=== PATIENT | female | born 1995 | race Hispanic/Latino ===

== ENCOUNTER 2020-05-07 14:27 | Observation (INO) | payer BC ==
--- OUTSIDE RECORDS SUMMARY | 2020-05-07 14:32 | XMS REPORT | Continuity of Care Document ---
:1995 Author Organization [facility] t Address [address] [place] [address] Care Team Providers Name Role Phone Unavailable Unavailable Unavailable Payers Payer Name Policy Type Policy Number Effective Date Expiration Date S ource Problems This patient has no known problems. Allergies, Adverse Reactions, Alerts Allergy Allergy Status Severity Reaction(s) Onset Inactive Treating Comm ents Source Name Type Date Date Clinician nkda DA Active U [facility] 3-31 Clear 00:00: [address] Medications This patient has no known medications. Procedures This patient has no known procedures. Results Test Description Test Time Test Comments Results Result Comments Source GLUCOSE BEDSIDE TESTING 2020-01-14 11:16:00 Test Item Value Reference Range Interpretation Comme nts GLUCOSE BEDSIDE TESTING (test code = GLUBED) 249 mg/dL 70-110 H GLUCOSE BEDSIDE [id number] 08:07:00 Test Item Value Reference Range Interpretation Comments GLUCOSE BEDSIDE TESTING (test code 211 mg/dL 70-110 H = GLUBED) BASIC METABOLIC [id number] 07:41:00 Test Item Value Reference Range Interpretation Comments SODIUM (test code = NA) 139 mmol/L 134-147 N POTASSIUM (test code = 3.3 mmol/L 3.4-5.0 L K) CHLORIDE (test code = 110 mmol/L 100-108 H CL) CARBON DIOXIDE (test 21 mmol/L 21-32 N code = CO2) ANION GAP (test code = 8.0 GAP calc 4.0-15.0 N GAP) GLUCOSE (test code = 217 MG/DL 70-110 H GLU) BLOOD UREA NITROGEN 11 MG/DL 7-18 N (test code = BUN) GLOMERULAR FILTRATION >=60 max estimate >60 RATE (test code = GFR) estGFR CREATININE (test code = 0.4 MG/DL 0.6-1.0 L CREAT) CALCIUM (test code = CA) 8.4 MG/DL 8.5-10.1 L CBC W/AUTO [id number] 07:37:00 Test Item Value Reference Range Interpretation Comments WHITE BLOOD CELL (test code = 4.8 K/mm3 3.5-11.0 N WBC) RED BLOOD CELL (test code = RBC) 4.15 M/mm3 4.70-6.10 L HEMOGLOBIN (test code = HGB) 12.7 G/DL 10.4-14.9 N HEMATOCRIT (test code = HCT) 38.1 % 31.5-44.1 N MEAN CELL VOLUME (test code = 91.8 Fl 84.5-98.6 N MCV) MEAN CELL HGB (test code = MCH) 30.6 pg 27.0-34.2 N MEAN CELL HGB CONCETRATION (test 33.3 G/DL 31.5-34.0 N code = MCHC) RED CELL DISTRIBUTION WIDTH (test 12.3 SD 11.5-14.5 N code = RDW) PLATELET COUNT (test code = PLT) 140.0 K/mm3 150-450 L MEAN PLATELET VOLUME (test code = 12.00 fL 7.0-10.5 H MPV) NEUTROPHIL % (test code = NT%) 42.8 % 40-76 LYMPHOCYTE % (test code = LY%) 50.0 % 20.5-51.1 N MONOCYTE % (test code = MO%) 6.0 % 1.7-9.3 N EOSINOPHIL % (test code = EO%) 1.0 % 0.0-6.0 N BASOPHIL % (test code = BA%) 0.2 % 0.0-2.0 N NEUTROPHIL # (test code = NT#) 2.06 K/mm3 1.8-7.6 N LYMPHOCYTE # (test code = LY#) 2.4 K/mm3 0.6-3.2 N MONOCYTE # (test code = MO#) 0.3 K/mm3 0.3-1.1 N EOSINOPHIL # (test code = EO#) 0.1 K/mm3 0.0-0.4 N BASOPHIL # (test code = BA#) 0.0 K/mm3 0.0-0.1 N MANUAL DIFF REQUIRED (test code = NO DIFF/SCN CRITERIA MDIFF) GLUCOSE BEDSIDE [id number] 20:23:00 Test Item Value Reference Range Interpretation Comments GLUCOSE BEDSIDE TESTING (test code 280 mg/dL 70-110 H = GLUBED) GLUCOSE BEDSIDE [id number] 16:30:00 Test Item Value Reference Range Interpretation Comments GLUCOSE BEDSIDE TESTING (test code 255 mg/dL 70-110 H = GLUBED) GLUCOSE BEDSIDE [id number] 11:59:00 Test Item Value Reference Range Interpretation Comments GLUCOSE BEDSIDE TESTING (test code 281 mg/dL 70-110 H = GLUBED) BASIC METABOLIC [id number] 11:02:00 Test Item Value Reference Range Interpretation Comments SODIUM (test code = NA) 137 mmol/L 134-147 N POTASSIUM (test code = 3.4 mmol/L 3.4-5.0 N K) CHLORIDE (test code = 108 mmol/L 100-108 N CL) CARBON DIOXIDE (test 21 mmol/L 21-32 N code = CO2) ANION GAP (test code = 8.0 GAP calc 4.0-15.0 N GAP) GLUCOSE (test code = 355 MG/DL 70-110 H GLU) BLOOD UREA NITROGEN 10 MG/DL 7-18 N (test code = BUN) GLOMERULAR FILTRATION >=60 max estimate >60 RATE (test code = GFR) estGFR CREATININE (test code = 0.5 MG/DL 0.6-1.0 L CREAT) CALCIUM (test code = CA) 7.9 MG/DL 8.5-10.1 L GLUCOSE BEDSIDE [id number] 08:07:00 Test Item Value Reference Range Interpretation Comments GLUCOSE BEDSIDE TESTING (test code 236 mg/dL 70-110 H = GLUBED) GLUCOSE BEDSIDE [id number] 01:06:00 Test Item Value Reference Range Interpretation Comments GLUCOSE BEDSIDE TESTING (test code 298 mg/dL 70-110 H = GLUBED) GLYCOSYLATED HEMOGLOBIN [id number] 01:00:00 Test Item Value Reference Range Interpretation Comments GLYCOSYLATED HEMOGLOBIN (HA1C) > 14.0 % A1C 0.0-5.7 H (test code = GLYHGB) ESTIMATED AVERAGE GLUCOSE (test 355 MG/DLest code = EAG) COMPREHENSIVE METABOLIC [id number] 00:39:00 Test Item Value Reference Range Interpretation Comments SODIUM (test code = NA) 137 mmol/L 134-147 N POTASSIUM (test code = 3.5 mmol/L 3.4-5.0 N K) CHLORIDE (test code = 104 mmol/L 100-108 N CL) CARBON DIOXIDE (test 19 mmol/L 21-32 L code = CO2) ANION GAP (test code = 14.0 GAP calc 4.0-15.0 N GAP) GLUCOSE (test code = 297 MG/DL 70-110 H GLU) BLOOD UREA NITROGEN 9 MG/DL 7-18 N (test code = BUN) GLOMERULAR FILTRATION >=60 max estimate >60 RATE (test code = GFR) estGFR CREATININE (test code = 0.7 MG/DL 0.6-1.0 N CREAT) TOTAL PROTEIN (test code 6.4 G/DL 6.4-8.2 N = PROT) ALBUMIN (test code = 3.3 G/DL 3.4-5.0 L ALB) GLOBULIN (test code = 3.1 GM/dL GLOB) ALBUMIN/GLOBULIN RATIO 1.1 RATIO 1.2-2.2 L (test code = A/G) CALCIUM (test code = CA) 8.0 MG/DL 8.5-10.1 L BILIRUBIN TOTAL (test 0.30 MG/DL 0.2-1.2 N code = BILT) SGOT/AST (test code = 21 Unit/L 15-37 N AST) SGPT/ALT (test code = 21 Unit/L 12-78 N ALT) ALKALINE PHOSPHATASE 115 Unit/L 45-117 N TOTAL (test code = ALKP) [id number] 00:39:00 Test Item Value Reference Range Interpretation Comments PHOSPHOROUS (test code = PHOS) 2.4 MG/DL 2.5-4.9 L [id number] 00:39:00 Test Item Value Reference Range Interpretation Comments MAGNESIUM (test code = MAG) 1.9 MG/DL 1.8-2.4 N DRUGS OF ABUSE SCREEN [id number] 00:26:00 Test Item Value Reference Range Interpretation Comments URN COCAINE (test code = NEGATIVE SCcutoff <300 NG/ML COCAURN) URN CANNABINOIDS (test code NEGATIVE SCcutoff <50 NG/ML = CANNABURN) URN AMPHETAMINE (test code NEGATIVE SCcutoff <1000 NG/ML = AMPHETURN) URN BARBITURATE (test code NEGATIVE SCcutoff <200 NG/ML = BARBITURN) URN BENZODIAZEPINE (test NEGATIVE SCcutoff <200 NG/ML code = BENZOURN) URN OPIATES (test code = NEGATIVE SCcutoff <2000 NG/ML OPIATURN) URN PHENCYCLIDINE (PCP) NEGATIVE SCcutoff <25 NG/ML (test code = PHENCURN) URN METHADONE (test code = NEGATIVE SCcutoff <300 NG/ML METHAURN) CBC W/AUTO [id number] 00:12:00 Test Item Value Reference Range Interpretation Comments WHITE BLOOD CELL (test code = 9.0 K/mm3 3.5-11.0 N WBC) RED BLOOD CELL (test code = RBC) 4.21 M/mm3 4.70-6.10 L HEMOGLOBIN (test code = HGB) 13.1 G/DL 10.4-14.9 N HEMATOCRIT (test code = HCT) 37.6 % 31.5-44.1 N MEAN CELL VOLUME (test code = 89.3 Fl 84.5-98.6 N MCV) MEAN CELL HGB (test code = MCH) 31.1 pg 27.0-34.2 N MEAN CELL HGB CONCETRATION (test 34.8 G/DL 31.5-34.0 H code = MCHC) RED CELL DISTRIBUTION WIDTH (test 11.6 SD 11.5-14.5 N code = RDW) PLATELET COUNT (test code = PLT) 184.0 K/mm3 150-450 N MEAN PLATELET VOLUME (test code = 11.50 fL 7.0-10.5 H MPV) NEUTROPHIL % (test code = NT%) 70.4 % 40-76 N LYMPHOCYTE % (test code = LY%) 23.7 % 20.5-51.1 N MONOCYTE % (test code = MO%) 5.5 % 1.7-9.3 N EOSINOPHIL % (test code = EO%) 0.2 % 0.0-6.0 N BASOPHIL % (test code = BA%) 0.2 % 0.0-2.0 N NEUTROPHIL # (test code = NT#) 6.32 K/mm3 1.8-7.6 N LYMPHOCYTE # (test code = LY#) 2.1 K/mm3 0.6-3.2 N MONOCYTE # (test code = MO#) 0.5 K/mm3 0.3-1.1 N EOSINOPHIL # (test code = EO#) 0.0 K/mm3 0.0-0.4 N BASOPHIL # (test code = BA#) 0.0 K/mm3 0.0-0.1 N MANUAL DIFF REQUIRED (test code = NO DIFF/SCN CRITERIA MDIFF)
[2020-05-07] MEDS ORDERED: MORPHINE 2 MG/ML SYR IV PRN (15:09)
[2020-05-07 15:18] VITALS: BMI 26.4
[2020-05-07] MEDS: metroNIDAZOLE 500 MG TABLET PO SCH (16:13)
[2020-05-07] MEDS: NA CHLORIDE 0.9% 1,000 ML IV SCH (16:14)
[2020-05-07] MEDS ORDERED: D50W 25 GM/50 ML SYRINGE/VIAL IV PRN (20:09)
[2020-05-07] MEDS ORDERED: GLUCAGON 1 MG/VIAL IM PRN (20:09)
[2020-05-07] MEDS: CIPROFLOXACIN 400mg IV 400 MG/200 ML BAG IV SCH (20:54)
[2020-05-07] MEDS: INSULIN -REGULAR HUMAN 50 UNIT/0.5 ML ML SQ SCH (20:54)
--- NOTE | 2020-05-08 01:14 | P.CNS ---
Date of Consult: 05/08/20 Reason for Consult: Management of diabetes Requesting Physician: Neo Munoz Chief Complaint: Hyperglycemia History of Present Illness: 24-year-old woman with a history of insulin-dependent adult onset diabetes presented with a complaint of left breast abscess. Patient is admitted to the surgical service. Her blood sugar on the floor was elevated to 400. Hospitalist service is consulted to assist with management of her diabetes. Patient is on Lantus insulin regimen, 50 units daily, and NovoLog 15 units with meals. She missed her Lantus insulin does this morning. Her Blood sugar has currently decreased to 233. Patient is currently NPO for possible surgery in a.m. Allergies No Known Allergies Allergy (Verified 05/07/20 15:26) Home Medications: Dicloxacillin Sodium 1 cap PO Q6H 05/07/20 Insulin Aspart [Novolog Flexpen] 15 units SQ TIDWM 05/07/20 Insulin Glargine Human [Lantus*] 50 units SQ DAILY 05/07/20 Potassium Chloride 1 tab PO DAILY 05/07/20 - Past Medical/Surgical History Diabetic: Yes -: Diabetes -: I&D of inguinal abscess - Family History Mother Medical History: Diabetes - Social History Smoking Status: Never smoker Alcohol use: Yes CD- Drugs: No Caffeine use: Yes Place of Residence: Home Review of Systems Other: Except as documented, all other systems reviewed and negative. Physical Examination Temp Pulse Resp BP Pulse Ox 97.6 F 87 15 111/66 96 05/08/20 00:00 05/08/20 00:00 05/08/20 00:00 05/08/20 00:00 05/08/20 00:00 General: Alert, In no apparent distress, Oriented x3 Neck: Supple, JVD not distended Respiratory: Clear to auscultation bilaterally, Normal air movement Cardiovascular: No edema, Regular rate/rhythm, Normal S1 S2 Gastrointestinal: Normal bowel sounds, Soft and benign, No tenderness Musculoskeletal: No swelling, No erythema Integumentary: No rashes, Other (Abscess left lower outer quadrant of areolar) Neurological: Normal speech, Normal strength at 5/5 x4 extr, Cranial nerves 3-12 intact Laboratory Data (last 24 hrs) 05/07/20 : Sodium Cancelled, Potassium Cancelled, BUN Cancelled, Creatinine Cancelled, Glucose Cancelled 05/07/20 19:54: Glucose 483 H* - Problems (1) Diabetes 1.5, managed as type 1 Current Visit: Yes Status: Acute (2) Breast abscess Current Visit: Yes Status: Acute Conclusions/Impression: Would recommend adding IV vancomycin to her antibiotics given recent history of inguinal abscess needing I&D. Hold Lantus insulin as patient is NPO for possible surgery in am. Manage blood sugar with insulin sliding scale. Blood glucose target of less than 200 for optimal infection control and healing.
[2020-05-08] MEDS ORDERED: VANCOMYCIN/NS 1 gm 1 GM/250 ML BAG IVPB SCH (01:30)
[2020-05-08] MEDS ORDERED: VANCOMYCIN 1 GM/VIAL ONE (01:36)
[2020-05-08] MEDS ORDERED: NA CHLORIDE 0.9% 250 ML ONE (01:38)
[2020-05-08] MEDS ORDERED: VANCOMYCIN 1 GM in NA CHLORIDE 0.9% 250 ML IVPB SCH ×2 (02:00→14:00)
[2020-05-08] MEDS: metroNIDAZOLE 500 MG TABLET PO SCH (03:40)
[2020-05-08 06:08] LABS: BUN Blood Urea Nitrogen 21 mg/dL (7-18); Bicarbonate 21 mmol/L (21-32); Glucose Level 225 mg/dL (74-106); Potassium 3.9 mmol/L (3.5-5.1); Sodium Level 140 mmol/L (136-145)
[2020-05-08] MEDS: INSULIN -REGULAR HUMAN 50 UNIT/0.5 ML ML SQ SCH ×2 (08:26→12:03)
[2020-05-08] MEDS: CIPROFLOXACIN 400mg IV 400 MG/200 ML BAG IV SCH (08:27)
[2020-05-08] MEDS: NA CHLORIDE 0.9% 1,000 ML IV SCH (08:40)
[2020-05-08] MEDS ORDERED: BUPIVACAINE 0.5% PF 10 ML VIAL ONE (09:59)
[2020-05-08] MEDS ORDERED: NA CHLORIDE 0.9% 1,000 ML ONE (10:01)
[2020-05-08] MEDS ORDERED: INSULIN -REGULAR HUMAN 50 UNIT/0.5 ML ML ONE (10:06)
[2020-05-08] MEDS ORDERED: LIDOCAINE 2% MPF 5 ML VIAL ONE (10:07)
[2020-05-08] MEDS ORDERED: propofoL 200 MG/20 ML VIAL IV ONE (10:07)
[2020-05-08] MEDS ORDERED: FENTANYL CITR 100 MCG/2 ML ONE (10:07)
[2020-05-08] MEDS ORDERED: dexAMETHasone 10 MG/ML VIAL ONE (10:09)
[2020-05-08] MEDS ORDERED: ONDANSETRON 4 MG/2 ML VIAL ONE (10:09)
[2020-05-08] MEDS ORDERED: KETOROLAC 30 MG/ML INJ ONE (10:09)
[2020-05-08] MEDS ORDERED: HYDROCODONE/APAP 5/325 MG TAB PO PRN (10:14)
--- NOTE | 2020-05-08 10:23 | P.BOP ---
Preoperative diagnosis: left breast cellulitis, abscess, uncontrolled diabetes Postoperative diagnosis: same Primary procedure: Incision and drainage of complex left breast abscess Estimated blood loss: <10cc Specimen: pus Findings: as above Anesthesia: General Drain(s): Other (wet to dry) Transferred to: Recovery Room Condition: Good
[2020-05-08 11:22] VITALS: TEMP 97.1; O2SAT 97
[2020-05-08 11:35] LABS: Absolute Lymphocytes (CBC) 1.1 K/uL (0.7-4.9); Basophils % 0.4 % (0-1.3); Hematocrit 39.4 % (36.0-45.0); Lymphocytes % 14.8 % (15.3-44.8); MPV 10.4 fL (7.6-11.3); RBC Red Blood Cell Count 4.37 M/uL (3.86-4.86)
--- NOTE | 2020-05-08 11:49 | OP ---
Date of Procedure: 05/08/2020 Surgeon: Neo Munoz MD Preoperative Diagnosis: Left breast cellulitis, abscess, diabetes. Postoperative Diagnosis: Left breast cellulitis, abscess, diabetes. Procedure: Incision and drainage of complex left breast abscess with breast incisional biopsy. Specimen: Pus and a breast biopsy. Anesthesia: General plus local. Indications: This is a case of a 24-year-old patient with a large abscess of the left breast. The p atient understands the need for incision and drainage with benefits and risks including, but not limi rodrigo to infection, bleeding, damage to adjacent structures and complication, nonhealing wound, UT, and . She understands this may not relieve any symptoms. She might need more than one surgical int ervention. She will require wound care. She signed a consent. Description Of Procedure: The patient was brought to the operating room, placed in supine position. Anesthesia was done without complication. A time-out was called. Left breast was prepped and drape d in sterile fashion followed by incision in the breast. Immediately a large amount of pus was obtai daniele in culture. Incision was extended until we have entire cavity visualized with all the loculation s were explored and opened. All the pus was removed. Hemostasis was obtained. Biopsy was done over the abscessed breast area and the area was packed with dry dressing after putting a local anesthetic. The patient tolerated the procedure well. The patient was sent to recovery in stable co ndition. KODY/JC Voice ID: [id number] Report ID: [id number]
--- NOTE | 2020-05-08 11:58 | HP ---
Date of Admission: 05/07/2020 Diagnosis: Left breast cellulitis abscess. History Of Present Illness: This is a case of a 24-year-old patient seen by Dr. Salter in her offi ce for the last few days with cellulitis of the left breast, but yesterday afternoon it seems to be w orse. Dr. Salter just called me to describe her situation. We explained the need for incision and drainage, so orders for admission and she came last night to the hospital and was admitted to my ser vice for a cellulitis of the left breast and also abscess need for surgery. At the same time, we fin d out that her glucose was 483, so we trying to work her diabetes too. She does remember any trauma or does remember any masses there before. Denies any dysuria, hematochezia, melena. Denies any rece nt traveling out of the country. Denies any family member sick at home. Denies any shortness of manish ath. Denies any chest pain. Denies any fever. Review of Systems: Ten points otherwise unremarkable. Physical Examination: General: The patient is awake and alert. HEENT: Pupils are equal and reactive, anicteric. Neck: Supple. Chest: Clear. Abdomen: Soft and depressible. Breast: The patient has a left breast inner upper and inner lower area of cellulitis with fluctuance presence and large abscess that cover about half of the breast. Tenderness over the area. Pelvis: Stable. Genitalia: Fair. Rectal: Deferred. Extremities: Good capillary refill. Neuro: Cranial nerves 2 through 12 grossly within normal limits. Laboratory Data: Blood work shows once again glucose 483, 487 at 1 point. Urine test nega tive. Assessment: A 24-year-old patient with a left breast abscess. The benefits, alternatives, and risks of incision and drainage fully explained to the patient which include, but not limited to infection, bleeding, damage to adjacent structures as complication, deformity, chronic pain, nonhealing wound, myocardial infarction, and even . She also understands this may not relieve any symptoms. She might need more than one surgical intervention. She understood and signed a consent. The patient wa s booked in OR. KODY/JC Voice ID: [id number]
--- NOTE | 2020-05-08 12:10 | DS ---
Diagnosis: Left breast cellulitis, abscess, and diabetes. Procedure: Incision and drainage of complex left breast abscess with breast biopsy. Disposition: Home if her CBC is okay enough to be discharged home, if she tolerates diet and if the medical doctor believes it is safe to go home since they are controlling her diabetes. She was advised once again to discuss this with her primary doctors and she comes with glu cose although may be somehow affected or exacerbated by the infection. You still have to make sure t hat she is doing the proper work at home and controlling that sugar. She understood. She was counse led about the importance of that also diet control. She will be sent home on Cipro 500 p.o. b.i.d. a nd Tylenol No.3 q.4 hours p.r.n. pain and normal saline. She has a family member who will be helping her with dressing changes. Activity: As tolerated. Plan: Follow up in my office in 1 week. KODY/JC Voice ID: [id number] Report ID: [id number]
[2020-05-08 14:41] VITALS: BP 117/71
== END 2020-05-08 14:41 | disposition home or self-care (01) ==
LOC: 2ND 14:27
PROVIDERS: ADMIT Surgery; ATTEND Surgery
PROC: 0H9U0ZX Drainage of Left Breast, Open Approach, Diagnostic (ICD-10-PCS; principal; 2020-05-07)
DX: N61.1 Abscess of the breast and nipple (principal); E13.65 Other specified diabetes mellitus with hyperglycemia; Z79.4 Long term (current) use of insulin; Z11.59 Encounter for screening for other viral diseases; Z83.3 Family history of diabetes mellitus
CPT/HCPCS: 87070; 85025; 80048; 36415; 82947 ×7; 87205 ×2; 81025; 88305; 87075; 87077; 87186; 19020; U0002; J2704; J3010; J3370 ×2; J1100; G0378 ×4; J7050 ×2; J7030 ×3; J2405; J0744 ×2; G0379; 88304

== ENCOUNTER 2022-04-07 17:52 | Inpatient (IN) | payer BC, SELFPAY ==
--- OUTSIDE RECORDS SUMMARY | 2022-04-07 17:59 | XMS REPORT | Continuity of Care Document ---
:1995 Author Organization [facility] t Address [address] [place] [address] Care Team Providers Name Role Phone [facility] Primary Care Physician Unavailab le Becky Attending Clinician Unavailable Doctor Unassigned, Name Attending Clinician Unavailable Alexi BAUMANN Attending Clinician Shivam REEVES Attending Clinician SHIVAM Attending Clinician Unavailable Becky Admitting Clinician Unavailable Shivam REEVES Admitting Clinician SHIVAM Admitting Clinician Unavailable KNOW Admitting Clinician Unavailable Payers Payer Name Policy Type Policy Number Effective Date Expiration Date S ource Problems Condition Condition Condition Status Onset Resolution Last Treating Co mments Source Name Details Category Date Date Treatment Clinician Date DKA, type DKA, type Disease Active 2020-10 Uni vers 1, not at 1, not at 1-12 ity of goal goal 00:00: [address] Diabetic Diabetic Disease Active 2020-10 Unive rs ketoacidos ketoacidos 1-11 it y of is is 00:00: [place] associated associated 00 Me dical with type with type Bran ch 2 diabetes 2 diabetes mellitus mellitus Allergies, Adverse Reactions, Alerts Allergy Allergy Status Severity Reaction(s) Onset Inactive Treating Comm ents Source Name Type Date Date Clinician katie SERRA Active U none [facility] 3-31 Clear 00:00: [place] 00 [facility] NO KNOWN Drug Active Univers ALLERGIE Class ity of [facility] Social History Social Habit Start Date Stop Date Quantity Comments Source History SDOH University o f Alcohol Frequency [place] M edical Branch History SDOH University o f Alcohol Std [place] Medical Drinks Branch History SDOH University o f Alcohol Binge [place] Medic al Branch Exposure to Not sure University of SARS-CoV-2 [facility] (event) Branch Tobacco use and 2021-08-25 2021-08-25 Current user Univers ity of exposure 00:00:00 00:00:00 [facility] Alcohol intake 2021-08-25 2021-08-25 Current drinker Unive rsity of 00:00:00 00:00:00 of alcohol [facility] (finding) [place] Alcohol Comment 2021-08-25 2021-08-25 social Universit y of 00:00:00 00:00:00 [facility] Sex Assigned At [birth year] Universit y of 00:00:00 00:00:00 [facility] Smoking Status Start Date Stop Date Source Former smoker 2021-08-25 00:00:00 2021-08-25 00:00:[address] [facility] Medications Ordered Filled Start Stop Current Ordering Indication Dosage Frequency Signature Comments Components Source Medication Medication Date Date Medication? Clinician (SIG) Name Name [facility] 2020-10- No [id number] 40meq 40 mEq, Univ ers (KLOR-CON 1-18 11-18 Oral, Q4H, ity of M20) tablet 14:00: 21:59 2 doses, [place] 40 mEq 00 :00 First dose Medical on [place] Branch 09/01/21 at 0800, Last dose on [place] 09/01/21 at 1200, Routine insulin 2020-10 Yes 30U inject 30 Unive rs aspart 1-18 Units ity of U-100 11:43: under the [place] (NOVOLOG 23 skin 3 Medical FLEXPEN (three) Branch U-100 times INSULIN) daily 100 unit/mL before (3 mL) meals. injection Insulin 2020-10 Yes 30U inject 30 Unive rs Glargine 1-18 Units ity of (LANTUS 11:43: under the [place] SOLOSTAR 23 skin 2 Medical U-100 (two) Branch INSULIN) times 100 unit/mL daily. (3 mL) injection insulin 2020-10 Yes 30U inject 30 Unive rs aspart 1-18 Units ity of U-100 11:43: under the [place] (NOVOLOG 23 skin 3 Medical FLEXPEN (three) Branch U-100 times INSULIN) daily 100 unit/mL before (3 mL) meals. injection Insulin 2020-10 Yes 30U inject 30 Unive rs Glargine 1-18 Units ity of (LANTUS 11:43: under the [place] SOLOSTAR 23 skin 2 Medical U-100 (two) Branch INSULIN) times 100 unit/mL daily. (3 mL) injection insulin 2020-10 Yes 30U inject 30 Unive rs aspart 1-18 Units ity of U-100 11:43: under the [place] (NOVOLOG 23 skin 3 Medical FLEXPEN (three) Branch U-100 times INSULIN) daily 100 unit/mL before (3 mL) meals. injection Insulin 2020-10 Yes 30U inject 30 Unive rs Glargine 1-18 Units ity of (LANTUS 11:43: under the [place] SOLOSTAR 23 skin 2 Medical U-100 (two) Branch INSULIN) times 100 unit/mL daily. (3 mL) injection atorvastati 2020-10- No [id number] 40mg Take 1 Univers n 40 mg 1-18 12-19 tablet by ity of tablet 00:00: 05:59 mouth at [place] 00 :00 bedtime Medical for 30 Branch days. atorvastati 2020-10- No [id number] 40mg Take 1 Univers n 40 mg 1-18 12-19 tablet by ity of tablet 00:00: 05:59 mouth at [place] 00 :00 bedtime Medical for 30 Branch days. atorvastati 2020-10- No [id number] 40mg Take 1 Univers n 40 mg 1-18 12-19 tablet by ity of tablet 00:00: 05:59 mouth at [place] 00 :00 bedtime Medical for 30 Branch days. potassium, 2020-10- No [id number] 2{packe 2 Packet, Univers sodium 10-31 t} Oral, QID, ity of phosphates 18:00: 18:00 1 dose, [place] (PHOS-NAK) 00 :00 First dose Med ical 280-160-250 on Sun mg packet 2 08/31/21 Packet at 1200, Routine KCL 2020-10- No [id number] 40meq 40 mEq, Univ ers (KLOR-CON 10-31 Oral, Q2H, ity of M20) tablet 14:45: 18:01 2 doses, [place] 40 mEq 00 :00 First dose Medical (after Branch last modificati on) on Sun08/31/21 at 0845, Last dose on Sun08/31/21 at 1000, Routine potassium 2020-10- No 10meq 10 mEq, IV Univers chloride in 10-30 Piggyback, i ty of water 10 17:00: 22:25 Q1H, 4 [place] mEq/100 mL 00 :00 doses, Medical RTU 10 mEq First dose Bra nch (after last reorder) on Sun08/30/21 at 1100, Last dose on Sun08/30/21 at 1400, Administer over 60 Minutes, 100 mL NaCl 0.9% 2020-10 Yes 10mL 10 mL, Univer s (NS) 10-30 Slow IV ity of injection 15:47: [place], PRN, [place] 10 mL 20 Starting Medical on Sun [place] 08/30/21 at 0947, Until Discontinu ed, Routine, line maintenanc e insulin 2020-10 Yes 40U 40 Units, Unive rs glargine 10-30 Subcutaneo ity o f (LANTUS 15:00: us, DAILY, [place] U-100) 00 First dose Medical injection (after Branch 40 Units last modificati on) on Sun08/30/21 at 0900, Until Discontinu ed, Routine KCL 2020-10- No 40meq 40 mEq, Univers (KLOR-CON 10-30 Oral, ity of M20) tablet 14:30: 14:14 ONCE, 1 [place] 40 mEq 00 :00 dose, On Medical [facility] at 0830, Routine potassium 2020-10- No 10meq 10 mEq, IV Univers chloride in 10-30 Piggyback, i ty of water 10 14:00: 16:31 Q1H, 2 [place] mEq/100 mL 00 :00 doses, Medical RTU 10 mEq First dose Bra nch on Sun08/30/21 at 0800, Last dose on Sun08/30/21 at 0900, Administer over 60 Minutes, 100 mL potassium 2020-10- No 10meq 10 mEq, IV Univers chloride in 10-30 Piggyback, i ty of water 10 04:00: 05:48 Q1H, 2 [place] mEq/100 mL 00 :00 doses, Medical RTU 10 mEq First dose [facility] (after last reorder) on Sun08/29/21 at 2200, Last dose on Sun08/29/21 at 2300, Administer over 60 Minutes, 100 mL Sliding 2020-10 Yes Subcutaneo Univ ers Scale 1-15 us, TID ity of Insulin - 23:00: MEALS+HS, [place] Lispro 00 First dose Medical (HumaLOG) + on [facility] 08/29/21 Testing at 1700, Until Discontinu ed, Routine insulin 2020-10 Yes 5U 5 Units, [facility] s lispro 15 Subcutaneo ity of (human) 23:00: us, TID [place] (HumaLOG 00 MEALS, Medical U-100) First dose Branch injection 5 (after Units last modificati on) on Sun08/29/21 at 1700, Until Discontinu ed, Routine KCL 2020-10- No 40meq 40 mEq, Univers (KLOR-CON 10-29 Oral, ity of M20) tablet 22:15: 22:19 ONCE, 1 [place] 40 mEq 00 :00 dose, On Medical [facility] 08/29/21 at 1615, Routine potassium 2020-10- No 10meq 10 mEq, IV Univers chloride in 10-29 Piggyback, i ty of water 10 21:15: 02:59 Q1H, 6 [place] mEq/100 mL 00 :00 doses, Medical RTU 10 mEq First dose Bra [facility] on Sun08/29/21 at 1515, Last dose on Sun08/29/21 at 2000, Administer over 60 Minutes, 100 mL ceFAZolin 2020-10 Yes 2000mg 2 g (2,000 Univers in dextrose 1-15 mg), IV ity o f (iso-os) 21:00: Piggyback, [place] (ANCEF) 2 00 Q8H ABX, Medica l gram/100 mL First dose Br anch Piggyback 2 on Sun g 08/29/21 at 1500, Until Discontinu ed, 100 mL
Reas on for Anti-Infec tive: Documented Infection< br>Documen rodrigo Infection Site: Blood<b r>Duration of Therapy: 14 days NaCl 0.9% 2020-10 Yes 10mL 10 mL, Univer s (NS) 1-15 Slow IV ity of injection 19:55: Push, PRN, [place] 10 mL 41 Starting Medical on [place] Branch 08/29/21 at 1355, Until Discontinu ed, Routine, line maintenanc e lidocaine 2020-10 Yes 5mL 5 mL, Univers 1% (PF) 15 Subcutaneo ity of (XYLOCAINE) 19:55: us, PRN, [place] injection 5 41 Starting Medi josette mL on Sun Branch 08/29/21 at 1355, Until Discontinu ed, Routine, Local anesthesia glucagon 2020-10 Yes 1mg 1 mg, Univers (GLUCAGEN 15 Intramuscu ity of DIAGNOSTIC 19:41: lar, PRN, [place] KIT) 58 Starting Medical injection 1 on Sun mg 08/29/21 at 1341, Until Discontinu ed, KACEY, Blood Glucose < or = 70 mg/dL and patient is unable to swallow or has mental changes. dextrose 50 2020-10 Yes 25mL 25 mL, Univ ers % in water 1-15 Slow IV ity of (D50W) 19:41: Push, PRN, [place] injection 58 Starting Medica l 25 mL on Sun Branch 08/29/21 at 1341, Until Discontinu ed, KACEY, Blood Glucose < or = 70 mg/dL and patient is unable to swallow or has mental status changes. Vancomycin 2020-10 No 15mg/kg 750 mg U nivers 750 mg in 10-2915 (rounded ity o f NaCl 0.9% 14:00: 19:56 from 862.5 [place] (NS) 250 mL 00 :00 mg = 15 Medic al VIAL-MATE mg/kg Branch ?57.5 kg), IV Piggyback, Q8H ABX, First dose (after last modificati on) on [facility] 08/29/21 at 0800, Until Discontinu ed, Administer over 60 Minutes, 250 mL
Reas on for Anti-Infec tive: Empiric Therapy for Suspected Infection< br>Empiric Therapy Site: Skin / Soft tissue
Duration of therapy: 7 days magnesium 2020-10 No 400mg 400 mg, Uni vers oxide 10-29 Oral, BID, ity of (MAG-OX 02:00: 01:59 3 doses, [place] 400) tablet 00 :00 First dose Me dical 400 mg on [place] Branch 08/28/21 at 2000, Last dose on [facility] 08/29/21 at 2000, Routine insulin 2020-10 No 3U 3 Units, Unive rs lispro 10-28 Subcutaneo ity of (human) 23:00: 19:36 us, TID [place] (HumaLOG 00 :42 MEALS, Medical U-100) First dose Branch injection 3 on [facility] 08/28/21 at 1700, Until Discontinu ed, Routine insulin 2020-10 Subcutaneo Uni vers lispro 10-28 us, AC+HS, ity of (human) 22:30: 19:37 First dose [place] (HumaLOG 00 :09 (after Medical U-100) last Branch injection modificati on) on [place] 08/28/21 at 1630, Until Discontinu ed, Routine NaCl 0.9% 2020-10 Yes 1000mL at 100 Univ ers (NS) IV 1-14 mL/hr, IV ity of infusion 20:00: Infusion, [place] 1,000 mL 00 CONTINUOUS Medic al , Starting Branch on [place] 08/28/21 at 1400, Until Discontinu ed, Routine insulin 2020-10 No 10U 10 Units, Univ ers glargine 10-28 Subcutaneo ity of (LANTUS 19:45: 18:44 us, ONCE, [place] U-100) 00 :00 1 dose, On Medical injection [place] Branch 10 Units 08/28/21 at 1345, Routine magnesium 2020-10- No 2g 2 g, IV Univ ers sulfate in 10-28 Piggyback, it y of water 2 15:15: 15:21 ONCE, 1 [place] gram/50 mL 00 :00 dose, On Medic al (4 %) [place] Branch infusion 2 08/28/21 g at 0915, Routine insulin 2020-10 No 30U 30 Units, Univ ers glargine 10-28 Subcutaneo ity of (LANTUS 15:00: 19:36 us, DAILY, [place] U-100) 00 :42 First dose Medical injection (after Branch 30 Units last modificati on) on [place] 08/28/21 at 0900, Until Discontinu ed, Routine potassium 2020-10 No 10meq 10 mEq, IV Univers chloride in 10-28 Piggyback, i ty of water 10 15:00: 19:30 Q1H, 4 [place] mEq/100 mL 00 :00 doses, Medical RTU 10 mEq First dose Bra nch (after last reorder) on [place] 08/28/21 at 0900, Last dose on [place] 08/28/21 at 1200, Administer over 60 Minutes, 100 mL NaCl 0.9% 2020-10- IV Univers (NS) 1000 10-28 Infusion, ity of mL + KCL 20 14:15: 13:32 at 125 [place] mEq 00 :00 mL/hr, Medical ONCE, 1 Branch dose, On [place] 08/28/21 at 0815, Routine KCL 2020-10- No 40meq 40 mEq, Univers (KLOR-CON 10-28 Oral, ity of M20) tablet 14:00: 13:32 ONCE, 1 [place] 40 mEq 00 :00 dose, On Medical [place] Branch 08/28/21 at 0800, Routine insulin 2020-10- No .3U/kg/ 17 Units Un clif glargine 10-28 d (rounded ity of (LANTUS 13:37: 14:09 from 17.25 [place] U-100) 23 :00 Units = Medical injection 0.3 Branch 17 Units Units/kg/d ay ?57.5 kg), Subcutaneo us, Q24H, First dose on [place] 08/28/21 at 0738, Until Discontinu ed, Routine KCL 2020-10- No 40meq 40 mEq, Univers (KLOR-CON 10-28 Oral, ity of M20) tablet 00:45: 00:17 ONCE, 1 [place] 40 mEq 00 :00 dose, On Medical [facility] 08/27/21 at 1845, Routine lactated 2020-10 No 1000mL at 100 Univ ers ringers IV 10-27 mL/hr, ity of infusion 21:00: 12:59 1,000 mL, [place] 1,000 mL 00 :06 IV Medical Infusion, Branch CONTINUOUS , Starting on [facility] 08/27/21 at 1500, Until [place] 08/28/21 at 0659, Routine KCL 2020-10- No 40meq 40 mEq, Univers (KLOR-CON 10-27 Oral, ity of M20) tablet 19:00: 18:27 ONCE, 1 [place] 40 mEq 00 :00 dose, On Medical [facility] 08/27/21 at 1300, Routine NaCl 0.9% 2020-10- No 1000mL at 999 Uni vers (NS) bolus 10-27 mL/hr, ity of infusion 18:30: 17:42 1,000 mL, [place] 1,000 mL 00 :00 IV Medical Infusion, Branch ONCE, 1 dose, On [facility] 08/27/21 at 1230, STAT ampicillin- 2020-10- No 3g 3 g, IV Un clif sulbactam 10-27 Piggyback, ity of (UNASYN) 3 17:45: 19:56 Q6H ABX, [place] g in NaCl 00 :00 First dose Medi josette 0.9% (NS) on [facility] Branch 100 mL 08/27/21 MINI-BAG at 1145, Until Discontinu ed, Administer over 30 Minutes, 100 mL
Reas on for Anti-Infec tive: Empiric Therapy for Suspected Infection< br>Empi cornelius Therapy Site: Skin / Soft tissue
Duration of therapy: 7 days KCL 2020-10- No 40meq 40 mEq, Univers (KLOR-CON 10-27 Oral, ity of M20) tablet 17:15: 16:24 ONCE, 1 [place] 40 mEq 00 :00 dose, On Medical [facility] Branch 08/27/21 at 1115, Routine Vancomycin 2020-10- No 15mg/kg 750 mg U nivers 750 mg in 10-27 (rounded ity o f NaCl 0.9% 16:45: 13:46 from 862.5 [place] (NS) 250 mL 00 :09 mg = 15 Medic al VIAL-MATE mg/kg Branch ?57.5 kg), IV Piggyback, Q12H ABX, First dose on [facility] 08/27/21 at 1045, Until Discontinu ed, Administer over 60 Minutes, 250 mL
Reas on for Anti-Infec tive: Empiric Therapy for Suspected Infection< br>Empiric Therapy Site: Skin / Soft tissue
Duration of therapy: 7 days NaCl 0.9% 2020-10- No 1000mL at 999 Uni vers (NS) bolus 10-27 mL/hr, ity of infusion 15:30: 14:39 1,000 mL, [place] 1,000 mL 00 :00 IV Medical Infusion, Branch ONCE, 1 dose, On [facility] 08/27/21 at 0930, STAT acetaminoph 2020-10 Yes 650mg 650 mg, Un clif en 10-27 Oral, ity of (TYLENOL) 14:25: Q6HPRN, [place] tablet 650 31 Starting Medic al mg on [facility] Branch 08/27/21 at 0825, Until Discontinu ed, Routine, Temp > 38.5 C Sliding 2020-10- No Subcutaneo Uni vers Scale 10-27 us, Q4H, ity of Insulin - 14:00: 20:48 First dose [place] lispro 00 :50 on [facility] Medical (humaLOG) + 08/27/21 Bran ch Fsbg at 0800, Testing Until Discontinu ed, Routine potassium 2020-10- No 10meq 10 mEq, IV Univers chloride in 10-27 Piggyback, i ty of water 10 14:00: 18:19 Q1H, 4 [place] mEq/100 mL 00 :00 doses, Medical RTU 10 mEq First dose Bra nch on Sun08/27/21 at 0800, Last dose on Sun08/27/21 at 1100, Administer over 60 Minutes, 100 mL potassium 2020-10 No 10meq 10 mEq, IV Univers chloride in 10-27 Piggyback, i ty of water 10 02:00: 06:00 Q1H, 4 [place] mEq/100 mL 00 :00 doses, Medical RTU 10 mEq First dose Bra nch (after last reorder) on Sun08/26/21 at 2000, Last dose on Sun08/26/21 at 2300, Administer over 60 Minutes, 100 mL NaCl 0.9% 2020-10- No 500mL at 999 Univ ers (NS) bolus 10-27 mL/hr, 500 it y of infusion 00:15: 23:30 mL, IV [place] 500 mL 00 :00 Infusion, Medical ONCE, 1 Branch dose, On Sun08/26/21 at 1815, STAT potassium 2020-10 No 10meq 10 mEq, IV Univers chloride in 10-26 Piggyback, i ty of water 10 21:00: 01:48 Q1H, 4 [place] mEq/100 mL 00 :00 doses, Medical RTU 10 mEq First dose Bra nch (after last reorder) on Sun08/26/21 at 1500, Last dose on Sun08/26/21 at 1800, Administer over 60 Minutes, 100 mL potassium 2020-10 No 10meq 10 mEq, IV Univers chloride in 10-26 Piggyback, i ty of water 10 14:00: 20:00 Q1H, 6 [place] mEq/100 mL 00 :00 doses, Medical RTU 10 mEq First dose Bra nch on Sun08/26/21 at 0815, Last dose on Sun08/26/21 at 1300, Administer over 60 Minutes, 100 mL ondansetron 2020-10 Yes 4mg 4 mg, Slow Univers (ZOFRAN 12 IV Push, ity of (PF)) 07:29: Q4HPRN, [place] injection 4 16 Starting Medi josette mg on [place] Branch 08/26/21 at 0129, Until Discontinu ed, Routine, Nausea and Vomiting (N/V), N/V unresponsi ve to Promethazi ne, N/V unresponsi ve to oral antiemetic s, N/V alternatin g with Promethazi ne, N/V recurrent or refractory after palonosetr on (Aloxi) NaCl 0.9% 2020-10- No 2000mL at 999 Uni vers (NS) IV 10-2612 mL/hr, IV ity of infusion 03:30: 02:53 Infusion, [place] 2,000 mL 00 :00 ONCE, 1 Medical dose, On Branch [place] 08/25/21 at 2130, Routine enoxaparin 2020-10 Yes 40mg 40 mg, Unive rs (LOVENOX) 10-26 Subcutaneo ity of injection 02:45: us, Q24H, [place] 40 mg 00 First dose Medical on [facility] Branch 08/25/21 at 2045, Until Discontinu ed, Routine potassium 2020-10- No 10meq 10 mEq, IV Univers chloride in 10-26 Piggyback, i ty of water 10 02:00: 04:00 Q1H, 2 [place] mEq/100 mL 00 :00 doses, Medical RTU 10 mEq First dose Bra nc on [place] 08/25/21 at 2000, Last dose on [place] 08/25/21 at 2100, Administer over 60 Minutes, 100 mL NaCl 0.45% 2020-10- No 1000mL Univ ers (1/2NS) 10-26 ity of 1000 mL + 01:45: 16:28 [place] KCL 20 mEq 00 :24 Medical Branch morpHINE 2020-10- No 4mg 4 mg, Slow Un clif injection 4 10-2616 IV Push, ity of mg 01:43: 00:51 Q4HPRN, [place] 29 :25 Starting Medical on [place] Branch 08/25/21 at 1943, Until 08/29/21 at 1851, Routine, Pain (scale 7-10) HYDROcodone 2020-10 Yes 1{tbl} 1 tablet, Univers -acetaminop 10-26 Oral, ity of hen (NORCO 01:43: Q6HPRN, [place] 5) 5-325 mg 18 Starting Medi josette tablet 1 on [facility] tablet 08/25/21 at 1943, Until Discontinu ed, Routine, Pain (scale 4-6) acetaminoph 2020-10 Yes 650mg 650 mg, Un clif en 10-26 Oral, ity of (TYLENOL) 01:43: Q6HPRN, [place] 160 mg/5 mL 08 Starting Medi josette oral liquid on [place] Branch 650 mg 08/25/21 at 1943, Until Discontinu ed, Routine, Pain (scale 1-3) D5W 0.45% 2020-10- No IV Univers NaCl 10-26 Infusion, ity of (1/2NS) 1 L 01:42: 16:27 at 200 [place] + KCL 20 48 :04 mL/hr, PRN Medic al mEq - SEE Branch INSTRUCTIO NS, Starting on [place] 08/25/21 at 1942, Until 08/27/21 at 1027, KACEY, Blood glucose control insulin 2020-10- No 0U/kg/h 0-0.3 Unive rs regular in 10-26 Units/kg/h it y of 0.9 % NaCl 01:40: 13:23 r ?54.4 kg [place] (MYXREDLIN) 18 :51 (0-16.32 Medi josette 100 mL/hr), IV Branch unit/100 mL Infusion, (1 unit/mL) TITRATE, RTU IV Parameters infusion in Admin. Instr., Follow DKA Insulin Rate Adjustment Protocol, Starting on [place] 08/25/21 at 1940
- Follow 'DKA Insulin Rate Adjustment Protocol' - Start insulin infusion at 0.1 units/kg /hr. When adjusting rate, do not increase rate above 0.3 units/kg/h our. - Hold insulin and NHO STAT if potassium is less than 3.3 mEq/L.&nbs p;- NHO STAT if blood glucose less than 100 mg/dL or greater than 600 mg/dL or if blood glucose not decreased by 50 mg/dL in the first hour of insulin infusion.& nbsp;- Once blood glucose is less than or equal to 200 mg/dL in patient with DKA or blood glucose is less than or equal to 300 mg/dL in patient with HHS, change to fluids with dextrose.& nbsp;&nbsp ; - If during insulin infusion and on dextrose fluids blood glucose is less than 150 mg/dL in DKA or less than 200 mg/dL in HHS, NHO for increase in dextrose provided in continuous fluids.&nb sp;- Once AGAP less than 12, blood glucose less than 200 mg/dL, TCO2 greater than 15 x 2 and patient ready to eat, NHO for SubQ glargine order two hours before stopping insulin infusion.& lt;br> Vital Signs Vital Name Observation Time Observation Value Comments Source Systolic blood 2021-09-01 17:00:00 111 mm[facility]Hg[facility]astolic blood 2021-09-01 17:00:00 75 mm[Hg] [facility] Heart rate 2021-09-01 17:00:00 97 /min [facility] Body temperature 2021-09-01 17:00:00 36.17 Masha [facility] Respiratory rate 2021-09-01 17:00:00 16 /min [facility] Oxygen saturation in 2021-09-01 17:00:00 99 /min [facility] Arterial blood by [facility] Pulse oximetry Branch Body weight 2021-08-27 10:00:00 57.471 kg [facility] BMI 2021-08-27 10:00:00 24.74 kg/m2 [facility] Body height 2021-08-26 00:43:00 152.4 cm [facility] Procedures Procedure Date / Time Performing Clinician Source Performed EXTERNAL PROVIDER RECORDS 2021-09-06 06:01:00 Doctor Unassigned, [facility] [place] [facility] POCT GLUCOSE (AUTOMATED) 2021-09-01 13:26:00 [facility] 2021-09-01 11:39:00 Bryan Alexandre [facility] MAGNESIUM 2021-09-01 11:39:00 [facility] HEPATIC FUNCTION PANEL 2021-09-01 11:39:00 Elizabeth Zelaya [facility] ([id number]) (ALB,[facility] T,BU/BC,ALT,AST,ALK PHOS) BASIC METABOLIC PANEL 2021-09-01 11:39:00 Bryan Alexandre [facility] (NA, K, CL, CO2, GLUCOSE, Medica l Branch BUN, CREATININE, CA) LIPID PANEL ([id number])(TOTAL 2021-09-01 11:39:00 GarciaElizabeth mosqueda [facility] CHOLESTEROL, Medical Branch TRIGLYCERIDES, HDL) POCT GLUCOSE (AUTOMATED) 2021-09-01 08:37:00 Megan Langley [facility] POCT GLUCOSE (AUTOMATED) 2021-09-01 04:58:00 Megan Langley [facility] vers[facility] POCT GLUCOSE (AUTOMATED) 2021-09-01 01:58:00 Megan Langley [facility] versity [facility] POCT GLUCOSE (AUTOMATED) 2021-08-31 22:56:00 Megan Langley versity of [facility] POCT GLUCOSE (AUTOMATED) 2021-08-31 17:42:00 Megan Langle[facility] ([facility]OMATED) 2021-08-31 13:30:00 Megan Langley [facility]ity [facility] MAGNESIUM 2021-08-31 10:27:00 Garcia [facility] RENAL PANEL 2021-08-31 10:27[facility] 2021-08-31 08:58:00 [facility] (AUTOMATED) 2021-08-31 05:36:00 Megan Langley [facility] POTASSIUM, URINE RANDOM 2021-08-31 04:07:00 Elizabeth Zelaya [facility] PROTEIN CREAT RATIO URINE 2021-08-31 04:07:00 [facility] ACUTE CARE ARTERIAL BLOOD 2021-08-31 03:45:00 [facility] POCT GLUCOSE (AUTOMATED) 2021-08-31 02:41:00 Megan Langley [facility] POCT GLUCOSE (AUTOMATED) 2021-08-30 23:46:00 Megan Langley [facility] BLOOD CULTURE SCREEN 2021-08-30 18:17:00 Megan Langley [facility] POCT GLUCOSE (AUTOMATED) 2021-08-30 18:16:00 Megan Langley [facility] BLOOD CULTURE SCREEN 2021-08-30 18:07:00 Megan Langley [facility] POCT GLUCOSE (AUTOMATED) 2021-08-30 13:55:00 Megan Langley [facility] POCT GLUCOSE (AUTOMATED) 2021-08-30 10:59:00 Megan Langley [facility] BASIC METABOLIC PANEL 2021-08-30 10:11:00 Megan Langley [facility] (NA, K, CL, CO2, GLUCOSE, Medica l Branch BUN, CREATININE, CA) CBC WITH DIFF 2021-08-30 10:11:00 Megan Langley [facility] POCT GLUCOSE (AUTOMATED) 2021-08-30 07:38:00 Megan Langley [facility] POCT GLUCOSE (AUTOMATED) 2021-08-30 03:58:00 Megan Langle[facility] [facility] POCT GLUCOSE (AUTOMATED) 2021-08-29 23:26:00 Megan Langley [facility] TRANSTHORACIC ECHO (TTE) 2021-08-29 20:33:00 Megan Langley [facility] MAGNESIUM 2021-08-29 20:22:00 Megan Langley [facility] BASIC METABOLIC PANEL 2021-08-29 20:22:00 Megan Langley [facility] (NA, K, CL, CO2, GLUCOSE, Medica l Branch BUN, CREATININE, CA) POCT GLUCOSE (AUTOMATED) 2021-08-29 17:06:00 Megan Langley [facility] POCT GLUCOSE (AUTOMATED) 2021-08-29 13:47:00 Megan Langley [facility] VANCOMYCIN TROUGH 2021-08-29 03:56:00 Eugenia Wick [facility] BLOOD CULTURE SCREEN 2021-08-29 03:55:00 Megan Langley [facility] POCT GLUCOSE (AUTOMATED) 2021-08-29 02:10:00 Megan Langley [facility] BLOOD CULTURE SCREEN 2021-08-28 23:54:00 Megan Langley [facility] BLOOD CULTURE WORKUP 2021-08-28 23:54:00 Megan Langley [facility] POCT GLUCOSE (AUTOMATED) 2021-08-28 22:21:00 Megan Langley [facility] POCT GLUCOSE (AUTOMATED) 2021-08-28 18:28:00 Megan Langley [facility] POCT GLUCOSE (AUTOMATED) 2021-08-28 13:42:00 Megan Langley [facility] MAGNESIUM 2021-08-28 11:01:00 Megan Langley [facility] BASIC METABOLIC PANEL 2021-08-28 11:01:00 Megan Langley [facility] (NA, K, CL, CO2, GLUCOSE, Medica l Branch BUN, CREATININE, CA) CBC WITH DIFF 2021-08-28 11:01:00 Megan Langley [facility] POCT GLUCOSE (AUTOMATED) 2021-08-28 10:39:00 Megan Langley [facility] POCT GLUCOSE (AUTOMATED) 2021-08-28 06:26:00 Megan Langley [facility] POCT GLUCOSE (AUTOMATED) 2021-08-28 01:41:00 Megan Langley [facility] BLOOD CULTURE SCREEN 2021-08-27 22:56:00 Megan Langley [facility] BLOOD CULTURE WORKUP 2021-08-27 22:56:00 Megan Langley [facility] BASIC METABOLIC PANEL 2021-08-27 22:54:00 Megan Langley [facility] (NA, K, CL, CO2, GLUCOSE, Medica l Branch BUN, CREATININE, CA) BLOOD CULTURE SCREEN 2021-08-27 22:53:00 Megan Langley [facility] BLOOD CULTURE WORKUP 2021-08-27 22:53:00 Megan Langley [facility] GRAM POSITIVE BLOOD 2021-08-27 22:53:00 [facility] PROBE-AEROBIC POCT GLUCOSE (AUTOMATED) 2021-08-27 21:47:00 Megan Langley [facility] URINE DRUG (IMMUNOASSAY) 2021-08-27 17:35:00 Megan Langley [facility] DRUG [facility] SCREEN URINALYSIS 2021-08-27 17:35:00 Megan Langley [facility] URINE CULTURE 2021-08-27 17:35:00 Megan Langley [facility] URINE DRUG (LCMSMS) - 2021-08-27 17:35:00 Megan Langley [facility] SYNTHETIC OPIATES PANEL [facility] POCT GLUCOSE (AUTOMATED) 2021-08-27 17:24:00 Megan Langley [facility] XR CHEST 1 VW 2021-08-27 15:56:50 Megan Langley [facility] POCT GLUCOSE (AUTOMATED) 2021-08-27 14:01:00 Megan Langley [facility] POCT GLUCOSE (AUTOMATED) 2021-08-27 13:07:00 Megan Langley [facility] POCT GLUCOSE (AUTOMATED) 2021-08-27 11:54:00 Megan Langley [facility] COVID-19 (ID NOW RAPID 2021-08-27 11:21:[facility] Branch LAB ONLY COVID 2021-08-27 11:21:00 [facility] INTERPRETATION [facility] POCT GLUCOSE (AUTOMATED) 2021-08-27 11:17:00 Megan Langley [facility] POCT GLUCOSE (AUTOMATED) 2021-08-27 10:10:00 Megan Langley [facility] THYROID STIMULATING 2021-08-27 10:08:00 Megan Langley [facility] HORMONE [facility] BASIC METABOLIC PANEL 2021-08-27 10:08:00 Megan Langley [facility] (NA, K, CL, CO2, GLUCOSE, Medica l Branch BUN, CREATININE, CA) POCT GLUCOSE (AUTOMATED) 2021-08-27 09:03:00 Megan Langley [facility] POCT GLUCOSE (AUTOMATED) 2021-08-27 08:33:00 Megan Langley [facility] BASIC METABOLIC PANEL 2021-08-27 08:05:00 Megan Langley [facility] (NA, K, CL, CO2, GLUCOSE, Medica l Branch BUN, CREATININE, CA) POCT GLUCOSE (AUTOMATED) 2021-08-27 07:14:00 [facility] POCT GLUCOSE (AUTOMATED) 2021-08-27 06:10:00 Megan Langley [facility] POCT GLUCOSE (AUTOMATED) 2021-08-27 04:56:00 [facility] POCT GLUCOSE (AUTOMATED) 2021-08-27 04:23:00 Megan Langley [facility] POCT GLUCOSE (AUTOMATED) 2021-08-27 03:24:00 Megan Langley [facility] BASIC METABOLIC PANEL 2021-08-27 02:39:00 Megan Langley [facility] (NA, K, CL, CO2, GLUCOSE, Medica l Branch BUN, CREATININE, CA) POCT GLUCOSE (AUTOMATED) 2021-08-27 01:53:00 Megan [facility]angle[facility] 2021-08-27 00:34:00 Megan Langley [facility] POCT GLUCOSE (AUTOMATED) 2021-08-26 23:16:00 Megan Langley [facility] BASIC METABOLIC PANEL 2021-08-26 22:21:00 Megan Langley [facility] (NA, K, CL, CO2, GLUCOSE, Medica l Branch BUN, CREATININE, CA) POCT GLUCOSE (AUTOMATED) 2021-08-26 21:59:00 [facility] POCT GLUCOSE (AUTOMATED) 2021-08-26 21:10:00 Megan Langley [facility] POCT GLUCOSE (AUTOMATED) 2021-08-26 19:49:00 [facility] POCT GLUCOSE (AUTOMATED) 2021-08-26 18:22:00 Megan Langley [facility] BASIC METABOLIC PANEL 2021-08-26 15:11:00 Megan Langley [facility] (NA, K, CL, CO2, GLUCOSE, Medica l Branch BUN, CREATININE, CA) POCT GLUCOSE (AUTOMATED) 2021-08-26 14:54:00 Megan Langley [facility] POCT GLUCOSE (AUTOMATED) 2021-08-26 13:25:00 Megan Langley [facility] BASIC METABOLIC PANEL 2021-08-26 12:37:00 Megan Langley [facility] (NA, K, CL, CO2, GLUCOSE, Medica l Branch BUN, CREATININE, CA) POCT GLUCOSE (AUTOMATED) 2021-08-26 12:28:00 Megan Langley [facility] POCT GLUCOSE (AUTOMATED) 2021-08-26 11:31:00 Megan Langley [facility] POCT GLUCOSE (AUTOMATED) 2021-08-26 10:03:00 Megan Langley [facility] POCT GLUCOSE (AUTOMATED) 2021-08-26 09:51:00 Megan Langley [facility] TEST, SERUM 2021-08-26 08:37:00 Megan Langley [facility] BASIC METABOLIC PANEL 2021-08-26 08:37:00 Megan Langley [facility] (NA, K, CL, CO2, GLUCOSE, Medica l Branch BUN, CREATININE, CA) POCT GLUCOSE (AUTOMATED) 2021-08-26 08:32:00 Megan Langley [facility] POCT GLUCOSE (AUTOMATED) 2021-08-26 07:20:00 Megan Langley [facility] POCT GLUCOSE (AUTOMATED) 2021-08-26 06:31:00 Megan Langley [facility] BASIC METABOLIC PANEL 2021-08-26 05:27:00 Megan Langley [facility] (NA, K, CL, CO2, GLUCOSE, Medica l Branch BUN, CREATININE, CA) POCT GLUCOSE (AUTOMATED) 2021-08-26 05:23:00 Megan Langley [facility] URINALYSIS 2021-08-26 04:44:00 Megan Langley [facility] URINE CULTURE 2021-08-26 04:44:00 Megan Langley [facility] POCT GLUCOSE (AUTOMATED) 2021-08-26 04:02:00 Megan Langley [facility] PHOSPHORUS 2021-08-26 02:40:00 Megan Langley [facility] MAGNESIUM 2021-08-26 02:40:[address] [facility] OSMOLALITY, SERUM OR 2021-08-26 02:40:00 Megan Langley [facility] PLASMA [facility] BETA HYDROXY-BUTYRATE 2021-08-26 02:40:00 Megan Langley [facility] BASIC METABOLIC PANEL 2021-08-26 02:40:00 Megan Langley [facility] (NA, K, CL, CO2, GLUCOSE, Medica l Branch BUN, CREATININE, CA) GLYCOSYLATED HEMOGLOBIN 2021-08-26 02:40:00 Megan Langley [facility] (A1C) [facility] ACUTE CARE ARTERIAL BLOOD 2021-08-26 02:39:00 [facility] POCT GLUCOSE (AUTOMATED) 2021-08-26 02:36:00 Megan Langley [facility] POCT GLUCOSE (AUTOMATED) 2021-08-26 00:08:00 Megan Langley [facility] Encounters Start End Encounter Admission Attending Care Care Encounter Source Date/Time Date/Time Type Type Clinicians Facility Department ID 2020-01-12 Inpatient EM Becky, HCAPM INTE [id number] [facility] 22:02:00 Musaddiq [id number] [facility] 2021-09-06 2021-09-06 Orders Doctor MARSHALL [id number] Univers 00:00:00 00:00:00 Only Unassigned, YRN [id number] ity of [place] [facility] 4.2.7.2.686 Liborio as [id number] [facility] 009 Branch 2021-09-02 2021-09-02 Transition NIR Truong [id number] Univers 00:00:00 00:00:00 of Care Gabyteodoro NORRIS [id number] [place] [id number] [facility] 403 Branch 2021-08-25 2021-09-01 Hospital MORGAN Langley [id number] Univers 17:58:00 11:40:00 Encounter Megan ROBBINS [id number] ity of [place] 4.2.7.2.686 [facility] [id number] [place] [id number] Branch 2021-08-25 2021-09-01 Inpatient Aleksandr LANGLEY MDALEKSANDRA BRIELLE [id number] Univers 17:58:00 11:40:00 MEGAN man [facility] 2020-01-13 2020-01-13 Outpatient LAWANDA Pena [id number] [facility] 08:07:00 08:07:00 Musaddiq [id number] [facility] Results Test Description Test Time Test Comments Results Result Comments Source VAGINAL PATHOGENS DNA PANEL 2022-04-07 14:09:49 Test Item Value Reference Range Interpretation Comme nts LIDIA SPECIES (test code = NEGATIVE NEGATIVE ) G. VAGINALIS (test code = POSITIVE NEGATIVE A ) T. VAGINALIS (test code = NEGATIVE NEGATIVE UNLESS OTHERWISE INDICATED, ) ALL TESTING PER FORMED ATCLINICAL PATHOLOGY [facility] [address] [place] [address] LABORATORY DIRE CTOR: RUDY HERRERA M.D. CLIA NUMBER [id number] [place]. [id number] ALBUMIN/CREATININE RATIO, URINE, [id number] 05:41:32 Test Item Value Reference Range Interpretation Comments CREATININE, URINE, 152.6 MG/DL NOT ESTAB RANDOM (test code = 2072) ALBUMIN, URINE, 12.4 MG/DL NOT ESTAB RANDOM (test code = 73742) CALC 81 MG/G <30 H Note: ALBUMIN/CREAT, RND Albumin/C reatinine ratio (test code = reference inter diane 65674) reflects ADA and NKF guidelines. UNLESS OTHERWIS E INDICATED, ALL TESTING PERFORMED ATCLI NICAL PATHOLOGY [facility] [address] [place] [address] 7875 4 LABORATORY DIR RANCHO: RUDY NEW M.D. CLIA NUMBER [id number] CAP ACCREDITATION N O. [id number] HEMOGLOBIN [id number] 05:16:30 Test Item Value Reference Range Interpretation Comments HEMOGLOBIN A1c (test 11.9 % 4.2-5.6 H [employer] DIABETES code = 01564) ASSOCIATION IDELINES FOR HGB A1C: PREDIABETES/INC REASED RISK . . . . . . . 5 .7-6.4% DIAGNOSIS O F DIABETES . . . . . . . . . >=6.5% WITH CO NFIRMATION OR APPROPRIATE SYMPTOMS NOTE: ASSAY MA Y BE AFFECTED BY HEMOGLOBINOPATH IES (SICKLE CELL ANEMIA, S-C DISEASE, OTHERS ) OR ARTIFICIALLY LO WERED BY DECREASED RED C ELL SURVIVAL (HEMOLYTIC ANEM IAS, BLOOD LOSS, ETC.) . CONSIDER ALTERNATE TESTI NG OR LABORATORY CONS ULTATION. COMPREHENSIVE METABOLIC [id number] 03:48:55 Test Item Value Reference Range Interpretation Comments GLUCOSE (test code = 91 MG/DL 70-99 2216) BUN (test code = 14 MG/DL 6-20 2207) CREATININE (test 0.46 MG/DL 0.60-1.30 L code = 2214) eGFR (2020 CKD-EPI) 134 >60 (test code = 76936) ML/MIN/1.73 CALC BUN/CREAT (test 30 RATIO 6-28 H code = 2235) SODIUM (test code = 143 MEQ/L 978-830 0686) POTASSIUM (test code 3.2 MEQ/L 3.5-5.4 L = 2227) CHLORIDE (test code 100 MEQ/L 95-107 = 2215) CARBON DIOXIDE (test 25 MEQ/L 19-31 code = 2206) CALCIUM (test code = 9.8 MG/DL 8.5-10.5 2208) PROTEIN, TOTAL (test 7.5 G/DL 6.1-8.3 code = 2229) ALBUMIN (test code = 4.4 G/DL 3.5-5.2 2200) CALC GLOBULIN (test 3.1 G/DL 1.9-3.7 code = 2240) CALC A/G RATIO (test 1.4 RATIO 1.0-2.6 code = 2234) BILIRUBIN, TOTAL 0.3 MG/DL See_Comment [Automated message] (test code = 2207) The syste m which generated this result transmit rodrigo reference range : <=1.2. The refe rence range was not u sed to interpret th is result as normal/abnormal . ALKALINE PHOSPHATASE 109 U/L 40-112 (test code = 2204) AST (test code = 24 U/L 9-40 2217) ALT (test code = 28 U/L 5-40 2218) LIPID [id number] 03:48:55 Test Item Value Reference Range Interpretation Comments CHOLESTEROL (test 291 MG/DL <200 H code = 2210) TRIGLYCERIDES (test 145 MG/DL <150 code = 2232) HDL CHOLESTEROL (test 65 MG/DL >39 code = 2220) CALC LDL CHOL (test 196 MG/DL <100 H NOTE: C ALCULATED LDL code = 2237) IS BASED ON CLAYTON-SANDERS METHOD WHICHINCLUDES ADJUSTABLE TRIGLYCERIDE:VL DL CHOLESTEROL RAT IO.THIS FACTOR VARIES B Y MEASURED TRIGLY CERIDE AND NON-HDLCHOL ESTEROL CONCENTRATIONS WITH INCREASED CALCU LATED LDL SEENIN HIGH ER TRIGLYCERIDE OR LOWER NON-HDL SPECIME NS. FOR MOREINFORMATION , SEE CLIENT ANNOUNCE MENT AT [email or web address] RISK RATIO LDL/HDL 3.02 RATIO <3.22 (test code = 2238) BLOOD CULTURE [id number] 15:35:07 Test Item Value Reference Range Interpretation Comments Blood Culture Staphylococcus [place] Workup (test aureus morphologically code = 600-7) consistent wit h organism aboveF or susceptibility results, refer to culture # - [id number] Gram stain Isolated from Gram positive cocci (test code = aerobic bottle Gram in aerob ic bottle 664-3) positive cocci [facility] [id number] 15:34:31 Test Item Value Reference Range Interpretation Comments Blood Culture-Aerobic Culture positive. No growth AA G miya positive (test code = 40527-4) See Blood cocci in aerobic Culture Workup bottle Previo us for additional preliminary information. verified result was Culture In Progress on 08/28/2021 at 2202 CSTPreviou s preliminary verified result was No growth a t 24 hours on 08/29/2021 at 1901 SPEECH CORRECTION ASSISTANT Blood No organisms No growth Previous Culture-Anaerobic isolated preliminar y (test code = 13700-8) verifi ed result was Culture In Progress on 08/28/2021 at 2202 CSTPreviou s preliminary verified result was No growth a t 24 hours on 08/29/2021 at 1901 SPEECH CORRECTION ASSISTANT Lab Interpretation Abnormal (test code = 33973-2) [facility])2021-09-01 13:54:48 Test Item Value Reference Range Interpretation Comments POCT GLU (test code = 4094641178) 304 mg/dL 70-110 H Lab Interpretation (test code = Abnormal 65183-9) [facility] Hospital[facility]IP[facility] PANEL (01103)(TOTAL CHOLESTEROL, TRIGLYCERIDES, HDL)2021-09-01 12:31:32 Test Item Value Reference Range Interpretation Comments CHOL (test code = 158 mg/dL 120-200 4262325846) HDL (test code = 22 mg/dL >50 L 3489095243) HDLC RATIO (test code = See_Comment H [Au tomated message] 1299269695) The system [email or web address] generated this result transmit rodrigo reference range : <=4.5. The refe rence range was not u sed to interpret th is result as normal/abnormal . TRIG (test code = 135 mg/dL 30-170 5774376911) LDL CHOL (test code = 109 mg/dL See_Comment [Auto mated message] 38429-2) The system [email or web address] generated this result transmit rodrigo reference range : <=160. The refe rence range was not u sed to interpret th is result as normal/abnormal . VLDL (test code = 27 mg/dL 5-60 5881342357) Lab Interpretation (test Abnormal code = 20629-1) [facility] (NA, K, CL, CO2, GLUCOSE, BUN, CREATININE, CA)2021-09-01 12:31:11 Test Item Value Reference Range Interpretation Comments NA (test code = 134 mmol/L 135-145 L 4152990859) K (test code = 3.4 mmol/L 3.5-5.0 L 0502037514) CL (test code = 99 mmol/L 98-108 3730512357) CO2 TOTAL (test code = 29 mmol/L 23-31 3463666749) AGAP (test code = 2-16 2094939932) BUN (test code = 6 mg/dL 7-23 L 8323392345) GLUCOSE (test code = 278 mg/dL 70-110 H 7017350503) CREATININE (test code = 0.36 mg/dL 0.50-1.04 L 1203511811) CALCIUM (test code = 8.6 mg/dL 8.6-10.6 8818846378) eGFR (test code = mL/min/1.73m2 7224104653) ALLISON (test code = ALLISON) Association of Glomerular Filtration Rate (GFR) and Staging of Kidney Disease* + --+ --+ ------+| GFR (mL/min/1.73 m2) ?| With Kidney Damage ?| ?Without Kidney Damage+ --------+ --------+ +| ?>90 ?| ?Stage one ?| ? Normal ?+ ---+ ---+ -------+| ?60-89 ?| ?Stage two ?| ? Decreased GFR ? + --+ --+ ------+| ?30-59 ?| ?Stage three ?| ? Stage three ? + --+ --+ ------+| ?15-29 ?| ?Stage four ? | ? Stage four ?+ ---+ ---+ -------+| ?<15 (or dialysis) ? ?| ?Stage five ? | ? Stage five ?+ ---+ ---+ -------+ *Each stage assumes the associated GFR level has been in effect for at least three months. ?Stages 1 to 5, with or without kidney disease, indicate chronic kidney disease. Notes: Determination of stages one and two (with eGFR >59mL/min/1.73 m2) requires estimation of kidney damage for at least three months as defined by structural or functional abnormalities of the kidney, manifested by either:Pathological abnormalities or Markers of kidney damage (including abnormalities in the composition of the blood or urine or abnormalities in imaging tests). Lab Interpretation Abnormal (test code = 74071-0) [facility]2021-[facility]-18 12:31:11 Test Item Value Reference Range Interpretation Comments MAGNESIUM (test code = 6813151929) 1.9 mg/dL 1.7-2.4 Lab Interpretation (test code = Normal 97082-5) [facility]2021-11-18 12:31:11 Test Item Value Reference Range Interpretation Comments PHOSPHORUS (test code = 0375906273) 4.4 mg/dL 2.5-5.0 Lab Interpretation (test code = Normal 20609-2) [facility] HospitalHepatic Function Panel (ALB, T.PRO, BILI T, BU/BC, ALT, AST, ALK [id number] 12:31:11 Test Item Value Reference Range Interpretation Comments TOTAL BILI (test code = 5605736184) 0.3 mg/dL 0.1-1.1 BILI UNCON (test code = 4015109154) 0.1 mg/dL 0.1-1.1 BILI CONJ (test code = 6433348682) 0.0 mg/dL 0.0-0.3 T PROTEIN (test code = 2885455428) 5.6 g/dL 6.3-8.2 L ALBUMIN (test code = 7878791562) 2.8 g/dL 3.5-5.0 L ALK PHOS (test code = 2553010394) 118 U/L 34-122 ALTv (test code = 1742-6) 19 U/L 5-35 AST(SGOT) (test code = 8159970121) 17 U/L 13-40 Lab Interpretation (test code = Abnormal 54769-5) [facility] GLUCOSE (AUTOMATED)2021-09-01 08:40:34 Test Item Value Reference Range Interpretation Comments POCT GLU (test code = 3765569743) 260 mg/dL 70-110 H Lab Interpretation (test code = Abnormal 91788-7) [facility] GLUCOSE (AUTOMATED)2021-09-01 05:02:19 Test Item Value Reference Range Interpretation Comments POCT GLU (test code = 1026178776) 261 mg/dL 70-110 H Lab Interpretation (test code = Abnormal 10656-7) [facility] GLUCOSE (AUTOMATED)2021-09-01 02:06:35 Test Item Value Reference Range Interpretation Comments POCT GLU (test code = 1707547759) 378 mg/dL 70-110 H Lab Interpretation (test code = Abnormal 50250-4) [facility] GLUCOSE (AUTOMATED)2021-08-31 23:03:44 Test Item Value Reference Range Interpretation Comments POCT GLU (test code = 1583307568) 305 mg/dL 70-110 H Lab Interpretation (test code = Abnormal 73131-6) [facility] GLUCOSE (AUTOMATED)2021-08-31 17:55:29 Test Item Value Reference Range Interpretation Comments POCT GLU (test code = 0235867932) 155 mg/dL 70-110 H Lab Interpretation (test code = Abnormal 03858-6) [facility] GLUCOSE (AUTOMATED)2021-08-31 13:35:36 Test Item Value Reference Range Interpretation Comments POCT GLU (test code = 7937471139) 240 mg/dL 70-110 H Lab Interpretation (test code = Abnormal 13442-1) [facility]2021-11-17 12:00:41 Test Item Value Reference Range Interpretation Comments MAGNESIUM (test code = 3930095984) 2.0 mg/dL 1.7-2.4 Lab Interpretation (test code = Normal 90068-9) [facility] HospitalRENAL [id number] 12:00:15 Test Item Value Reference Range Interpretation Comments ALBUMIN (test code = 2.7 g/dL 3.5-5.0 L 0750286745) CALCIUM (test code = 8.4 mg/dL 8.6-10.6 L 3048767295) CO2 TOTAL (test code = 31 mmol/L 23-31 9820233763) CREATININE (test code = 0.36 mg/dL 0.50-1.04 L 1169149365) GLUCOSE (test code = 209 mg/dL 70-110 H 4054382666) K (test code = 3.1 mmol/L 3.5-5.0 L 1690350232) NA (test code = 137 mmol/L 135-145 4652118662) BUN (test code = 4 mg/dL 7-23 L 7848974664) PHOSPHORUS (test code = 2.4 mg/dL 2.5-5.0 L 5270854531) eGFR (test code = mL/min/1.73m2 4441347554) ALLISON (test code = ALLISON) Association of Glomerular Filtration Rate (GFR) and Staging of Kidney Disease* + --+ --+ ------+| GFR (mL/min/1.73 m2) ?| With Kidney Damage ?| ?Without Kidney Damage+ --------+ --------+ +| ?>90 ?| ?Stage one ?| ? Normal ?+ ---+ ---+ -------+| ?60-89 ?| ?Stage two ?| ? Decreased GFR ? + --+ --+ ------+| ?30-59 ?| ?Stage three ?| ? Stage three ? + --+ --+ ------+| ?15-29 ?| ?Stage four ? | ? Stage four ?+ ---+ ---+ -------+| ?<15 (or dialysis) ? ?| ?Stage five ? | ? Stage five ?+ ---+ ---+ -------+ *Each stage assumes the associated GFR level has been in effect for at least three months. ?Stages 1 to 5, with or without kidney disease, indicate chronic kidney disease. Notes: Determination of stages one and two (with eGFR >59mL/min/1.73 m2) requires estimation of kidney damage for at least three months as defined by structural or functional abnormalities of the kidney, manifested by either:Pathological abnormalities or Markers of kidney damage (including abnormalities in the composition of the blood or urine or abnormalities in imaging tests). Lab Interpretation Abnormal (test code = 53153-4) [facility] GLUCOSE (AUTOMATED)2021-08-31 09:04:10 Test Item Value Reference Range Interpretation Comments POCT GLU (test code = 5089370277) 216 mg/dL 70-110 H Lab Interpretation (test code = Abnormal 85646-3) [facility] GLUCOSE (AUTOMATED)2021-08-31 05:44:28 Test Item Value Reference Range Interpretation Comments POCT GLU (test code = 5390742720) 266 mg/dL 70-110 H Lab Interpretation (test code = Abnormal 48303-3) [facility] GLUCOSE (AUTOMATED)2021-08-31 02:45:23 Test Item Value Reference Range Interpretation Comments POCT GLU (test code = 3652357853) 403 mg/dL 70-110 H Lab Interpretation (test code = Abnormal 44492-3) [facility] GLUCOSE (AUTOMATED)2021-08-31 00:00:16 Test Item Value Reference Range Interpretation Comments POCT GLU (test code = 0308347492) 392 mg/dL 70-110 H Lab Interpretation (test code = Abnormal 06257-2) [facility] GLUCOSE (AUTOMATED)2021-08-30 18:41:51 Test Item Value Reference Range Interpretation Comments POCT GLU (test code = 1268182902) 288 mg/dL 70-110 H Lab Interpretation (test code = Abnormal 46383-6) [facility] HospitalBLOOD CULTURE [id number] 17:43:06 Test Item Value Reference Range Interpretation Comments Blood Culture-Aerobic Culture positive. No growth AA P revious (test code = 67432-3) See Blood prelim inary Culture Workup verified resu lt for additional was Culture I n information. Progress on 08/27/2021 at 2102 SPEECH CORRECTION ASSISTANT Blood No organisms No growth Previous Culture-Anaerobic isolated preliminar y (test code = 49463-6) verifi ed result was Culture In Progress on 08/28/2021 at 0919 SPEECH CORRECTION ASSISTANT Lab Interpretation Abnormal (test code = 34700-2) [facility] CULTURE [id number] 17:43:06 Test Item Value Reference Range Interpretation Comments Blood Culture-Aerobic Culture positive. No growth AA P revious (test code = 19548-7) See Blood prelim inary Culture Workup verified resu lt for additional was Culture I n information. Progress on 08/27/2021 at 2102 SPEECH CORRECTION ASSISTANT Blood No organisms No growth Previous Culture-Anaerobic isolated preliminar y (test code = 42038-9) verifi ed result was Culture In Progress on 08/27/2021 at 2102 SPEECH CORRECTION ASSISTANT Lab Interpretation Abnormal (test code = 11282-9) [facility] CULTURE [id number] 17:43:06 Test Item Value Reference Range Interpretation Comments Blood Culture Staphylococcus [place] Workup (test aureus morphologically code = 600-7) consistent wit h organism aboveF or susceptibility results, refer to culture # - [id number] Gram stain Gram positive cocci Aerobic Bottle (test code = 664-3) [facility] WITH [id number] 14:07:31 Test Item Value Reference Range Interpretation Comments WBC (test code = See_Comment [Automated 4390-2) message] The system which generated this result transmitted reference range : 4.30 - 11.10 10*3/?L. The reference range was not used to interpret this result as normal/abnormal . RBC (test code = See_Comment L [Automated 349-8) message] The system which generated this result transmitted reference range : 3.93 - 5.25 10*6/?L. The reference range was not used to interpret this result as normal/abnormal . HGB (test code = 9.4 g/dL 11.6-15.0 L 718-7) HCT (test code = 27.5 % 35.7-45.2 L 4544-3) MCV (test code = 89.3 fL 80.6-95.5 787-2) MCH (test code = 30.5 pg 25.9-32.8 785-6) MCHC (test code = 34.2 g/dL 31.6-35.1 786-4) RDW-SD (test code = 40.9 fL 39.0-49.9 34460-3) RDW-CV (test code = 12.5 % 12.0-15.5 788-0) PLT (test code = See_Comment [Automated 777-3) message] The system which generated this result transmitted reference range : 166 - 358 10*3/?L. The reference range was not used to interpret this result as normal/abnormal . MPV (test code = 11.2 fL 9.5-12.9 30498-3) NRBC/100 WBC (test See_Comment [Automat ed code = 6890131439) message] The system which generated this result transmitted reference range : 0.0 - 10.0 /100 WBCs. The reference range was not used to interpret this result as normal/abnormal . NRBC x10^3 (test code <0.01 See_Comment [Auto mated = 8752707684) message] The system which generated this result transmitted reference range : 10*3/?L. The reference range was not used to interpret this result as normal/abnormal . GRAN MAT (NEUT) % 48.1 % (test code = 770-8) IMM GRAN % (test code 0.60 % = 3314023990) LYMPH % (test code = 36.2 % 736-9) MONO % (test code = 12.6 % 5905-5) EOS % (test code = 2.1 % 713-8) BASO % (test code = 0.4 % 706-2) GRAN MAT x10^3(ANC) 2.30 10*3/uL 1.88-7.09 (test code = 8691659927) IMM GRAN x10^3 (test 0.03 10*3/uL 0.00-0.06 code = 0119585030) LYMPH x10^3 (test 1.73 10*3/uL 1.32-3.29 code = 731-0) MONO x10^3 (test code 0.60 10*3/uL 0.33-0.92 = 742-7) EOS x10^3 (test code 0.10 10*3/uL 0.03-0.39 = 711-2) BASO x10^3 (test code <0.03 0.01-0.07 = 704-7) BANDS (test code = MARKED INCREASED A 5435313561) TOXIC CHANGES (test Present A code = 803-7) Lab Interpretation Abnormal (test code = 33426-8) [facility] 14:05:25 Test Item Value Reference Range Interpretation Comments POCT GLU (test code = 2254740841) 221 mg/dL 70-110 H Lab Interpretation (test code = Abnormal 51194-6) [facility] METABOLIC PANEL (NA, K, CL, CO2, GLUCOSE, BUN, CREATININE, CA)2021-08-30 13:10:02 Test Item Value Reference Range Interpretation Comments NA (test code = 136 mmol/L 135-145 5857313997) K (test code = 2.7 mmol/L 3.5-5.0 LL 2843883803) CL (test code = 103 mmol/L 98-108 6571972039) CO2 TOTAL (test code = 30 mmol/L 23-31 3662982437) AGAP (test code = 2-16 9218126353) BUN (test code = 4 mg/dL 7-23 L 3108478739) GLUCOSE (test code = 204 mg/dL 70-110 H 7274812448) CREATININE (test code = 0.40 mg/dL 0.50-1.04 L 0043034315) CALCIUM (test code = 8.2 mg/dL 8.6-10.6 L 1699773416) eGFR (test code = mL/min/1.73m2 3597350737) ALLISON (test code = ALLISON) Association of Glomerular Filtration Rate (GFR) and Staging of Kidney Disease* + --+ --+ ------+| GFR (mL/min/1.73 m2) ?| With Kidney Damage ?| ?Without Kidney Damage+ --------+ --------+ +| ?>90 ?| ?Stage one ?| ? Normal ?+ ---+ ---+ -------+| ?60-89 ?| ?Stage two ?| ? Decreased GFR ? + --+ --+ ------+| ?30-59 ?| ?Stage three ?| ? Stage three ? + --+ --+ ------+| ?15-29 ?| ?Stage four ? | ? Stage four ?+ ---+ ---+ -------+| ?<15 (or dialysis) ? ?| ?Stage five ? | ? Stage five ?+ ---+ ---+ -------+ *Each stage assumes the associated GFR level has been in effect for at least three months. ?Stages 1 to 5, with or without kidney disease, indicate chronic kidney disease. Notes: Determination of stages one and two (with eGFR >59mL/min/1.73 m2) requires estimation of kidney damage for at least three months as defined by structural or functional abnormalities of the kidney, manifested by either:Pathological abnormalities or Markers of kidney damage (including abnormalities in the composition of the blood or urine or abnormalities in imaging tests). Lab Interpretation Abnormal (test code = 03610-4) [facility] GLUCOSE (AUTOMATED)2021-08-30 12:05:35 Test Item Value Reference Range Interpretation Comments POCT GLU (test code = 7561716876) 169 mg/dL 70-110 H Lab Interpretation (test code = Abnormal 31572-9) [facility] GLUCOSE (AUTOMATED)2021-08-30 07:41:46 Test Item Value Reference Range Interpretation Comments POCT GLU (test code = 2247940169) 301 mg/dL 70-110 H Lab Interpretation (test code = Abnormal 71208-9) [facility] GLUCOSE (AUTOMATED)2021-08-30 04:01:29 Test Item Value Reference Range Interpretation Comments POCT GLU (test code = 0910983819) 306 mg/dL 70-110 H Lab Interpretation (test code = Abnormal 24950-9) [facility] GLUCOSE (AUTOMATED)2021-08-29 23:30:33 Test Item Value Reference Range Interpretation Comments POCT GLU (test code = 7182382694) 289 mg/dL 70-110 H Lab Interpretation (test code = Abnormal 18941-7) [facility] (NA, K, CL, CO2, GLUCOSE, BUN, CREATININE, CA)2021-08-29 21:04:39 Test Item Value Reference Range Interpretation Comments NA (test code = 133 mmol/L 135-145 L 4756302176) K (test code = 2.2 mmol/L 3.5-5.0 LL 7114657747) CL (test code = 101 mmol/L 98-108 6107031367) CO2 TOTAL (test code = 25 mmol/L 23-31 0529449090) AGAP (test code = 2-16 1890591209) BUN (test code = 4 mg/dL 7-23 L 9102791105) GLUCOSE (test code = 229 mg/dL 70-110 H 5197509885) CREATININE (test code = 0.40 mg/dL 0.50-1.04 L 9570919674) CALCIUM (test code = 8.2 mg/dL 8.6-10.6 L 0221227047) eGFR (test code = mL/min/1.73m2 5738983572) ALLISON (test code = ALLISON) Association of Glomerular Filtration Rate (GFR) and Staging of Kidney Disease* + --+ --+ ------+| GFR (mL/min/1.73 m2) ?| With Kidney Damage ?| ?Without Kidney Damage+ --------+ --------+ +| ?>90 ?| ?Stage one ?| ? Normal ?+ ---+ ---+ -------+| ?60-89 ?| ?Stage two ?| ? Decreased GFR ? + --+ --+ ------+| ?30-59 ?| ?Stage three ?| ? Stage three ? + --+ --+ ------+| ?15-29 ?| ?Stage four ? | ? Stage four ?+ ---+ ---+ -------+| ?<15 (or dialysis) ? ?| ?Stage five ? | ? Stage five ?+ ---+ ---+ -------+ *Each stage assumes the associated GFR level has been in effect for at least three months. ?Stages 1 to 5, with or without kidney disease, indicate chronic kidney disease. Notes: Determination of stages one and two (with eGFR >59mL/min/1.73 m2) requires estimation of kidney damage for at least three months as defined by structural or functional abnormalities of the kidney, manifested by either:Pathological abnormalities or Markers of kidney damage (including abnormalities in the composition of the blood or urine or abnormalities in imaging tests). Lab Interpretation Abnormal (test code = 37662-7) [facility] 20:48:23 Test Item Value Reference Range Interpretation Comments MAGNESIUM (test code = 8649237197) 2.2 mg/dL 1.7-2.4 Lab Interpretation (test code = Normal 08815-9) [facility] GLUCOSE (AUTOMATED)2021-08-29 17:16:26 Test Item Value Reference Range Interpretation Comments POCT GLU (test code = 4528460242) 247 mg/dL 70-110 H Lab Interpretation (test code = Abnormal 66991-4) [facility] GLUCOSE (AUTOMATED)2021-08-29 13:50:01 Test Item Value Reference Range Interpretation Comments POCT GLU (test code = 3666213883) 240 mg/dL 70-110 H Lab Interpretation (test code = Abnormal 56080-3) [facility] T[facility] Level - Please draw trough BEFORE the 4th dose scheduled at 2245, but no more than60 mins before the dose is due.2021-08-29 05:31:27 Test Item Value Reference Range Interpretation Comments VANCO TROUGH (test code <5.0 10.0-20.0 L = 6869686952) ALLISON (test code = ALLISON) Toxic Range: ?>20 ug/mL 15-20 ug/mL is recommended for severe infection or when Vancomycin SOFYA is greater than or equal to 2. Lab Interpretation (test Abnormal code = 53950-1) [facility] GLUCOSE (AUTOMATED)2021-08-29 03:32:40 Test Item Value Reference Range Interpretation Comments POCT GLU (test code = 272 mg/dL 70-110 H Notifi ed Provider 0514727551) Lab Interpretation (test Abnormal code = 89401-9) [facility]GRAM POSITIVE BLOOD PATHOGENS DNA [id number] 00:04:20 Test Item Value Reference Range Interpretation Comments Staphylococcus aureus Positive Negative, See A (test code = 45105-6) Comment/Narrativ e mecA (test code = Negative Negative, See 08685-8) Comment/Narrativ e ALLISON (test code = ALLISON) MSSA detected by DNA probe. ?See blood culture result for additional susceptibilityInformati on. Preferred therapies for MSSA ?bacteremia are nafcillin or cefazolin.Infectious Diseases consultation recommended. Please contact the Antimicrobial Stewardship Program with questions.ASP Pager: ?[phone] Testing included eleven identification and three resistance marker targets. See blood culture result for additional information. Testing included eleven identification and three resistancemarker targets. Lab Interpretation Abnormal (test code = 29514-0) [facility] GLUCOSE (AUTOMATED)2021-08-28 22:44:07 Test Item Value Reference Range Interpretation Comments POCT GLU (test code = 3922271207) 247 mg/dL 70-110 H Lab Interpretation (test code = Abnormal 89471-4) [facility] GLUCOSE (AUTOMATED)2021-08-28 19:11:25 Test Item Value Reference Range Interpretation Comments POCT GLU (test code = 9351006018) 218 mg/dL 70-110 H Lab Interpretation (test code = Abnormal 89878-4) [facility] GLUCOSE (AUTOMATED)2021-08-28 13:47:15 Test Item Value Reference Range Interpretation Comments POCT GLU (test code = 9797451579) 231 mg/dL 70-110 H Lab Interpretation (test code = Abnormal 23906-6) [facility] WITH [id number] 13:18:03 Test Item Value Reference Range Interpretation Comments WBC (test code = See_Comment [Automated 2090-2) message] The sy stem which generated this result transmitted reference range : 4.30 - 11.10 10*3/?L. The reference range was not used to interpret this result as normal/abnormal . RBC (test code = See_Comment L [Automated 999-8) message] The sy stem which generated this result transmitted reference range : 3.93 - 5.25 10*6/?L. The reference range was not used to interpret this result as normal/abnormal . HGB (test code = 11.4 g/dL 11.6-15.0 L 718-7) HCT (test code = 32.4 % 35.7-45.2 L 4544-3) MCV (test code = 90.0 fL 80.6-95.5 787-2) MCH (test code = 31.7 pg 25.9-32.8 785-6) MCHC (test code = 35.2 g/dL 31.6-35.1 H 786-4) RDW-SD (test code = 40.5 fL 39.0-49.9 88490-4) RDW-CV (test code = 12.3 % 12.0-15.5 788-0) PLT (test code = See_Comment L [Automated 777-3) message] The sy stem which generated this result transmitted reference range : 166 - 358 10*3/ ?L. The reference r luisa was not used to interpret this result as normal/abnormal . MPV (test code = 11.1 fL 9.5-12.9 67276-5) NRBC/100 WBC (test See_Comment [Automat ed code = 3748806909) message] The system which generated this result transmitted reference range : 0.0 - 10.0 /100 WBCs. The refer ence range was not u sed to interpret th is result as normal/abnormal . NRBC x10^3 (test code <0.01 See_Comment [Auto mated = 5006904906) message] The s ystem which generated this result transmitted reference range : 10*3/?L. The reference range was not used to interpret this result as normal/abnormal . SEG % (test code = 50 % 33-76 84666-2) BAND % (test code = 26 % 0-1 H 27952-3) LYMPH % (test code = 14 % 14-54 16691-0) MONO % (test code = 10 % 0-4 H 12749-6) ANC (test code = 6.12 10*3/uL 1.88-7.09 753-4) TOXIC CHANGES (test Present A code = 803-7) Lab Interpretation Abnormal (test code = 70208-2) [facility] METABOLIC PANEL (NA, K, CL, CO2, GLUCOSE, BUN, CREATININE, CA)2021-08-28 12:56:10 Test Item Value Reference Range Interpretation Comments NA (test code = 132 mmol/L 135-145 L 5094107280) K (test code = 2.8 mmol/L 3.5-5.0 LL 7750978991) CL (test code = 106 mmol/L 98-108 8992404418) CO2 TOTAL (test code = 14 mmol/L 23-31 L 4819580756) AGAP (test code = 2-16 6549874976) BUN (test code = 4 mg/dL 7-23 L 5359827370) GLUCOSE (test code = 257 mg/dL 70-110 H 1919510180) CREATININE (test code = 0.50 mg/dL 0.50-1.04 1757538384) CALCIUM (test code = 8.6 mg/dL 8.6-10.6 9918835800) eGFR (test code = mL/min/1.73m2 6693508107) ALLISON (test code = ALLISON) Association of Glomerular Filtration Rate (GFR) and Staging of Kidney Disease* + --+ --+ ------+| GFR (mL/min/1.73 m2) ?| With Kidney Damage ?| ?Without Kidney Damage+ --------+ --------+ +| ?>90 ?| ?Stage one ?| ? Normal ?+ ---+ ---+ -------+| ?60-89 ?| ?Stage two ?| ? Decreased GFR ? + --+ --+ ------+| ?30-59 ?| ?Stage three ?| ? Stage three ? + --+ --+ ------+| ?15-29 ?| ?Stage four ? | ? Stage four ?+ ---+ ---+ -------+| ?<15 (or dialysis) ? ?| ?Stage five ? | ? Stage five ?+ ---+ ---+ -------+ *Each stage assumes the associated GFR level has been in effect for at least three months. ?Stages 1 to 5, with or without kidney disease, indicate chronic kidney disease. Notes: Determination of stages one and two (with eGFR >59mL/min/1.73 m2) requires estimation of kidney damage for at least three months as defined by structural or functional abnormalities of the kidney, manifested by either:Pathological abnormalities or Markers of kidney damage (including abnormalities in the composition of the blood or urine or abnormalities in imaging tests). Lab Interpretation Abnormal (test code = 67171-2) [facility]21[facility] 12:48:21 Test Item Value Reference Range Interpretation Comments MAGNESIUM (test code = 4721677174) 1.6 mg/dL 1.7-2.4 L Lab Interpretation (test code = Abnormal 14358-2) [facility] GLUCOSE (AUTOMATED)2021-08-28 10:56:20 Test Item Value Reference Range Interpretation Comments POCT GLU (test code = 250 mg/dL 70-110 H Notifi ed Provider 2432403960) Lab Interpretation (test Abnormal code = 45647-2) [facility] GLUCOSE (AUTOMATED)2021-08-28 06:29:05 Test Item Value Reference Range Interpretation Comments POCT GLU (test code = 1140363332) 252 mg/dL 70-110 H Lab Interpretation (test code = Abnormal 01513-6) [facility] GLUCOSE (AUTOMATED)2021-08-28 02:37:36 Test Item Value Reference Range Interpretation Comments POCT GLU (test code = 268 mg/dL 70-110 H Notifi ed Provider [id number]) Lab Interpretation (test Abnormal code = 77432-7) [facility] METABOLIC PANEL (NA, K, CL, CO2, GLUCOSE, BUN, CREATININE, CA)2021-08-27 23:36:35 Test Item Value Reference Range Interpretation Comments NA (test code = 129 mmol/L 135-145 L 9227876070) K (test code = 3.2 mmol/L 3.5-5.0 L 6855766867) CL (test code = 109 mmol/L 98-108 H 5631707446) CO2 TOTAL (test code = 11 mmol/L 23-31 L 4144228726) AGAP (test code = 2-16 1250521639) BUN (test code = 3 mg/dL 7-23 L 8706133779) GLUCOSE (test code = 268 mg/dL 70-110 H 0986180847) CREATININE (test code = 0.44 mg/dL 0.50-1.04 L 4717669771) CALCIUM (test code = 8.4 mg/dL 8.6-10.6 L 8345466434) eGFR (test code = mL/min/1.73m2 5985230503) ALLISON (test code = ALLISON) Association of Glomerular Filtration Rate (GFR) and Staging of Kidney Disease* + --+ --+ ------+| GFR (mL/min/1.73 m2) ?| With Kidney Damage ?| ?Without Kidney Damage+ --------+ --------+ +| ?>90 ?| ?Stage one ?| ? Normal ?+ ---+ ---+ -------+| ?60-89 ?| ?Stage two ?| ? Decreased GFR ? + --+ --+ ------+| ?30-59 ?| ?Stage three ?| ? Stage three ? + --+ --+ ------+| ?15-29 ?| ?Stage four ? | ? Stage four ?+ ---+ ---+ -------+| ?<15 (or dialysis) ? ?| ?Stage five ? | ? Stage five ?+ ---+ ---+ -------+ *Each stage assumes the associated GFR level has been in effect for at least three months. ?Stages 1 to 5, with or without kidney disease, indicate chronic kidney disease. Notes: Determination of stages one and two (with eGFR >59mL/min/1.73 m2) requires estimation of kidney damage for at least three months as defined by structural or functional abnormalities of the kidney, manifested by either:Pathological abnormalities or Markers of kidney damage (including abnormalities in the composition of the blood or urine or abnormalities in imaging tests). Lab Interpretation Abnormal (test code = 36730-3) [facility] GLUCOSE (AUTOMATED)2021-08-27 21:51:16 Test Item Value Reference Range Interpretation Comments POCT GLU (test code = 3022623276) 281 mg/dL 70-110 H Lab Interpretation (test code = Abnormal 85627-2) [facility] [id number] 18:59:26 Test Item Value Reference Range Interpretation Comments TSH (test code = See_Comment [Automated message] 1908284333) The system [email or web address] generated this result transmitted ref erence range: 0.45 - 4 .70 mIU/L. The refe rence range was not u sed to interpret this result as normal/abnor mal. Lab Interpretation (test Normal code = 88142-7) [facility] GLUCOSE (AUTOMATED)2021-08-27 17:28:40 Test Item Value Reference Range Interpretation Comments POCT GLU (test code = 2133003286) 287 mg/dL 70-110 H Lab Interpretation (test code = Abnormal 51369-7) [facility] TEST, [id number] 15:14:01 Test Item Value Reference Range Interpretation Comments PREG SERUM (test code Negative = 6211817078) ALLISON (test code = ALLISON) Less than 10 IU/L. ?If low titer or ectopic is suspected, resubmit specimen in 48-72 hours. [facility] GLUCOSE (AUTOMATED)2021-08-27 14:04:59 Test Item Value Reference Range Interpretation Comments POCT GLU (test code = 0627262696) 134 mg/dL 70-110 H Lab Interpretation (test code = Abnormal 35985-6) [facility] GLUCOSE (AUTOMATED)2021-08-27 13:09:59 Test Item Value Reference Range Interpretation Comments POCT GLU (test code = 150 mg/dL 70-110 H Notifi ed Provider [id number]) Lab Interpretation (test Abnormal code = 59580-4) [facility] GLUCOSE (AUTOMATED)2021-08-27 12:29:29 Test Item Value Reference Range Interpretation Comments POCT GLU (test code = 1779271804) 167 mg/dL 70-110 H Lab Interpretation (test code = Abnormal 39473-8) [facility] GLUCOSE (AUTOMATED)2021-08-27 12:29:29 Test Item Value Reference Range Interpretation Comments POCT GLU (test code = 160 mg/dL 70-110 H Notifi ed Provider 6355311689) Lab Interpretation (test Abnormal code = 67442-0) [facility] GLUCOSE (AUTOMATED)2021-08-27 12:29:29 Test Item Value Reference Range Interpretation Comments POCT GLU (test code = 6798850359) 266 mg/dL 70-110 H Lab Interpretation (test code = Abnormal 66531-1) [facility] GLUCOSE (AUTOMATED)2021-08-27 12:29:29 Test Item Value Reference Range Interpretation Comments POCT GLU (test code = 4875472044) 224 mg/dL 70-110 H Lab Interpretation (test code = Abnormal 04602-1) [facility] Metabolic Panel (Na, K, Cl, CO2, Glucose, BUN, Creatinine, Ca)2021-08-27 11:42:11 Test Item Value Reference Range Interpretation Comments NA (test code = 129 mmol/L 135-145 L 2967410797) K (test code = 2.6 mmol/L 3.5-5.0 LL 9057980063) CL (test code = 108 mmol/L 98-108 1088228292) CO2 TOTAL (test code = 16 mmol/L 23-31 L 1257816142) AGAP (test code = 2-16 9540655109) BUN (test code = 3 mg/dL 7-23 L 8511160045) GLUCOSE (test code = 220 mg/dL 70-110 H 6736078815) CREATININE (test code = 0.47 mg/dL 0.50-1.04 L 7283341857) CALCIUM (test code = 9.0 mg/dL 8.6-10.6 0869191521) eGFR (test code = mL/min/1.73m2 5594838191) ALLISON (test code = ALLISON) Association of Glomerular Filtration Rate (GFR) and Staging of Kidney Disease* + --+ --+ ------+| GFR (mL/min/1.73 m2) ?| With Kidney Damage ?| ?Without Kidney Damage+ --------+ --------+ +| ?>90 ?| ?Stage one ?| ? Normal ?+ ---+ ---+ -------+| ?60-89 ?| ?Stage two ?| ? Decreased GFR ? + --+ --+ ------+| ?30-59 ?| ?Stage three ?| ? Stage three ? + --+ --+ ------+| ?15-29 ?| ?Stage four ? | ? Stage four ?+ ---+ ---+ -------+| ?<15 (or dialysis) ? ?| ?Stage five ? | ? Stage five ?+ ---+ ---+ -------+ *Each stage assumes the associated GFR level has been in effect for at least three months. ?Stages 1 to 5, with or without kidney disease, indicate chronic kidney disease. Notes: Determination of stages one and two (with eGFR >59mL/min/1.73 m2) requires estimation of kidney damage for at least three months as defined by structural or functional abnormalities of the kidney, manifested by either:Pathological abnormalities or Markers of kidney damage (including abnormalities in the composition of the blood or urine or abnormalities in imaging tests). Lab Interpretation Abnormal (test code = 20710-5) [facility] Metabolic Panel (Na, K, Cl, CO2, Glucose, BUN, Creatinine, Ca)2021-08-27 11:41:16 Test Item Value Reference Range Interpretation Comments NA (test code = 126 mmol/L 135-145 L 2184711797) K (test code = 2.7 mmol/L 3.5-5.0 LL 3795165115) CL (test code = 106 mmol/L 98-108 7812317557) CO2 TOTAL (test code = 14 mmol/L 23-31 L 7377501179) AGAP (test code = 2-16 7134504733) BUN (test code = 3 mg/dL 7-23 L 2454333659) GLUCOSE (test code = 178 mg/dL 70-110 H 5036497911) CREATININE (test code = 0.45 mg/dL 0.50-1.04 L 6597456720) CALCIUM (test code = 8.8 mg/dL 8.6-10.6 6981632103) eGFR (test code = mL/min/1.73m2 0589125733) ALLISON (test code = ALLISON) Association of Glomerular Filtration Rate (GFR) and Staging of Kidney Disease* + --+ --+ ------+| GFR (mL/min/1.73 m2) ?| With Kidney Damage ?| ?Without Kidney Damage+ --------+ --------+ +| ?>90 ?| ?Stage one ?| ? Normal ?+ ---+ ---+ -------+| ?60-89 ?| ?Stage two ?| ? Decreased GFR ? + --+ --+ ------+| ?30-59 ?| ?Stage three ?| ? Stage three ? + --+ --+ ------+| ?15-29 ?| ?Stage four ? | ? Stage four ?+ ---+ ---+ -------+| ?<15 (or dialysis) ? ?| ?Stage five ? | ? Stage five ?+ ---+ ---+ -------+ *Each stage assumes the associated GFR level has been in effect for at least three months. ?Stages 1 to 5, with or without kidney disease, indicate chronic kidney disease. Notes: Determination of stages one and two (with eGFR >59mL/min/1.73 m2) requires estimation of kidney damage for at least three months as defined by structural or functional abnormalities of the kidney, manifested by either:Pathological abnormalities or Markers of kidney damage (including abnormalities in the composition of the blood or urine or abnormalities in imaging tests). Lab Interpretation Abnormal (test code = 89425-7) [facility] [facility]21-08-27 11:27:22 Test Item Value Reference Range Interpretation Comments POCT GLU (test code = 5675599404) 167 mg/dL 70-110 H Lab Interpretation (test code = Abnormal 30182-6) [facility] GLUCOSE (AUTOMATED)2021-08-27 11:05:51 Test Item Value Reference Range Interpretation Comments POCT GLU (test code = 1555999914) 221 mg/dL 70-110 H Lab Interpretation (test code = Abnormal 37990-1) [facility] GLUCOSE (AUTOMATED)2021-08-27 09:06:03 Test Item Value Reference Range Interpretation Comments POCT GLU (test code = 198 mg/dL 70-110 H Notifi ed Provider [id number]) Lab Interpretation (test Abnormal code = 50742-1) [facility] GLUCOSE (AUTOMATED)2021-08-27 08:35:32 Test Item Value Reference Range Interpretation Comments POCT GLU (test code = 186 mg/dL 70-110 H Notifi ed Provider [id number]) Lab Interpretation (test Abnormal code = 47023-6) [facility] GLUCOSE (AUTOMATED)2021-08-27 07:17:13 Test Item Value Reference Range Interpretation Comments POCT GLU (test code = 170 mg/dL 70-110 H Notifi ed Provider [id number]) Lab Interpretation (test Abnormal code = 12532-5) [facility] GLUCOSE (AUTOMATED)2021-08-27 06:15:07 Test Item Value Reference Range Interpretation Comments POCT GLU (test code = 172 mg/dL 70-110 H Notifi ed Provider [id number]) Lab Interpretation (test Abnormal code = 11299-5) [facility] GLUCOSE (AUTOMATED)2021-08-27 04:59:04 Test Item Value Reference Range Interpretation Comments POCT GLU (test code = 226 mg/dL 70-110 H Notifi ed Provider [id number]) Lab Interpretation (test Abnormal code = 04226-9) [facility] GLUCOSE (AUTOMATED)2021-08-27 04:25:50 Test Item Value Reference Range Interpretation Comments POCT GLU (test code = 8532087092) 253 mg/dL 70-110 H Lab Interpretation (test code = Abnormal 20019-1) [facility] GLUCOSE (AUTOMATED)2021-08-27 04:25:50 Test Item Value Reference Range Interpretation Comments POCT GLU (test code = 224 mg/dL 70-110 H Notifi ed Provider [id number]) Lab Interpretation (test Abnormal code = 28747-0) [facility] Metabolic Panel (Na, K, Cl, CO2, Glucose, BUN, Creatinine, Ca)2021-08-27 03:50:21 Test Item Value Reference Range Interpretation Comments NA (test code = 129 mmol/L 135-145 L 9102100939) K (test code = 3.1 mmol/L 3.5-5.0 L 3305282845) CL (test code = 107 mmol/L 98-108 6400905744) CO2 TOTAL (test code = 12 mmol/L 23-31 L 6547351431) AGAP (test code = 2-16 0558325229) BUN (test code = 4 mg/dL 7-23 L 2945061578) GLUCOSE (test code = 233 mg/dL 70-110 H 3447237894) CREATININE (test code = 0.48 mg/dL 0.50-1.04 L 1705211436) CALCIUM (test code = 8.7 mg/dL 8.6-10.6 5730159748) eGFR (test code = mL/min/1.73m2 2985672650) ALLISON (test code = ALLISON) Association of Glomerular Filtration Rate (GFR) and Staging of Kidney Disease* + --+ --+ ------+| GFR (mL/min/1.73 m2) ?| With Kidney Damage ?| ?Without Kidney Damage+ --------+ --------+ +| ?>90 ?| ?Stage one ?| ? Normal ?+ ---+ ---+ -------+| ?60-89 ?| ?Stage two ?| ? Decreased GFR ? + --+ --+ ------+| ?30-59 ?| ?Stage three ?| ? Stage three ? + --+ --+ ------+| ?15-29 ?| ?Stage four ? | ? Stage four ?+ ---+ ---+ -------+| ?<15 (or dialysis) ? ?| ?Stage five ? | ? Stage five ?+ ---+ ---+ -------+ *Each stage assumes the associated GFR level has been in effect for at least three months. ?Stages 1 to 5, with or without kidney disease, indicate chronic kidney disease. Notes: Determination of stages one and two (with eGFR >59mL/min/1.73 m2) requires estimation of kidney damage for at least three months as defined by structural or functional abnormalities of the kidney, manifested by either:Pathological abnormalities or Markers of kidney damage (including abnormalities in the composition of the blood or urine or abnormalities in imaging tests). Lab Interpretation Abnormal (test code = 49225-7) [facility] 02:30:53 Test Item Value Reference Range Interpretation Comments POCT GLU (test code = 208 mg/dL 70-110 H Notifi ed Provider [id number]) Lab Interpretation (test Abnormal code = 80441-2) [facility] Metabolic Panel (Na, K, Cl, CO2, Glucose, BUN, Creatinine, Ca)2021-08-26 23:20:11 Test Item Value Reference Range Interpretation Comments NA (test code = 127 mmol/L 135-145 L 2327341681) K (test code = 3.3 mmol/L 3.5-5.0 L 0672262916) CL (test code = 107 mmol/L 98-108 6820027254) CO2 TOTAL (test code = 7 mmol/L 23-31 L 0692938755) AGAP (test code = 2-16 7108815972) BUN (test code = 5 mg/dL 7-23 L 1169021808) GLUCOSE (test code = 269 mg/dL 70-110 H 0501888104) CREATININE (test code = 0.50 mg/dL 0.50-1.04 7798060607) CALCIUM (test code = 9.2 mg/dL 8.6-10.6 5110932987) eGFR (test code = mL/min/1.73m2 5039922260) ALLISON (test code = ALLISON) Association of Glomerular Filtration Rate (GFR) and Staging of Kidney Disease* + --+ --+ ------+| GFR (mL/min/1.73 m2) ?| With Kidney Damage ?| ?Without Kidney Damage+ --------+ --------+ +| ?>90 ?| ?Stage one ?| ? Normal ?+ ---+ ---+ -------+| ?60-89 ?| ?Stage two ?| ? Decreased GFR ? + --+ --+ ------+| ?30-59 ?| ?Stage three ?| ? Stage three ? + --+ --+ ------+| ?15-29 ?| ?Stage four ? | ? Stage four ?+ ---+ ---+ -------+| ?<15 (or dialysis) ? ?| ?Stage five ? | ? Stage five ?+ ---+ ---+ -------+ *Each stage assumes the associated GFR level has been in effect for at least three months. ?Stages 1 to 5, with or without kidney disease, indicate chronic kidney disease. Notes: Determination of stages one and two (with eGFR >59mL/min/1.73 m2) requires estimation of kidney damage for at least three months as defined by structural or functional abnormalities of the kidney, manifested by either:Pathological abnormalities or Markers of kidney damage (including abnormalities in the composition of the blood or urine or abnormalities in imaging tests). Lab Interpretation Abnormal (test code = 53822-1) [facility] GLUCOSE (AUTOMATED)2021-08-26 21:13:01 Test Item Value Reference Range Interpretation Comments POCT GLU (test code = 8842026966) 309 mg/dL 70-110 H Lab Interpretation (test code = Abnormal 90646-6) [facility] GLUCOSE (AUTOMATED)2021-08-26 21:13:01 Test Item Value Reference Range Interpretation Comments POCT GLU (test code = 2231788247) 275 mg/dL 70-110 H Lab Interpretation (test code = Abnormal 71078-1) [facility] GLUCOSE (AUTOMATED)2021-08-26 18:25:20 Test Item Value Reference Range Interpretation Comments POCT GLU (test code = 9312869811) 315 mg/dL 70-110 H Lab Interpretation (test code = Abnormal 42337-0) [facility] Metabolic Panel (Na, K, Cl, CO2, Glucose, BUN, Creatinine, Ca)2021-08-26 15:50:51 Test Item Value Reference Range Interpretation Comments NA (test code = 131 mmol/L 135-145 L 3761184839) K (test code = 3.2 mmol/L 3.5-5.0 L 9915525144) CL (test code = 109 mmol/L 98-108 H 7090308828) CO2 TOTAL (test code = 12 mmol/L 23-31 L 5538863955) AGAP (test code = 2-16 3921928910) BUN (test code = 5 mg/dL 7-23 L 6757661115) GLUCOSE (test code = 174 mg/dL 70-110 H 6190231885) CREATININE (test code = 0.50 mg/dL 0.50-1.04 0164432026) CALCIUM (test code = 9.1 mg/dL 8.6-10.6 0915420137) eGFR (test code = mL/min/1.73m2 8608097329) ALLISON (test code = ALLISON) Association of Glomerular Filtration Rate (GFR) and Staging of Kidney Disease* + --+ --+ ------+| GFR (mL/min/1.73 m2) ?| With Kidney Damage ?| ?Without Kidney Damage+ --------+ --------+ +| ?>90 ?| ?Stage one ?| ? Normal ?+ ---+ ---+ -------+| ?60-89 ?| ?Stage two ?| ? Decreased GFR ? + --+ --+ ------+| ?30-59 ?| ?Stage three ?| ? Stage three ? + --+ --+ ------+| ?15-29 ?| ?Stage four ? | ? Stage four ?+ ---+ ---+ -------+| ?<15 (or dialysis) ? ?| ?Stage five ? | ? Stage five ?+ ---+ ---+ -------+ *Each stage assumes the associated GFR level has been in effect for at least three months. ?Stages 1 to 5, with or without kidney disease, indicate chronic kidney disease. Notes: Determination of stages one and two (with eGFR >59mL/min/1.73 m2) requires estimation of kidney damage for at least three months as defined by structural or functional abnormalities of the kidney, manifested by either:Pathological abnormalities or Markers of kidney damage (including abnormalities in the composition of the blood or urine or abnormalities in imaging tests). Lab Interpretation Abnormal (test code = 99477-5) [facility]2021-08-26 14:56:40 Test Item Value Reference Range Interpretation Comments POCT GLU (test code = 1132043361) 165 mg/dL 70-110 H Lab Interpretation (test code = Abnormal 23951-3) [facility] (Na, K, Cl, CO2, Glucose, BUN, Creatinine, Ca)2021-08-26 13:44:50 Test Item Value Reference Range Interpretation Comments NA (test code = 131 mmol/L 135-145 L 2355853351) K (test code = 2.5 mmol/L 3.5-5.0 LL 9143100129) CL (test code = 111 mmol/L 98-108 H 4636877522) CO2 TOTAL (test code = 12 mmol/L 23-31 L 0102784625) AGAP (test code = 2-16 5287518962) BUN (test code = 5 mg/dL 7-23 L 6062629174) GLUCOSE (test code = 285 mg/dL 70-110 H 3963614648) CREATININE (test code = 0.44 mg/dL 0.50-1.04 L 6770291103) CALCIUM (test code = 8.9 mg/dL 8.6-10.6 8382055388) eGFR (test code = mL/min/1.73m2 9432498732) ALLISON (test code = ALLISON) Association of Glomerular Filtration Rate (GFR) and Staging of Kidney Disease* + --+ --+ ------+| GFR (mL/min/1.73 m2) ?| With Kidney Damage ?| ?Without Kidney Damage+ --------+ --------+ +| ?>90 ?| ?Stage one ?| ? Normal ?+ ---+ ---+ -------+| ?60-89 ?| ?Stage two ?| ? Decreased GFR ? + --+ --+ ------+| ?30-59 ?| ?Stage three ?| ? Stage three ? + --+ --+ ------+| ?15-29 ?| ?Stage four ? | ? Stage four ?+ ---+ ---+ -------+| ?<15 (or dialysis) ? ?| ?Stage five ? | ? Stage five ?+ ---+ ---+ -------+ *Each stage assumes the associated GFR level has been in effect for at least three months. ?Stages 1 to 5, with or without kidney disease, indicate chronic kidney disease. Notes: Determination of stages one and two (with eGFR >59mL/min/1.73 m2) requires estimation of kidney damage for at least three months as defined by structural or functional abnormalities of the kidney, manifested by either:Pathological abnormalities or Markers of kidney damage (including abnormalities in the composition of the blood or urine or abnormalities in imaging tests). Lab Interpretation Abnormal (test code = 61289-2) [facility] GLUCOSE (AUTOMATED)2021-08-26 13:31:59 Test Item Value Reference Range Interpretation Comments POCT GLU (test code = 5057291828) 253 mg/dL 70-110 H Lab Interpretation (test code = Abnormal 18575-4) [facility] GLUCOSE (AUTOMATED)2021-08-26 13:31:59 Test Item Value Reference Range Interpretation Comments POCT GLU (test code = 0022531563) 215 mg/dL 70-110 H Lab Interpretation (test code = Abnormal 78231-5) [facility] GLUCOSE (AUTOMATED)2021-08-26 12:31:40 Test Item Value Reference Range Interpretation Comments POCT GLU (test code = 7771543002) 291 mg/dL 70-110 H Lab Interpretation (test code = Abnormal 85669-0) [facility] (Na, K, Cl, CO2, Glucose, BUN, Creatinine, Ca)2021-08-26 10:19:04 Test Item Value Reference Range Interpretation Comments NA (test code = 135 mmol/L 135-145 2642130424) K (test code = 3.4 mmol/L 3.5-5.0 L 1977303195) CL (test code = 113 mmol/L 98-108 H 4305589490) CO2 TOTAL (test code = 8 mmol/L 23-31 L 8323836891) AGAP (test code = 2-16 7675628029) BUN (test code = 6 mg/dL 7-23 L 0986095673) GLUCOSE (test code = 169 mg/dL 70-110 H 3817799528) CREATININE (test code = 0.50 mg/dL 0.50-1.04 6146638592) CALCIUM (test code = 8.6 mg/dL 8.6-10.6 6052126958) eGFR (test code = mL/min/1.73m2 8998529273) ALLISON (test code = ALLISON) Association of Glomerular Filtration Rate (GFR) and Staging of Kidney Disease* + --+ --+ ------+| GFR (mL/min/1.73 m2) ?| With Kidney Damage ?| ?Without Kidney Damage+ --------+ --------+ +| ?>90 ?| ?Stage one ?| ? Normal ?+ ---+ ---+ -------+| ?60-89 ?| ?Stage two ?| ? Decreased GFR ? + --+ --+ ------+| ?30-59 ?| ?Stage three ?| ? Stage three ? + --+ --+ ------+| ?15-29 ?| ?Stage four ? | ? Stage four ?+ ---+ ---+ -------+| ?<15 (or dialysis) ? ?| ?Stage five ? | ? Stage five ?+ ---+ ---+ -------+ *Each stage assumes the associated GFR level has been in effect for at least three months. ?Stages 1 to 5, with or without kidney disease, indicate chronic kidney disease. Notes: Determination of stages one and two (with eGFR >59mL/min/1.73 m2) requires estimation of kidney damage for at least three months as defined by structural or functional abnormalities of the kidney, manifested by either:Pathological abnormalities or Markers of kidney damage (including abnormalities in the composition of the blood or urine or abnormalities in imaging tests). Lab Interpretation Abnormal (test code = 71907-4) [facility] GLUCOSE (AUTOMATED)2021-08-26 10:07:14 Test Item Value Reference Range Interpretation Comments POCT GLU (test code = 1076498413) 221 mg/dL 70-110 H Lab Interpretation (test code = Abnormal 50541-7) [facility] GLUCOSE (AUTOMATED)2021-08-26 09:56:33 Test Item Value Reference Range Interpretation Comments POCT GLU (test code = 1533200077) 223 mg/dL 70-110 H Lab Interpretation (test code = Abnormal 81722-8) [facility] GLUCOSE (AUTOMATED)2021-08-26 08:40:29 Test Item Value Reference Range Interpretation Comments POCT GLU (test code = 4582043258) 165 mg/dL 70-110 H Lab Interpretation (test code = Abnormal 22705-1) [facility] HospitalBetahydroxy-Ivquoljy4858-99-45 08:10:27 Test Item Value Reference Range Interpretation Comments BOH (test code = 6.9 mmol/L 0885240942) ALLISON (test code = Normal Ranges: ? ? ALLISON) Nonfasting ? Less than 0.1 mmol/L ? ? Overnight Fast ? ? ? Less than 0.4 mmol/L ? ? Fasting (1-2 weeks) ?6-8 mmol/L Test developed and characteristics determined by [facility] Laboratory Services. [facility] HospitalOsmolality [id number] 07:49:30 Test Item Value Reference Range Interpretation Comments OSMOLALITY (test code = See_Comment [Au tomated message] 5304695177) The system [email or web address] generated this result transmitted ref erence range: 278 - 30 5 mOsm/kg. The re ference range was not u sed to interpret this result as normal/abnor mal. Lab Interpretation (test Normal code = 94727-3) [facility] GLUCOSE (AUTOMATED)2021-08-26 07:22:33 Test Item Value Reference Range Interpretation Comments POCT GLU (test code = 6634773897) 200 mg/dL 70-110 H Lab Interpretation (test code = Abnormal 66055-3) [facility] (Na, K, Cl, CO2, Glucose, BUN, Creatinine, Ca)2021-08-26 06:34:44 Test Item Value Reference Range Interpretation Comments NA (test code = 136 mmol/L 135-145 6899092554) K (test code = 4.0 mmol/L 3.5-5.0 6197920559) CL (test code = 115 mmol/L 98-108 H 1642607705) CO2 TOTAL (test code = 5 mmol/L 23-31 L 4060923039) AGAP (test code = 2-16 7475374410) BUN (test code = 6 mg/dL 7-23 L 8696657134) GLUCOSE (test code = 220 mg/dL 70-110 H 4068295441) CREATININE (test code = 0.55 mg/dL 0.50-1.04 6624647608) CALCIUM (test code = 8.7 mg/dL 8.6-10.6 3296745032) eGFR (test code = mL/min/1.73m2 0536743094) ALLISON (test code = ALLISON) Association of Glomerular Filtration Rate (GFR) and Staging of Kidney Disease* + --+ --+ ------+| GFR (mL/min/1.73 m2) ?| With Kidney Damage ?| ?Without Kidney Damage+ --------+ --------+ +| ?>90 ?| ?Stage one ?| ? Normal ?+ ---+ ---+ -------+| ?60-89 ?| ?Stage two ?| ? Decreased GFR ? + --+ --+ ------+| ?30-59 ?| ?Stage three ?| ? Stage three ? + --+ --+ ------+| ?15-29 ?| ?Stage four ? | ? Stage four ?+ ---+ ---+ -------+| ?<15 (or dialysis) ? ?| ?Stage five ? | ? Stage five ?+ ---+ ---+ -------+ *Each stage assumes the associated GFR level has been in effect for at least three months. ?Stages 1 to 5, with or without kidney disease, indicate chronic kidney disease. Notes: Determination of stages one and two (with eGFR >59mL/min/1.73 m2) requires estimation of kidney damage for at least three months as defined by structural or functional abnormalities of the kidney, manifested by either:Pathological abnormalities or Markers of kidney damage (including abnormalities in the composition of the blood or urine or abnormalities in imaging tests). Lab Interpretation Abnormal (test code = 75676-2) [facility] GLUCOSE (AUTOMATED)2021-08-26 06:33:59 Test Item Value Reference Range Interpretation Comments POCT GLU (test code = 1972125947) 193 mg/dL 70-110 H Lab Interpretation (test code = Abnormal 40564-3) [facility]2021-08-26 05:28:49 Test Item Value Reference Range Interpretation Comments POCT GLU (test code = 7932011494) 218 mg/dL 70-110 H Lab Interpretation (test code = Abnormal 17946-8) [facility] Metabolic Panel (Na, K, Cl, CO2, Glucose, BUN, Creatinine, Ca)2021-08-26 04:32:55 Test Item Value Reference Range Interpretation Comments NA (test code = 134 mmol/L 135-145 L 2812370460) K (test code = 3.7 mmol/L 3.5-5.0 7041272346) CL (test code = 108 mmol/L 98-108 7231269255) CO2 TOTAL (test code <5 23-31 L = 6337335505) AGAP (test code = Unable to 0927484212) calculate because, either,SODIUM SERUM, CHLORIDE SERUM, CO2 TOTA L or all are less than the sensitivity of the analyzer. BUN (test code = 7 mg/dL 7-23 8264497762) GLUCOSE (test code = 262 mg/dL 70-110 H 6586718658) CREATININE (test 0.57 mg/dL 0.50-1.04 code = 9158258764) CALCIUM (test code = 9.5 mg/dL 8.6-10.6 4111677471) eGFR (test code = mL/min/1.73m2 6253782268) ALLISON (test code = Association of ALLISON) Glomerular Filtration Rate (GFR) and Staging of Kidney Disease* + -----+ --------+ +| GFR (mL/min/1.73 m2) ?| With Kidney Damage ?| ?Without Kidney Damage+ +------- +---- --+| ?>90 ?| ?Stage one ?| ? Normal ?+ ------+ ---------+--------- +| ?60-89 ?| ?Stage two ?| ? Decreased GFR ? + -----+ --------+ +| ?30-59 ?| ?Stage three ?| ? Stage three ? + -----+ --------+ +| ?15-29 ?| ?Stage four ? | ? Stage four ?+ ------+ ---------+--------- +| ?<15 (or dialysis) ? ?| ?Stage five ? | ? Stage five ?+ ------+ ---------+--------- + *Each stage assumes the associated GFR level has been in effect for at least three months. ?Stages 1 to 5, with or without kidney disease, indicate chronic kidney disease. Notes: Determination of stages one and two (with eGFR >59mL/min/1.73 m2) requires estimation of kidney damage for at least three months as defined by structural or functional abnormalities of the kidney, manifested by either:Pathological abnormalities or Markers of kidney damage (including abnormalities in the composition of the blood or urine or abnormalities in imaging tests). Lab Interpretation Abnormal (test code = 43204-9) [facility] HospitalGlycosylated Hemoglobin (A1C)2021-08-26 04:14:08 Test Item Value Reference Range Interpretation Comments HGB A1C (test code = 12.9 % 4.0-5.7 H 4548-4) ALLISON (test code = ALLISON) Reference RangesNormal: <5.7%Prediabetes: 5.7 - 6.4%Diabetes: > 6.5% Lab Interpretation (test Abnormal code = 40446-4) [facility] GLUCOSE (AUTOMATED)2021-08-26 04:05:48 Test Item Value Reference Range Interpretation Comments POCT GLU (test code = 8041043338) 239 mg/dL 70-110 H Lab Interpretation (test code = Abnormal 23554-9) [facility] HospitalMagnesium [id number] 04:02:35 Test Item Value Reference Range Interpretation Comments MAGNESIUM (test code = 2333690071) 1.9 mg/dL 1.7-2.4 Lab Interpretation (test code = Normal 20599-6) [facility] HospitalPhosphorus [id number] 04:02:15 Test Item Value Reference Range Interpretation Comments PHOSPHORUS (test code = 5840795591) 3.1 mg/dL 2.5-5.0 Lab Interpretation (test code = Normal 27938-4) [facility] GLUCOSE (AUTOMATED)2021-08-26 02:44:33 Test Item Value Reference Range Interpretation Comments POCT GLU (test code = 8672167619) 294 mg/dL 70-110 H Lab Interpretation (test code = Abnormal 93455-9) [facility]2021-08-26 00:17:34 Test Item Value Reference Range Interpretation Comments POCT GLU (test code = 5147534646) 213 mg/dL 70-110 H Lab Interpretation (test code = Abnormal 14281-8) [facility] HospitalSARS-COV2/RT-PCR (HS & REF LABS) 2020-05-08 02:00:00 Test Item Value Reference Range Interpretation Comments SARS-COV2/RT-PCR (test Negative Not Detected, Negative, code = 4460502) See external report for linked test SARS-COV-[address] [facility] (test code = 7766200) Negative result for this test determines that SARS-CoV-2 RNA was not present in the specimen above the Limit of Detection (LOD). However, Negative results do not preclude SARS-CoV-2 infection and should not be used as the sole basis for treatment or patient management decisions. Negative results mustbe combined with clinical observations, patient history, and epidemiological information. A false negative result may occur if a specimen is improperly collected, transported or handled. A false negative result should be considered if patient's recent exposures or clinical presentation indicate that COVID-19 (SARS-CoV-2) is likely and diagnostic tests for other causes of illness are negative. Re-testing should be considered in cases of suspected false negatives.The limit of detection for this assay is 800 copies/mL.This SARS CoV-2 test is a real-time RT-PCR test intended for the qualitative detection of nucleic acid from SARS-CoV-2 in a nasopharyngeal swab specimen collected from individuals susp ected of COVID-19 by their healthcare provider.This test has not been Food and Drug Administration (FDA) cleared or approved. This is a modified version of an approved Emergency Use Authorization (EUA) and is in the process of review by the FDA. Once authorized by the FDA, the issued EUA will be effective until the declaration that circumstances exist justifying the authorization of the emergency use of in vitro diagnostic tests for detection and/or diagnosis of COVID-19 is terminated under Section 564(b)(2) of the Act or the EUA is revoked under Section 564(g) of the Act.Fact Sheet for Healthcare Providers:https://www.[employer]/sites/default/files/product/documents/Fact_Shephilip welshq_YO_Ahkwqjsch_Hcse_PDTC-MrJ-7.pdfFact Sheet for Healthcare Patients:https://www.[employer]/sites/default/files/product/ documents/Xepw_Dvowa_Wsagjipm_Etrp_KQHM-OdD-4.pdfPerforming Laboratory:[facility], [place] [address]KXIGQVQ BEDSIDE [id number] 11:16:00 Test Item Value Reference Range Interpretation Comments GLUCOSE BEDSIDE TESTING (test code 249 mg/dL 70-110 H = GLUBED) GLUCOSE BEDSIDE [id number] 08:07:00 Test Item Value Reference Range Interpretation Comments GLUCOSE BEDSIDE TESTING (test code 211 mg/dL 70-110 H = GLUBED) BASIC METABOLIC [id number] 07:41:00 Test Item Value Reference Range Interpretation [...] CA) 8.4 MG/DL 8.5-10.1 L CBC W/AUTO [id number] 07:37:00 Test Item Value Reference Range Interpretation [...] = NO DIFF/SCN CRITERIA MDIFF) GLUCOSE BEDSIDE [id number] 20:23:00 Test Item Value Reference Range Interpretation Comments GLUCOSE BEDSIDE TESTING (test code 280 mg/dL 70-110 H = GLUBED) GLUCOSE BEDSIDE [id number] 16:30:00 Test Item Value Reference Range Interpretation Comments GLUCOSE BEDSIDE TESTING (test code 255 mg/dL 70-110 H = GLUBED) GLUCOSE BEDSIDE [id number] 11:59:00 Test Item Value Reference Range Interpretation Comments GLUCOSE BEDSIDE TESTING (test code 281 mg/dL 70-110 H = GLUBED) BASIC METABOLIC [id number] 11:02:00 Test Item Value Reference Range Interpretation [...] CA) 7.9 MG/DL 8.5-10.1 L GLUCOSE BEDSIDE [id number] 08:07:00 Test Item Value Reference Range Interpretation Comments GLUCOSE BEDSIDE TESTING (test code 236 mg/dL 70-110 H = GLUBED) GLUCOSE BEDSIDE [id number] 01:06:00 Test Item Value Reference Range Interpretation Comments GLUCOSE BEDSIDE TESTING (test code 298 mg/dL 70-110 H = GLUBED) GLYCOSYLATED HEMOGLOBIN [id number] 01:00:00 Test Item Value Reference Range Interpretation Comments GLYCOSYLATED HEMOGLOBIN (HA1C) > 14.0 % A1C 0.0-5.7 H (test code = GLYHGB) ESTIMATED AVERAGE GLUCOSE (test 355 MG/DLest code = EAG) COMPREHENSIVE METABOLIC [id number] 00:39:00 Test Item Value Reference Range Interpretation [...] 45-117 N TOTAL (test code = ALKP) [id number] 00:39:00 Test Item Value Reference Range Interpretation Comments PHOSPHOROUS (test code = PHOS) 2.4 MG/DL 2.5-4.9 L [id number] 00:39:00 Test Item Value Reference Range Interpretation Comments MAGNESIUM (test code = MAG) 1.9 MG/DL 1.8-2.4 N DRUGS OF ABUSE SCREEN [id number] 00:26:00 Test Item Value Reference Range Interpretation [...] NEGATIVE SCcutoff <300 NG/ML [place]) CBC W/AUTO [id number] 00:12:00 Test Item Value Reference Range Interpretation [...] REQUIRED (test code = NO DIFF/SCN CRITERIA MDIFF)"
[2022-04-07] MEDS ORDERED: NA CHLORIDE 0.9% 1,000 ML ONE ×2 (19:24→21:12)
[2022-04-07 19:36] LABS: Urine Specific Gravity >=1.030 (1.005-1.030)
[2022-04-07 19:37] LABS: Urine Blood Trace-lysed (Negative); Urine Glucose 2+ (Negative); Urine Protein 2+ (Negative); Urine pH 5.5 (5.0-7.0)
[2022-04-07 20:22] LABS: Absolute Lymphocytes (CBC) 0.9 K/uL (0.7-4.9); Hematocrit 48.9 % (36.0-45.0); Lymphocytes % 14.9 % (15.3-44.8); MCV 92.6 fL (80-100); MPV 9.3 fL (7.6-11.3); RBC Red Blood Cell Count 5.28 M/uL (3.86-4.86)
[2022-04-07 20:25] LABS: Urine Bacteria <20 /HPF (<20); Urine Mucus LIGHT /HPF (NONE SEEN); Urine RBC <5 /HPF (NONE SEEN)
[2022-04-07 20:33] LABS: BUN Blood Urea Nitrogen 19 mg/dL (7-18); Bicarbonate 19 mmol/L (21-32); Glomerular Filtration Rate 101 ml/min (=/>90); Glucose Level 290 mg/dL (74-106); Potassium 4.4 mmol/L (3.5-5.1); Sodium Level 129 mmol/L (136-145)
[2022-04-07] MEDS ORDERED: INSULIN -REGULAR HUMAN 50 UNIT/0.5 ML ML ONE (21:11)
[2022-04-07] MEDS ORDERED: MORPHINE 4 MG/ML SYR ONE (21:33)
[2022-04-07] MEDS ORDERED: ONDANSETRON 4 MG/2 ML VIAL ONE (21:34)
[2022-04-07] MEDS ORDERED: VALACYCLOVIR 500 MG TAB ONE (21:34)
--- NOTE | 2022-04-07 22:36 | ER ---
Nurse's Notes [facility] Name: Nadiya Pan Age: 26 yrs Sex: Female : 1995 Arrival Date: 04/07/2022 Time: 17:55 Bed 24 Private MD: Diagnosis: Diabetes mellitus due to underlying condition with ketoacidosis;Herpesviral infection, unspecified Presentation: 04/07 18:55 Chief complaint: Patient states: Bactrim since Sunday for UTI, continued pelvic pain jl7 and itching. Coronavirus screen: At this time, the client does not indicate any symptoms associated with coronavirus-19. Ebola Screen: No symptoms or risks identified at this time. Initial Sepsis Screen: Does the patient meet any 2 criteria? HR > 90 bpm. No. Patient's initial sepsis screen is negative. Does the patient have a suspected source of infection? Yes: Dysuria/Frequency/Urgency/UTI. Risk Assessment: Do you want to hurt yourself or someone else? Patient reports no desire to harm self or others. Onset of symptoms was April 03, 2022. 18:55 Method Of Arrival: Ambulatory jl7 18:55 Acuity: HELLEN 3 jl7 Triage Assessment: 18:57 General: Appears in no apparent distress. uncomfortable, Behavior is calm, cooperative, jl7 appropriate for age. Pain: Complains of pain in pelvis Pain currently is 10 out of 10 on a pain scale. 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 - Social history:: Smoking status: Reported history of juuling and/or vaping. Screenin:00 Abuse screen: Denies threats or abuse. Nutritional screening: No deficits noted. jb4 Tuberculosis screening: No symptoms or risk factors identified. Fall Risk None identified. Assessment: 19:00 Reassessment: Patient appears in no apparent distress at this time. Patient and/or jb4 family updated on plan of care and expected duration. Pain level reassessed. Patient is alert, oriented x 3, equal unlabored respirations, skin warm/dry/pink. 20:00 Reassessment: Patient appears in no apparent distress at this time. Patient and/or jb4 family updated on plan of care and expected duration. Pain level reassessed. Patient is alert, oriented x 3, equal unlabored respirations, skin warm/dry/pink. 21:00 Reassessment: Patient appears in no apparent distress at this time. Patient and/or jb4 family updated on plan of care and expected duration. Pain level reassessed. Patient is alert, oriented x 3, equal unlabored respirations, skin warm/dry/pink. 22:00 Reassessment: Patient appears in no apparent distress at this time. Patient and/or jb4 family updated on plan of care and expected duration. Pain level reassessed. Patient is alert, oriented x 3, equal unlabored respirations, skin warm/dry/pink. 23:00 Reassessment: Patient appears in no apparent distress at this time. Patient and/or jb4 family updated on plan of care and expected duration. Pain level reassessed. Patient is alert, oriented x 3, equal unlabored respirations, skin warm/dry/pink. 04/08 00:00 Reassessment: Patient appears in no apparent distress at this time. Patient and/or jb4 family updated on plan of care and expected duration. Pain level reassessed. Patient is alert, oriented x 3, equal unlabored respirations, skin warm/dry/pink. 01:00 Reassessment: Patient appears in no apparent distress at this time. Patient and/or jb4 family updated on plan of care and expected duration. Pain level reassessed. Patient is alert, oriented x 3, equal unlabored respirations, skin warm/dry/pink. Vital Signs: 04/07 18:55 BP 133 / 84; Pulse 145; Resp 17; Temp 99.5(O); Pulse Ox 100% on R/A; Weight 58.97 kg; jl7 Height 5 ft. 0 in. (152.40 cm); Pain 10/10; 21:37 BP 125 / 82; Pulse 104; Resp 16; Pulse Ox 100% on R/A; jb4 22:00 BP 117 / 81; Pulse 109; Resp 16; Pulse Ox 100% ; jb4 23:15 BP 119 / 79; Pulse 104; Resp 16; Pulse Ox 100% on R/A; jb4 04/08 00:15 BP 117 / 84; Pulse 105; Resp 18; Pulse Ox 100% on R/A; jb4 04/07 18:55 Body Mass Index 25.39 (58.97 kg, 152.40 cm) jl7 ED Course: 04/07 17:55 Patient arrived in ED. bp1 18:40 Eri Maravilla FNP-C [facility]. kb 18:40 Ramirez Gonzalez MD is Attending Physician. kb 18:57 Triage completed. jl7 18:57 Arm band placed on right wrist. jl7 19:00 Patient has correct armband on for positive identification. Bed in low position. Call 4 light in reach. Side rails up X 1. Client placed on continuous cardiac and pulse oximetry monitoring. NIBP monitoring applied. 19:18 Jose Grove RN is Primary Nurse. jb4 22:25 Repeat lab(s) drawn. by tx, sent to lab. bb 22:35 Param Gonzalez MD is Hospitalizing Provider. kb 23:31 No provider procedures requiring assistance completed. Patient admitted, IV remains in jb4 place. Administered Medications: 20:05 Drug: NS 0.9% 1000 ml Route: IV; Rate: 1000 ml; Site: right antecubital; jb4 21:00 Follow up: Response: No adverse reaction; IV Status: Completed infusion jb4 21:09 Drug: NS 0.9% 1000 ml Route: IV; Rate: 1000 ml; Site: right antecubital; jb4 22:30 Follow up: Response: No adverse reaction; IV Status: Completed infusion jb4 21:09 Drug: Insulin Regular Human 5 units {Co-Signature: lp1 (Little Rios RN).} Route: IVP; jb4 Site: right antecubital; 22:30 Follow up: Response: No adverse reaction; Marked relief of symptoms jb4 21:37 Drug: valACYclovir 1000 mg Route: PO; jb4 22:00 Follow up: Response: No adverse reaction; Marked relief of symptoms jb4 21:37 Drug: morphine 4 mg Route: IVP; Infused Over: 4 mins; Site: right antecubital; jb4 22:00 Follow up: Response: No adverse reaction; Marked relief of symptoms jb4 21:37 Drug: Zofran (Ondansetron) 4 mg Route: IVP; Site: right antecubital; jb4 22:00 Follow up: Response: No adverse reaction; Marked relief of symptoms jb4 Medication: 04/08 00:15 VIS not applicable for this client. jb4 Outcome: 04/07 22:36 Decision to Hospitalize by Provider. mika 04/08 00:15 Admitted to Tele accompanied by tech, via wheelchair, room 407, with chart. jb4 Condition: stable Discharge instructions given to patient, Instructed on the need for admit, Demonstrated understanding of instructions. 01:05 Patient left the ED. jb4 Signatures: Eri Maravilla, NEUROSURGERY RESEARCH DIRECTOR-C NEUROSURGERY RESEARCH DIRECTOR-CkTalya Galeano, RN RN bb Jose Grove RN RN jb4 Brie Arrieta RN RN [email or web address] Rola Sherman [facility] Little Rios RN lp1
--- NOTE | 2022-04-07 22:36 | EDPHYS ---
Physician Documentation [facility] Name: Nadiya Pan Age: 26 yrs Sex: Female : 1995 Arrival Date: 04/07/2022 Time: 17:55 Bed 24 Private MD: ED Physician Ramirez Gonzalez HPI: 04/07 23:49 This 26 yrs old Female presents to ER via Ambulatory with complaints of Pain kb With Urination, Vaginal Itching. 23:49 The patient presents with bumps and swelling to labia. The patient is sexually active, kb reportedly has a single partner. The patient has not experienced similar symptoms in the past. The patient has not recently seen a physician. 23:50 Onset: The symptoms/episode began/occurred 2 day(s) ago. Modifying factors: The kb symptoms are alleviated by nothing, the symptoms are aggravated by urinating. Associated signs and symptoms: Pertinent positives: dysuria. Severity of symptoms: At their worst the symptoms were moderate, in the emergency department the symptoms are unchanged. Pt reports she was diagnosed with a UTI on Sunday and started bactrim. States she has bumps and swelling to labia and it simpson the outer area when she urinates. . 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 - Social history:: Smoking status: Reported history of juuling and/or vaping. ROS: 23:47 Constitutional: Negative for fever, chills, and weight loss. kb 23:47 : Positive for bumps and swelling to labia. 23:47 All other systems are negative. Exam: 23:47 Constitutional: This is a well developed, well nourished patient who is awake, alert, kb and in no acute distress. Head/Face: Normocephalic, atraumatic. ENT: Moist Mucous membranes Respiratory: Respirations even and unlabored. No increased work of breathing. Talking in full sentences Abdomen/GI: Soft, non-tender. No distention MS/ Extremity: Pulses equal, no cyanosis. Neurovascular intact. Full, normal range of motion. Neuro: Awake and alert, GCS 15, oriented to person, place, time, and situation. Moves all extremities. Normal gait. Psych: Awake, alert, with orientation to person, place and time. Behavior, mood, and affect are within normal limits. 23:47 Cardiovascular: Rate: tachycardic, Rhythm: regular, Pulses: no pulse deficits are appreciated. 23:47 : Pelvic Exam: External exam: herpes lesions noted. 23:47 Skin: 23:47 Skin: lesion(s), located on the right labia majora and left labia majora. Vital Signs: 18:55 BP 133 / 84; Pulse 145; Resp 17; Temp 99.5(O); Pulse Ox 100% on R/A; Weight 58.97 kg; jl7 Height 5 ft. 0 in. (152.40 cm); Pain 10/10; 21:37 BP 125 / 82; Pulse 104; Resp 16; Pulse Ox 100% on R/A; jb4 22:00 BP 117 / 81; Pulse 109; Resp 16; Pulse Ox 100% ; jb4 23:15 BP 119 / 79; Pulse 104; Resp 16; Pulse Ox 100% on R/A; jb4 04/08 00:15 BP 117 / 84; Pulse 105; Resp 18; Pulse Ox 100% on R/A; jb4 04/07 18:55 Body Mass Index 25.39 (58.97 kg, 152.40 cm) jl7 MDM: 04/07 18:56 Patient medically screened. kb 23:46 Data reviewed: vital signs, nurses notes. Data interpreted: Pulse oximetry: on room air kb is 100 %. Interpretation: normal. Counseling: I had a detailed discussion with the patient and/or guardian regarding: the historical points, exam findings, and any diagnostic results supporting the discharge/admit diagnosis, lab results, radiology results, the need for further work-up and treatment in the hospital. Physician consultation: Bo LUND was contacted at 23:47, regarding admission, to the medical/surgical unit. patient's condition. 04/07 18:58 Order name: CBC with Diff; Complete Time: 20:24 kb 04/07 18:58 Order name: Basic Metabolic Panel; Complete Time: 20:43 kb 04/07 18:58 Order name: Urine Microscopic Only; Complete Time: 20:43 kb 04/07 18:58 Order name: Acetone, Serum; Complete Time: 20:43 kb 04/07 19:08 Order name: Glucose, Ancillary Testing; Complete Time: 19:26 EDMS 04/07 19:37 Order name: Urine Dipstick-Ancillary; Complete Time: 19:37 EDMS 04/07 20:28 Order name: Urine Culture EDMS 04/07 21:11 Order name: COVID-19 SARS RT PCR (Document "Date of Onset" if Symptomatic); Complete kb Time: 23:26 04/07 21:36 Order name: HSV Culture and Typing EDMS 04/07 21:55 Order name: BMP; Complete Time: 22:59 la1 04/07 18:58 Order name: IV Start; Complete Time: 20:05 kb 04/07 18:58 Order name: Urine Dipstick-Ancillary (obtain specimen); Complete Time: 20:05 kb 04/07 18:58 Order name: Urine Test (obtain specimen); Complete Time: 20:05 kb Administered Medications: 20:05 Drug: NS 0.9% 1000 ml Route: IV; Rate: 1000 ml; Site: right antecubital; jb4 21:00 Follow up: Response: No adverse reaction; IV Status: Completed infusion jb4 21:09 Drug: NS 0.9% 1000 ml Route: IV; Rate: 1000 ml; Site: right antecubital; jb4 22:30 Follow up: Response: No adverse reaction; IV Status: Completed infusion jb4 21:09 Drug: Insulin Regular Human 5 units {Co-Signature: lp1 (Little Rios RN).} Route: IVP; jb4 Site: right antecubital; 22:30 Follow up: Response: No adverse reaction; Marked relief of symptoms jb4 21:37 Drug: valACYclovir 1000 mg Route: PO; jb4 22:00 Follow up: Response: No adverse reaction; Marked relief of symptoms jb4 21:37 Drug: morphine 4 mg Route: IVP; Infused Over: 4 mins; Site: right antecubital; jb4 22:00 Follow up: Response: No adverse reaction; Marked relief of symptoms jb4 21:37 Drug: Zofran (Ondansetron) 4 mg Route: IVP; Site: right antecubital; jb4 22:00 Follow up: Response: No adverse reaction; Marked relief of symptoms jb4 Disposition Summary: 04/07/22 22:36 Hospitalization Ordered Hospitalization Status: Observation kb Provider: Param Gonzalez Location: Telemetry/MedSurg (observation) kb Condition: Stable kb Problem: new kb Symptoms: are unchanged kb Bed/Room Type: Standard Room Assignment: 407(04/07/22 23:42) cg Diagnosis - Diabetes mellitus due to underlying condition with ketoacidosis kb - Herpesviral infection, unspecified kb Forms: - Medication Reconciliation Form kb - SBAR form kb Addendum: 04/10/2022 10:53 Co-signature as Attending Physician, Ramirez Gonzalez MD. r n Signatures: Dispatcher [employer] EDMS Eri Maravilla, QUANTITATIVE MANAGER-C QUANTITATIVE MANAGER-Ckb Ramirez Gonzalez MD MD rn Bo Skaggs QUANTITATIVE MANAGER-C QUANTITATIVE MANAGER-Cla1 Anuradha Acosta RN RN cg Jose Grove RN RN jb4 Brie Arrieta RN RN jl7 Little Rios RN lp1 Corrections: (The following items were deleted from the chart) 04/07 21:36 21:05 Miscellaneous Lab Test+R.LAB.BRZ ordered. EDVT EDMS 23:42 22:36 kb cg
--- NOTE | 2022-04-07 23:12 | P.HP ---
Certification for Inpatient Patient admitted to: Observation With expected LOS: <2 Midnights Patient will require the following post-hospital care: None Practitioner: I am a practitioner with admitting privileges, knowledge of patient current condition, hospital course, and medical plan of care. Services: Services provided to patient in accordance with Admission requirements found in Title 42 Section 412.3 of the Code of Federal Regulations Patient History Date of Service: 04/07/22 Reason for admission: Hyperglycemia History of Present Illness: 26-year-old female history of insulin-dependent diabetes presents the emergency department for vaginal pain and itching. She was evaluated in the emergency department diagnosed with genital HSV and given Valtrex. Labs were obtained which revealed patient was in DKA initially with an anion gap of 13 and small amount of serum ketones. Patient was given 2 L of normal saline as well as 5 minutes of insulin and her anion gap has decreased to 9. Patient also currently being treated for urinary tract infection taking Bactrim at home. ED provider wishes to admit under observation for poorly controlled diabetes with Hyperglycemia/rule out DKA. Allergies No Known Allergies Allergy (Verified 05/07/20 15:26) Home Medications: Insulin Aspart [Novolog Flexpen] 15 units SQ TIDWM 05/07/20 Insulin Glargine Human [Lantus*] 50 units SQ DAILY 05/07/20 Potassium Chloride 1 tab PO DAILY 05/07/20 Ciprofloxacin HCl [Cipro 500 MG Tablet] 500 mg PO BID #14 tab 05/08/20 Codeine/APAP [Tylenol W/Codeine #3 tab] 1 tab PO Q4HP PRN #30 tab 05/08/20 NaCl 0.9% Irr Bottle [Ns Irrigation Bottle] 1,000 ml IRR DAILY #1 btl 05/08/20 - Past Medical/Surgical History Diabetic: Yes -: Diabetes -: I&D of inguinal abscess Psychosocial/ Personal History: Lives at home with family - Family History Mother -: Diabetes - Social History Smoking Status: Never smoker Alcohol use: Yes CD- Drugs: No Caffeine use: Yes Place of Residence: Home Review of Systems 10-point ROS is otherwise unremarkable Genitourinary: Other (Vaginal pain/itching), As per HPI Physical Examination - Physical Exam General: Alert, In no apparent distress, Oriented x3 HEENT: Atraumatic, PERRLA, Mucous membr. moist/pink, EOMI, Sclerae nonicteric Neck: Supple, 2+ carotid pulse no bruit, No LAD, Without JVD or thyroid abnormality Respiratory: Clear to auscultation bilaterally, Normal air movement Cardiovascular: Regular rate/rhythm, Normal S1 S2 Capillary refill: <2 Seconds Gastrointestinal: Normal bowel sounds, No tenderness Musculoskeletal: No tenderness Integumentary: No rashes Neurological: Normal gait, Normal speech, Normal strength at 5/5 x4 extr, Normal tone, Normal affect - Studies Laboratory Data (last 24 hrs) 04/07/22 22:24: Sodium 135 L, Potassium 4.0, BUN 14, Creatinine 0.59, Glucose 206 H 04/07/22 20:00: Sodium 129 L, Potassium 4.4, BUN 19 H, Creatinine 0.81, Glucose 290 H 04/07/22 20:00: WBC 6.0, Hgb 16.2 H, Hct 48.9 H, Plt Count 193 Assessment and Plan - Plan Assessment: Insulin-dependent diabetes with hyperglycemia/rule out DKA Genital HSV Plan: Insulin-dependent diabetes with hyperglycemia/rule out DKA: Anion gap has decreased to 9 bicarb still low at 19 continue aggressive IV fluids throughout the evening with aggressive sliding scale insulin as well as patient's home dose of Lantus 30 units daily.Repeat chemistry in AM as well as A1C Onset of DKA likely related to UTI/genital HSV infection. Continue treatment for above. Genital HSV: Patient given Valtrex in the ER this is her first episode, continue Valtrex 1000mg p.o. twice daily for the next 7 to 10 days. Patient educated on condition. DVT PPX: Lovenox Code status: Full Discharge Plan: Home Plan to discharge in: 24 Hours - Advance Directives Does patient have a Living Will: No Does patient have a Durable POA for Healthcare: No - Code Status/Comfort Care Code Status Assessed: Yes (Full code) Critical Care: No Time Spent Managing Pts Care (In Minutes): 70
[2022-04-08 00:57] VITALS: BMI 25.5
[2022-04-08] MEDS ORDERED: TRAMADOL HCL 50 MG TAB PO PRN (00:58)
[2022-04-08] MEDS ORDERED: ONDANSETRON 4 MG/2 ML VIAL IV PRN (00:58)
[2022-04-08] MEDS ORDERED: HYDROCODONE/APAP 5/325 MG TAB PO PRN (00:58)
[2022-04-08] MEDS: NA CHLORIDE 0.9% 1,000 ML IV SCH ×2 (01:27→09:34)
[2022-04-08 01:33] VITALS: O2SAT 100
[2022-04-08 04:21] LABS: Absolute Lymphocytes (CBC) 1.7 K/uL (0.7-4.9); Hematocrit 44.9 % (36.0-45.0); Lymphocytes % 24.9 % (15.3-44.8); MCV 93.4 fL (80-100); MPV 9.3 fL (7.6-11.3); RBC Red Blood Cell Count 4.81 M/uL (3.86-4.86)
[2022-04-08 04:41] LABS: Albumin 3.5 g/dL (3.4-5.0); Bilirubin Total 0.4 mg/dL (0.2-1.0); Magnesium 1.8 mg/dL (1.8-2.4); Potassium 3.8 mmol/L (3.5-5.1); Protein, Total 7.6 g/dL (6.4-8.2)
[2022-04-08] MEDS: MORPHINE 2 MG/ML SYR IV PRN ×4 (05:34→21:34)
[2022-04-08] MEDS ORDERED: POTASSIUM CL SA 10 MEQ TAB PO ONE ×2 (06:10→09:00)
[2022-04-08] MEDS ORDERED: MAGNESIUM SULFATE 1 gm IVPB 1 GM/100 ML BAG IV ONE ×2 (06:10→09:00)
[2022-04-08] MEDS: ENOXAPARIN 40 MG/0.4 ML SQ SCH (08:59)
[2022-04-08] MEDS: INSULIN -REGULAR HUMAN 50 UNIT/0.5 ML ML SQ SCH ×4 (09:00→21:34)
[2022-04-08] MEDS: INSULIN GLARGINE 100 UNIT/ML SQ SCH (09:00)
[2022-04-08] MEDS ORDERED: VALACYCLOVIR 500 MG TAB PO SCH (09:00)
[2022-04-08] MEDS ORDERED: GLUCAGON 1 MG/VIAL IM PRN (15:45)
[2022-04-08] MEDS ORDERED: D10W 250 ML BAG IV PRN (15:49)
--- NOTE | 2022-04-08 15:54 | P.PN ---
Date of Service: 04/08/22 Subjective: continues with significant pelvic / vulvovaginal discomfort , dysuria glucose improved no nausea/vomiting ROS: 10 point ROS as noted above, otherwise negative Physical exam GEN: Alert, oriented, appears uncomfortable CV: Regular rate and rhythm, no edema Pulm: Nonlabored respirations on room air ABD: Soft, nontender, nondistended : erythema and edema of vulva, with small vesicles on bilateral labia, whitish-montero discharge noted between labia and clitoris *exam performed with RN in room as travel agency manager Problem List Insulin-dependent diabetes with hyperglycemia, mild DKA vulvovaginal erythema, ulcers, 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 Ley to further evaluate Diflucan 150mg x1 for possible concomitant yeast infection DKA, mild; resolved; gap closed dc IVF continue long acting insulin, restart short acting with meals Code: full Dispo: home, anticipate tomorrow pending glucose control, pain control Time Spent Managing Pts Care (In Minutes): 35
[2022-04-08] MEDS ORDERED: FLUCONAZOLE 100 MG TAB PO ONE (16:00)
[2022-04-08] MEDS: ACYCLOVIR INJ 400 MG in NA CHLORIDE 0.9% 100 ML IVPB SCH (17:00)
[2022-04-08] MEDS ORDERED: MORPHINE 2 MG/ML SYR IV ONE (17:30)
[2022-04-08] MEDS: INSULIN LISPRO 100 UNIT/1 ML SQ SCH (18:03)
--- NOTE | 2022-04-08 21:46 | CON ---
Date of Consultation: 04/08/2022 Final Impression: 1.Acute onset of genital herpes. 2.Vaginal pain. 3.Uncontrolled type 1 diabetes with evidence of diabetic ketoacidosis. Nadiya Pan is a 26-year-old female G2, P2. Her history shows 2010 vaginal to a baby girl. Subsequently, 2014, vaginal to a boy baby and later received Nexplanon cont rol about 2 years ago, is currently admitted in the hospital with vaginal pain, genital herpes, and u ncontrolled diabetes. Her gynecological symptoms go back to about 5 days ago where she has noticed s ome vaginal irritation. Approximately 24 hours before that, she had a sexual intercourse and the pat ient stated that this partner was fairly new to her. Her irritation became worse during the next few days, become more painful. She has acute onset of swollen genital pain and some yellowish vaginal d ischarge along with it. She denies any fever with any recent illnesses, and she also denies history of sexually transmitted infections including herpes. The patient has type 1 diabetes, and she stated that a few years back, she had suffered a seizure episode that is when the time that doctors had spencer gnosed her with her diabetes. She has been taking insulin injection, long lasting 30 units every mor shauna and regular insulin 20 units t.i.d. The patient stated that she has been compliant and she also stated to me that she is also watching her diet, which I believe her real situation is diabetes that is under poor control. Her compliance is always in question. There is no additional [facility] history sh e can provide to me and she stated that she had no history of sexually transmitted infection such as chlamydia, gonorrhea, or herpes. With her recent genital discomfort, herpes symptoms, it was brand n ew to her according to her history. I was consulted by Dr. Gonzalez, the hospitalist in the medical ser [facility] to see this patient. I evaluated her history, examined her in person and also evaluated her lab s profile. Physical Examination: General: She is alert and oriented x3. The patient has no acute distress now, but she recently has received pain control. Abdomen: Revealed no acute abdomen. No severe tenderness. No groin pain. Genitourinary: Vulva on the other hand is severely swelling on labia minora with some ulceration not iced on the labia majora. Bimanual examination performed. She was extremely tender on the vulva, ex ternal genital area. However, I was able to palpate the cervix and along doing the bimanual exam. B imanual exam revealed a normal uterus, no adnexal pain. However, she has a severe external genital p ain where herpes has been affected her. There is no vaginal bleeding noted. I went ahead and collected some additional cultures to rule out other infections. In addition to oth er infections, I have also checked her HIV and RPR status and those are pending right now. After spe aking to her and the physician, I have recommended to place her on acyclovir 400 mg IV q.8 hours, dur ing the hospitalization. The patient is in the hospital mainly to control her diabetes situation and also symptomatic relief for her vulva. With this regimen, later she will be followed by Valtrex 1 g b.i.d., continue for 7-10 days. Pain control with both anti-inflammatory and narcotics will be appr opriate. Meantime, Diflucan was given for treating suspected yeast infection. The patient also has a history of recent clinic visit of diagnosed UTI where she was taking Bactrim. I will come back hans orrow to follow along with this patient but this time right now for her gynecology status and antivir al medication and symptomatic relief of pain control. RASHEEDA/JC Voice ID: [id number] Report ID: [id number]
[2022-04-09] MEDS: ACYCLOVIR INJ 400 MG in NA CHLORIDE 0.9% 100 ML IVPB SCH ×3 (01:00→16:45)
[2022-04-09] MEDS: MORPHINE 2 MG/ML SYR IV PRN (01:39)
[2022-04-09 05:14] LABS: Absolute Lymphocytes (CBC) 1.8 K/uL (0.7-4.9); Hematocrit 38.9 % (36.0-45.0); Lymphocytes % 32.2 % (15.3-44.8); MCV 91.5 fL (80-100); MPV 9.5 fL (7.6-11.3); RBC Red Blood Cell Count 4.25 M/uL (3.86-4.86)
[2022-04-09 05:37] LABS: Albumin 2.8 g/dL (3.4-5.0); Bilirubin Total 0.2 mg/dL (0.2-1.0); Magnesium 1.8 mg/dL (1.8-2.4); Potassium 3.6 mmol/L (3.5-5.1); Protein, Total 6.4 g/dL (6.4-8.2)
[2022-04-09] MEDS ORDERED: MAGNESIUM SULFATE 1 gm IVPB 1 GM/100 ML BAG IV ONE (05:50)
[2022-04-09] MEDS ORDERED: POTASSIUM CL SA 10 MEQ TAB PO ONE (06:00)
[2022-04-09] MEDS: INSULIN -REGULAR HUMAN 50 UNIT/0.5 ML ML SQ SCH ×4 (09:53→21:21)
[2022-04-09] MEDS: ENOXAPARIN 40 MG/0.4 ML SQ SCH (09:53)
[2022-04-09] MEDS: INSULIN GLARGINE 100 UNIT/ML SQ SCH (09:54)
[2022-04-09] MEDS: INSULIN LISPRO 100 UNIT/1 ML SQ SCH ×3 (09:54→16:46)
[2022-04-09] MEDS: HYDROCODONE/APAP 5/325 MG TAB PO PRN ×2 (12:48→21:32)
[2022-04-09] MEDS: IBUPROFEN 600 MG TAB PO PRN (14:51)
--- NOTE | 2022-04-09 18:05 | P.PN ---
Date of Service: 04/09/22 Subjective: swelling /pain is improving still moderate-severe pain, needing IV medication ROS: 10 point ROS as noted above, otherwise negative Physical exam GEN: Alert, oriented, appears uncomfortable CV: Regular rate and rhythm, no edema Pulm: Nonlabored respirations on room air ABD: Soft, nontender, nondistended : erythema and edema of vulva, with small vesicles on bilateral labia, whitish-montero discharge *exam performed with RN in room as receptionist doctor's office Problem List Insulin-dependent diabetes with hyperglycemia, mild DKA (resolved) vulvovaginal erythema, ulcers, 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 Ley consulted; started IV acyclovir, transition to PO on discharge trial sitz baths BID if available pain medication as needed, added ibuprofen s/p Diflucan 150mg x1 for possible concomitant yeast infection DKA, mild; resolved; gap closed continue long acting insulin, restarted short acting with meals 04/08 Code: full Dispo: home, anticipate tomorrow pain control Time Spent Managing Pts Care (In Minutes): 35
[2022-04-10] MEDS: ACYCLOVIR INJ 400 MG in NA CHLORIDE 0.9% 100 ML IVPB SCH ×2 (00:56→08:53)
[2022-04-10] MEDS: IBUPROFEN 600 MG TAB PO PRN (00:56)
[2022-04-10 03:14] LABS: RPR (Rapid Plasma Reagin) NON-REACT (NON-REACT)
--- NOTE | 2022-04-10 07:43 | P.DS ---
Admission Date: 04/08/22 Discharge Date: 04/10/22 Disposition: ROUTINE DISCHARGE Discharge Condition: GOOD Reason for Admission: Hyperglycemia Consultations: OBGYN - Dr. Ley Brief History of Present Illness: 26yo F, PMH: [id number] Presented to ED for vaginal pain and itching. Diagnosed with genital HSV-1 infection. Given Valtrex. Also noted to have hyperglycemia with anion gap, diagnosed with DKA. Given 2L normal saline and insulin. Her gap quickly closed and glucose improved. ED provider requested admission for further management. Reported recently started on Bactrim for presumed UTI. Hospital Course: Problem List Insulin-dependent diabetes with hyperglycemia, mild DKA (resolved) genital HSV-1; erythema/ulcers of vulva Patient was treated for HSV infection and mild DKA. DKA resolved quickly and she was transitioned to her typical insulin regimen. HSV infection was causing severe pain. OBGYN Charles Ley was consulted. Patient received IV acyclovir during hospitalization and pain medication. She had gradual improvement of her symptoms. Stable for discharge home with 10 more days of acyclovir and pain medication. advised to take 600mg Ibuprofen every 8 hours for the next few days as well. Recommended against topical creams/lotions on the lesions. Follow up with PCP / OBGYN within 1 week. 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 Laboratory Data at Discharge: WBC 5.6 K/uL (4.3-10.9) D 04/09/22 04:00 Hgb 13.3 g/dL (12.0-15.0) 04/09/22 04:00 Hct 38.9 % (36.0-45.0) 04/09/22 04:00 Plt Count 185 K/uL (152-406) 04/09/22 04:00 Sodium 136 mmol/L (136-145) 04/09/22 04:00 Potassium 3.6 mmol/L (3.5-5.1) 04/09/22 04:00 BUN 11 mg/dL (7-18) 04/09/22 04:00 Creatinine 0.48 mg/dL (0.55-1.3) L 04/09/22 04:00 Glucose 206 mg/dL (74-106) H 04/09/22 04:00 Magnesium 1.8 mg/dL (1.8-2.4) 04/09/22 04:00 Total Bilirubin 0.2 mg/dL (0.2-1.0) 04/09/22 04:00 AST 57 U/L (15-37) H 04/09/22 04:00 ALT 56 U/L (12-78) 04/09/22 04:00 Alkaline Phosphatase 105 U/L (45-117) 04/09/22 04:00 Home Medications: Insulin Aspart [Novolog Flexpen] 28 units SQ TIDWM 05/07/20 Insulin Glargine Human [Lantus*] 30 units SQ DAILY 05/07/20 Acyclovir 400 mg PO Q8H 10 Days #30 tablet 04/10/22 Hydrocodone 5/APAP 325 [Dickson 5/325*] 1 tab PO Q6H PRN #20 tab 04/10/22 Ibuprofen [Motrin] 600 mg PO Q8H PRN tab 04/10/22 New Medications: Acyclovir 400 mg PO Q8H 10 Days #30 tablet Hydrocodone 5/APAP 325 [Dickson 5/325*] 1 tab PO Q6H PRN #20 tab PRN Reason: Pain Scale 5-7 (Moderate) Physician Discharge Instructions: Patient was treated for HSV infection and mild DKA. DKA resolved quickly and she was transitioned to her typical insulin regimen. HSV infection was causing severe pain. OBGYN - Dr. Ley was consulted. Patient received IV acyclovir during hospitalization and pain medication. She had gradual improvement of her symptoms. Stable for discharge home with 10 more days of acyclovir and pain medication. advised to take 600mg Ibuprofen every 8 hours for the next few days as well. Recommended against topical creams/lotions on the lesions. Follow up with PCP / OBGYN within 1 week. Followup: Bhanu Ley MD [COURTESY - CAN ADMIT] - NONE,NONE [Primary Care Provider] - Time spent managing pt's care (in minutes): 40
[2022-04-10 08:40] LABS: Potassium 3.5 mmol/L (3.5-5.1)
[2022-04-10] MEDS: ENOXAPARIN 40 MG/0.4 ML SQ SCH (08:53)
[2022-04-10] MEDS: INSULIN LISPRO 100 UNIT/1 ML SQ SCH (08:53)
[2022-04-10] MEDS: INSULIN -REGULAR HUMAN 50 UNIT/0.5 ML ML SQ SCH (08:54)
[2022-04-10] MEDS: INSULIN GLARGINE 100 UNIT/ML SQ SCH (08:54)
[2022-04-10 09:30] VITALS: BP 104/67; TEMP 97
[2022-04-10] MEDS ORDERED: ACYCLOVIR 400 MG TABLET PO SCH (14:00)
[2022-04-12 18:41] LABS: HIV AG/AB 4TH GEN Non-reactive (Non-reactive)
[2022-04-13 14:50] LABS: HSV Source Not Given
== END 2022-04-10 12:27 | disposition home or self-care (01) | DRG 757 ==
LOC: ER 17:52 → ERHOLD 23:57 → 4TH 04-08 00:31 → OBSVTOIN 04-08 19:45
PROVIDERS: ADMIT Hospitalist; ATTEND Hospitalist
DX: A60.04 Herpesviral vulvovaginitis (principal); E10.10 Type 1 diabetes mellitus with ketoacidosis without coma; N39.0 Urinary tract infection, site not specified; B37.3 Candidiasis of vulva and vagina; Z79.4 Long term (current) use of insulin; Z20.822 Contact with and (suspected) exposure to COVID-19
CPT/HCPCS: 36415; 80048; 80053; 81003; 81015; 82010; 82947; 83036; 83735; 85025; 86592; 87070; 87086; 87088; 87255; 87389; 96361; 96374; 96375; 99285; G0378; J0133; J1650; J1815; J2270; J2405; J3475; J7030; U0003

== ENCOUNTER → 2023-10-04 | Emergency (ER) | payer SELFPAY ==
[~2023-10-04] MED LIST: ACETAMINOPHEN 500 MG TAB ONE; INSULIN 70/30 100 UNITS/ML SQ ONE; INSULIN REGULAR (HUMAN) 100 UNIT/ML ONE; NA CHLORIDE 0.9% 1,000 ML ONE
--- OUTSIDE RECORDS SUMMARY | 2023-10-04 22:39 | XMS REPORT | Continuity of Care Document ---
Author Name Unknown Address [address] [facility] [address] [place] [address] [facility] thconnect Address [address] [facility]. 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 Role Phone [facility] Primary Car e Physician Unavailable RAKEL_GCBZW_Joie_S Attending Clinician Unavaildarrel lugo Doctor Unassigned, Wilhoit Attending Clinician U Gaby Mcgill LVN Attending Clinician [phone] Megan Langley DO Attending Clinician [phone] MEGAN LANGLEY Attending Clinician Unavailable Amber Pena Attending Clinician Unavailable RAKEL_BETI_Joie_S Admitting Clinician Megan Goldsmith DO Admitting Clinician [phone] MEGAN LANGLEY Admitting Clinician Unavailable KNOW, DOES_NOT Admitting Clinician Unavailable Payers Payer Name Policy Type Policy Number Effective Date Expirati on Date Source [place] [facility] (HMO) [id number] 2022 00:00:00 Problems Condition Name Condition Details Condition Category Status Onset Date Resolution Date Last Treatment Date Treating Clinician Comments Source DKA, type 1, not at goal DKA, type 1, not at goal Disease Active 2020-10 00:00: 00 [facility] Diabetic ketoacidos is associated with type 2 diabetes mellitus Diabetic ketoacidos is associated with type 2 diabetes mellitus Disease Active 2020-10 00:00: 00 [facility] Allergies, Adverse Reactions, Alerts Allergy Name Allergy Type Status Severity Reaction(s) Onset Date Inactive Date Treating Clinician Comments Source nkda DA Active U none 01-12 00:00: 00 [facility] NO KNOWN ALLERGIE S Drug Class Active [facility] Social History Social Habit Start Date Stop Date Quantity Comments Source History SDOH Alcohol Frequency [facility] History SDOH Alcohol Std Drinks [facility] History SDOH Alcohol Binge [facility] Exposure to SARS-CoV-2 (event) Not sure [facility] Tobacco use and exposure 2021-08-25 00:00:00 2021-08-25 00:00:00 Current user [facility] Alcohol intake 2021-08-25 00:00:00 2021-08-25 00:00:00 Current drinker of alcohol (finding) [facility] Alcohol Comment 2021-08-25 00:00:00 2021-08-25 00:00:00 social [facility] Sex Assigned At 1995 00:00:00 1995 00:00:00 [facility] Smoking Status Start Date Stop Date Source Former smoker 2021-08-25 00:00:00 2021-08-25 00:00:00 [facility] Medications Ordered Medication Name Filled Medication Name Start Date Stop Date Current Medication? Ordering Clinician Indication Dosage Frequency Signature (SIG) Comments Components Source KCL (KLOR-CON M20) tablet 40 mEq 2020-10 14:00: 00 09-01 21:59 :00 No [id number] 40meq 40 mEq, Oral, Q4H, 2 doses, First dose on Sun09/01/21 at 0800, Last dose on Sun09/01/21 at 1200, Routine [facility] insulin aspart U-100 (NOVOLOG FLEXPEN U-100 INSULIN) 100 unit/mL (3 mL) injection 2020-10 11:43: 23 Yes 30U inject 30 Units under the skin 3 (three) times daily before meals. [facility] Insulin Glargine (LANTUS SOLOSTAR U-100 INSULIN) 100 unit/mL (3 mL) injection 2020-10 11:43: 23 Yes 30U inject 30 Units under the skin 2 (two) times daily. [facility] insulin aspart U-100 (NOVOLOG FLEXPEN U-100 INSULIN) 100 unit/mL (3 mL) injection 2020-10 11:43: 23 Yes 30U inject 30 Units under the skin 3 (three) times daily before meals. [facility] Insulin Glargine (LANTUS SOLOSTAR U-100 INSULIN) 100 unit/mL (3 mL) injection 2020-10 11:43: 23 Yes 30U inject 30 Units under the skin 2 (two) times daily. [facility] insulin aspart U-100 (NOVOLOG FLEXPEN U-100 INSULIN) 100 unit/mL (3 mL) injection 2020-10 11:43: 23 Yes 30U inject 30 Units under the skin 3 (three) times daily before meals. [facility] Insulin Glargine (LANTUS SOLOSTAR U-100 INSULIN) 100 unit/mL (3 mL) injection 2020-10 11:43: 23 Yes 30U inject 30 Units under the skin 2 (two) times daily. [facility] atorvastati n 40 mg tablet 2020-10 00:00: 00 10-02 05:59 :00 No [id number] 40mg Take 1 tablet by mouth at bedtime for 30 days. [facility] atorvastati n 40 mg tablet 2020-10 00:00: 00 10-02 05:59 :00 No [id number] 40mg Take 1 tablet by mouth at bedtime for 30 days. [facility] atorvastati n 40 mg tablet 2020-10 00:00: 00 10-02 05:59 :00 No [id number] 40mg Take 1 tablet by mouth at bedtime for 30 days. [facility] potassium, sodium phosphates (PHOS-NAK) 280-160-250 mg packet 2 Packet 2020-10 18:00: 00 08-31 18:00 :00 No [id number] 2{packe t} 2 Packet, Oral, QID, 1 dose, First dose on Sun08/31/21 at 1200, Routine [facility] KCL (KLOR-CON M20) tablet 40 mEq 2020-10 14:45: 00 08-31 18:01 :00 No [id number] 40meq 40 mEq, Oral, Q2H, 2 doses, First dose (after last modificati on) on Sun08/31/21 at 0845, Last dose on Sun08/31/21 at 1000, Routine [facility] potassium chloride in water 10 mEq/100 mL RTU 10 mEq 2020-10 17:00: 00 08-30 22:25 :00 No 10meq 10 mEq, IV Piggyback, Q1H, 4 doses, First dose (after last reorder) on Sun08/30/21 at 1100, Last dose on Sun08/30/21 at 1400, Administer over 60 Minutes, 100 mL [facility] NaCl 0.9% (NS) injection 10 mL 2020-10 15:47: 20 Yes 10mL 10 mL, Slow IV Push, PRN, Starting on Sun08/30/21 at 0947, Until Discontinu ed, Routine, line maintenanc e [facility] insulin glargine (LANTUS U-100) injection 40 Units 2020-10 15:00: 00 Yes 40U 40 Units, Subcutaneo us, DAILY, First dose (after last modificati on) on Sun08/30/21 at 0900, Until Discontinu ed, Routine [facility] KCL (KLOR-CON M20) tablet 40 mEq 2020-10 14:30: 00 08-30 14:14 :00 No 40meq 40 mEq, Oral, ONCE, 1 dose, On Sun08/30/21 at 0830, Routine [facility] potassium chloride in water 10 mEq/100 mL RTU 10 mEq 2020-10 14:00: 00 08-30 16:31 :00 No 10meq 10 mEq, IV Piggyback, Q1H, 2 doses, First dose on Sun08/30/21 at 0800, Last dose on Sun08/30/21 at 0900, Administer over 60 Minutes, 100 mL [facility] potassium chloride in water 10 mEq/100 mL RTU 10 mEq 2020-10 04:00: 00 08-30 05:48 :00 No 10meq 10 mEq, IV Piggyback, Q1H, 2 doses, First dose (after last reorder) on Sun08/29/21 at 2200, Last dose on Sun08/29/21 at 2300, Administer over 60 Minutes, 100 mL [facility] Sliding Scale Insulin - Lispro (HumaLOG) + Fsbg Testing 2020-10 23:00: 00 Yes Subcutaneo us, TID MEALS+HS, First dose on Sun08/29/21 at 1700, Until Discontinu ed, [facility] lispro (human[facility] (HumaLOG U-100) injection 5 Units 2020-10 23:00: 00 Yes 5U 5 Units, Subcutaneo us, TID MEALS, First dose (after last modificati on) on Sun08/29/21 at 1700, Until Discontinu ed, Routine [facility] KCL (KLOR-CON M20) tablet 40 mEq 2020-10 22:15: 00 08-29 22:19 :00 No 40meq 40 mEq, Oral, ONCE, 1 dose, On Sun08/29/21 at 1615, Routine [facility] potassium chloride in water 10 mEq/100 mL RTU 10 mEq 2020-10 21:15: 00 08-30 02:59 :00 No 10meq 10 mEq, IV Piggyback, Q1H, 6 doses, First dose on Sun08/29/21 at 1515, Last dose on Sun08/29/21 at 2000, Administer over 60 Minutes, 100 mL [facility] ceFAZolin in dextrose (iso-os) (ANCEF) 2 gram/100 mL Piggyback 2 g 2020-10 21:00: 00 Yes 2000mg 2 g (2,000 mg), IV Piggyback, Q8H ABX, First dose on Sun08/29/21 at 1500, Until Discontinu ed, 100 mL
Reas on for Anti-Infec tive: Documented Infection< br>Documen rodrigo Infection Site: Blood
D uration of Therapy: 14 days [facility] NaCl 0.9% (NS) injection 10 mL 2020-10 19:55: 41 Yes 10mL 10 mL, Slow IV Push, PRN, Starting on Sun08/29/21 at 1355, Until Discontinu ed, Routine, line maintenanc e [facility] lidocaine 1% (PF) (XYLOCAINE) injection 5 mL 2020-10 19:55: 41 Yes 5mL 5 mL, Subcutaneo us, PRN, Starting on Sun08/29/21 at 1355, Until Discontinu ed, Routine, Local anesthesia [facility] glucagon (GLUCAGEN DIAGNOSTIC KIT) injection 1 mg 2020-10 19:41: 58 Yes 1mg 1 mg, Intramuscu lar, PRN, Starting on Sun08/29/21 at 1341, Until Discontinu ed, KACEY, Blood Glucose < or = 70 mg/dL and patient is unable to swallow or has mental changes. [facility] dextrose 50 % in water (D50W) injection 25 mL 2020-10 19:41: 58 Yes 25mL 25 mL, Slow IV Push, PRN, Starting on Sun08/29/21 at 1341, Until Discontinu ed, KACEY, Blood Glucose < or = 70 mg/dL and patient is unable to swallow or has mental status changes. [facility] Vancomycin 750 mg in NaCl 0.9% (NS) 250 mL VIAL-MATE 2020-10 14:00: 00 08-29 19:56 :00 No 15mg/kg 750 mg (rounded from 862.5 mg = 15 mg/kg ?57.5 kg), IV Piggyback, Q8H ABX, First dose (after last modificati on) on Sun08/29/21 at 0800, Until Discontinu ed, Administer over 60 Minutes, 250 mL
R wilfrid for Anti-Infec tive: Empiric Therapy for Suspected Infection< br>Empiric Therapy Site: Skin / Soft tissue
Duration of therapy: 7 days [facility] magnesium oxide (MAG-OX 400) tablet 400 mg 2020-10 02:00: 00 08-30 01:59 :00 No 400mg 400 mg, Oral, BID, 3 doses, First dose on Sun08/28/21 at 2000, Last dose on Sun08/29/21 at 2000, Routine [facility] insulin lispro (human) (HumaLOG U-100) injection 3 Units 2020-10 23:00: 00 08-29 19:36 :42 No 3U 3 Units, Subcutaneo us, TID MEALS, First dose on Sun08/28/21 at 1700, Until Discontinu ed, Routine [facility] insulin lispro (human) (HumaLOG U-100) injection 2020-10 22:30: 00 08-29 19:37 :09 No Subcutaneo us, AC+HS, First dose (after last modificati on) on Sun08/28/21 at 1630, Until Discontinu ed, Routine [facility] NaCl 0.9% (NS) IV infusion 1,000 mL 2020-10 20:00: 00 Yes 1000mL at 100 mL/hr, IV Infusion, CONTINUOUS , Starting on Sun08/28/21 at 1400, Until Discontinu ed, Routine [facility] insulin glargine (LANTUS U-100) injection 10 Units 2020-10 19:45: 00 08-28 18:44 :00 No 10U 10 Units, Subcutaneo us, ONCE, 1 dose, On Sun08/28/21 at 1345, Routine [facility] magnesium sulfate in water 2 gram/50 mL (4 %) infusion 2 g 2020-10 15:15: 00 08-28 15:21 :00 No 2g 2 g, IV Piggyback, ONCE, 1 dose, On Sun08/28/21 at 0915, [facility] glargine (LANTUS U-100) injection 30 Units 2020-10 15:00: 00 08-29 19:36 :42 No 30U 30 Units, Subcutaneo us, DAILY, First dose (after last modificati on) on Sun08/28/21 at 0900, Until Discontinu ed, Routine [facility] potassium chloride in water 10 mEq/100 mL RTU 10 mEq 2020-10 15:00: 00 08-28 19:30 :00 No 10meq 10 mEq, IV Piggyback, Q1H, 4 doses, First dose (after last reorder) on Sun08/28/21 at 0900, Last dose on Sun08/28/21 at 1200, Administer over 60 Minutes, 100 mL [facility] NaCl 0.9% (NS) 1000 mL + KCL 20 mEq 2020-10 14:15: 00 08-28 13:32 :00 No IV Infusion, at 125 mL/hr, ONCE, 1 dose, On Sun08/28/21 at 0815, Routine [facility] KCL (KLOR-CON M20) tablet 40 mEq 2020-10 14:00: 00 08-28 13:32 :00 No 40meq 40 mEq, Oral, ONCE, 1 dose, On Sun08/28/21 at 0800, Routine [facility] insulin glargine (LANTUS U-100) injection 17 Units 2020-10 13:37: 23 08-28 14:09 :00 No .3U/kg/ d 17 Units (rounded from 17.25 Units = 0.3 Units/kg/d ay ?57.5 kg), Subcutaneo us, Q24H, First dose on [place] 08/28/21 at 0738, Until Discontinu ed, Routine [facility] KCL (KLOR-CON M20) tablet 40 mEq 2020-10 00:45: 00 08-28 00:17 :00 No 40meq 40 mEq, Oral, ONCE, 1 dose, On [facility] 08/27/21 at 1845, Routine [facility] lactated ringers IV infusion 1,000 mL 2020-10 21:00: 00 08-28 12:59 :06 No 1000mL at 100 mL/hr, 1,000 mL, IV Infusion, CONTINUOUS , Starting on [facility] 08/27/21 at 1500, Until [place] 08/28/21 at 0659, Routine [facility] KCL (KLOR-CON M20) tablet 40 mEq 2020-10 19:00: 00 08-27 18:27 :00 No 40meq 40 mEq, Oral, ONCE, 1 dose, On [facility] 08/27/21 at 1300, Routine [facility] NaCl 0.9% (NS) bolus infusion 1,000 mL 2020-10 18:30: 00 08-27 17:42 :00 No 1000mL at 999 mL/hr, 1,000 mL, IV Infusion, ONCE, 1 dose, On [facility] 08/27/21 at 1230, STAT [facility] ampicillin- sulbactam (UNASYN) 3 g in NaCl 0.9% (NS) 100 mL MINI-BAG 2020-10 17:45: 00 08-29 19:56 :00 No 3g 3 g, IV Piggyback, Q6H ABX, First dose on [facility] 08/27/21 at 1145, Until Discontinu ed, Administer over 30 Minutes, 100 mL
Reas on for Anti-Infec tive: Empiric Therapy for Suspected Infection< br>Empiric Therapy Site: Skin / Soft tissue
Duration of therapy: 7 days [facility] KCL (KLOR-CON M20) tablet 40 mEq 2020-10 17:15: 00 08-27 16:24 :00 No 40meq 40 mEq, Oral, ONCE, 1 dose, On 08/27/21 at 1115, Routine [facility] Vancomycin 750 mg in NaCl 0.9% (NS) 250 mL VIAL-MATE 2020-10 16:45: 00 08-29 13:46 :09 No 15mg/kg 750 mg (rounded from 862.5 mg = 15 mg/kg ?57.5 kg), IV Piggyback, Q12H ABX, First dose on 08/27/21 at 1045, Until Discontinu ed, Administer over 60 Minutes, 250 mL
Reas on for Anti-Infec tive: Empiric Therapy for Suspected Infection< br>Empiric Therapy Site: Skin / Soft tissue
Duration of therapy: 7 days [facility] NaCl 0.9% (NS) bolus infusion 1,000 mL 2020-10 15:30: 00 08-27 14:39 :00 No 1000mL at 999 mL/hr, 1,000 mL, IV Infusion, ONCE, 1 dose, On 08/27/21 at 0930, STAT [facility] acetaminoph en (TYLENOL) tablet 650 mg 2020-10 14:25: 31 Yes 650mg 650 mg, Oral, Q6HPRN, Starting on 08/27/21 at 0825, Until Discontinu ed, Routine, Temp > 38.5 C [facility] Sliding Scale Insulin - lispro (humaLOG) + Fsbg Testing 2020-10 14:00: 00 08-28 20:48 :50 No Subcutaneo us, Q4H, First dose on 08/27/21 at 0800, Until Discontinu ed, Routine [facility] potassium chloride in water 10 mEq/100 mL RTU 10 mEq 2020-10 14:00: 00 08-27 18:19 :00 No 10meq 10 mEq, IV Piggyback, Q1H, 4 doses, First dose on 08/27/21 at 0800, Last dose on 08/27/21 at 1100, Administer over 60 Minutes, 100 mL [facility] potassium chloride in water 10 mEq/100 mL RTU 10 mEq 2020-10 02:00: 00 08-27 06:00 :00 No 10meq 10 mEq, IV Piggyback, Q1H, 4 doses, First dose (after last reorder) on Sun08/26/21 at 2000, Last dose on Sun08/26/21 at 2300, Administer over 60 Minutes, 100 mL [facility] NaCl 0.9% (NS) bolus infusion 500 mL 2020-10 00:15: 00 08-26 23:30 :00 No 500mL at 999 mL/hr, 500 mL, IV Infusion, ONCE, 1 dose, On Sun08/26/21 at 1815, STAT [facility] potassium chloride in water 10 mEq/100 mL RTU 10 mEq 2020-10 21:00: 00 08-27 01:48 :00 No 10meq 10 mEq, IV Piggyback, Q1H, 4 doses, First dose (after last reorder) on Sun08/26/21 at 1500, Last dose on Sun08/26/21 at 1800, Administer over 60 Minutes, 100 mL [facility] potassium chloride in water 10 mEq/100 mL RTU 10 mEq 2020-10 14:00: 00 08-26 20:00 :00 No 10meq 10 mEq, IV Piggyback, Q1H, 6 doses, First dose on Sun08/26/21 at 0815, Last dose on Sun08/26/21 at 1300, Administer over 60 Minutes, 100 mL [facility] ondansetron (ZOFRAN (PF)) injection 4 mg 2020-10 07:29: 16 Yes 4mg 4 mg, Slow IV Push, Q4HPRN, Starting on Sun08/26/21 at 0129, Until Discontinu ed, Routine, Nausea and Vomiting (N/V), N/V unresponsi ve to Promethazi ne, N/V unresponsi ve to oral antiemetic s, N/V alternatin g with Promethazi ne, N/V recurrent or refractory after palonosetr on (Aloxi) [facility] NaCl 0.9% (NS) IV infusion 2,000 mL 2020-10 03:30: 00 08-26 02:53 :00 No 2000mL at 999 mL/hr, IV Infusion, ONCE, 1 dose, On Sun08/25/21 at 2130, Routine [facility] enoxaparin (LOVENOX) injection 40 mg 2020-10 02:45: 00 Yes 40mg 40 mg, Subcutaneo us, Q24H, First dose on Sun08/25/21 at 2045, Until Discontinu ed, Routine [facility] potassium chloride in water 10 mEq/100 mL RTU 10 mEq 2020-10 02:00: 00 08-26 04:00 :00 No 10meq 10 mEq, IV Piggyback, Q1H, 2 doses, First dose on [facility] 08/25/21 at 2000, Last dose on Sun08/25/21 at 2100, Administer over 60 Minutes, 100 mL [facility] NaCl 0.45% (1/2NS) 1000 mL + KCL 20 mEq 2020-10 01:45: 00 08-27 16:28 :24 No 1000mL [facility] morpHINE injection 4 mg 2020-10 01:43: 29 08-30 00:51 :25 No 4mg 4 mg, Slow IV Push, Q4HPRN, Starting on [place] 08/25/21 at 1943, Until 08/29/21 at 1851, Routine, Pain (scale 7-10) [facility] HYDROcodone -acetaminop hen (NORCO 5) 5-325 mg tablet 1 tablet 2020-10 01:43: 18 Yes 1{tbl} 1 tablet, Oral, Q6HPRN, Starting on Sun08/25/21 at 1943, Until Discontinu ed, Routine, Pain (scale 4-6) [facility] acetaminoph en (TYLENOL) 160 mg/5 mL oral liquid 650 mg 2020-10 01:43: 08 Yes 650mg 650 mg, Oral, Q6HPRN, Starting on Sun08/25/21 at 1943, Until Discontinu ed, Routine, Pain (scale 1-3) [facility] D5W 0.45% NaCl (1/2NS) 1 L + KCL 20 mEq 2020-10 01:42: 48 08-27 16:27 :04 No IV Infusion, at 200 mL/hr, PRN - SEE INSTRUCTIO NS, Starting on [facility] 08/25/21 at 1942, Until 08/27/21 at 1027, KACEY, Blood glucose control [facility] insulin regular in 0.9 % NaCl (MYXREDLIN) 100 unit/100 mL (1 unit/mL) RTU IV infusion 2020-10 01:40: 18 08-27 13:23 :51 No 0U/kg/h 0-0.3 Units/kg/h r ?54.4 kg (0-16.32 mL/hr), IV Infusion, TITRATE, Parameters in Admin. Instr., Follow DKA Insulin Rate [...] glargine order two hours before stopping insulin infusion.< br> [facility] Vital Signs Vital Name Observation Time Observation Value Comments S marcial Systolic blood pressure 2021-09-01 17:00:00 111 mm[Hg] [facility] Diastolic blood pressure 2021-09-01 17:00:00 75 mm[Hg] [facility] Heart rate 2021-09-01 17:00:00 97 /min [facility] Body temperature 2021-09-01 17:00:00 36.17 Masha [facility] Respiratory rate 2021-09-01 17:00:00 16 /min [facility] Oxygen saturation in Arterial blood by Pulse oximetry 2021-09-01 17:00:00 99 /min [facility] Body weight 2021-08-27 10:00:00 57.471 kg [facility] BMI 2021-08-27 10:00:00 24.74 kg/m2 [facility] Body height 2021-08-26 00:43:00 152.4 cm [facility] Procedures Procedure Date / Time Performed Performing Clinician Source EXTERNAL PROVIDER RECORDS 2021-09-06 06:01:00 Do ctor Unassigned, Wilhoit [facility] POCT GLUCOSE (AUTOMATED) 2021-09-01 13:26:00 Julissa Langley [facility] PHOSPHORUS 2021-09-01 11:39:00 [facility] MAGNESIUM 2021-09-01 11:39:00 [facility] HEPATIC FUNCTION PANEL ([id number]) (ALB,T.PRO,BILI T,BU/BC,ALT,AST,ALK PHOS) 2021-09-01 11:39:00 Elizabeth Zelaya [facility] BASIC METABOLIC PANEL (NA, K, CL, CO2, GLUCOSE, BUN, CREATININE, CA) 2021-09-01 11:39:00 Bryan Alexandre [facility] LIPID PANEL (20996)(TOTAL CHOLESTEROL, TRIGLYCERIDES, HDL) 2021-09-01 11:39:00 [facility] POCT GLUCOSE (AUTOMATED) 2021-09-01 08:37:00 Julissa Langley [facility] POCT GLUCOSE (AUTOMATED) 2021-09-01 04:58:00 Julissa Langley [facility] POCT GLUCOSE (AUTOMATED) 2021-09-01 01:58:00 Julissa Langley [facility] POCT GLUCOSE (AUTOMATED) 2021-08-31 22:56:00 Julissa Langley [facility] POCT GLUCOSE (AUTOMATED) 2021-08-31 17:42:00 Julissa Langley [facility] POCT GLUCOSE (AUTOMATED) 2021-08-31 13:30:00 [facility] MAGNESIUM 2021-08-31 10:27:00 Garcia [facility] RENAL PANEL 2021-08-31 10:27:00 Garcia [facility] POCT GLUCOSE (AUTOMATED) 2021-08-31 08:58[facility] 2021-08-31 05:36:00 Julissa Langley [facility] POTASSIUM, URINE RANDOM 2021-08-31 04:07:00 Garcia [facility] PROTEIN CREAT RATIO URINE RANDOM 2021-08-31 04:07:00 Garcia [facility] ACUTE CARE ARTERIAL BLOOD GAS 2021-08-31 03:45:00 Garcia [facility] POCT GLUCOSE (AUTOMATED) 2021-08-31 02:41:00 Julissa Langley [facility] POCT GLUCOSE (AUTOMATED) 2021-08-30 23:46:00 Julissa Langley [facility] BLOOD CULTURE SCREEN 2021-08-30 18:17:00 Megan Langley [facility] POCT GLUCOSE (AUTOMATED) 2021-08-30 18:16:00 [facility] BLOOD CULTURE SCREEN 2021-08-30 18:07:00 Megan Langley [facility] POCT GLUCOSE (AUTOMATED) 2021-08-30 13:55:00 Julissa Langley [facility] POCT GLUCOSE (AUTOMATED) 2021-08-30 10:59:00 Julissa Langley [facility] BASIC METABOLIC PANEL (NA, K, CL, CO2, GLUCOSE, BUN, CREATININE, CA) 2021-08-30 10:11:00 Megan Langley [facility] CBC WITH DIFF 2021-08-30 10:11:00 Megan Langley [facility] POCT GLUCOSE (AUTOMATED) 2021-08-30 07:38:00 Julissa Langley [facility] POCT GLUCOSE (AUTOMATED) 2021-08-30 03:58:00 Julissa Langley [facility] POCT GLUCOSE (AUTOMATED) 2021-08-29 23:26:00 [facility] TRANSTHORACIC ECHO (TTE) COMPLETE 2021-08-29 20:33:00 Megan Langley [facility] MAGNESIUM 2021-08-29 20:22:00 Megan Langley [facility] BASIC METABOLIC PANEL (NA, K, CL, CO2, GLUCOSE, BUN, CREATININE, CA) 2021-08-29 20:22:00 Megan Langley [facility] POCT GLUCOSE (AUTOMATED) 2021-08-29 17:06:00 Julissa Langley [facility] POCT GLUCOSE (AUTOMATED) 2021-08-29 13:47:00 [facility] VANCOMYCIN TROUGH 2021-08-29 03:56:00 Eugenia Wick [facility] BLOOD CULTURE SCREEN 2021-08-29 03:55:00 Megan Langley [facility] POCT GLUCOSE (AUTOMATED) 2021-08-29 02:10:00 [facility] BLOOD CULTURE SCREEN 2021-08-28 23:54:00 Megan Langley [facility] BLOOD CULTURE WORKUP 2021-08-28 23:54:00 Megan Langley [facility] POCT GLUCOSE (AUTOMATED) 2021-08-28 22:21:00 [facility] POCT GLUCOSE (AUTOMATED) 2021-08-28 18:28:00 [facility] POCT GLUCOSE (AUTOMATED) 2021-08-28 13:42:00 [facility] MAGNESIUM 2021-08-28 11:01:00 Megan Langley [facility] BASIC METABOLIC PANEL (NA, K, CL, CO2, GLUCOSE, BUN, CREATININE, CA) 2021-08-28 11:01:00 Megan Langley [facility] CBC WITH DIFF 2021-08-28 11:01:00 Megan Langley [facility] POCT GLUCOSE (AUTOMATED) 2021-08-28 10:39:00 Julissa Langley [facility] POCT GLUCOSE (AUTOMATED) 2021-08-28 06:26:00 Julissa Langley [facility] POCT GLUCOSE (AUTOMATED) 2021-08-28 01:41:00 [facility] BLOOD CULTURE SCREEN 2021-08-27 22:56:00 Megan Langley [facility] BLOOD CULTURE WORKUP 2021-08-27 22:56:00 Megan Langley [facility] BASIC METABOLIC PANEL (NA, K, CL, CO2, GLUCOSE, BUN, CREATININE, CA) 2021-08-27 22:54:00 Megan Langley [facility] BLOOD CULTURE SCREEN 2021-08-27 22:53:00 Roni [facility] BLOOD CULTURE WORKUP 2021-08-27 22:53:00 Roni [facility] GRAM POSITIVE BLOOD PATHOGENS DNA PROBE-AEROBIC 2021-08-27 22:53:00 Megan Langley [facility] POCT GLUCOSE (AUTOMATED) 2021-08-27 21:47:00 Julissa [facility] URINE DRUG (IMMUNOASSAY) - COMPREHENSIVE DRUG SCREEN 2021-08-27 17:35:00 Megan Langley [facility] URINALYSIS 2021-08-27 17:35:00 Megan Langley [facility] URINE CULTURE 2021-08-27 17:35:00 Megan Langley [facility] URINE DRUG (LCMSMS) - SYNTHETIC OPIATES PANEL 2021-08-27 17:35:00 Megan Langley [facility] POCT GLUCOSE (AUTOMATED) 2021-08-27 17:24:00 Julissa [facility] XR CHEST 1 VW 2021-08-27 15:56:50 Megan Langley [facility] POCT GLUCOSE (AUTOMATED) 2021-08-27 14:01:00 Julissa [facility] POCT GLUCOSE (AUTOMATED) 2021-08-27 13:07:00 Julissa [facility] POCT GLUCOSE (AUTOMATED) 2021-08-27 11:54:00 Julissa [facility] COVID-19 (ID NOW RAPID TESTING) 2021-08-27 11:21:00 Delvin [facility] LAB ONLY COVID INTERPRETATION 2021-08-27 11:21:00 Delvin [facility] POCT GLUCOSE (AUTOMATED) 2021-08-27 11:17:00 Julissa [facility] POCT GLUCOSE (AUTOMATED) 2021-08-27 10:10:00 Julissa [facility] THYROID STIMULATING HORMONE 2021-08-27 10:08:00 Megan Langley [facility] BASIC METABOLIC PANEL (NA, K, CL, CO2, GLUCOSE, BUN, CREATININE, CA) 2021-08-27 10:08:00 Megan Langley [facility] POCT GLUCOSE (AUTOMATED) 2021-08-27 09:03:00 Julissa [facility] POCT GLUCOSE (AUTOMATED) 2021-08-27 08:33:00 Julissa [facility] BASIC METABOLIC PANEL (NA, K, CL, CO2, GLUCOSE, BUN, CREATININE, CA) 2021-08-27 08:05:00 Megan Langley [facility] POCT GLUCOSE (AUTOMATED) 2021-08-27 07:14:00 Julissa [facility] POCT GLUCOSE (AUTOMATED) 2021-08-27 06:10:00 Julissa [facility] POCT GLUCOSE (AUTOMATED) 2021-08-27 04:56:00 Julissa [facility] POCT GLUCOSE (AUTOMATED) 2021-08-27 04:23:00 Julissa [facility] POCT GLUCOSE (AUTOMATED) 2021-08-27 03:24:00 Julissa [facility] BASIC METABOLIC PANEL (NA, K, CL, CO2, GLUCOSE, BUN, CREATININE, CA) 2021-08-27 02:39:00 Megan Langley [facility] POCT GLUCOSE (AUTOMATED) 2021-08-27 01:53:00 Julissa [facility] POCT GLUCOSE (AUTOMATED) 2021-08-27 00:34:00 Julissa [facility] POCT GLUCOSE (AUTOMATED) 2021-08-26 23:16:00 Julissa [facility] BASIC METABOLIC PANEL (NA, K, CL, CO2, GLUCOSE, BUN, CREATININE, CA) 2021-08-26 22:21:00 Megan Langley [facility] POCT GLUCOSE (AUTOMATED) 2021-08-26 21:59:00 Julissa [facility] POCT GLUCOSE (AUTOMATED) 2021-08-26 21:10:00 Julissa [facility] POCT GLUCOSE (AUTOMATED) 2021-08-26 19:49:00 Julissa [facility] POCT GLUCOSE (AUTOMATED) 2021-08-26 18:22:00 Julissa [facility] BASIC METABOLIC PANEL (NA, K, CL, CO2, GLUCOSE, BUN, CREATININE, CA) 2021-08-26 15:11:00 Megan Langley [facility] POCT GLUCOSE (AUTOMATED) 2021-08-26 14:54:00 Julissa [facility] POCT GLUCOSE (AUTOMATED) 2021-08-26 13:25:00 Julissa [facility] BASIC METABOLIC PANEL (NA, K, CL, CO2, GLUCOSE, BUN, CREATININE, CA) 2021-08-26 12:37:00 Megan Langley [facility] POCT GLUCOSE (AUTOMATED) 2021-08-26 12:28:00 Julissa [facility] POCT GLUCOSE (AUTOMATED) 2021-08-26 11:31:00 Julissa [facility] POCT GLUCOSE (AUTOMATED) 2021-08-26 10:03:00 Julissa [facility] POCT GLUCOSE (AUTOMATED) 2021-08-26 09:51:00 Roni, D avid [facility] TEST, SERUM 2021-08-26 08:37:00 Itz Langley [facility] BASIC METABOLIC PANEL (NA, K, CL, CO2, GLUCOSE, BUN, CREATININE, CA) 2021-08-26 08:37:00 Megan Langley [facility] POCT GLUCOSE (AUTOMATED) 2021-08-26 08:32:00 Julissa Langley [facility] POCT GLUCOSE (AUTOMATED) 2021-08-26 07:20:00 Julissa [facility] POCT GLUCOSE (AUTOMATED) 2021-08-26 06:31:00 [facility] BASIC METABOLIC PANEL (NA, K, CL, CO2, GLUCOSE, BUN, CREATININE, CA) 2021-08-26 05:27:00 Megan Langley [facility] POCT GLUCOSE (AUTOMATED) 2021-08-26 05:23:00 Julissa [facility] URINALYSIS 2021-08-26 04:44:00 Megan Langley [facility] URINE CULTURE 2021-08-26 04:44:00 Megan Langley [facility] POCT GLUCOSE (AUTOMATED) 2021-08-26 04:02:00 Julissa Langley [facility] PHOSPHORUS 2021-08-26 02:40:00 Megan Langley [facility] MAGNESIUM 2021-08-26 02:40:00 eMgan Langley [facility] OSMOLALITY, SERUM OR PLASMA 2021-08-26 02:40:00 Megan Langley [facility] BETA HYDROXY-BUTYRATE 2021-08-26 02:40:00 Itz Langley [facility] BASIC METABOLIC PANEL (NA, K, CL, CO2, GLUCOSE, BUN, CREATININE, CA) 2021-08-26 02:40:00 Megan Langley [facility] GLYCOSYLATED HEMOGLOBIN (A1C) 2021-08-26 02:40:00 Megan Langley [facility] ACUTE CARE ARTERIAL BLOOD GAS 2021-08-26 02:39:00 Megan Langley [facility] POCT GLUCOSE (AUTOMATED) 2021-08-26 02:36:00 [facility] POCT GLUCOSE (AUTOMATED) 2021-08-26 00:08:00 Julissa Langley [facility] Encounters Start Date/Time End Date/Time Encounter Type Admission Type Attending [facility] Emergency Department Facility Care Department Encounter ID Source 2023-08-03 14:05:29 2023-08-03 14:05:29 Outpatient SFA SFA [id number] Clarence Brown 2023-07-09 15:06:23 2023-07-09 15:06:23 Outpatient SFA SFA [id number] Clarence Brown 2023-06-27 16:11:45 2023-06-27 16:11:45 Outpatient SFA SFA [id number] Clarence Khan Kevin 2023-06-20 15:16:32 2023-06-20 15:16:32 Outpatient SFA SFA [id number] Clarence Khan Kevin 2023-05-16 16:58:23 2023-05-16 16:58:23 Outpatient SFA SFA [id number] Clarence Khan [place] 2023-05-10 16:52:07 2023-05-10 16:52:07 Outpatient SFA SFA [id number] Clarence Khan [place] 2023-05-01 00:00:00 2023-05-01 00:00:00 Outpatient GC_GCBZW_Ka diyala_S [facility] [id number] [facility] 2023-03-13 16:31:01 2023-03-13 16:31:01 Outpatient SFA SFA [id number] Clarence Khan [place] 2023-03-09 14:40:18 2023-03-09 14:40:18 Outpatient SFA SFA [id number] Clarence Khan [place] 2022-11-20 13:54:58 2022-11-20 13:54:58 Outpatient SFA SFA [id number] Clarence Brown 2022-11-13 16:29:10 2022-11-13 16:29:10 Outpatient SFA SFA [id number] Clarence Brown 2022-09-27 15:41:12 2022-09-27 15:41:12 Outpatient SFA SFA [id number] Clarence Brown 2021-09-06 00:00:00 2021-09-06 00:00:00 Orders Only Doctor Unassigned, [facility] [id number] [facility] 2021-09-02 00:00:00 2021-09-02 00:00:00 Transition of Care TruongNoel mortensenGabyluis SORIA [id number] [facility] 2021-08-25 17:58:00 2021-09-01 11:40:00 Hospital Encounter Megan Langley [facility] [id number] [facility] 2021-08-25 17:58:00 2021-09-01 11:40:00 Inpatient Aleksandr MEGAN LANGLEY [facility] [id number] [facility] 2020-01-13 08:07:00 2020-01-13 08:07:00 Outpatient Amber Pena [facility] OUTD [id number] [facility] Results Test Description Test Time Test Comments Results Result Co mments Source COMPREHENSIVE METABOLIC [id number] 05:10:33* Test Item Value Reference Range Interpretation Comme nts GLUCOSE (test code = 2217) 292 MG/DL 70-99 H BUN (test code = 2208) 9 MG/DL 6-20 CREATININE (test code = 2214) 0.45 MG/DL 0.60-1.30 L eGFR (2020 CKD-EPI) (test code = 88404) 134 ML/MIN/1.73 >60 CALC BUN/CREAT (test code = 2235) 20 RATIO 6-28 SODIUM (test code = 2231) 137 MEQ/L 133-146 POTASSIUM (test code = 2228) 3.4 MEQ/L 3.5-5.4 L CHLORIDE (test code = 2215) 99 MEQ/L 95-107 CARBON DIOXIDE (test code = 6) 18 MEQ/L 19-31 L CALCIUM (test code = 2208) 9.8 MG/DL 8.5-10.5 PROTEIN, TOTAL (test code = 2229) 7.7 G/DL 6.1-8.3 ALBUMIN (test code = 1) 4.8 G/DL 3.5-5.2 CALC GLOBULIN (test code = 0) 2.9 G/DL 1.9-3.7 CALC A/G RATIO (test code = 2233) 1.7 RATIO 1.0-2.6 BILIRUBIN, TOTAL (test code = 7) <0.2 MG/DL See_Comment [Automated me ssage] The system which generated this result transmitted reference range: <=1.2. The reference range was not used to interpret this result as normal/abnormal. ALKALINE PHOSPHATASE (test code = 2203) 125 U/L 40-112 H AST (test code = 8) 14 U/L 9-40 ALT (test code = 2218) 15 U/L 5-40 HEMOGLOBIN [id number] 03:04:45* Test Item Value Reference Range Interpretation Comme nts HEMOGLOBIN A1c (test code = 84797) 12.2 % 4.2-5.6 H [employer] GUIDELINES FOR HGB A1C: PREDIABETES/INCREASED RISK . . . . . . . 5.7-6.4% DIAGNOSIS OF DIABETES . . . . . . . . . >=6.5% WITH CONFIRMATION OR APPROPRIATE SYMPTOMS NOTE: ASSAY MAY BE AFFECTED BY HEMOGLOBINOPATHIES (SICKLE CELL ANEMIA, S-C DISEASE, OTHERS) OR ARTIFICIALLY LOWERED BY DECREASED RED CELL SURVIVAL (HEMOLYTIC ANEMIAS, BLOOD LOSS, ETC.). CONSIDER ALTERNATE TESTING OR LABORATORY CONSULTATION. VAGINAL PATHOGENS DNA [id number] 14:09:49* Test Item Value Reference Range Interpretation Comme nts LIDIA SPECIES (test code = ) NEGATIVE NEGATIVE G. VAGINALIS (test code = ) POSITIVE NEGATIVE A T. VAGINALIS (test code = ) NEGATIVE NEGATIVE UNLESS OTHERWISE INDICATED, ALL TESTING PERFORMED ATCLINICAL PATHOLOGY [employer] [address] [place] [address] BENEFITS DIRECTOR: RUDY HERRERA M.D. CLIA NUMBER [id number] [place]. [id number] ALBUMIN/CREATININE RATIO, URINE, [id number] 05:41:32* Test Item Value Reference Range Interpretation Comme nts CREATININE, URINE, RANDOM (test code = 2072) 152.6 MG/DL NOT ESTAB ALBUMIN, URINE, RANDOM (test code = 93710) 12.4 MG/DL NOT ESTAB CALC ALBUMIN/CREAT, RND (test code = 21351) 81 MG/G <30 H Note: Albumin/Cr eatinine ratio reference interval reflects ADA and NKF guidelines. UNLESS OTHERWISE INDICATED, ALL TESTING PERFORMED [employer] PATHOLOGY [employer] [address] [place] [id number] BENEFITS DIRECTOR: RUDY HERRERA M.D. CLIA NUMBER [id number] [place]. [id number] HEMOGLOBIN [id number] 05:16:30* Test Item Value Reference Range Interpretation Comme nts HEMOGLOBIN A1c (test code = 33284) 11.9 % 4.2-5.6 H [employer] GUIDELINES FOR HGB A1C: PREDIABETES/INCREASED RISK . . . . . . . 5.7-6.4% DIAGNOSIS OF DIABETES . . . . . . . . . >=6.5% WITH CONFIRMATION OR APPROPRIATE SYMPTOMS NOTE: ASSAY MAY BE AFFECTED BY HEMOGLOBINOPATHIES (SICKLE CELL ANEMIA, S-C DISEASE, OTHERS) OR ARTIFICIALLY LOWERED BY DECREASED RED CELL SURVIVAL (HEMOLYTIC ANEMIAS, BLOOD LOSS, ETC.). CONSIDER ALTERNATE TESTING OR LABORATORY CONSULTATION. COMPREHENSIVE METABOLIC [id number] 03:48:55* Test Item Value Reference Range Interpretation Comme nts GLUCOSE (test code = 2217) 91 MG/DL 70-99 BUN (test code = 2208) 14 MG/DL 6-20 CREATININE (test code = 2214) 0.46 MG/DL 0.60-1.30 L eGFR (2020 CKD-EPI) (test code = 37560) 134 ML/MIN/1.73 >60 CALC BUN/CREAT (test code = 2235) 30 RATIO 6-28 H SODIUM (test code = 2231) 143 MEQ/L 133-146 POTASSIUM (test code = 2228) 3.2 MEQ/L 3.5-5.4 L CHLORIDE (test code = 2215) 100 MEQ/L 95-107 CARBON DIOXIDE (test code = 2206) 25 MEQ/L 19-31 CALCIUM (test code = 2209) 9.8 MG/DL 8.5-10.5 PROTEIN, TOTAL (test code = 222) 7.5 G/DL 6.1-8.3 ALBUMIN (test code = 2201) 4.4 G/DL 3.5-5.2 CALC GLOBULIN (test code = 2240) 3.1 G/DL 1.9-3.7 CALC A/G RATIO (test code = 2234) 1.4 RATIO 1.0-2.6 BILIRUBIN, TOTAL (test code = 220) 0.3 MG/DL See_Comment [Automated me ssage] The system which generated this result transmitted reference range: <=1.2. The reference range was not used to interpret this result as normal/abnormal. ALKALINE PHOSPHATASE (test code = 2203) 109 U/L 40-112 AST (test code = 2218) 24 U/L 9-40 ALT (test code = 221) 28 U/L 5-40 LIPID [id number] 03:48:55* Test Item Value Reference Range Interpretation Comme nts CHOLESTEROL (test code = 2210) 291 MG/DL <200 H TRIGLYCERIDES (test code = 2232) 145 MG/DL <150 HDL CHOLESTEROL (test code = 2220) 65 MG/DL >39 CALC LDL CHOL (test code = 2237) 196 MG/DL <100 H NOTE: CALCULATED LDL IS BASED ON CLAYTON-SANDERS METHOD WHICHINCLUDES ADJUSTABLE TRIGLYCERIDE:VLDL CHOLESTEROL RATIO.THIS FACTOR VARIES BY MEASURED TRIGLYCERIDE AND NON-HDLCHOLESTEROL CONCENTRATIONS WITH INCREASED CALCULATED LDL SEENIN HIGHER TRIGLYCERIDE OR LOWER NON-HDL SPECIMENS. FOR MOREINFORMATION, SEE CLIENT ANNOUNCEMENT AT [email or web address] RISK RATIO LDL/HDL (test code = 2238) 3.02 RATIO <3.22 BLOOD CULTURE [id number] 15:35:07* Test Item Value Reference Range Interpretation Comme nts Blood Culture Workup (test code = 600-7) Staphylococcus aureus [place] morphologically consistent with organism aboveFor susceptibility results, refer to culture # - [id number] Gram stain (test code = 664-3) Isolated from aerobic bottle Gram positive cocci Gram positive cocci in aerobic bottle [facility] [id number] 15:34:31* Test Item Value Reference Range Interpretation Comme nts Blood Culture-Aerobic (test code = 54756-6) Culture positive. See Blood Culture Workup for additional information. No growth AA Gram positive cocci in aerobic bottle Previous preliminary verified result was Culture In Progress on 08/28/2021 at 2202 CSTPrevious preliminary verified result was No growth at 24 hours on 08/29/2021 at 1901 [employer] Blood Culture-Anaerobic (test code = 32003-4) No organisms isolated No growth Previous preliminary verified result was Culture In Progress on 08/28/2021 at 2202 CSTPrevious preliminary verified result was No growth at 24 hours on 08/29/2021 at 1901 [facility] [employer] Lab Interpretation (test code = 03637-2) [facility]2021-09-01 13:54:48* Test Item Value Reference Range Interpretation Comme [facility] POCT GLU (test code = 2247220375) 304 mg/dL 70-110 H Lab Interpretation (test cod e = 55619-7) Abnormal [facility] Hospital[facility]IP[facility] PANEL (96982)(TOTAL CHOLESTEROL, TRIGLYCERIDES, HDL)2021-09-01 12:31:32* Test Item Value Reference Range Interpretation Comme nts CHOL (test code = 7984856738) 158 mg/dL 120-200 HDL (test code = 5277096645) 22 mg/dL >50 L HDLC RATIO (test code = 6950318981) See_Comment H [Automated [employer]] The system which generated this result transmitted reference range: <=4.5. The reference range was not used to interpret this result as normal/abnormal. TRIG (test code = 3059395158) 135 mg/dL 30-170 LDL CHOL (test code = 53560-6) 109 mg/dL See_Comment [Automated [employer]] The system which generated this result transmitted reference range: <=160. The reference range was not used to interpret this result as normal/abnormal. VLDL (test code = 2028219776) 27 mg/dL 5-60 Lab Interpretation (test code = 10371-1) [facility]normal [facility] (NA, K, CL, CO2, GLUCOSE, BUN, CREATININE, CA)2021-09-01 12:31:11* Test Item Value Reference Range Interpretation Comme nts NA (test code = 9597811924) 134 mmol/L 135-145 L K (test code = 1382046852) 3.4 mmol/L 3.5-5.0 L CL (test code = 2126597489) 99 mmol/L 98-108 CO2 TOTAL (test code = 6532310267) 29 mmol/L 23-31 AGAP (test code = 5746806082) 2-16 BUN (test code = 0089979662) 6 mg/dL 7-23 L GLUCOSE (test code = 8616890870) 278 mg/dL 70-110 H CREATININE (test code = 4708712807) 0.36 mg/dL 0.50-1.04 L CALCIUM (test code = 5699241748) 8.6 mg/dL 8.6-10.6 eGFR (test code = 4709053396) mL/min/1.73m2 ALLISON (test code = ALLISON) Association of [...] or abnormalities in imaging tests). Lab Interpretation (test code = 83584-0) [facility]normal [facility]2021-[facility]-18 12:31:11* Test Item Value Reference Range Interpretation Comme nts MAGNESIUM (test code = 9287923629) 1.9 mg/dL 1.7-2.4 Lab Interpretation (test cod e = 01780-8) Normal [facility]2021-[facility]-18 12:31:11* Test Item Value Reference Range Interpretation Comme nts PHOSPHORUS (test code = 4771484867) 4.4 mg/dL 2.5-5.0 Lab Interpretation (test cod e = 90597-4) Normal [facility] (ALB, T.PRO, BILI T, BU/BC, ALT, AST, ALK [id number] 12:31:11* Test Item Value Reference Range Interpretation Comme nts TOTAL BILI (test code = 8160406633) 0.3 mg/dL 0.1-1.1 BILI UNCON (test code = 0900648454) 0.1 mg/dL 0.1-1.1 BILI CONJ (test code = 4479180333) 0.0 mg/dL 0.0-0.3 T PROTEIN (test code = 6525616402) 5.6 g/dL 6.3-8.2 L ALBUMIN (test code = 5186710921) 2.8 g/dL 3.5-5.0 L ALK PHOS (test code = 4342466555) 118 U/L 34-122 ALTv (test code = 1742-6) 19 U/L 5-35 AST(SGOT) (test code = 9030865943) 17 U/L 13-40 Lab Interpretation (test cod e = 62285-9) Abnormal [facility] Hospital[facility] GLUCOSE (AUTOMATED)2021-09-01 08:40:34* Test Item Value Reference Range Interpretation Comme nts POCT GLU (test code = 9626228780) 260 mg/dL 70-110 H Lab Interpretation (test cod e = 77580-8) [facility] GLUCOSE (AUTOMATED)2021-09-01 05:02:19* Test Item Value Reference Range Interpretation Comme nts POCT GLU (test code = 2391195105) 261 mg/dL 70-110 H Lab Interpretation (test cod e = 55620-4) [facility]normal [facility] GLUCOSE (AUTOMATED)2021-09-01 02:06:35* Test Item Value Reference Range Interpretation Comme nts POCT GLU (test code = 4081313385) 378 mg/dL 70-110 H Lab Interpretation (test cod e = 74377-1) [facility]normal [facility] GLUCOSE (AUTOMATED)2021-08-31 23:03:44* Test Item Value Reference Range Interpretation Comme nts POCT GLU (test code = 1311496430) 305 mg/dL 70-110 H Lab Interpretation (test cod e = 25545-3) Abnormal [facility] GLUCOSE (AUTOMATED)2021-08-31 17:55:29* Test Item Value Reference Range Interpretation Comme nts POCT GLU (test code = 9415044764) 155 mg/dL 70-110 H Lab Interpretation (test cod e = 28413-5) [facility]normal [facility] GLUCOSE (AUTOMATED)2021-08-31 13:35:36* Test Item Value Reference Range Interpretation Comme nts POCT GLU (test code = 3613855358) 240 mg/dL 70-110 H Lab Interpretation (test cod e = 46884-7) Abnormal [facility]2021-11-17 12:00:41* Test Item Value Reference Range Interpretation Comme nts MAGNESIUM (test code = 6432750360) 2.0 mg/dL 1.7-2.4 Lab Interpretation (test cod e = 76140-9) Normal [facility] HospitalRENAL [id number] 12:00:15* Test Item Value Reference Range Interpretation Comme nts ALBUMIN (test code = 5382803167) 2.7 g/dL 3.5-5.0 L CALCIUM (test code = 3938018719) 8.4 mg/dL 8.6-10.6 L CO2 TOTAL (test code = 3656853278) 31 mmol/L 23-31 CREATININE (test code = 5376742238) 0.36 mg/dL 0.50-1.04 L GLUCOSE (test code = 9619219999) 209 mg/dL 70-110 H K (test code = 1445500697) 3.1 mmol/L 3.5-5.0 L NA (test code = 0743696398) 137 mmol/L 135-145 BUN (test code = 9072893706) 4 mg/dL 7-23 L PHOSPHORUS (test code = 9884642139) 2.4 mg/dL 2.5-5.0 L eGFR (test code = 9583516385) mL/min/1.73m2 ALLISON (test code = ALLISON) Association of [...] or abnormalities in imaging tests). Lab Interpretation (test code = 64423-6) Abnormal [facility] GLUCOSE (AUTOMATED)2021-08-31 09:04:10* Test Item Value Reference Range Interpretation Comme [facility] POCT GLU (test code = 1813274019) 216 mg/dL 70-110 H Lab Interpretation (test cod e = 66613-8) Abnormal [facility] GLUCOSE (AUTOMATED)2021-08-31 05:44:28* Test Item Value Reference Range Interpretation Comme [facility] POCT GLU (test code = 7550782080) 266 mg/dL 70-110 H Lab Interpretation (test cod e = 15250-0) Abnormal [facility] GLUCOSE (AUTOMATED)2021-08-31 02:45:23* Test Item Value Reference Range Interpretation Comme nts POCT GLU (test code = 0958269440) 403 mg/dL 70-110 H Lab Interpretation (test cod e = 90754-2) Abnormal [facility] GLUCOSE (AUTOMATED)2021-08-31 00:00:16* Test Item Value Reference Range Interpretation Comme nts POCT GLU (test code = 4001173061) 392 mg/dL 70-110 H Lab Interpretation (test cod e = 44129-2) Abnormal [facility] GLUCOSE (AUTOMATED)2021-08-30 18:41:51* Test Item Value Reference Range Interpretation Comme nts POCT GLU (test code = 6180374539) 288 mg/dL 70-110 H Lab Interpretation (test cod e = 14276-9) Abnormal [facility] CULTURE [id number] 17:43:06* Test Item Value Reference Range Interpretation Comme nts Blood Culture-Aerobic (test code = 14199-7) Culture positive. See Blood Culture Workup for additional information. No growth AA Previous preliminary verified result was Culture In Progress on 08/27/2021 at 2102 [facility] Blood Culture-Anaerobic (test code = 75699-2) No organisms isolated No growth Previous preliminary verified result was Culture In Progress on 08/28/2021 at 0919 [facility] Lab Interpretation (test code = 72892-0) [facility] [id number] 17:43:06* Test Item Value Reference Range Interpretation Comme nts Blood Culture-Aerobic (test code = 66978-8) Culture positive. See Blood Culture Workup for additional information. No growth AA Previous preliminary verified result was Culture In Progress on 08/27/2021 at 2102 [facility] Blood Culture-Anaerobic (test code = 38743-6) No organisms isolated No growth Previous preliminary verified result was Culture In Progress on 08/27/2021 at 2102 [employer] Lab Interpretation (test code = 26982-7) Abnormal [facility] [id number] 17:43:06* Test Item Value Reference Range Interpretation Comme nts Blood Culture Workup (test code = 600-7) Staphylococcus aureus [place] morphologically consistent with organism aboveFor susceptibility results, refer to culture # - [id number] Gram stain (test code = 664-3) Gram positive cocci Aerobic Miko abad [facility] WITH [id number] 14:07:31* Test Item Value Reference Range Interpretation Comme nts WBC (test code = 6690-2) See_Comment [Automated message] The system which generated this result transmitted reference range: 4.30 - 11.10 10*3/?L. The reference range was not used to interpret this result as normal/abnormal. RBC (test code = 789-8) See_Comment L [Automated message] The system which generated this result transmitted reference range: 3.93 - 5.25 10*6/?L. The reference range was not used to interpret this result as normal/abnormal. HGB (test code = 718-7) 9.4 g/dL 11.6-15.0 L HCT (test code = 4544-3) 27.5 % 35.7-45.2 L MCV (test code = 787-2) 89.3 fL 80.6-95.5 MCH (test code = 785-6) 30.5 pg 25.9-32.8 MCHC (test code = 786-4) 34.2 g/dL 31.6-35.1 RDW-SD (test code = 09193-1) 40.9 fL 39.0-49.9 RDW-CV (test code = 788-0) 12.5 % 12.0-15.5 PLT (test code = 777-3) See_Comment [Automated message] The system which generated this result transmitted reference range: 166 - 358 10*3/?L. The reference range was not used to interpret this result as normal/abnormal. MPV (test code = 19534-8) 11.2 fL 9.5-12.9 NRBC/100 WBC (test code = 1271191068) See_Comment [Automated message] The system which generated this result transmitted reference range: 0.0 - 10.0 /100 WBCs. The reference range was not used to interpret this result as normal/abnormal. NRBC x10^3 (test code = 4645249661) <0.01 See_Comment [Automated message] The system which generated this result transmitted reference range: 10*3/?L. The reference range was not used to interpret this result as normal/abnormal. GRAN MAT (NEUT) % (test code = 770-8) 48.1 % IMM GRAN % (test code = 0579898881) 0.60 % LYMPH % (test code = 736-9) 36.2 % MONO % (test code = 5905-5) 12.6 % EOS % (test code = 713-8) 2.1 % BASO % (test code = 706-2) 0.4 % GRAN MAT x10^3(ANC) (test code = 0882099420) 2.30 10*3/uL 1.88-7.09 IMM GRAN x10^3 (test code = 6479180242) 0.03 10*3/uL 0.00-0.06 LYMPH x10^3 (test code = 731-0) 1.73 10*3/uL 1.32-3.29 MONO x10^3 (test code = 742-7) 0.60 10*3/uL 0.33-0.92 EOS x10^3 (test code = 711-2) 0.10 10*3/uL 0.03-0.39 BASO x10^3 (test code = 704-7) <0.03 0.01-0.07 BANDS (test code = 2013893557) MARKED INCREASED A TOXIC CHANGES (test code = 803-7) Present A Lab Interpretation (test code = 78429-1) [facility] 14:05:25* Test Item Value Reference Range Interpretation Comme nts POCT GLU (test code = 7705467149) 221 mg/dL 70-110 H Lab Interpretation (test cod e = 08061-5) Abnormal [facility] METABOLIC PANEL (NA, K, CL, CO2, GLUCOSE, BUN, CREATININE, CA)2021-08-30 13:10:02* Test Item Value Reference Range Interpretation Comme nts NA (test code = 6814585117) 136 mmol/L 135-145 K (test code = 4796770672) 2.7 mmol/L 3.5-5.0 LL CL (test code = 8146927170) 103 mmol/L 98-108 CO2 TOTAL (test code = 9741468562) 30 mmol/L 23-31 AGAP (test code = 0848826056) 2-16 BUN (test code = 7474275258) 4 mg/dL 7-23 L GLUCOSE (test code = 3738987490) 204 mg/dL 70-110 H CREATININE (test code = 6672357984) 0.40 mg/dL 0.50-1.04 L CALCIUM (test code = 8534092825) 8.2 mg/dL 8.6-10.6 L eGFR (test code = 6641864410) mL/min/1.73m2 ALLISON (test code = ALLISON) Association of [...] or abnormalities in imaging tests). Lab Interpretation (test code = 11362-2) [facility]2021-08-30 12:05:35* Test Item Value Reference Range Interpretation Comme nts POCT GLU (test code = 1645245037) 169 mg/dL 70-110 H Lab Interpretation (test cod e = 27668-0) [facility]normal [facility] (AUTOMATED)2021-08-30 07:41:46* Test Item Value Reference Range Interpretation Comme nts POCT GLU (test code = 9345451018) 301 mg/dL 70-110 H Lab Interpretation (test cod e = 06426-9) [facility]normal [facility]SE (AUTOMATED)2021-08-30 04:01:29* Test Item Value Reference Range Interpretation Comme nts POCT GLU (test code = 6351403361) 306 mg/dL 70-110 H Lab Interpretation (test cod e = 15203-7) [facility]normal [facility] GLU[facility]SE (AUTOMATED)2021-08-29 23:30:33* Test Item Value Reference Range Interpretation Comme nts POCT GLU (test code = 2809245141) 289 mg/dL 70-110 H Lab Interpretation (test cod e = 70586-0) Abnormal [facility] METABOLIC PANEL (NA, K, CL, CO2, GLUCOSE, BUN, CREATININE, CA)2021-08-29 21:04:39* Test Item Value Reference Range Interpretation Comme nts NA (test code = 6527805197) 133 mmol/L 135-145 L K (test code = 8934050858) 2.2 mmol/L 3.5-5.0 LL CL (test code = 1101353046) 101 mmol/L 98-108 CO2 TOTAL (test code = 3266254009) 25 mmol/L 23-31 AGAP (test code = 9657429539) 2-16 BUN (test code = 8732575517) 4 mg/dL 7-23 L GLUCOSE (test code = 7554283701) 229 mg/dL 70-110 H CREATININE (test code = 6839046045) 0.40 mg/dL 0.50-1.04 L CALCIUM (test code = 8363569882) 8.2 mg/dL 8.6-10.6 L eGFR (test code = 4156029986) mL/min/1.73m2 ALLISON (test code = ALLISON) Association of [...] or abnormalities in imaging tests). Lab Interpretation (test code = 90992-6) [facility] 20:48:23* Test Item Value Reference Range Interpretation Comme [facility] MAGNESIUM (test code = 6113106232) 2.2 mg/dL 1.7-2.4 Lab Interpretation (test cod e = 82897-1) [facility]SE (AUTOMATED)2021-08-29 17:16:26* Test Item Value Reference Range Interpretation Comme [facility] POCT GLU (test code = 5489104771) 247 mg/dL 70-110 H Lab Interpretation (test cod e = 26769-5) [facility]normal [facility] GLU[facility]SE (AUTOMATED)2021-08-29 13:50:01* Test Item Value Reference Range Interpretation Comme [facility] POCT GLU (test code = 6051298499) 240 mg/dL 70-110 H Lab Interpretation (test cod e = 92343-7) [facility]normal [facility] - Please draw trough BEFORE the 4th dose scheduled at 2245, but no more than 60 mins before the dose is due.2021-08-29 05:31:27* Test Item Value Reference Range Interpretation Comme nts VANCO TROUGH (test code = 1476955534) <5.0 10.0-20.0 L ALLISON (test code = ALLISON) Toxic Range: ?>20 ug/mL 15-20 ug/mL is recommended for severe infection or when Vancomycin SOFYA is greater than or equal to 2. Lab Interpretation (test code = 76667-2) [facility]normal [facility] GLU[facility]SE (AUTOMATED)2021-08-29 03:32:40* Test Item Value Reference Range Interpretation Comme nts POCT GLU (test code = 5441470665) 272 mg/dL 70-110 H Notified Provide r Lab Interpretation (test code = 63297-8) [facility]normal [facility]ENS DNA [id number] 00:04:20* Test Item Value Reference Range Interpretation Comme nts Staphylococcus aureus (test code = 78064-9) Positive Negative, See Comment/Narrativ e A mecA (test code = 55898-9) Negative Negative, See Comment/Narrativ e ALLISON (test code = ALLISON) MSSA detected by D NA probe. ?See blood culture result for additional susceptibilityInformati on. Preferred therapies for MSSA ?bacteremia are nafcillin or cefazolin.Infectious Diseases consultation recommended. Please contact the Antim[facility] Stewardship Program with questions.[facility] Pager: ?[phone] Testing included eleven identification and three resistance marker targets. See blood culture result for additional information. Testing included eleven identification and three resistancemarker targets. Lab Interpretation (test code = 92695-7) [facility]normal [facility] GLU[facility]SE (AUTOMATED)2021-08-28 22:44:07* Test Item Value Reference Range Interpretation Comme nts POCT GLU (test code = 0863113363) 247 mg/dL 70-110 H Lab Interpretation (test cod e = 02364-6) [facility]normal [facility] GLUCOSE (AUTOMATED)2021-08-28 19:11:25* Test Item Value Reference Range Interpretation Comme nts POCT GLU (test code = 1723273790) 218 mg/dL 70-110 H Lab Interpretation (test cod e = 96608-0) [facility]normal [facility] GLUCOSE (AUTOMATED)2021-08-28 13:47:15* Test Item Value Reference Range Interpretation Comme nts POCT GLU (test code = 4674826320) 231 mg/dL 70-110 H Lab Interpretation (test cod e = 88333-4) Abnormal [facility] WITH [id number] 13:18:03* Test Item Value Reference Range Interpretation Comme nts WBC (test code = 6690-2) See_Comment [Automated messa ge] The system which generated this result transmitted reference range: 4.30 - 11.10 10*3/?L. The reference range was not used to interpret this result as normal/abnormal. RBC (test code = 789-8) See_Comment L [Automated messa ge] The system which generated this result transmitted reference range: 3.93 - 5.25 10*6/?L. The reference range was not used to interpret this result as normal/abnormal. HGB (test code = 718-7) 11.4 g/dL 11.6-15.0 L HCT (test code = 4544-3) 32.4 % 35.7-45.2 L MCV (test code = 787-2) 90.0 fL 80.6-95.5 MCH (test code = 785-6) 31.7 pg 25.9-32.8 MCHC (test code = 786-4) 35.2 g/dL 31.6-35.1 H RDW-SD (test code = 69299-5) 40.5 fL 39.0-49.9 RDW-CV (test code = 788-0) 12.3 % 12.0-15.5 PLT (test code = 777-3) See_Comment L [Automated messa ge] The system which generated this result transmitted reference range: 166 - 358 10*3/?L. The reference range was not used to interpret this result as normal/abnormal. MPV (test code = 50642-9) 11.1 fL 9.5-12.9 NRBC/100 WBC (test code = 1776328584) See_Comment [Automated me ssage] The system which generated this result transmitted reference range: 0.0 - 10.0 /100 WBCs. The reference range was not used to interpret this result as normal/abnormal. NRBC x10^3 (test code = 0466700201) <0.01 See_Comment [Automated messa ge] The system which generated this result transmitted reference range: 10*3/?L. The reference range was not used to interpret this result as normal/abnormal. SEG % (test code = 03096-0) 50 % 33-76 BAND % (test code = 51025-4) 26 % 0-1 H LYMPH % (test code = 63340-8) 14 % 14-54 MONO % (test code = 40492-6) 10 % 0-4 H ANC (test code = 753-4) 6.12 10*3/uL 1.88-7.09 TOXIC CHANGES (test code = 803-7) Present A Lab Interpretation (test code = 46746-8) Abnormal [facility] METABOLIC PANEL (NA, K, CL, CO2, GLUCOSE, BUN, CREATININE, CA)2021-08-28 12:56:10* Test Item Value Reference Range Interpretation Comme nts NA (test code = 7697934743) 132 mmol/L 135-145 L K (test code = 7333555406) 2.8 mmol/L 3.5-5.0 LL CL (test code = 5754381823) 106 mmol/L 98-108 CO2 TOTAL (test code = 6176822383) 14 mmol/L 23-31 L AGAP (test code = 3503691473) 2-16 BUN (test code = 8430623773) 4 mg/dL 7-23 L GLUCOSE (test code = 5092587942) 257 mg/dL 70-110 H CREATININE (test code = 0708769563) 0.50 mg/dL 0.50-1.04 CALCIUM (test code = 4937258175) 8.6 mg/dL 8.6-10.6 eGFR (test code = 4077875375) mL/min/1.73m2 ALLISON (test code = ALLISON) Association of [...] or abnormalities in imaging tests). Lab Interpretation (test code = 89256-9) [facility] 12:48:21* Test Item Value Reference Range Interpretation Comme nts MAGNESIUM (test code = 5473526983) 1.6 mg/dL 1.7-2.4 L Lab Interpretation (test cod e = 37906-4) [facility]normal [facility] GLUCOSE (AUTOMATED)2021-08-28 10:56:20* Test Item Value Reference Range Interpretation Comme nts POCT GLU (test code = 7924822697) 250 mg/dL 70-110 H Notified Provide r Lab Interpretation (test code = 78663-4) [facility]normal [facility] GLUCOSE (AUTOMATED)2021-08-28 06:29:05* Test Item Value Reference Range Interpretation Comme nts POCT GLU (test code = 0591415540) 252 mg/dL 70-110 H Lab Interpretation (test cod e = 28236-2) [facility]21-08-28 02:37:36* Test Item Value Reference Range Interpretation Comme nts POCT GLU (test code = 5084628123) 268 mg/dL 70-110 H Notified Provide r Lab Interpretation (test code = 90360-7) Abnormal [facility] METABOLIC PANEL (NA, K, CL, CO2, GLUCOSE, BUN, CREATININE, CA)2021-08-27 23:36:35* Test Item Value Reference Range Interpretation Comme nts NA (test code = 5337935233) 129 mmol/L 135-145 L K (test code = 4232844557) 3.2 mmol/L 3.5-5.0 L CL (test code = 0002271285) 109 mmol/L 98-108 H CO2 TOTAL (test code = 4627288934) 11 mmol/L 23-31 L AGAP (test code = 9463461622) 2-16 BUN (test code = 7738538079) 3 mg/dL 7-23 L GLUCOSE (test code = 1865014342) 268 mg/dL 70-110 H CREATININE (test code = 7745502789) 0.44 mg/dL 0.50-1.04 L CALCIUM (test code = 1193786823) 8.4 mg/dL 8.6-10.6 L eGFR (test code = 1112330111) mL/min/1.73m2 ALLISON (test code = ALLISON) Association of [...] or abnormalities in imaging tests). Lab Interpretation (test code = 71247-9) [facility]normal [facility] GLUCOSE (AUTOMATED)2021-08-27 21:51:16* Test Item Value Reference Range Interpretation Comme nts POCT GLU (test code = 2360424247) 281 mg/dL 70-110 H Lab Interpretation (test cod e = 81401-8) [facility]normal [facility] [id number] 18:59:26 * Test Item Value Reference Range Interpretation Comme nts TSH (test code = 2059891893) See_Comment [Automated [employer]] The system which generated this result transmitted reference range: 0.45 - 4.70 mIU/L. The reference range was not used to interpret this result as normal/abnormal. Lab Interpretation (test code = 63140-6) Normal [facility] GLUCOSE (AUTOMATED)2021-08-27 17:28:40* Test Item Value Reference Range Interpretation Comme nts POCT GLU (test code = 9346989607) 287 mg/dL 70-110 H Lab Interpretation (test cod e = 00317-9) [facility]normal [facility], [id number] 15:14:01* Test Item Value Reference Range Interpretation Comme nts PREG SERUM (test code = 5887596754) Negative ALLISON (test code = ALLISON) Less than 10 IU/L. ?If low titer or ectopic is suspected, resubmit specimen in 48-72 hours. [facility] GLUCOSE (AUTOMATED)2021-08-27 14:04:59* Test Item Value Reference Range Interpretation Comme nts POCT GLU (test code = 7918479450) 134 mg/dL 70-110 H Lab Interpretation (test cod e = 24101-2) [facility]normal [facility] GLUCOSE (AUTOMATED)2021-08-27 13:09:59* Test Item Value Reference Range Interpretation Comme nts POCT GLU (test code = 4200369149) 150 mg/dL 70-110 H Notified Provide r Lab Interpretation (test code = 28007-9) [facility]normal [facility] GLUCOSE (AUTOMATED)2021-08-27 12:29:29* Test Item Value Reference Range Interpretation Comme nts POCT GLU (test code = 9942850898) 160 mg/dL 70-110 H Notified Provide r Lab Interpretation (test code = 83735-3) [facility]normal [facility] GLUCOSE (AUTOMATED)2021-08-27 12:29:29* Test Item Value Reference Range Interpretation Comme nts POCT GLU (test code = 9276609269) 167 mg/dL 70-110 H Lab Interpretation (test cod e = 79017-4) Abnormal [facility] GLUCOSE (AUTOMATED)2021-08-27 12:29:29* Test Item Value Reference Range Interpretation Comme nts POCT GLU (test code = 6141365399) 266 mg/dL 70-110 H Lab Interpretation (test cod e = 17898-0) Abnormal [facility] GLUCOSE (AUTOMATED)2021-08-27 12:29:29* Test Item Value Reference Range Interpretation Comme nts POCT GLU (test code = 4222813935) 224 mg/dL 70-110 H Lab Interpretation (test cod e = 83266-9) Abnormal [facility] Metabolic Panel (Na, K, Cl, CO2, Glucose, BUN, Creatinine, Ca)2021-08-27 11:42:11* Test Item Value Reference Range Interpretation Comme nts NA (test code = 0500409190) 129 mmol/L 135-145 L K (test code = 5874432377) 2.6 mmol/L 3.5-5.0 LL CL (test code = 6690597281) 108 mmol/L 98-108 CO2 TOTAL (test code = 5676672982) 16 mmol/L 23-31 L AGAP (test code = 5496544976) 2-16 BUN (test code = 8270723457) 3 mg/dL 7-23 L GLUCOSE (test code = 1597127114) 220 mg/dL 70-110 H CREATININE (test code = 0225770464) 0.47 mg/dL 0.50-1.04 L CALCIUM (test code = 5356642581) 9.0 mg/dL 8.6-10.6 eGFR (test code = 6368203473) mL/min/1.73m2 ALLISON (test code = ALLISON) Association of [...] or abnormalities in imaging tests). Lab Interpretation (test code = 01695-9) Abnormal [facility] Metabolic Panel (Na, K, Cl, CO2, Glucose, BUN, Creatinine, Ca)2021-08-27 11:41:16* Test Item Value Reference Range Interpretation Comme nts NA (test code = 2682399280) 126 mmol/L 135-145 L K (test code = 4477520790) 2.7 mmol/L 3.5-5.0 LL CL (test code = 6591042325) 106 mmol/L 98-108 CO2 TOTAL (test code = 8707770403) 14 mmol/L 23-31 L AGAP (test code = 0112227603) 2-16 BUN (test code = 9066485350) 3 mg/dL 7-23 L GLUCOSE (test code = 9654370896) 178 mg/dL 70-110 H CREATININE (test code = 5663559678) 0.45 mg/dL 0.50-1.04 L CALCIUM (test code = 9980167227) 8.8 mg/dL 8.6-10.6 eGFR (test code = 3835087003) mL/min/1.73m2 ALLISON (test code = ALLISON) Association of [...] or abnormalities in imaging tests). Lab Interpretation (test code = 40526-6) [facility]normal [facility] GLUCOSE (AUTOMATED)2021-08-27 11:27:22* Test Item Value Reference Range Interpretation Comme nts POCT GLU (test code = 3200466550) 167 mg/dL 70-110 H Lab Interpretation (test cod e = 10310-6) Abnormal [facility] GLUCOSE (AUTOMATED)2021-08-27 11:05:51* Test Item Value Reference Range Interpretation Comme nts POCT GLU (test code = 7648287897) 221 mg/dL 70-110 H Lab Interpretation (test cod e = 41389-8) Abnormal [facility] GLUCOSE (AUTOMATED)2021-08-27 09:06:03* Test Item Value Reference Range Interpretation Comme nts POCT GLU (test code = 3237059928) 198 mg/dL 70-110 H Notified Provide r Lab Interpretation (test code = 97951-0) Abnormal [facility] GLUCOSE (AUTOMATED)2021-08-27 08:35:32* Test Item Value Reference Range Interpretation Comme nts POCT GLU (test code = 8212826837) 186 mg/dL 70-110 H Notified Provide r Lab Interpretation (test code = 08045-4) Abnormal [facility] GLUCOSE (AUTOMATED)2021-08-27 07:17:13* Test Item Value Reference Range Interpretation Comme nts POCT GLU (test code = 9387409745) 170 mg/dL 70-110 H Notified Provide r Lab Interpretation (test code = 67700-8) Abnormal [facility] GLUCOSE (AUTOMATED)2021-08-27 06:15:07* Test Item Value Reference Range Interpretation Comme nts POCT GLU (test code = 4772981207) 172 mg/dL 70-110 H Notified Provide r Lab Interpretation (test code = 74120-4) Abnormal [facility] GLUCOSE (AUTOMATED)2021-08-27 04:59:04* Test Item Value Reference Range Interpretation Comme nts POCT GLU (test code = 8599572449) 226 mg/dL 70-110 H Notified Provide r Lab Interpretation (test code = 96090-7) Abnormal [facility] GLUCOSE (AUTOMATED)2021-08-27 04:25:50* Test Item Value Reference Range Interpretation Comme nts POCT GLU (test code = 4056570066) 253 mg/dL 70-110 H Lab Interpretation (test cod e = 68760-1) [facility]21-[facility]-27 04:25:50* Test Item Value Reference Range Interpretation Comme nts POCT GLU (test code = 2039282671) 224 mg/dL 70-110 H Notified Provide r Lab Interpretation (test code = 17853-0) Abnormal [facility] Metabolic Panel (Na, K, Cl, CO2, Glucose, BUN, Creatinine, Ca)2021-08-27 03:50:21* Test Item Value Reference Range Interpretation Comme nts NA (test code = 5235805159) 129 mmol/L 135-145 L K (test code = 8583375013) 3.1 mmol/L 3.5-5.0 L CL (test code = 4256980402) 107 mmol/L 98-108 CO2 TOTAL (test code = 2857648009) 12 mmol/L 23-31 L AGAP (test code = 5566435324) 2-16 BUN (test code = 4769269188) 4 mg/dL 7-23 L GLUCOSE (test code = 2020271724) 233 mg/dL 70-110 H CREATININE (test code = 1390945623) 0.48 mg/dL 0.50-1.04 L CALCIUM (test code = 3193059786) 8.7 mg/dL 8.6-10.6 eGFR (test code = 2612991780) mL/min/1.73m2 ALLISON (test code = ALLISON) Association of [...] or abnormalities in imaging tests). Lab Interpretation (test code = 08093-7) [facility] 02:30:53* Test Item Value Reference Range Interpretation Comme [facility] POCT GLU (test code = 3176794759) 208 mg/dL 70-110 H Notified Provide r Lab Interpretation (test code = 51868-0) [facility] (Na, K, Cl, CO2, Glucose, BUN, Creatinine, Ca)2021-08-26 23:20:11* Test Item Value Reference Range Interpretation Comme [facility] NA (test code = 9197235604) 127 mmol/L 135-145 L K (test code = 9926794142) 3.3 mmol/L 3.5-5.0 L CL (test code = 8526103794) 107 mmol/L 98-108 CO2 TOTAL (test code = 7912102201) 7 mmol/L 23-31 L AGAP (test code = 1090698076) 2-16 BUN (test code = 8292492756) 5 mg/dL 7-23 L GLUCOSE (test code = 3938569373) 269 mg/dL 70-110 H CREATININE (test code = 4653227915) 0.50 mg/dL 0.50-1.04 CALCIUM (test code = 8106512049) 9.2 mg/dL 8.6-10.6 eGFR (test code = 2382661395) mL/min/1.73m2 ALLISON (test code = ALLISON) Association of [...] or abnormalities in imaging tests). Lab Interpretation (test code = 28575-1) [facility] GLU[facility]SE (AUTOMATED)2021-08-26 21:13:01* Test Item Value Reference Range Interpretation Comme [facility] POCT GLU (test code = 6780405942) 309 mg/dL 70-110 H Lab Interpretation (test cod e = 47852-1) [facility]normal [facility] GLUCOSE (AUTOMATED)2021-08-26 21:13:01* Test Item Value Reference Range Interpretation Comme [facility] POCT GLU (test code = 7745217779) 275 mg/dL 70-110 H Lab Interpretation (test cod e = 68620-9) [facility]normal [facility] GLUCOSE (AUTOMATED)2021-08-26 18:25:20* Test Item Value Reference Range Interpretation Comme [facility] POCT GLU (test code = 2836979117) 315 mg/dL 70-110 H Lab Interpretation (test cod e = 91428-5) Abnormal [facility] Metabolic Panel (Na, K, Cl, CO2, Glucose, BUN, Creatinine, Ca)2021-08-26 15:50:51* Test Item Value Reference Range Interpretation Comme nts NA (test code = 8853151250) 131 mmol/L 135-145 L K (test code = 0456530764) 3.2 mmol/L 3.5-5.0 L CL (test code = 9946131948) 109 mmol/L 98-108 H CO2 TOTAL (test code = 2607566045) 12 mmol/L 23-31 L AGAP (test code = 9667002409) 2-16 BUN (test code = 8808309703) 5 mg/dL 7-23 L GLUCOSE (test code = 2866510691) 174 mg/dL 70-110 H CREATININE (test code = 2007068008) 0.50 mg/dL 0.50-1.04 CALCIUM (test code = 4661026577) 9.1 mg/dL 8.6-10.6 eGFR (test code = 4892335477) mL/min/1.73m2 ALLISON (test code = ALLISON) Association of [...] or abnormalities in imaging tests). Lab Interpretation (test code = 54927-4) [facility]21-[facility]26 14:56:40* Test Item Value Reference Range Interpretation Comme [facility] POCT GLU (test code = 3977186442) 165 mg/dL 70-110 H Lab Interpretation (test cod e = 10042-8) [facility] (Na, K, Cl, CO2, Glucose, BUN, Creatinine, Ca)2021-08-26 13:44:50* Test Item Value Reference Range Interpretation Comme [facility] NA (test code = 0675522042) 131 mmol/L 135-145 L K (test code = 1453619321) 2.5 mmol/L 3.5-5.0 LL CL (test code = 8368649178) 111 mmol/L 98-108 H CO2 TOTAL (test code = 3104295879) 12 mmol/L 23-31 L AGAP (test code = 3303471590) 2-16 BUN (test code = 4083566499) 5 mg/dL 7-23 L GLUCOSE (test code = 8280519042) 285 mg/dL 70-110 H CREATININE (test code = 3827532341) 0.44 mg/dL 0.50-1.04 L CALCIUM (test code = 1733474374) 8.9 mg/dL 8.6-10.6 eGFR (test code = 6877453686) mL/min/1.73m2 ALLISON (test code = ALLISON) Association of [...] or abnormalities in imaging tests). Lab Interpretation (test code = 39467-6) [facility]normal [facility] GLUCOSE (AUTOMATED)2021-08-26 13:31:59* Test Item Value Reference Range Interpretation Comme [facility] POCT GLU (test code = 0773836479) 253 mg/dL 70-110 H Lab Interpretation (test cod e = 03259-9) Abnormal [facility] GLUCOSE (AUTOMATED)2021-08-26 13:31:59* Test Item Value Reference Range Interpretation Comme [facility] POCT GLU (test code = 6478197118) 215 mg/dL 70-110 H Lab Interpretation (test cod e = 52330-4) Abnormal [facility] GLUCOSE (AUTOMATED)2021-08-26 12:31:40* Test Item Value Reference Range Interpretation Comme [facility] POCT GLU (test code = 4880099337) 291 mg/dL 70-110 H Lab Interpretation (test cod e = 28241-4) Abnormal [facility] Metabolic Panel (Na, K, Cl, CO2, Glucose, BUN, Creatinine, Ca)2021-08-26 10:19:04* Test Item Value Reference Range Interpretation Comme nts NA (test code = 1947169866) 135 mmol/L 135-145 K (test code = 1331729493) 3.4 mmol/L 3.5-5.0 L CL (test code = 5713498694) 113 mmol/L 98-108 H CO2 TOTAL (test code = 1157508565) 8 mmol/L 23-31 L AGAP (test code = 4160847048) 2-16 BUN (test code = 2323802567) 6 mg/dL 7-23 L GLUCOSE (test code = 7213106050) 169 mg/dL 70-110 H CREATININE (test code = 8950530819) 0.50 mg/dL 0.50-1.04 CALCIUM (test code = 2175308465) 8.6 mg/dL 8.6-10.6 eGFR (test code = 0824462205) mL/min/1.73m2 ALLISON (test code = ALLISON) Association of [...] or abnormalities in imaging tests). Lab Interpretation (test code = 15769-8) Abnormal General acute hospital GLUCOSE (AUTOMATED)2021-08-26 10:07:14* Test Item Value Reference Range Interpretation [facility] POCT GLU (test code = 6118207441) 221 mg/dL 70-110 H Lab Interpretation (test cod e = 35510-7) Abnormal General acute hospital GLUCOSE (AUTOMATED)2021-08-26 09:56:33* Test Item Value Reference Range Interpretation Comme nts POCT GLU (test code = 1286986008) 223 mg/dL 70-110 H Lab Interpretation (test cod e = 53660-1) [facility]-26 08:40:29* Test Item Value Reference Range Interpretation Comme nts POCT GLU (test code = 6768243901) 165 mg/dL 70-110 H Lab Interpretation (test cod e = 59849-0) Abnormal [facility] HospitalBetahydroxy-[id number] 08:10:27* Test Item Value Reference Range Interpretation Comme nts BOH (test code = 8246187076) 6.9 mmol/L ALLISON (test code = ALLISON) Normal Ranges: ? ? Nonfasting ? Less than 0.1 mmol/L ? ? Overnight Fast ? ? ? Less than 0.4 mmol/L ? ? Fasting (1-2 weeks) ?6-8 mmol/L Test developed and characteristics determined by [facility] Laboratory Services. [facility] HospitalOsmolality [id number] 07:49:30* Test Item Value Reference Range Interpretation Comme nts OSMOLALITY (test code = 7643473818) See_Comment [Automated [employer] ge] The system which generated this result transmitted reference range: 278 - 305 mOsm/kg. The reference range was not used to interpret this result as normal/abnormal. Lab Interpretation (test code = 43790-3) Normal General acute hospital GLUCOSE (AUTOMATED)2021-08-26 07:22:33* Test Item Value Reference Range Interpretation Comme nts POCT GLU (test code = 6772800209) 200 mg/dL 70-110 H Lab Interpretation (test cod e = 66521-8) Abnormal [facility] (Na, K, Cl, CO2, Glucose, BUN, Creatinine, Ca)2021-08-26 06:34:44* Test Item Value Reference Range Interpretation Comme nts NA (test code = 6441322712) 136 mmol/L 135-145 K (test code = 5019609404) 4.0 mmol/L 3.5-5.0 CL (test code = 3850588267) 115 mmol/L 98-108 H CO2 TOTAL (test code = 8594377948) 5 mmol/L 23-31 L AGAP (test code = 9244179996) 2-16 BUN (test code = 2187675574) 6 mg/dL 7-23 L GLUCOSE (test code = 5431636422) 220 mg/dL 70-110 H CREATININE (test code = 2301554539) 0.55 mg/dL 0.50-1.04 CALCIUM (test code = 7691070627) 8.7 mg/dL 8.6-10.6 eGFR (test code = 5927495255) mL/min/1.73m2 ALLISON (test code = ALLISON) Association of [...] or abnormalities in imaging tests). Lab Interpretation (test code = 89560-0) Abnormal General acute hospital GLUCOSE (AUTOMATED)2021-08-26 06:33:59* Test Item Value Reference Range Interpretation Comme [facility] POCT GLU (test code = 4345000459) 193 mg/dL 70-110 H Lab Interpretation (test cod e = 86388-4) Abnormal [facility]2021-08-26 05:28:49* Test Item Value Reference Range Interpretation Comme nts POCT GLU (test code = 5834108514) 218 mg/dL 70-110 H Lab Interpretation (test cod e = 14588-5) [facility]normal [facility] (Na, K, Cl, CO2, Glucose, BUN, Creatinine, Ca)2021-08-26 04:32:55* Test Item Value Reference Range Interpretation Comme nts NA (test code = 2437457201) 134 mmol/L 135-145 L K (test code = 2775962857) 3.7 mmol/L 3.5-5.0 CL (test code = 6372252965) 108 mmol/L 98-108 CO2 TOTAL (test code = 2789378484) <5 23-31 L AGAP (test code = 7609108205) Unable to calculate because, either,SODIUM SERUM, CHLORIDE SERUM, CO2 TOTAL or all are less than the sensitivity of the analyzer. BUN (test code = 8651746733) 7 mg/dL 7-23 GLUCOSE (test code = 5644495856) 262 mg/dL 70-110 H CREATININE (test code = 6113380163) 0.57 mg/dL 0.50-1.04 CALCIUM (test code = 2560321660) 9.5 mg/dL 8.6-10.6 eGFR (test code = 5712749302) mL/min/1.73m2 ALLISON (test code = ALLISON) Association of [...] or abnormalities in imaging tests). Lab Interpretation (test code = 36307-9) Abnormal [facility] HospitalGlycosylated Hemoglobin (A1C)2021-08-26 04:14:08* Test Item Value Reference Range Interpretation Comme nts HGB A1C (test code = 4548-4) 12.9 % 4.0-5.7 H ALLISON (test code = ALLISON) Reference RangesNormal: <5.7%Prediabetes: 5.7 - 6.4%Diabetes: > 6.5% Lab Interpretation (test code = 20997-9) Abnormal General acute hospital GLUCOSE (AUTOMATED)2021-08-26 04:05:48* Test Item Value Reference Range Interpretation Comme nts POCT GLU (test code = 1972168695) 239 mg/dL 70-110 H Lab Interpretation (test cod e = 91346-8) Abnormal [facility] HospitalMagnesium [id number] 04:02:35* Test Item Value Reference Range Interpretation Comme nts MAGNESIUM (test code = 7944648763) 1.9 mg/dL 1.7-2.4 Lab Interpretation (test cod e = 45418-2) Normal [facility] HospitalPhosphorus [id number] 04:02:15* Test Item Value Reference Range Interpretation Comme nts PHOSPHORUS (test code = 4970667869) 3.1 mg/dL 2.5-5.0 Lab Interpretation (test cod e = 74806-4) Normal General acute hospital GLUCOSE (AUTOMATED)2021-08-26 02:44:33* Test Item Value Reference Range Interpretation Comme nts POCT GLU (test code = 1959489763) 294 mg/dL 70-110 H Lab Interpretation (test cod e = 47759-5) Abnormal [facility])2021-08-26 00:17:34* Test Item Value Reference Range Interpretation Comme nts POCT GLU (test code = 2183254891) 213 mg/dL 70-110 H Lab Interpretation (test cod e = 19116-4) Abnormal [facility]"
[2023-10-05 00:22] LABS: Absolute Lymphocytes (CBC) 2.3 K/uL (0.7-4.9); Hematocrit 41.3 % (36.0-45.0); Lymphocytes % 41.4 % (15.3-44.8); MCV 95.3 fL (80-100); MPV 10.5 fL (7.6-11.3); Platelets 185 thou/uL (152-406); RBC Red Blood Cell Count 4.34 M/uL (3.86-4.86)
[2023-10-05 00:35] LABS: Specific Gravity 1.041 (1.005-1.030)
[2023-10-05 01:17] LABS: Specific Gravity > 1.030 (1.005-1.030); Urine Bacteria <20 /HPF (<20); Urine Bilirubin NEGATIVE (Negative); Urine Blood Negative (Negative); Urine Clarity Clear (Clear); Urine Color Colorless (Yellow); Urine Glucose 4+ (Over) (Negative); Urine Mucus Slight /HPF (None Seen); Urine Protein NEGATIVE (Negative); Urine RBC <5 /HPF (None Seen); Urine Urobilinogen Normal (Normal); Urine pH 5.5 (5.0-7.0)
[2023-10-05 01:46] LABS: Albumin 3.7 g/dL (3.4-5.0); Bilirubin Direct 0.1 mg/dL (0-0.2); Bilirubin Indirect, Calculated 0.2 mg/dL (0.2-0.8); Bilirubin Total 0.3 mg/dL (0.2-1.0); Magnesium 1.8 mg/dL (1.6-2.4); Phosphorus 3.9 mg/dL (2.5-4.9); Potassium 3.3 mEq/L (3.5-5.1); Protein, Total 7.2 g/dL (6.4-8.2)
--- NOTE | 2023-10-05 02:14 | EDPHYS ---
Physician Documentation [facility] Name: Nadiya Pan Age: 27 yrs Sex: Female : 1995 Arrival Date: 10/04/2023 Time: 22:32 Bed 7 Private MD: ED Physician Eliel Fonseca HPI: 10/04 23:43 This 27 yrs old Female presents to ER via Unassigned with complaints of sb4 possible seizure, hyperglycemia. 23:44 Patient with history of type 1 diabetes. She states that she has not had her insulin in sb4 about 1 week because she has not had the time to pick it up from the pharmacy. She states that she has not checked her blood sugar in about 3 days, and last time she checked it was in the high 300s. She states that she came in this evening because she experienced a possible seizure this afternoon. She states that she started shaking, blacked out, and urinated involuntarily. She states that this also occurred when she was initially diagnosed with type 1 diabetes. She states she feels very thirsty but denies any other symptoms-no abdominal pain, nausea, vomiting, diarrhea. 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 Flu vaccine is not up to date. - Social history:: Smoking status: Patient denies any tobacco usage or history of. ROS: 10/05 00:34 Constitutional: Negative for fever, chills, and weight loss, sb4 Neuro: Positive for seizure activity, Neuro: Positive for headache, Endocrine: Positive for polydipsia, All other systems are negative, Exam: 00:34 Constitutional: This is a well developed, well nourished patient who is awake, alert, sb4 and in no acute distress. Head/Face: Normocephalic, atraumatic. Eyes: Extra-ocular motions intact. Periorbital areas with no swelling, redness, or edema. ENT: Mucous membranes moist. Cardiovascular: Regular rate and rhythm with a normal S1 and S2. Respiratory: Lungs have equal breath sounds bilaterally, clear to auscultation and percussion. No rales, rhonchi or wheezes noted. No increased work of breathing, no retractions or nasal flaring. Abdomen/GI: Soft, non-tender, no distension. Skin: Warm, dry with normal turgor. Normal color with no rashes, no lesions, and no evidence of cellulitis. MS/ Extremity: Pulses equal, no cyanosis. Neurovascular intact. Full, normal range of motion. Neuro: Awake and alert, GCS 15, oriented to person, place, time, and situation. Motor strength 5/5 in all extremities. Sensory grossly intact. Vital Signs: 10/04 23:30 BP 131 / 94; Pulse 94; Resp 16 S; Pulse Ox 98% on R/A; jw7 23:36 BP 132 / 98; Pulse 96; Resp 16; Temp 98.3(O); Pulse Ox 97% on R/A; Weight 52.16 kg (R); km8 Height 5 ft. 0 in. (R); Pain 5/10; 10/05 01:00 BP 103 / 72; Pulse 93; Resp 17 S; Pulse Ox 99% on R/A; jw7 02:00 BP 104 / 75; Pulse 93; Resp 17 S; Pulse Ox 99% on R/A; jw7 02:30 BP 121 / 79; Pulse 90; Resp 16; Pulse Ox 100% on R/A; km8 10/04 23:36 Body Mass Index 22.46 (52.16 kg, 152.4 cm) [facility] [place]:36 Pain Scale: Adult km8 MDM: 10/04 23:25 Patient medically screened. sb4 10/05 00:34 Differential diagnosis: DKA, hyperglycemia. sb4 00:58 Transition of care: After a detail discussion of the patient's case, care is sb4 transferred to Eliel Fonseca MD. 13:02 Data reviewed: vital signs, nurses notes, lab test result(s), radiologic studies, I sb4 have discussed the patient's presentation/case with the attending Emergency Department Physician; and as a result, I will discharge patient. Care significantly affected by the following chronic conditions: Diabetes. Counseling: I had a detailed discussion with the patient and/or guardian regarding the historical points, exam findings, and any diagnostic results supporting the discharge/admit diagnosis, lab results, the need for outpatient follow up, for definitive care. 10/04 23:33 Order name: Basic Metabolic Panel; Complete Time: 02:00 sb4 10/04 23:33 Order name: CBC with Diff; Complete Time: 00:25 sb4 10/04 23:33 Order name: Hepatic Function; Complete Time: 02:00 sb4 10/04 23:33 Order name: Lipase; Complete Time: 02:00 sb4 10/04 23:33 Order name: Magnesium; Complete Time: 02:00 sb4 10/04 23:33 Order name: Phosphorus; Complete Time: 02:00 sb4 10/04 23:33 Order name: UAM; Complete Time: 01:28 sb4 10/04 23:33 Order name: Test, Urine; Complete Time: 00:37 sb4 10/04 23:42 Order name: Glucose, Ancillary Testing; Complete Time: 23:43 EDMS 10/05 02:16 Order name: Glucose, Ancillary Testing; Complete Time: 13:01 EDMS 10/04 23:33 Order name: Head Brain Wo Cont CT sb4 10/04 23:33 Order name: Cardiac monitoring; Complete Time: 23:59 sb4 10/04 23:33 Order name: IV Saline Lock; Complete Time: 23:59 sb4 Administered Medications: 10/04 23:58 Drug: Insulin NPH-Regular Human Rec 70/30 Sub-Q 45 units Sub-Q once {Co-Signature: jw7 kmAmanda (Susanne Trejo RN).} Route: Sub-Q; Site: right lower abdomen; 10/05 00:57 Follow up: Response: No adverse reaction 10/04 23:59 Drug: NS 0.9% IV 1000 ml IV at 1000 ml once Route: IV; Rate: 1000 ml; Site: right 8 antecubital; 10/05 00:57 Follow up: IV Status: Completed infusion; IV Intake: 1000ml 00:57 Drug: Insulin Regular Human IVP 10 units IVP once {Co-Signature: jw7 (Susanne Trejo RN).} 8 Route: IVP; Site: right antecubital; 01:59 Follow up: Response: No adverse reaction; Blood sugar is lowered 00:57 Drug: NS 0.9% IV 1000 ml IV at 1 bolus Per protocol; 1000 mL bolus Route: IV; Rate: 1 km8 bolus; Site: right antecubital; 01:59 Follow up: IV Status: Completed infusion; IV Intake: 1000ml km8 Disposition: 02:11 I agree with the assessment and plan of care. Patient signed out to me by midlevel sp3 provider. Blood sugar is now down to 268 and there is no anion gap on her CMP. Urine demonstrated 4+ ketones. Patient states she is feeling much better and she has received adequate diabetes education from the nurse. At this time we will safely discharge patient home.. 13:03 Chart complete. sb4 Disposition Summary: 10/05/23 02:13 Discharge Ordered Notes: Location: Home sp3 Condition: Stable sp3 Diagnosis - Diabetes, hyperglycemia, dehydration sp3 Followup: sp3 - With: Private Physician - When: Upon discharge from the Emergency Department - Reason: Continuance of care Discharge Instructions: - Discharge Summary Sheet sp3 - Diabetes Mellitus Action Plan sp3 Forms: - Medication Reconciliation Form sp3 - Thank You Letter sp3 - Antibiotic Education sp3 - Prescription Opioid Use sp3 - Patient Portal Instructions sp3 - Leadership Thank You Letter sp3 - Work release form km8 Signatures: Dispatcher [employer] EDMS Eliel Fonseca MD MD sp3 Falguni Dodson PA-C PA-C sb4 Shelley Ayala, RENETTA RN km8 Susanne Trejo RN jw7 Corrections: (The following items were deleted from the chart) 02:51 10/04 23:33 BETA HYDROXYBUTYRATE+C.LAB.BRZ ordered. sb4 km8
--- NOTE | 2023-10-05 02:14 | ER ---
Nurse's Notes [facility] Name: Nadiya Pan Age: 27 yrs Sex: Female : 1995 Arrival Date: 10/04/2023 Time: 22:32 Bed 7 Private MD: Diagnosis: Diabetes, hyperglycemia, dehydration Presentation: 10/04 23:36 Chief complaint: Patient states: she thinks she may have had a seizure today; pt km8 reports her vision going black and she wet herself; this has happened before when she was newly diagnosed with DM type 1; pt last checked glucose level 4 days ago and reports it being in the 400's; pt has not taken insulin in about 1 week. Coronavirus screen: Client denies travel out of the [place] in the last 14 days. Ebola Screen: No symptoms or risks identified at this time. Initial Sepsis Screen: Does the patient meet any 2 criteria? HR > 90 bpm. No. Patient's initial sepsis screen is negative. Does the patient have a suspected source of infection? No. Patient's initial sepsis screen is negative. Risk Assessment: Do you want to hurt yourself or someone else? Patient reports no desire to harm self or others. Onset of symptoms is unknown. 23:36 Method Of Arrival: Ambulatory km8 23:36 Acuity: HELLEN 2 km8 Triage Assessment: 23:36 General: Appears in no apparent distress. comfortable, Behavior is calm, cooperative, km8 appropriate for age. 23:36 Pain: Complains of pain in head Pain currently is 5 out of 10 on a pain scale. Quality km8 of pain is described as aching. EENT: No signs and/or symptoms were reported regarding the EENT system. Neuro: Level of Consciousness is awake, alert, obeys commands, Oriented to person, place, time, situation, Seizure activity reported prior to arrival. Cardiovascular: Denies chest pain, shortness of breath, Capillary refill < 3 seconds Patient's skin is warm and dry. Respiratory: Airway is patent Respiratory effort is even, unlabored, Respiratory pattern is regular, symmetrical. GI: No signs and/or symptoms were reported involving the gastrointestinal system. : Reports urinary frequency. Derm: Skin is intact, Skin is dry, Skin is normal, Skin temperature is warm. Musculoskeletal: No signs and/or symptoms reported regarding the musculoskeletal system. Circulation, motion, and sensation intact. Range of motion: intact in all extremities. 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 Flu vaccine is not up to date. - Social history:: Smoking status: Patient denies any tobacco usage or history of. Screenin:36 [facility] ED Fall Risk Assessment (Adult) History of falling in the last 3 months, 8 including since admission No falls in past 3 months (0 pts) Confusion or Disorientation No (0 pts) Intoxicated or Sedated No (0 pts) Impaired Gait No (0 pts) Mobility Assist Device Used No (0 pt) Altered Elimination No (0 pt) Score/Fall Risk Level 0 - 2 = Low Risk Oriented to surroundings, Maintained a safe environment, Educated pt \T\ family on fall prevention, incl call for assistance when getting out of bed, Assessed \T\ reinforced patient's understanding of fall precautions. Abuse screen: Denies threats or abuse. Denies injuries from another. Nutritional screening: No deficits noted. Tuberculosis screening: No symptoms or risk factors identified. Assessment: 23:36 General: see triage notes/assessment. [facility] 10/05 00:45 Reassessment: Patient appears in no apparent distress at this time. No changes from [facility] previously documented assessment. Patient and/or family updated on plan of care and expected duration. Pain level reassessed. Patient is alert, oriented x 3, equal unlabored respirations, skin warm/dry/pink. 01:59 Reassessment: Patient appears in no apparent distress at this time. No changes from 8 previously documented assessment. Patient and/or family updated on plan of care and expected duration. Pain level reassessed. Patient is alert, oriented x 3, equal unlabored respirations, skin warm/dry/pink. Vital Signs: 10/04 23:30 BP 131 / 94; Pulse 94; Resp 16 S; Pulse Ox 98% on R/A; 7 23:36 BP 132 / 98; Pulse 96; Resp 16; Temp 98.3(O); Pulse Ox 97% on R/A; Weight 52.16 kg (R); km8 Height 5 ft. 0 in. (R); Pain 5/10; 10/05 01:00 BP 103 / 72; Pulse 93; Resp 17 S; Pulse Ox 99% on R/A; jw7 02:00 BP 104 / 75; Pulse 93; Resp 17 S; Pulse Ox 99% on R/A; jw7 02:30 BP 121 / 79; Pulse 90; Resp 16; Pulse Ox 100% on R/A; km8 10/04 23:36 Body Mass Index 22.46 (52.16 kg, 152.4 cm) km8 23:36 Pain Scale: Adult 8 ED Course: 10/04 23:18 Patient arrived in ED. jj6 23:18 Falguni Dodson PA-C is PHCP. sb4 23:18 Eliel Fonseca MD is Attending Physician. sb4 23:36 Arm band placed on right wrist. km8 23:36 Patient has correct armband on for positive identification. Bed in low position. Call km8 light in reach. Side rails up X 1. Client placed on continuous cardiac and pulse oximetry monitoring. NIBP monitoring applied. Door closed. Noise minimized. Lights dimmed. 23:36 Patient maintains SpO2 saturation greater than 95% on room air. km8 23:55 Triage completed. km8 23:58 Inserted saline lock: 20 gauge in right antecubital area, using aseptic technique. km8 Blood collected. 10/05 00:06 Head Brain Wo Cont CT In Process Unspecified. EDMS 02:33 No provider procedures requiring assistance completed. IV discontinued, intact, jw7 bleeding controlled, No redness/swelling at site. Pressure dressing applied. 02:36 Provided Education on: discharge instructions and education on Diabetes. jwBraxton Administered Medications: 10/04 23:58 Drug: Insulin NPH-Regular Human Rec 70/30 Sub-Q 45 units Sub-Q once {Co-Signature: paul km8 (Susanne Trejo RN).} Route: Sub-Q; Site: right lower abdomen; 10/05 00:57 Follow up: Response: No adverse reaction 8 10/04 23:59 Drug: NS 0.9% IV 1000 ml IV at 1000 ml once Route: IV; Rate: 1000 ml; Site: right km8 antecubital; 10/05 00:57 Follow up: IV Status: Completed infusion; IV Intake: 1000ml 00:57 Drug: Insulin Regular Human IVP 10 units IVP once {Co-Signature: paul (Susanne Trejo RN).} Route: IVP; Site: right antecubital; 01:59 Follow up: Response: No adverse reaction; Blood sugar is lowered 00:57 Drug: NS 0.9% IV 1000 ml IV at 1 bolus Per protocol; 1000 mL bolus Route: IV; Rate: 1 km8 bolus; Site: right antecubital; 01:59 Follow up: IV Status: Completed infusion; IV Intake: 1000ml Medication: 10/04 23:36 VIS not applicable for this client. Intake: 10/05 00:57 IV: 1000ml; Total: 1000ml. 01:59 IV: 1000ml; Total: 2000ml. Outcome: 02:13 Discharge ordered by . sebas 02:33 Discharged to home ambulatory, paul 02:33 Condition: stable 02:33 Discharge instructions given to patient, Instructed on discharge instructions, follow up and referral plans. Demonstrated understanding of instructions, follow-up care, 02:51 Patient left the ED. Signatures: Dispatcher [employer] Eliel Navarro MD MD sp3 Melinda Menjivar jj6 Susanne Trejo, RN RN jw7 Falguni Dodson PA-C PAShelley Ball RN RN km8 Susanne Trejo RN jw7
[2023-10-05 05:56] VITALS: TEMP 98.3
[2023-10-05 06:01] VITALS: BP 121/79; O2SAT 100
--- NOTE | 2023-10-05 13:32 | RAD REPORT ---
EXAM DESCRIPTION: CT - Head Brain Wo Cont - 10/05/2023 6:38 am CLINICAL HISTORY: SEIZURE. TECHNIQUE: Noncontrast CT through the head was performed. Axial, coronal, and sagittal reconstructio ns were created and sent to PACS. This exam was performed according to our departmental dose-optimiza tion program which includes use of Automated Exposure Control, adjustment of the mA and/or kV accordi ng to patient size and/or use of iterative reconstruction technique. COMPARISON: None. FINDINGS: The brain parenchyma appears unremarkable. There is no intra-axial or extra-axial bleed se en. There is no mass or mass effect. The ventricles are unremarkable. The orbital contents appear unr emarkable. Near complete opacification of the right maxillary sinus. 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 Th e remaining visualized paranasal sinuses and mastoid air cells are patent. No acute fracture is ident ified. IMPRESSION: 1. No acute intracranial abnormality identified. 2. Near complete opacification of the right maxillary sinus. Correlate for potential acute sinusiti s. 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 The interpreting radiologist is fully responsible for the content of the report.
== END ==
LOC: ER 22:32
DX: E11.65 Type 2 diabetes mellitus with hyperglycemia (principal); E86.0 Dehydration; Z79.4 Long term (current) use of insulin; Z28.310 Unvaccinated for COVID-19
CPT/HCPCS: 36415; 70450; 80048; 80076; 81001; 81025; 82947; 83690; 83735; 84100; 85025; 96361; 96372; 96374; 99285; J1815; J7030

== ENCOUNTER 2024-02-26 07:29 | Emergency (ER) | payer BC, SELFPAY ==
--- OUTSIDE RECORDS SUMMARY | 2024-02-26 07:36 | XMS REPORT | Continuity of Care Document ---
Author Name Unknown Address [address] [facility] [address]. [address] [place] [address] [facility] thconnect Address [address] [facility]. 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 Name Role Phone MAHISSM REHABT, [facility] Primary Car e Physician Unavailable Amber Pena Attending Clinician Unavailable Valerio John Attending Clinician [phone] VALERIO FERMIN Attending Clinician Unavaila ble [email or web address]_S Attending Clinician Unavaila ble Doctor Unassigned, [place] Attending Clinician U Gaby Mcgill LVN Attending Clinician [phone] Megan Langley DO Attending Clinician MEGAN LANGLEY Attending Clinician Unavailable Amber Pena Admitting Clinician Unavailable [email or web address]_S Admitting Clinician Unavaildarrel brittney Megan Langley DO Admitting Clinician [phone] MEGAN LANGLEY Admitting Clinician Unavailable KNOW, DOES_NOT Admitting Clinician Unavailable Payers Payer Name Policy Type Policy Number Effective Date Expirati on Date Source [place] [id number] 2022 00:00:00 Problems Condition Name Condition Details Condition Category Status Onset Date Resolution Date Last Treatment Date Treating Clinician Comments Source DKA, type 1, not at goal DKA, type 1, not at goal Disease Active 2020-10 00:00: 00 [facility] Diabetic ketoacidos is associated with type 2 diabetes mellitus Diabetic ketoacidos is associated with type 2 diabetes mellitus Disease Active 2020-10 00:00: 00 [facility] Allergies, Adverse Reactions, Alerts Allergy Name Allergy Type Status Severity Reaction(s) Onset Date Inactive Date Treating Clinician Comments Source nkda DA Active U none 01-12 00:00: 00 [facility] NO KNOWN ALLERGIE S Drug Class Active [facility] Social History Social Habit Start Date Stop Date Quantity Comments Source History of tobacco use Current smoker [facility] Gender identity [facility] History SDOH Alcohol Frequency [facility] History SDOH Alcohol Std Drinks [facility] History SDOH Alcohol Binge [facility] Exposure to SARS-CoV-2 (event) Not sure [facility] Alcohol intake 2023-06-20 00:00:00 2023-06-20 00:00:00 Current drinker of alcohol (finding) [facility] History of Social function 2023-06-20 00:00:00 2023-06-20 00:00:00 [facility] Tobacco use and exposure 2021-08-25 00:00:00 2021-08-25 00:00:00 User of smokeless tobacco [facility] Alcohol Comment 2021-08-25 00:00:00 2021-08-25 00:00:00 social [facility] Sex Assigned At 1995 00:00:00 1995 00:00:00 [facility] Smoking Status Start Date Stop Date Source Ex-smoker 2021-08-25 00:00:00 2021-08-25 00:00:00 [facility] Medications Ordered Medication Name Filled Medication Name Start Date Stop Date Current Medication? Ordering Clinician Indication Dosage Frequency Signature (SIG) Comments Components Source Novolog Mix 70-30 FlexPen U-100 Insulin 100 unit/mL subcutaneou s pen 02-06 00:00: 00 Yes unit/mL (70-30) [facility] atorvastati n 40 mg tablet 01-27 00:00: 00 Yes 1mg [facility] Brown Novolog Mix 70-30 FlexPen U-100 Insulin 100 unit/mL subcutaneou s pen 12-19 00:00: 00 Yes unit/mL (70-30) [facility] NOVOLOG MIX 70/30 FLEXPEN (70-30) 1 NOVOLOG MIX 70/30 FLEXPEN (70-30) 1 00 UNIT/ML SUPN 1-24 00:00: 00 Yes [facility] Brown 40 UNITS BID 2022-10 1-28 00:00: 00 02-10 00:00 :00 No [id number] Clarence Brown medroxyprog esterone 150 mg/mL intramuscul ar suspension 2022-10 0-21 00:00: 00 Yes mg/mL Cla[facility] Brown INJECT 1 ML INTRAMUSCUL CASS ONCE EVERY 3 MONTHS. 2022-10 0-20 00:00: 00 02-10 00:00 :00 No 150 Cla[facility] Brown 25 UNITS BID 2022-10 0-18 00:00: 00 02-10 00:00 :00 No [id number] Cla[facility] Brown IBUPROFEN 800 MG TABS 07-06 00:00: 00 Yes [facility] CLINDAMYCIN HCL 300 MG 07-06 00:00: 00 Yes [facility] MUPIROCIN 2 % OINT 07-06 00:00: 00 Yes Clarence Brown TAKE 1 TABLET EVERY 12 HOURS DAILY. 06-21 00:00: 02-10 00:00 :00 No 500 Clarence Brown 20 UNITS BID 06-21 00:00: 00 02-10 00:00 :00 No [id number] Clarence Brown USE DIRECTED 05-16 00:00: 00 02-10 00:00 :00 No 68 Clarence Brown TAKE 10 ML EVERY 6 TO 8 HOURS NEEDED FOR COUGH 03-09 00:00: 00 02-10 00:00 :00 No [id number] Cla[facility] Brown INJECT 33 UNITS BELOW THE SKIN DAILY 03-07 00:00: 00 02-10 00:00 :00 No 100 Cla[facility] Brown LEVEMIR FLEXTOUCH 100 UNIT/ML SOPN 11-13 00:00: 00 Yes [facility] Brown INJECT 40 UNITS DAILY 11-13 00:00: 00 02-10 00:00 :00 No 100 Cla[facility] Brown INJECT 24 UNITS THREE TIMES DAILY WITH MEALS 11-13 00:00: 00 02-10 00:00 :00 No 100 Clarence Brown TAKE 1 TABLET BY MOUTH DAILY 11-13 00:00: 00 02-10 00:00 :00 No 25 Clarence Brown TAKE 1 TABLET AT BEDTIME FOR 1 WEEK. INCREASE TO 2 TABLETS AT BEDTIME FOR 1 WEEK. INCREASE TO 3 TABLETS AT BEDTIME UNTIL GONE. 11-13 00:00: 00 02-10 00:00 :00 No 100 Clarence Brown TAKE 1 TABLET DAILY. 11-13 00:00: 00 02-10 00:00 :00 No 1 Cla[facility] Brown AMOX/K CLAV [id number] 1-04 00:00: 00 Yes Cla[facility] Brown TAKE 1 CAPSULE BY MOUTH ONCE DAILY 10-18 00:00: 00 02-10 00:00 :00 No 10 [facility] Brown TAKE 1 CAPSULE 3 TIMES DAILY NEEDED. 10-18 00:00: 00 02-10 00:00 :00 No 100 Clarence Brown TAKE 1 TABLET 3 TIMES DAILY. 2021-10 00:00: 00 02-10 00:00 :00 No 1unit Cla[facility] Brown INJECT 1.5 ML WEEKLY 2021-10 00:00: 00 02-10 00:00 :00 No [facility] Brown Dose Unknown 2021-10 00:00: 00 02-10 00:00 :00 No Cla[facility] Brown INJECT 24 UNITS THREE TIMES DAILY WITH MEALS 2021-10 00:00: 00 02-10 00:00 :00 No 100 Clarence Brown Dose Unknown 2021-10 00:00: 00 Yes [facility] Brown Dose Unknown 2021-10 00:00: 00 Yes Clarence Brown INJECT 20 UNITS UNDER THE SKIN THREE TIMES DAILY WITH MEALS 2021-10 00:00: 00 Yes Cla[facility] Brown TAKE 1 TABLET BY MOUTH TWICE DAILY 2021-10 00:00: 00 Yes Clarence Brown VALACYCLOVI R HCL 1 GM TABS 2021-10 00:00: 00 Yes [facility] Brown Dose Unknown 2021-10 00:00: 00 Yes Clarence Brown TAKE 1 TABLET BY MOUTH EVERY 6 HOURS NEEDED FOR PAIN. TAKE WITH FOOD. 2021-10 00:00: 00 Yes [facility] Brown Dose Unknown 2021-10 00:00: 00 Yes [facility] Brown TAKE 1 TABLET BY MOUTH THREE TIMES DAILY UNTIL ALL TAKEN 2021-10 00:00: 00 Yes Cla[facility] Brown ADMINISTER 30 UNITS UNDER THE SKIN DAILY 06-20 00:00: 00 Yes Cla[facility] Brown TAKE 1 TABLET BY MOUTH AT BEDTIME 06-20 00:00: 00 Yes Clarence Brown TAKE 1 TABLET BY MOUTH EVERY 6 HOURS NEEDED FOR PAIN 04-27 00:00: 00 Yes Clarence Brown APPLY A SMALL AMOUNT TO THE AFFECTED AREA TWICE DAILY FOR 1 WEEK. 04-27 00:00: 00 Yes Cla[facility] Brown TAKE 1 TABLET BY MOUTH TWICE DAILY 04-27 00:00: 00 Yes 500 Clarence Brown TAKE 1 TABLET BY MOUTH EVERY 8 HOURS 2022-0 7-14 00:00: 00 Yes 400 Clarence Brown Dose Unknown 04-13 00:00: 00 Yes Clarence Brown metronidazo le 500 mg tablet 04-10 00:00: 00 Yes 1mg Clarence Brown TAKE 1 TABLET BY MOUTH EVERY 6 HOURS NEEDED FOR PAIN. TAKE WITH FOOD. 04-07 00:00: 00 Yes Clarence Brown Bactrim DS 800 mg-160 mg tablet 04-05 00:00: 00 Yes 1mg Clarence Brown APPLY A SMALL AMOUNT TO THE AFFECTED AREA TWICE DAILY FOR 1 WEEK. 04-05 00:00: 00 Yes Clarence Brown TAKE 1 TABLET BY MOUTH EVERY 12 HOURS FOR 10 DAYS. 04-05 00:00: 00 Yes Cla[facility] Novolog FlexPen U-100 Insulin aspart 100 unit/mL (3 mL) subcutaneou s - 00:00: 00 Yes (3 mL) Cla[facility] Brown TAKE 1 TABLET BY MOUTH AT BEDTIME 03-17 00:00: 00 Yes Clarence Brown Lantus Solostar U-100 Insulin 100 unit/mL (3 mL) subcutaneou s pen 12-15 00:00: 00 Yes 30(3 mL) Clarence Brown Novolog Flexpen U-100 Insulin aspart 100 unit/mL (3 mL) subcutaneou s 3- 00:00: 00 Yes (3 mL) [facility] Novolog FlexPen U-100 Insulin aspart 100 unit/mL (3 mL) subcutaneou s 12-07 00:00: 00 Yes (3 mL) Cla[facility] Novolog FlexPen U-100 Insulin aspart 100 unit/mL (3 mL) subcutaneou s 2 00:00: 00 Yes (3 mL) Cla[facility] Brown insulin aspart U-100 (NOVOLOG FLEXPEN U-100 INSULIN) 100 unit/mL (3 mL) injection 2020-10 14:21: 29 Yes 30U inject 30 Units under the skin 3 (three) times daily before meals. [facility] Insulin Glargine (LANTUS SOLOSTAR U-100 INSULIN) 100 unit/mL (3 mL) injection 2020-10 2-23 14:21: 29 Yes 30U inject 30 Units under the skin 2 (two) times daily. [facility] Novolog FlexPen U-100 Insulin aspart 100 unit/mL (3 mL) subcutaneou s 2020-10 00:00: 00 Yes (3 mL) [facility] Novolog FlexPen U-100 Insulin aspart 100 unit/mL (3 mL) subcutane s 2020-10 00:00: 00 Yes (3 mL) Clarence Brown KCL (KLOR-CON M20) tablet 40 mEq 2020-10 14:00: 00 09-01 21:59 :00 No [id number] 40meq 40 mEq, Oral, Q4H, 2 doses, First dose on Sun09/01/21 at 0800, Last dose on Sun09/01/21 at 1200, Routine [facility] insulin aspart U-100 (NOVOLOG FLEXPEN U-100 INSULIN) 100 unit/mL (3 mL) injection 2020-10 11:43: 23 Yes 30U inject 30 Units under the skin 3 (three) times daily before meals. [facility] Insulin Glargine (LANTUS SOLOSTAR U-100 INSULIN) 100 unit/mL (3 mL) injection 2020-10 11:43: 23 Yes 30U inject 30 Units under the skin 2 (two) times daily. [facility] atorvastati n 40 mg tablet 2020-10 00:00: 00 10-02 05:59 :00 No [id number] 40mg Take 1 tablet by mouth at bedtime for 30 days. [facility] potassium, sodium phosphates (PHOS-NAK) 280-160-250 mg packet 2 Packet 2020-10 18:00: 00 08-31 18:00 :00 No [id number] 2{packe t} 2 Packet, Oral, QID, 1 dose, First dose on Sun08/31/21 at 1200, Routine [facility] KCL (KLOR-CON M20) tablet 40 mEq 2020-10 14:45: 00 08-31 18:01 :00 No [id number] 40meq 40 mEq, Oral, Q2H, 2 doses, First dose (after last modificati on) on Sun08/31/21 at 0845, Last dose on Sun08/31/21 at 1000, [facility] potassium chloride in water 10 mEq/100 mL RTU 10 mEq 2020-10 17:00: 00 08-30 22:25 :00 No 10meq 10 mEq, IV Piggyback, Q1H, 4 doses, First dose (after last reorder) on Sun08/30/21 at 1100, Last dose on Sun08/30/21 at 1400, Administer over 60 Minutes, 100 mL [facility] NaCl 0.9% (NS) injection 10 mL 2020-10 15:47: 20 Yes 10mL 10 mL, Slow IV Push, PRN, Starting on Sun08/30/21 at 0947, Until Discontinu ed, Routine, line maintenanc e [facility] insulin glargine (LANTUS U-100) injection 40 Units 2020-10 15:00: 00 Yes 40U 40 Units, Subcutaneo us, DAILY, First dose (after last modificati on) on Sun08/30/21 at 0900, Until Discontinu ed, Routine [facility] KCL (KLOR-CON M20) tablet 40 mEq 2020-10 14:30: 00 08-30 14:14 :00 No 40meq 40 mEq, Oral, ONCE, 1 dose, On Sun08/30/21 at 0830, Routine [facility] potassium chloride in water 10 mEq/100 mL RTU 10 mEq 2020-10 14:00: 00 08-30 16:31 :00 No 10meq 10 mEq, IV Piggyback, Q1H, 2 doses, First dose on Sun08/30/21 at 0800, Last dose on Sun08/30/21 at 0900, Administer over 60 Minutes, 100 mL [facility] potassium chloride in water 10 mEq/100 mL RTU 10 mEq 2020-10 04:00: 00 08-30 05:48 :00 No 10meq 10 mEq, IV Piggyback, Q1H, 2 doses, First dose (after last reorder) on Sun08/29/21 at 2200, Last dose on Sun08/29/21 at 2300, Administer over 60 Minutes, [address] [facility] Sliding Scale Insulin - Lispro (HumaLOG) + Fsbg Testing 2020-10 23:00: 00 Yes Subcutaneo us, TID MEALS+HS, First dose on Sun08/29/21 at 1700, Until Discontinu ed, Routine [facility] KCL (KLOR-CON M20) tablet 40 mEq 2020-10 22:15: 00 08-29 22:19 :00 No 40meq 40 mEq, Oral, ONCE, 1 dose, On Sun08/29/21 at 1615, Routine [facility] potassium chloride in water 10 mEq/100 mL RTU 10 mEq 2020-10 21:15: 00 08-30 02:59 :00 No 10meq 10 mEq, IV Piggyback, Q1H, 6 doses, First dose on Sun08/29/21 at 1515, Last dose on Sun08/29/21 at 2000, Administer over 60 Minutes, 100 mL [facility] ceFAZolin in dextrose (iso-os) (ANCEF) 2 gram/100 mL Piggyback 2 g 2020-10 21:00: 00 Yes 2000mg 2 g (2,000 mg), IV Piggyback, Q8H ABX, First dose on Sun08/29/21 at 1500, Until Discontinu ed, 100 mL
Reas on for Anti-Infec tive: Documented Infection< br>Documen rodrigo Infection Site: Blood
D uration of Therapy: 14 days [facility] NaCl 0.9% (NS) injection 10 mL 2020-10 19:55: 41 Yes 10mL 10 mL, Slow IV Push, PRN, Starting on Sun08/29/21 at 1355, Until Discontinu ed, Routine, line maintenanc e [facility] lidocaine 1% (PF) (XYLOCAINE) injection 5 mL 2020-10 19:55: 41 Yes 5mL 5 mL, Subcutaneo us, PRN, Starting on Sun08/29/21 at 1355, Until Discontinu ed, Routine, Local anesthesia [facility] glucagon (GLUCAGEN DIAGNOSTIC KIT) injection 1 mg 2020-10 19:41: 58 Yes 1mg 1 mg, Intramuscu lar, PRN, Starting on Sun08/29/21 at 1341, Until Discontinu ed, KACEY, Blood Glucose < or = 70 mg/dL and patient is unable to swallow or has mental changes. [facility] dextrose 50 % in water (D50W) injection 25 mL 2020-10 19:41: 58 Yes 25mL 25 mL, Slow IV Push, PRN, Starting on Sun08/29/21 at 1341, Until Discontinu ed, KACEY, Blood Glucose < or = 70 mg/dL and patient is unable to swallow or has mental status changes. [facility] Vancomycin 750 mg in NaCl [...] Soft tissue
Duration of therapy: 7 days [facility] magnesium oxide (MAG-OX 400) tablet 400 mg 2020-10 02:00: 00 08-30 01:59 :00 No 400mg 400 mg, Oral, BID, 3 doses, First dose on Sun08/28/21 at 2000, Last dose on Sun08/29/21 at 1999, Routine [facility] insulin lispro (human) (HumaLOG U-100) injection 3 Units 2020-10 23:00: 00 08-29 19:36 :42 No 3U 3 Units, Subcutaneo us, TID MEALS, First dose on Sun08/28/21 at 1700, Until Discontinu ed, Routine [facility] insulin lispro (human) (HumaLOG U-100) injection 2020-10 22:30: 00 08-29 19:37 :09 No Subcutaneo us, AC+HS, First dose (after last modificati on) on Sun08/28/21 at 1630, Until Discontinu ed, Routine [facility] NaCl 0.9% (NS) IV infusion 1,000 mL 2020-10 20:00: 00 Yes 1000mL at 100 mL/hr, IV Infusion, CONTINUOUS , Starting on Sun08/28/21 at 1400, Until Discontinu ed, Routine [facility] insulin glargine (LANTUS U-100) injection 10 Units 2020-10 19:45: 00 08-28 18:44 :00 No 10U 10 Units, Subcutaneo us, ONCE, 1 dose, On Sun08/28/21 at 1345, Routine [facility] magnesium sulfate in water 2 gram/50 mL (4 %) infusion 2 g 2020-10 15:15: 00 08-28 15:21 :00 No 2g 2 g, IV Piggyback, ONCE, 1 dose, On Sun08/28/21 at 0915, Routine [facility] insulin glargine (LANTUS U-100) injection 30 Units 2020-10 15:00: 00 08-29 19:36 :42 No 30U 30 Units, Subcutaneo us, DAILY, First dose (after last modificati on) on Sun08/28/21 at 0900, Until Discontinu ed, Routine [facility] potassium chloride in water 10 mEq/100 mL RTU 10 mEq 2020-10 15:00: 00 08-28 19:30 :00 No 10meq 10 mEq, IV Piggyback, Q1H, 4 doses, First dose (after last reorder) on Sun08/28/21 at 0900, Last dose on Sun08/28/21 at 1200, Administer over 60 Minutes, 100 mL [facility] NaCl 0.9% (NS) 1000 mL + KCL 20 mEq 2020-10 14:15: 00 08-28 13:32 :00 No IV Infusion, at 125 mL/hr, ONCE, 1 dose, On Sun08/28/21 at 0815, Routine [facility] KCL (KLOR-CON M20) tablet 40 mEq 2020-10 14:00: 00 08-28 13:32 :00 No 40meq 40 mEq, Oral, ONCE, 1 dose, On [place] 08/28/21 at 0800, Routine [facility] insulin glargine (LANTUS U-100) injection 17 Units 2020-10 13:37: 23 08-28 14:09 :00 No .3U/kg/ d 17 Units (rounded from 17.25 Units = 0.3 Units/kg/d ay ?57.5 kg), Subcutaneo us, Q24H, First dose on [place] 08/28/21 at 0738, Until Discontinu ed, Routine [facility] KCL (KLOR-CON M20) tablet 40 mEq 2020-10 00:45: 00 08-28 00:17 :00 No 40meq 40 mEq, Oral, ONCE, 1 dose, On [facility] 08/27/21 at 1845, Routine [facility] lactated ringers IV infusion 1,000 mL 2020-10 21:00: 00 08-28 12:59 :06 No 1000mL at 100 mL/hr, 1,000 mL, IV Infusion, CONTINUOUS , Starting on [facility] 08/27/21 at 1500, Until [place] 08/28/21 at 0659, Routine [facility] KCL (KLOR-CON M20) tablet 40 mEq 2020-10 19:00: 00 08-27 18:27 :00 No 40meq 40 mEq, Oral, ONCE, 1 dose, On [facility] 08/27/21 at 1300, Routine [facility] NaCl 0.9% (NS) bolus infusion 1,000 mL 2020-10 18:30: 00 08-27 17:42 :00 No 1000mL at 999 mL/hr, 1,000 mL, IV Infusion, ONCE, 1 dose, On 08/27/21 at 1230, STAT [facility] ampicillin- sulbactam (UNASYN) 3 g in NaCl 0.9% (NS) 100 mL MINI-BAG 2020-10 17:45: 00 08-29 19:56 :00 No 3g 3 g, IV Piggyback, Q6H ABX, First dose on 08/27/21 at 1145, Until Discontinu ed, Administer over 30 Minutes, 100 mL
Reas on for Anti-Infec tive: Empiric Therapy for Suspected Infection< br>Empiric Therapy Site: Skin / Soft tissue
Duration of therapy: 7 days [facility] KCL (KLOR-CON M20) tablet 40 mEq 2020-10 17:15: 00 08-27 16:24 :00 No 40meq 40 mEq, Oral, ONCE, 1 dose, On 08/27/21 at 1115, Routine [facility] Vancomycin 750 mg in NaCl [...] Soft tissue
Duration of therapy: 7 days [facility] NaCl 0.9% (NS) bolus infusion 1,000 mL 2020-10 15:30: 00 08-27 14:39 :00 No 1000mL at 999 mL/hr, 1,000 mL, IV Infusion, ONCE, 1 dose, On 08/27/21 at 0930, STAT [facility] acetaminoph en (TYLENOL) tablet 650 mg 2020-10 14:25: 31 Yes 650mg 650 mg, Oral, Q6HPRN, Starting on Sun08/27/21 at 0825, Until Discontinu ed, Routine, Temp > 38.5 C [facility] Sliding Scale Insulin - lispro (humaLOG) + Fsbg Testing 2020-10 14:00: 00 08-28 20:48 :50 No Subcutaneo us, Q4H, First dose on Sun08/27/21 at 0800, Until Discontinu ed, Routine [facility] potassium chloride in water 10 mEq/100 mL RTU 10 mEq 2020-10 14:00: 00 08-27 18:19 :00 No 10meq 10 mEq, IV Piggyback, Q1H, 4 doses, First dose on Sun08/27/21 at 0800, Last dose on Sun08/27/21 at 1100, Administer over 60 Minutes, 100 mL [facility] potassium chloride in water 10 mEq/100 mL RTU 10 mEq 2020-10 02:00: 00 08-27 06:00 :00 No 10meq 10 mEq, IV Piggyback, Q1H, 4 doses, First dose (after last reorder) on Sun08/26/21 at 2000, Last dose on Sun08/26/21 at 2300, Administer over 60 Minutes, 100 mL [facility] NaCl 0.9% (NS) bolus infusion 500 mL 2020-10 00:15: 00 08-26 23:30 :00 No 500mL at 999 mL/hr, 500 mL, IV Infusion, ONCE, 1 dose, On Sun08/26/21 at 1815, STAT [facility] potassium chloride in water 10 mEq/100 mL RTU 10 mEq 2020-10 21:00: 00 08-27 01:48 :00 No 10meq 10 mEq, IV Piggyback, Q1H, 4 doses, First dose (after last reorder) on Sun08/26/21 at 1500, Last dose on Sun08/26/21 at 1800, Administer over 60 Minutes, 100 mL [facility] potassium chloride in water 10 mEq/100 mL RTU 10 mEq 2020-10 14:00: 00 08-26 20:00 :00 No 10meq 10 mEq, IV Piggyback, Q1H, 6 doses, First dose on Sun08/26/21 at 0815, Last dose on Sun08/26/21 at 1300, Administer over 60 Minutes, 100 mL [facility] ondansetron (ZOFRAN (PF)) injection 4 mg 2020-10 07:29: 16 Yes 4mg 4 mg, Slow IV Push, Q4HPRN, Starting on Sun08/26/21 at 0129, Until Discontinu ed, Routine, Nausea and Vomiting (N/V), N/V unresponsi ve to Promethazi ne, N/V unresponsi ve to oral antiemetic s, N/V alternatin g with Promethazi ne, N/V recurrent or refractory after palonosetr on (Aloxi) [facility] NaCl 0.9% (NS) IV infusion 2,000 mL 2020-10 03:30: 00 08-26 02:53 :00 No 2000mL at 999 mL/hr, IV Infusion, ONCE, 1 dose, On Sun08/25/21 at 2130, [facility] enoxaparin (LOVENOX) injection 40 mg 2020-10 02:45: 00 Yes 40mg 40 mg, Subcutaneo us, Q24H, First dose on Sun08/25/21 at 2045, Until Discontinu ed, Routine [facility] potassium chloride in water 10 mEq/100 mL RTU 10 mEq 2020-10 02:00: 00 08-26 04:00 :00 No 10meq 10 mEq, IV Piggyback, Q1H, 2 doses, First dose on Sun08/25/21 at 2000, Last dose on Sun08/25/21 at 2100, Administer over 60 Minutes, 100 mL [facility] NaCl 0.45% (1/2NS) 1000 mL + KCL 20 mEq 2020-10 01:45: 00 08-27 16:28 :24 No 1000mL [facility] morpHINE injection 4 mg 2020-10 01:43: 29 08-30 00:51 :25 No 4mg 4 mg, Slow IV Push, Q4HPRN, Starting on [place] 08/25/21 at 1943, Until 08/29/21 at 1851, Routine, Pain (scale 7-10) [facility] HYDROcodone -acetaminop hen (NORCO 5) 5-325 mg tablet 1 tablet 2020-10 01:43: 18 Yes 1{tbl} 1 tablet, Oral, Q6HPRN, Starting on Sun08/25/21 at 1943, Until Discontinu ed, Routine, Pain (scale 4-6) [facility] acetaminoph en (TYLENOL) 160 mg/5 mL oral liquid 650 mg 2020-10 01:43: 08 Yes 650mg 650 mg, Oral, Q6HPRN, Starting on Sun08/25/21 at 1943, Until Discontinu ed, Routine, Pain (scale 1-3) [facility] D5W 0.45% NaCl (1/2NS) 1 L + KCL 20 mEq 2020-10 01:42: 48 08-27 16:27 :04 No IV Infusion, at 200 mL/hr, PRN - SEE INSTRUCTIO NS, Starting on [place] 08/25/21 at 1942, Until 08/27/21 at 1027, KACEY, Blood glucose control [facility] insulin regular in 0.9 % NaCl (MYXREDLIN) 100 unit/100 mL (1 unit/mL) RTU IV infusion 2020-10 01:40: 18 08-27 13:23 :51 No 0U/kg/h 0-0.3 Units/kg/h r ?54.4 kg (0-16.32 mL/hr), IV Infusion, TITRATE, Parameters in Admin. Instr., Follow DKA Insulin Rate Adjustment Protocol, Starting on Sun08/25/21 at 1940
- Follow 'DKA Insulin Rate [...] two hours before stopping insulin infusion.< br> [facility] Lantus Solostar U-100 Insulin 100 unit/mL (3 mL) subcutaneou s pen 06-01 00:00: 00 Yes 30(3 mL) [facility] Novolog Flexpen U-100 Insulin aspart 100 unit/mL (3 mL) subcutaneou s 06-01 00:00: 00 Yes (3 mL) [facility] atorvastati n 20 mg tablet 8-18 00:00: 00 Yes 1mg [facility] Lantus Solostar U-100 Insulin 100 unit/mL (3 mL) subcutaneou s pen - 00:00: 00 Yes 30(3 mL) [facility] Novolog Flexpen U-100 Insulin aspart 100 unit/mL (3 mL) subcutaneou s - 00:00: 00 Yes 20(3 mL) [facility] atorvastati n 20 mg tablet - 00:00: 00 Yes 1mg [facility] atorvastati n 20 mg tablet 02-18 00:00: 00 Yes 1mg [facility] Lantus Solostar U-100 Insulin 100 unit/mL (3 mL) subcutaneou s pen - 00:00: 00 Yes 30(3 mL) [facility] Novolog Flexpen U-100 Insulin aspart 100 unit/mL (3 mL) subcutaneou s - 00:00: 00 Yes 20(3 mL) [facility] Novolog Flexpen U-100 Insulin aspart 100 unit/mL (3 mL) subcutaneou s -29 00:00: 00 Yes 20(3 mL) [facility] Vital Signs Vital Name Observation Time Observation Value Comments S ource Systolic blood pressure 2023-06-20 23:50:00 118 mm[Hg] [facility] Diastolic blood pressure 2023-06-20 23:50:00 75 mm[Hg] [facility] Heart rate 2023-06-20 23:50:00 98 /min [facility] Respiratory rate 2023-06-20 23:50:00 16 /min [facility] Oxygen saturation in Arterial blood by Pulse oximetry 2023-06-20 23:50:00 100 /min [facility] Body temperature 2023-06-20 21:50:00 37.5 Masha [facility] Body height 2023-06-20 21:50:00 152.4 cm [facility] Body weight 2023-06-20 21:50:00 53.071 kg [facility] [facility] BMI 2023-06-20 21:50:00 22.85 kg/m2 [facility] Systolic blood pressure 2021-09-01 17:00:00 111 mm[Hg] [facility] Diastolic blood pressure 2021-09-01 17:00:00 75 mm[Hg] [facility] Heart rate 2021-09-01 17:00:00 97 /min [facility] Body temperature 2021-09-01 17:00:00 36.17 Masha [facility] Respiratory rate 2021-09-01 17:00:00 16 /min [facility] Oxygen saturation in Arterial blood by Pulse oximetry 2021-09-01 17:00:00 99 /min [facility] Body weight 2021-08-27 10:00:00 57.471 kg [facility] BMI 2021-08-27 10:00:00 24.74 kg/m2 [facility] Body height 2021-08-26 00:43:00 152.4 cm [facility] BP Systolic 2024-01-28 16:09:00 118 mm[Hg] Step hen F Kevin BP Diastolic 2024-01-28 16:09:00 77 mm[Hg] Varinder phen F Kevin Weight Measured 2024-01-28 16:09:00 114.60 pounds Clarence F Kevin Height Measured 2024-01-28 16:09:00 65.62 inches Clarence F Kevin Body Temperature 2024-01-28 16:09:00 98.40 degrees Clarence F Kevin Heart Rate 2024-01-28 16:09:00 Nicole en F Kevin Respiratory Rate 2024-01-28 16:09:00 Clarence F Kevin BP Systolic 2024-01-11 15:40:00 121 mm[Hg] Step hen F Kevin BP Diastolic 2024-01-11 15:40:00 79 mm[Hg] Varinder phen F Kevin Weight Measured 2024-01-11 15:40:00 118.40 pounds Clarence F Kevin Height Measured 2024-01-11 15:40:00 65.62 inches Clarence F Kevin Body Temperature 2024-01-11 15:40:00 98.60 degrees Clarence F Kevin Heart Rate 2024-01-11 15:40:00 92.00 /min Nicole en F Kevin Respiratory Rate 2024-01-11 15:40:00 18.00 /min Clarence F Kevin BP Systolic 2023-10-19 13:43:00 128 mm[Hg] Step hen F Kevin BP Diastolic 2023-10-19 13:43:00 86 mm[Hg] Varinder phen F Kevin Weight Measured 2023-10-19 13:43:00 115.00 pounds Clarence F Kevin Height Measured 2023-10-19 13:43:00 65.62 inches Clarence F Kevin Body Temperature 2023-10-19 13:43:00 97.80 degrees Clarence F Kevin Heart Rate 2023-10-19 13:43:00 109.00 /min Step hen F Kevin Respiratory Rate 2023-10-19 13:43:00 Clarence F Kevin BP Systolic 2023-08-03 14:11:00 112 mm[Hg] Step hen F Kevin BP Diastolic 2023-08-03 14:11:00 73 mm[Hg] Varinder phen F Kevin Weight Measured 2023-08-03 14:11:00 113.20 pounds Clarence F Kevin Height Measured 2023-08-03 14:11:00 65.62 inches Clarence F Kevin Body Temperature 2023-08-03 14:11:00 98.60 degrees Clarence F Kevin Heart Rate 2023-08-03 14:11:00 94.00 /min Nicole en F Kevin Respiratory Rate 2023-08-03 14:11:00 Clarence F Kevin BP Systolic 2023-07-09 15:10:00 107 mm[Hg] Step hen F Kevin BP Diastolic 2023-07-09 15:10:00 77 mm[Hg] Varinder phen F Kevin Weight Measured 2023-07-09 15:10:00 107.00 pounds Clarence F Kevin Height Measured 2023-07-09 15:10:00 52.62 inches Clarence F Kevin Body Temperature 2023-07-09 15:10:00 98.30 degrees Clarence F Kevin Heart Rate 2023-07-09 15:10:00 92.00 /min Nicole en F Kevin Respiratory Rate 2023-07-09 15:10:00 Clarence F Kevin BP Systolic 2023-06-27 16:30:00 124 mm[Hg] Step hen F Kevin BP Diastolic 2023-06-27 16:30:00 83 mm[Hg] Varinder phen F Kevin Weight Measured 2023-06-27 16:30:00 116.00 pounds Clarence F Kevin Height Measured 2023-06-27 16:30:00 61.00 inches Clarence F Kevin Body Temperature 2023-06-27 16:30:00 98.60 degrees Clarence F Kevin Heart Rate 2023-06-27 16:30:00 111.00 /min Step hen F Kevin Respiratory Rate 2023-06-27 16:30:00 17.00 /min Clarence F Kevin BP Systolic 2023-06-20 15:08:00 121 mm[Hg] Step hen F Kevin BP Diastolic 2023-06-20 15:08:00 74 mm[Hg] Varinder phen F Kevin Weight Measured 2023-06-20 15:08:00 117.20 pounds Clarence F Kevin Height Measured 2023-06-20 15:08:00 61.00 inches Clarence F Kevin Body Temperature 2023-06-20 15:08:00 97.60 degrees Clarence F Kevin Heart Rate 2023-06-20 15:08:00 110.00 /min Step hen F Kevin Respiratory Rate 2023-06-20 15:08:00 Clarence F Kevin BP Systolic 2023-05-16 16:55:00 122 mm[Hg] Step hen F Kevin BP Diastolic 2023-05-16 16:55:00 80 mm[Hg] Varinder phen F Kevin Weight Measured 2023-05-16 16:55:00 119.00 pounds Clarence F Kevin Height Measured 2023-05-16 16:55:00 61.00 inches Clarence F Kevin Body Temperature 2023-05-16 16:55:00 98.20 degrees Clarence F Kevin Heart Rate 2023-05-16 16:55:00 105.00 /min Step hen F Kevin Respiratory Rate 2023-05-16 16:55:00 19.00 /min Clarence F Kevin BP Systolic 2023-05-10 16:59:00 128 mm[Hg] Step hen F Kevin BP Diastolic 2023-05-10 16:59:00 88 mm[Hg] Varinder phen F Kevin Weight Measured 2023-05-10 16:59:00 120.40 pounds Clarence F Kevin Height Measured 2023-05-10 16:59:00 61.00 inches Clarence F Kevin Body Temperature 2023-05-10 16:59:00 98.40 degrees Clarence F Kevin Heart Rate 2023-05-10 16:59:00 114.00 /min Step hen F Kevin Respiratory Rate 2023-05-10 16:59:00 19.00 /min Clarence F Kevin Procedures Procedure Date / Time Performed Performing Clinician Source POCT GLUCOSE(AGE >30DAYS) 2023-06-20 22:41:00 Valerio Fermin [facility] BASIC METABOLIC PANEL (NA, K, CL, CO2, GLUCOSE, BUN, CREATININE, CA) 2023-06-20 22:40:00 Valerio Fermin [facility] POCT GLUCOSE (AUTOMATED) 2023-06-20 22:38:00 Enedelia Fermin [facility] ASSIGNMENT OF BENEFITS 2023-06-20 22:21:25 Docto r Unassigned, [place] [facility] CONSENT/REFUSAL FOR DIAGNOSIS AND TREATMENT 2023-06-20 21:41:30 Doctor Unassigned, [place] [facility] NOTICE OF PRIVACY PRACTICES 2023-06-20 21:41:10 Doctor Unassigned, [place] [facility] EXTERNAL PROVIDER RECORDS 2021-09-06 06:01:00 Do ctor Unassigned, [place] [facility] POCT GLUCOSE (AUTOMATED) 2021-09-01 13:26:00 Julissa Langley [facility] PHOSPHORUS 2021-09-01 11:39:00 [facility] 2021-09-01 11:39:00 Bryan Alexandre [facility] HEPATIC FUNCTION PANEL ([id number]) (ALB,T.PRO,BILI T,BU/BC,ALT,AST,ALK PHOS) 2021-09-01 11:39:00 [facility]IC METABOLIC PANEL (NA, K, CL, CO2, GLUCOSE, BUN, CREATININE, CA) 2021-09-01 11:39:00 Bryan Alexandre [facility] LIPID PANEL ([id number])(TOTAL CHOLESTEROL, TRIGLYCERIDES, HDL) 2021-09-01 11:39:00 [facility] POCT GLUCOSE (AUTOMATED) 2021-09-01 08:37:00 Julissa Langley [facility] POCT GLUCOSE (AUTOMATED) 2021-09-01 04:58:00 Julissa Langley [facility] POCT GLUCOSE (AUTOMATED) 2021-09-01 01:58:00 [facility] POCT GLUCOSE (AUTOMATED) 2021-08-31 22:56:00 Julissa Langley [facility] POCT GLUCOSE (AUTOMATED) 2021-08-31 17:42:00 Julissa Langley [facility] POCT GLUCOSE (AUTOMATED) 2021-08-31 13:30:00 Julissa Langley [facility] MAGNESIUM 2021-08-31 10:27:00 [facility] 2021-08-31 10:27[facility] 2021-08-31 08:58:00 Julissa Langley [facility] POCT GLUCOSE (AUTOMATED) 2021-08-31 05:36:00 Julissa Langley [facility] POTASSIUM, URINE RANDOM 2021-08-31 04:07:00 [facility]AT [facility]ATIO URINE RANDOM 2021-08-31 04:07:00 Garcia [facility] ACUTE CARE ARTERIAL BLOOD GAS 2021-08-31 03:45:00 Garcia [facility] POCT GLUCOSE (AUTOMATED) 2021-08-31 02:41:00 Julissa Langley [facility] POCT GLUCOSE (AUTOMATED) 2021-08-30 23:46:00 Julissa Langley [facility] BLOOD CULTURE SCREEN 2021-08-30 18:17:00 Megan Langley [facility] POCT GLUCOSE (AUTOMATED) 2021-08-30 18:16:00 [facility] BLOOD CULTURE SCREEN 2021-08-30 18:07:00 Megan Langley [facility] POCT GLUCOSE (AUTOMATED) 2021-08-30 13:55:00 [facility] POCT GLUCOSE (AUTOMATED) 2021-08-30 10:59:00 Julissa Langley [facility] BASIC METABOLIC PANEL (NA, K, CL, CO2, GLUCOSE, BUN, CREATININE, CA) 2021-08-30 10:11:00 Megan Langley [facility] CBC WITH DIFF 2021-08-30 10:11:00 Megan Langley [facility] POCT GLUCOSE (AUTOMATED) 2021-08-30 07:38:00 Julissa Langley [facility] POCT GLUCOSE (AUTOMATED) 2021-08-30 03:58:00 Julissa Langley [facility] POCT GLUCOSE (AUTOMATED) 2021-08-29 23:26:00 Julissa Langley [facility] TRANSTHORACIC ECHO (TTE) COMPLETE 2021-08-29 20:33:00 Megan Langley [facility] MAGNESIUM 2021-08-29 20:22:00 Megan Langley [facility] BASIC METABOLIC PANEL (NA, K, CL, CO2, GLUCOSE, BUN, CREATININE, CA) 2021-08-29 20:22:00 Megan Langley [facility] POCT GLUCOSE (AUTOMATED) 2021-08-29 17:06:00 Julissa Langley [facility] POCT GLUCOSE (AUTOMATED) 2021-08-29 13:47:00 [facility] VANCOMYCIN TROUGH 2021-08-29 03:56:00 Eugenia Wick [facility] BLOOD CULTURE SCREEN 2021-08-29 03:55:00 Megan Langley [facility] POCT GLUCOSE (AUTOMATED) 2021-08-29 02:10:00 Julissa Langley [facility] BLOOD CULTURE SCREEN 2021-08-28 23:54:00 Megan Langley [facility] BLOOD CULTURE WORKUP 2021-08-28 23:54:00 Megan Langley [facility] POCT GLUCOSE (AUTOMATED) 2021-08-28 22:21:00 Julissa Langley [facility] POCT GLUCOSE (AUTOMATED) 2021-08-28 18:28:00 Julissa Langley [facility] POCT GLUCOSE (AUTOMATED) 2021-08-28 13:42:00 [facility] MAGNESIUM 2021-08-28 11:01:00 Megan Langley [facility] BASIC METABOLIC PANEL (NA, K, CL, CO2, GLUCOSE, BUN, CREATININE, CA) 2021-08-28 11:01:00 Megan Langley [facility] CBC WITH DIFF 2021-08-28 11:01:00 Megan Langley [facility] POCT GLUCOSE (AUTOMATED) 2021-08-28 10:39:00 Julissa Langley [facility] POCT GLUCOSE (AUTOMATED) 2021-08-28 06:26:00 Julissa Langley [facility] POCT GLUCOSE (AUTOMATED) 2021-08-28 01:41:00 Julissa Langley [facility] BLOOD CULTURE SCREEN 2021-08-27 22:56:00 Megan Langley [facility] BLOOD CULTURE WORKUP 2021-08-27 22:56:00 Megan Langley [facility] BASIC METABOLIC PANEL (NA, K, CL, CO2, GLUCOSE, BUN, CREATININE, CA) 2021-08-27 22:54:00 Megan Langley [facility] BLOOD CULTURE SCREEN 2021-08-27 22:53:00 Megan Langley [facility] BLOOD CULTURE WORKUP 2021-08-27 22:53:00 Megan Langley [facility] GRAM POSITIVE BLOOD PATHOGENS DNA PROBE-AEROBIC 2021-08-27 22:53:00 Megan Langley [facility] POCT GLUCOSE (AUTOMATED) 2021-08-27 21:47:00 Julissa Langley [facility] URINE DRUG (IMMUNOASSAY) - COMPREHENSIVE DRUG SCREEN 2021-08-27 17:35:00 Megan Langley [facility] URINALYSIS 2021-08-27 17:35:00 Megan Langley [facility] URINE CULTURE 2021-08-27 17:35:00 Megan Langley [facility] URINE DRUG (LCMSMS) - SYNTHETIC OPIATES PANEL 2021-08-27 17:35:00 Megan Langley [facility] POCT GLUCOSE (AUTOMATED) 2021-08-27 17:24:00 Julissa Langley [facility] XR CHEST 1 VW 2021-08-27 15:56:50 Megan Langley [facility] POCT GLUCOSE (AUTOMATED) 2021-08-27 14:01:00 [facility] POCT GLUCOSE (AUTOMATED) 2021-08-27 13:07:00 Julissa Langley [facility] POCT GLUCOSE (AUTOMATED) 2021-08-27 11:54:00 [facility]ID NOW RAPID TESTING) 2021-08-27 11:21:00 [facility] LAB ONLY COVID INTERPRETATION 2021-08-27 11:21:00 [facility] POCT GLUCOSE (AUTOMATED) 2021-08-27 11:17:00 [facility] POCT GLUCOSE (AUTOMATED) 2021-08-27 10:10:00 Julissa Langley [facility] THYROID STIMULATING HORMONE 2021-08-27 10:08:00 Megan Langley [facility] BASIC METABOLIC PANEL (NA, K, CL, CO2, GLUCOSE, BUN, CREATININE, CA) 2021-08-27 10:08:00 Megan Langley [facility] POCT GLUCOSE (AUTOMATED) 2021-08-27 09:03:00 Julissa Langley [facility] POCT GLUCOSE (AUTOMATED) 2021-08-27 08:33:00 Julissa Langley [facility] BASIC METABOLIC PANEL (NA, K, CL, CO2, GLUCOSE, BUN, CREATININE, CA) 2021-08-27 08:05:00 Megan Langley [facility] POCT GLUCOSE (AUTOMATED) 2021-08-27 07:14:00 Julissa Langley [facility] POCT GLUCOSE (AUTOMATED) 2021-08-27 06:10:00 Julissa Langley [facility] POCT GLUCOSE (AUTOMATED) 2021-08-27 04:56:00 Julissa Langley [facility] POCT GLUCOSE (AUTOMATED) 2021-08-27 04:23:00 Julissa Langley [facility] POCT GLUCOSE (AUTOMATED) 2021-08-27 03:24:00 Julissa Langley [facility] BASIC METABOLIC PANEL (NA, K, CL, CO2, GLUCOSE, BUN, CREATININE, CA) 2021-08-27 02:39:00 Megan Langley [facility] POCT GLUCOSE (AUTOMATED) 2021-08-27 01:53:00 [facility] POCT GLUCOSE (AUTOMATED) 2021-08-27 00:34:00 Julissa Langley [facility] POCT GLUCOSE (AUTOMATED) 2021-08-26 23:16:00 [facility] BASIC METABOLIC PANEL (NA, K, CL, CO2, GLUCOSE, BUN, CREATININE, CA) 2021-08-26 22:21:00 Megan Langley [facility] POCT GLUCOSE (AUTOMATED) 2021-08-26 21:59:00 Julissa Langley [facility] POCT GLUCOSE (AUTOMATED) 2021-08-26 21:10:00 [facility] POCT GLUCOSE (AUTOMATED) 2021-08-26 19:49:00 [facility] POCT GLUCOSE (AUTOMATED) 2021-08-26 18:22:00 Julissa Langley [facility] BASIC METABOLIC PANEL (NA, K, CL, CO2, GLUCOSE, BUN, CREATININE, CA) 2021-08-26 15:11:00 Megan Langley [facility] POCT GLUCOSE (AUTOMATED) 2021-08-26 14:54:00 Julissa Langley [facility] POCT GLUCOSE (AUTOMATED) 2021-08-26 13:25:00 Julissa Langley [facility] BASIC METABOLIC PANEL (NA, K, CL, CO2, GLUCOSE, BUN, CREATININE, CA) 2021-08-26 12:37:00 Megan Langley [facility] POCT GLUCOSE (AUTOMATED) 2021-08-26 12:28:00 Julissa Langley [facility] POCT GLUCOSE (AUTOMATED) 2021-08-26 11:31:00 [facility] POCT GLUCOSE (AUTOMATED) 2021-08-26 10:03:00 Julissa Langley [facility] POCT GLUCOSE (AUTOMATED) 2021-08-26 09:51:00 [facility] TEST, SERUM 2021-08-26 08:37:00 Itz Langley [facility] BASIC METABOLIC PANEL (NA, K, CL, CO2, GLUCOSE, BUN, CREATININE, CA) 2021-08-26 08:37:00 Megan Langley [facility] POCT GLUCOSE (AUTOMATED) 2021-08-26 08:32:00 Julissa Langley [facility] POCT GLUCOSE (AUTOMATED) 2021-08-26 07:20:00 [facility] POCT GLUCOSE (AUTOMATED) 2021-08-26 06:31:00 [facility] BASIC METABOLIC PANEL (NA, K, CL, CO2, GLUCOSE, BUN, CREATININE, CA) 2021-08-26 05:27:00 Megan Langley [facility] POCT GLUCOSE (AUTOMATED) 2021-08-26 05:23:00 Julissa Langley [facility] URINALYSIS 2021-08-26 04:44:00 Megan Langley [facility] URINE CULTURE 2021-08-26 04:44:00 Megan Langley [facility] POCT GLUCOSE (AUTOMATED) 2021-08-26 04:02:00 Julissa Langley [facility] PHOSPHORUS 2021-08-26 02:40:00 Megan Langley [facility] MAGNESIUM 2021-08-26 02:40:00 Megan Langley [facility] OSMOLALITY, SERUM OR PLASMA 2021-08-26 02:40:00 Megan Langley [facility] BETA HYDROXY-BUTYRATE 2021-08-26 02:40:00 Itz Langley [facility] BASIC METABOLIC PANEL (NA, K, CL, CO2, GLUCOSE, BUN, CREATININE, CA) 2021-08-26 02:40:00 Megan Langley [facility] GLYCOSYLATED HEMOGLOBIN (A1C) 2021-08-26 02:40:00 Megan Langley [facility] ACUTE CARE ARTERIAL BLOOD GAS 2021-08-26 02:39:00 Megan Langley [facility] POCT GLUCOSE (AUTOMATED) 2021-08-26 02:36:00 Julissa Langley [facility] POCT GLUCOSE (AUTOMATED) 2021-08-26 00:08:00 [facility] Encounters Start Date/Time End Date/Time Encounter Type Admission Type Attending [facility] Care Department Encounter ID Source 2020-01-12 22:02:00 Inpatient EM Becky, Musaddiq [facility] [id number] [facility] 2024-01-28 16:01:56 2024-01-28 16:01:56 Outpatient SFA SFA [id number] Clarence Brown 2024-01-28 00:00:00 2024-01-28 00:00:00 Outpatient Visit SFA [id number] Clarence Brown 2024-01-26 10:33:26 2024-01-26 10:33:26 Outpatient SFA SFA [id number] Clarence Brown 2024-01-11 15:33:42 2024-01-11 15:33:42 Outpatient SFA SFA [id number] Clarence Brown 2023-10-23 08:43:29 2023-10-23 08:43:29 Outpatient SFA SFA [id number] Clarence Brown 2023-10-19 13:42:35 2023-10-19 13:42:35 Outpatient SFA SFA [id number] Clarence Brown 2023-08-03 14:05:29 2023-08-03 14:05:29 Outpatient SFA SFA [id number] Clarence Brown 2023-07-09 15:06:23 2023-07-09 15:06:23 Outpatient SFA SFA [id number] Clarence Brown 2023-06-27 16:11:45 2023-06-27 16:11:45 Outpatient SFA SFA [id number] Clarence Brown 2023-06-20 16:51:00 2023-06-20 18:55:00 Emergency [place], Valerio [facility] [id number] [facility] 2023-06-20 16:51:00 2023-06-20 18:55:00 Emergency X RIDJESSICA, VALERIO [facility] ERT [id number] [facility] 2023-06-20 15:16:32 2023-06-20 15:16:32 Outpatient SFA SFA [id number] Clarence Brown 2023-05-16 16:58:23 2023-05-16 16:58:23 Outpatient [facility] [id number] Clarence Khan Kevin 2023-05-10 16:52:07 2023-05-10 16:52:07 Outpatient [facility] [id number] Clarence Khan [place] 2023-05-01 00:00:00 2023-05-01 00:00:00 Outpatient GC_GCBZW_Ka diyala_S [facility] [id number] [facility] 2023-03-13 16:31:01 2023-03-13 16:31:01 Outpatient [facility] [id number] Clarence Khan [place] 2023-03-09 14:40:18 2023-03-09 14:40:18 Outpatient [place] [id number] Clarence Khan [place] 2022-11-20 13:54:58 2022-11-20 13:54:58 Outpatient [place] [id number] Clarence Khan [place] 2022-11-13 16:29:10 2022-11-13 16:29:10 Outpatient [place] [id number] Clarence Khan [place] 2022-09-27 15:41:12 2022-09-27 15:41:12 Outpatient [place] [id number] Clarence Khan Kevin 2021-09-06 00:00:00 2021-09-06 00:00:00 Orders Only Doctor Unassigned, [place] [facility] [id number] [facility] 2021-09-02 00:00:00 2021-09-02 00:00:00 Transition of Care Gaby Truong [id number] [facility] 2021-08-25 17:58:00 2021-09-01 11:40:00 Hospital Encounter Roni, Megan [facility] [id number] [facility] 2021-08-25 17:58:00 2021-09-01 11:40:00 Inpatient MEGAN CABRERA [facility] [id number] [facility] 2020-01-13 08:07:00 2020-01-13 08:07:00 Outpatient Tomer Penajohnathanmarty [facility] [id number] [facility] Results Test Description Test Time Test Comments Results Result Co mments Source Clarence BrownLIPID PANEL [ADDED]2024-01-27 00:00:00* Test Item Value Reference Range Interpretation Comme nts CHOLESTEROL (test code = 2210) 246 MG/DL TRIGLYCERIDES (test code = 2232) 59 MG/DL HDL CHOLESTEROL (test code = 2220) 64 MG/DL CALC LDL CHOL (test code = 2237) 167 MG/DL RISK RATIO LDL/HDL (test cod e = 2238) 2.61 RATIO Clarence BrownHEMOGLOBIN A1c [ADDED]2024-01-27 00:00:00* Test Item Value Reference Range Interpretation Comme nts HEMOGLOBIN A1c (test code = 04472) 11.7 % Clarence BrownBASIC METABOLIC PANEL (NA, K, CL, CO2, GLUCOSE, BUN, CREATININE, CA)2023-06-20 23:18:16* Test Item Value Reference Range Interpretation Comme nts NA (test code = 4619076201) 136 mmol/L 135-145 K (test code = 4501983599) 3.4 mmol/L 3.5-5.0 L CL (test code = 8117007569) 104 mmol/L 98-108 CO2 TOTAL (test code = 4882629234) 25 mmol/L 23-31 AGAP (test code = 1644385251) 7 2-16 BUN (test code = 3901499022) 20 mg/dL 7-23 GLUCOSE (test code = 0443447886) 184 mg/dL 70-110 H CREATININE (test code = 5453453985) 0.43 mg/dL 0.50-1.04 L CALCIUM (test code = 0045962694) 9.4 mg/dL 8.6-10.6 eGFR (test code = 7009252293) 173.6 mL/min/1.73m2 ALLISON (test code = ALLISON) Association [...] imaging tests). Lab Interpretation (test code = 27973-2) Abnormal [facility] GLUCOSE (AUTOMATED)2023-06-20 22:42:11* Test Item Value Reference Range Interpretation Comme [facility] POCT GLU (test code = 4368456000) 185 mg/dL 70-110 H Lab Interpretation (test cod e = 70850-5) Abnormal [facility] GLUCOSE(AGE >30DAYS)2023-06-20 22:41:00* Test Item Value Reference Range Interpretation Comme [facility] POCT Glu (age>30days) (test code = 3342) 185 mg/dL 70-110 A Lab Interpretation (test cod e = 37861-5) [facility]normal [facility], URINE, RANDOM 2022-09-29 05:16:25* Test Item Value Reference Range Interpretation Comme nts CREATININE, URINE, CONC. (test code = 2072) 33.3 MG/DL NOT ESTAB ALBUMIN, URINE, RANDOM (test code = 52706) 11.7 MG/DL NOT ESTAB CALC ALBUMIN/CREAT, RND (test code = 86913) 351 MG/G <30 H Note: Albumin/Cr eatinine ratio reference interval reflects ADA and NKF guidelines. UNLESS OTHERWISE INDICATED, ALL TESTING PERFORMED [facility] [employer] [address] [place] [id number] FILM PROCESSOR: RUDY HERRERA M.D. CLIA NUMBER [id number] [facility] [place]. [id number] COMPREHENSIVE METABOLIC [id number] 05:10:33* Test Item Value Reference Range Interpretation Comme nts GLUCOSE (test code = 7) 292 MG/DL 70-99 H BUN (test code = 2208) 9 MG/DL 6-20 CREATININE (test code = 2213) 0.45 MG/DL 0.60-1.30 L eGFR (2020 CKD-EPI) (test code = 18094) 134 ML/MIN/1.73 >60 CALC BUN/CREAT (test code = 2235) 20 RATIO 6-28 SODIUM (test code = 2231) 137 MEQ/L 133-146 POTASSIUM (test code = 2228) 3.4 MEQ/L 3.5-5.4 L CHLORIDE (test code = 2215) 99 MEQ/L 95-107 CARBON DIOXIDE (test code = 2206) 18 MEQ/L 19-31 L CALCIUM (test code = 2209) 9.8 MG/DL 8.5-10.5 PROTEIN, TOTAL (test code = 2229) 7.7 G/DL 6.1-8.3 ALBUMIN (test code = 2201) 4.8 G/DL 3.5-5.2 CALC GLOBULIN (test code = 2240) 2.9 G/DL 1.9-3.7 CALC A/G RATIO (test code = 2234) 1.7 RATIO 1.0-2.6 BILIRUBIN, TOTAL (test code = 2207) <0.2 MG/DL See_Comment [Automated me ssage] The system which generated this result transmitted reference range: <=1.2. The reference range was not used to interpret this result as normal/abnormal. ALKALINE PHOSPHATASE (test code = 220) 125 U/L 40-112 H AST (test code = 8) 14 U/L 9-40 ALT (test code = 2219) 15 U/L 5-40 HEMOGLOBIN [id number] 03:04:45* Test Item Value Reference Range Interpretation Comme [facility] HEMOGLOBIN A1c (test code = 30631) 12.2 % 4.2-5.6 H [employer] GUIDELINES FOR HGB A1C: [...] ETC.). CONSIDER ALTERNATE TESTING OR LABORATORY CONSULTATION. ALBUMIN/CREATININE RATIO, RANDOM [id number] 00:00:00* Test Item Value Reference Range Interpretation Comme nts CREATININE, URINE, CONC. (te st code = 2072) 33.3 MG/DL ALBUMIN, URINE, RANDOM (test code = 54767) 11.7 MG/DL CALC ALBUMIN/CREAT, RND (mariah t code = 03229) 351 MG/G Clarence BrownCOMPREHENSIVE METABOLIC [id number] 00:00:00* Test Item Value Reference Range Interpretation Comme nts GLUCOSE (test code = 7) 292 MG/DL BUN (test code = 8) 9 MG/DL CREATININE (test code = 2214) 0.45 MG/DL eGFR (2020 CKD-EPI) (test code = 80181) 134 ML/MIN/1.73 CALC BUN/CREAT (test code = 2235) 20 RATIO SODIUM (test code = 2231) 137 MEQ/L POTASSIUM (test code = 2228) 3.4 MEQ/L CHLORIDE (test code = 2215) 99 MEQ/L CARBON DIOXIDE (test code = 2206) 18 MEQ/L CALCIUM (test code = 2209) 9.8 MG/DL PROTEIN, TOTAL (test code = 2228) 7.7 G/DL ALBUMIN (test code = 2201) 4.8 G/DL CALC GLOBULIN (test code = 2240) 2.9 G/DL CALC A/G RATIO (test code = 2234) 1.7 RATIO BILIRUBIN, TOTAL (test code = 2207) <0.2 MG/DL ALKALINE PHOSPHATASE (test code = 2204) 125 U/L AST (test code = 2218) 14 U/L ALT (test code = 2219) 15 U/L Clarence BrownHEMOGLOBIN [id number] 00:00:00* Test Item Value Reference Range Interpretation Comme nts HEMOGLOBIN A1c (test code = 42632) 12.2 % Clarence BrownVAGINAL PATHOGENS DNA [id number] 14:09:49* Test Item Value Reference Range Interpretation Comme nts LIDIA SPECIES (test code = ) NEGATIVE NEGATIVE G. VAGINALIS (test code = 56299) POSITIVE NEGATIVE A T. VAGINALIS (test code = 73061) NEGATIVE NEGATIVE UNLESS OTHERWISE INDICATED, ALL TESTING PERFORMED [facility] [employer] [address] [place] [address] FILM PROCESSOR: RUDY HERRERA M.D. CLIA NUMBER [id number] [place]. [id number] VAGINAL PATHOGENS DNA [id number] 00:00:00* Test Item Value Reference Range Interpretation Comme nts LIDIA SPECIES (test code = ) NEGATIVE G. VAGINALIS (test code = 93562) POSITIVE T. VAGINALIS (test code = 83272) NEGATIVE Clarence Khan AustinALBUMIN/CREATININE RATIO, URINE, [id number] 05:41:32* Test Item Value Reference Range Interpretation Comme nts CREATININE, URINE, RANDOM (test code = 2072) 152.6 MG/DL NOT ESTAB ALBUMIN, URINE, RANDOM (test code = 75617) 12.4 MG/DL NOT ESTAB CALC ALBUMIN/CREAT, RND (test code = 55056) 81 MG/G <30 H Note: Albumin/Cr eatinine ratio reference interval reflects ADA and NKF guidelines. UNLESS OTHERWISE INDICATED, ALL TESTING PERFORMED [facility] [address] [place] [address] FILM PROCESSOR: RDUY HERRERA M.D. CLIA NUMBER [id number] [place]. [id number] HEMOGLOBIN [id number] 05:16:30* Test Item Value Reference Range Interpretation Comme [facility] HEMOGLOBIN A1c (test code = 93055) 11.9 % 4.2-5.6 H [employer] GUIDELINES FOR HGB A1C: [...] ALTERNATE TESTING OR LABORATORY CONSULTATION. COMPREHENSIVE METABOLIC [id number] 03:48:55* Test Item Value Reference Range Interpretation Comme nts GLUCOSE (test code = 2216) 91 MG/DL 70-99 BUN (test code = 2207) 14 MG/DL 6-20 CREATININE (test code = 2214) 0.46 MG/DL 0.60-1.30 L eGFR (2020 CKD-EPI) (test code = 22613) 134 ML/MIN/1.73 >60 CALC BUN/CREAT (test code = 2235) 30 RATIO 6-28 H SODIUM (test code = 2231) 143 MEQ/L 133-146 POTASSIUM (test code = 2228) 3.2 MEQ/L 3.5-5.4 L CHLORIDE (test code = 2215) 100 MEQ/L 95-107 CARBON DIOXIDE (test code = 2206) 25 MEQ/L 19-31 CALCIUM (test code = 2209) 9.8 MG/DL 8.5-10.5 PROTEIN, TOTAL (test code = 2228) 7.5 G/DL 6.1-8.3 ALBUMIN (test code = 2201) 4.4 G/DL 3.5-5.2 CALC GLOBULIN (test code = 2240) 3.1 G/DL 1.9-3.7 CALC A/G RATIO (test code = 223) 1.4 RATIO 1.0-2.6 BILIRUBIN, TOTAL (test code = 2206) 0.3 MG/DL See_Comment [Automated me ssage] The system which generated this result transmitted reference range: <=1.2. The reference range was not used to interpret this result as normal/abnormal. ALKALINE PHOSPHATASE (test code = 4) 109 U/L 40-112 AST (test code = 2218) 24 U/L 9-40 ALT (test code = 2219) 28 U/L 5-40 LIPID [id number] 03:48:55* Test Item Value Reference Range Interpretation [...] SPECIMENS. FOR MOREINFORMATION, SEE CLIENT ANNOUNCEMENT AT [email or web address] RISK RATIO LDL/HDL (test code = 2238) 3.02 RATIO <3.22 LIPID [id number] 00:00:00* Test Item Value Reference Range Interpretation Comme nts CHOLESTEROL (test code = 2210) 291 MG/DL TRIGLYCERIDES (test code = 2232) 145 MG/DL HDL CHOLESTEROL (test code = 2220) 65 MG/DL CALC LDL CHOL (test code = 2237) 196 MG/DL RISK RATIO LDL/HDL (test cod e = 2238) 3.02 RATIO Clarence BrownMICROALBUMIN/CREATININE, RANDOM AND [id number] 00:00:00* Test Item Value Reference Range Interpretation Comme nts CREATININE, URINE, RANDOM (t est code = 2072) 152.6 MG/DL ALBUMIN, URINE, RANDOM (test code = 40085) 12.4 MG/DL CALC ALBUMIN/CREAT, RND (mariah t code = 89561) 81 MG/G Clarence BrownHEMOGLOBIN [id number] 00:00:00* Test Item Value Reference Range Interpretation Comme nts HEMOGLOBIN A1c (test code = 79656) 11.9 % Clarence Khan KevinCOMPREHENSIVE METABOLIC [id number] 00:00:00* Test Item Value Reference Range Interpretation Comme nts GLUCOSE (test code = 2217) 91 MG/DL BUN (test code = 2208) 14 MG/DL CREATININE (test code = 2214) 0.46 MG/DL eGFR (2020 CKD-EPI) (test code = 34477) 134 ML/MIN/1.73 CALC BUN/CREAT (test code = 2235) 30 RATIO SODIUM (test code = 2231) 143 MEQ/L POTASSIUM (test code = 2228) 3.2 MEQ/L CHLORIDE (test code = 2215) 100 MEQ/L CARBON DIOXIDE (test code = 2206) 25 MEQ/L CALCIUM (test code = 2209) 9.8 MG/DL PROTEIN, TOTAL (test code = 2229) 7.5 G/DL ALBUMIN (test code = 220) 4.4 G/DL CALC GLOBULIN (test code = 2240) 3.1 G/DL CALC A/G RATIO (test code = 2234) 1.4 RATIO BILIRUBIN, TOTAL (test code = 7) 0.3 MG/DL ALKALINE PHOSPHATASE (test code = 2203) 109 U/L AST (test code = 2218) 24 U/L ALT (test code = 221) 28 U/L Clarence Khan AustinHEMOGLOBIN [id number] 00:00:00* Test Item Value Reference Range Interpretation Comme [facility] HEMOGLOBIN A1c (test code = 67346) 11.1 % Clarence BrownMICROALBUMIN/CREATININE, RANDOM AND [id number] 00:00:00* Test Item Value Reference Range Interpretation Comme nts CREATININE, URINE, CONC. (te st code = 2072) 23.6 MG/DL ALBUMIN, URINE, RANDOM (test code = 60703) 1.8 MG/DL CALC ALBUMIN/CREAT, RND (mariah t code = 72958) 76 MG/G Clarence Khan AustinCOMPREHENSIVE METABOLIC [id number] 00:00:00* Test Item Value Reference Range Interpretation Comme nts GLUCOSE (test code = 7) 451 MG/DL BUN (test code = 2208) 14 MG/DL CREATININE (test code = 2214) 0.64 MG/DL eGFR AMER. (test cod e = 66132) 142 ML/MIN/1.73 eGFR NON- AMER. (test code = 19525) 122 ML/MIN/1.73 CALC BUN/CREAT (test code = 2235) 22 RATIO SODIUM (test code = 2231) 137 MEQ/L POTASSIUM (test code = 2228) 4.2 MEQ/L CHLORIDE (test code = 2215) 96 MEQ/L CARBON DIOXIDE (test code = 2206) 25 MEQ/L CALCIUM (test code = 2209) 10.1 MG/DL PROTEIN, TOTAL (test code = 2229) 8.1 G/DL ALBUMIN (test code = 2201) 4.7 G/DL CALC GLOBULIN (test code = 2240) 3.4 G/DL CALC A/G RATIO (test code = 2234) 1.4 RATIO BILIRUBIN, TOTAL (test code = 2207) <0.2 MG/DL ALKALINE PHOSPHATASE (test code = 2204) 140 U/L AST (test code = 2218) 20 U/L ALT (test code = 2219) 11 U/L Clarence BrownLIPID [id number] 00:00:00* Test Item Value Reference Range Interpretation Comme nts CHOLESTEROL (test code = 2210) 314 MG/DL TRIGLYCERIDES (test code = 2232) 481 MG/DL HDL CHOLESTEROL (test code = 2220) 64 MG/DL CALC LDL CHOL (test code = 2237) (NOTE) MG/DL RISK RATIO LDL/HDL (test cod e = 2238) 2.78 RATIO Clarence BrownBLOOD CULTURE [id number] 15:35:07* Test Item Value Reference Range Interpretation Comme [facility] Blood Culture Workup (test code = 600-7) Staphylococcus aureus [place] morphologically consistent with organism aboveFor susceptibility results, refer to culture # - [id number] Gram stain (test code = 664-3) Isolated from aerobic bottle Gram positive cocci Gram positive cocci in aerobic bottle [facility] [id number] 15:34:31* Test Item Value Reference Range Interpretation Comme nts Blood Culture-Aerobic (test code = 41946-4) Culture positive. See Blood Culture Workup for additional information. No growth AA Gram positive cocci in aerobic bottle Previous preliminary verified result was Culture In Progress on 08/28/2021 at 2202 CSTPrevious preliminary verified result was No growth at 24 hours on 08/29/2021 at 1901 [employer]AR[employer] Blood Culture-Anaerobic (test code = 07241-9) No organisms isolated No growth Previous preliminary verified result was Culture In Progress on 08/28/2021 at 2202 CSTPrevious preliminary verified result was No growth at 24 hours on 08/29/2021 at 1901 [employer] Lab Interpretation (test code = 29986-4) Abnormal [facility]2021-09-01 13:54:48* Test Item Value Reference Range Interpretation Comme [facility] POCT GLU (test code = 0448937027) 304 mg/dL 70-110 H Lab Interpretation (test cod e = 87247-7) Abnormal [facility] HospitalLIPID PANEL (34004)(TOTAL CHOLESTEROL, TRIGLYCERIDES, HDL)2021-09-01 12:31:32* Test Item Value Reference Range Interpretation Comme nts CHOL (test code = 2859246949) 158 mg/dL 120-200 HDL (test code = 7860005720) 22 mg/dL >50 L HDLC RATIO (test code = 2324035622) See_Comment H [Automated [employer]] The system which generated this result transmitted reference range: <=4.5. The reference range was not used to interpret this result as normal/abnormal. TRIG (test code = 0252187704) 135 mg/dL 30-170 LDL CHOL (test code = 30092-7) 109 mg/dL See_Comment [Automated messa [employer]La[employer]] The system which generated this result transmitted reference range: <=160. The reference range was not used to interpret this result as normal/abnormal. VLDL (test code = 9741928919) 27 mg/dL 5-60 Lab Interpretation (test code = 25324-6) Abnormal [facility] METABOLIC PANEL (NA, K, CL, CO2, GLUCOSE, BUN, CREATININE, CA)2021-09-01 12:31:11* Test Item Value Reference Range Interpretation Comme nts NA (test code = 2152096452) 134 mmol/L 135-145 L K (test code = 0211888089) 3.4 mmol/L 3.5-5.0 L CL (test code = 7025197843) 99 mmol/L 98-108 CO2 TOTAL (test code = 2581006486) 29 mmol/L 23-31 AGAP (test code = 7264465467) 2-16 BUN (test code = 2594756393) 6 mg/dL 7-23 L GLUCOSE (test code = 0485537680) 278 mg/dL 70-110 H CREATININE (test code = 6216538785) 0.36 mg/dL 0.50-1.04 L CALCIUM (test code = 7462697183) 8.6 mg/dL 8.6-10.6 eGFR (test code = 0992562531) mL/min/1.73m2 ALLISON (test code = ALLISON) Association [...] imaging tests). Lab Interpretation (test code = 52909-0) Abnormal [facility]MAG[facility]UM2021-11-18 12:31:11* Test Item Value Reference Range Interpretation Comme nts MAGNESIUM (test code = 8656544991) 1.9 mg/dL 1.7-2.4 Lab Interpretation (test cod e = 29940-5) Normal [facility] HospitalPHOSPHORUS2021-11-18 12:31:11* Test Item Value Reference Range Interpretation Comme nts PHOSPHORUS (test code = 5164813483) 4.4 mg/dL 2.5-5.0 Lab Interpretation (test cod e = 96882-0) Normal [facility] HospitalHepatic Function Panel (ALB, T.PRO, BILI T, BU/BC, ALT, AST, ALK [id number] 12:31:11* Test Item Value Reference Range Interpretation Comme nts TOTAL BILI (test code = 9687788020) 0.3 mg/dL 0.1-1.1 BILI UNCON (test code = 0599585156) 0.1 mg/dL 0.1-1.1 BILI CONJ (test code = 6447054277) 0.0 mg/dL 0.0-0.3 T PROTEIN (test code = 3499352653) 5.6 g/dL 6.3-8.2 L ALBUMIN (test code = 4813257144) 2.8 g/dL 3.5-5.0 L ALK PHOS (test code = 2705603834) 118 U/L 34-122 ALTv (test code = 1742-6) 19 U/L 5-35 AST(SGOT) (test code = 4719552986) 17 U/L 13-40 Lab Interpretation (test cod e = 24672-2) Abnormal [facility] GLUCOSE (AUTOMATED)2021-09-01 08:40:34* Test Item Value Reference Range Interpretation Comme nts POCT GLU (test code = 7882833709) 260 mg/dL 70-110 H Lab Interpretation (test cod e = 78833-2) Abnormal [facility] GLUCOSE (AUTOMATED)2021-09-01 05:02:19* Test Item Value Reference Range Interpretation Comme nts POCT GLU (test code = 8120668461) 261 mg/dL 70-110 H Lab Interpretation (test cod e = 12065-5) Abnormal [facility] GLUCOSE (AUTOMATED)2021-09-01 02:06:35* Test Item Value Reference Range Interpretation Comme nts POCT GLU (test code = 9235828986) 378 mg/dL 70-110 H Lab Interpretation (test cod e = 67712-4) Abnormal [facility] GLUCOSE (AUTOMATED)2021-08-31 23:03:44* Test Item Value Reference Range Interpretation Comme nts POCT GLU (test code = 8933143073) 305 mg/dL 70-110 H Lab Interpretation (test cod e = 24978-5) Abnormal [facility] GLUCOSE (AUTOMATED)2021-08-31 17:55:29* Test Item Value Reference Range Interpretation Comme nts POCT GLU (test code = 1598351678) 155 mg/dL 70-110 H Lab Interpretation (test cod e = 36880-2) Abnormal [facility] GLUCOSE (AUTOMATED)2021-08-31 13:35:36* Test Item Value Reference Range Interpretation Comme nts POCT GLU (test code = 8819970706) 240 mg/dL 70-110 H Lab Interpretation (test cod e = 37136-0) Abnormal [facility]2021-11-17 12:00:41* Test Item Value Reference Range Interpretation Comme nts MAGNESIUM (test code = 4794786341) 2.0 mg/dL 1.7-2.4 Lab Interpretation (test cod e = 22374-4) Normal [facility] HospitalRENAL [id number] 12:00:15* Test Item Value Reference Range Interpretation Comme nts ALBUMIN (test code = 8889539900) 2.7 g/dL 3.5-5.0 L CALCIUM (test code = 8694013524) 8.4 mg/dL 8.6-10.6 L CO2 TOTAL (test code = 7328828338) 31 mmol/L 23-31 CREATININE (test code = 3322888139) 0.36 mg/dL 0.50-1.04 L GLUCOSE (test code = 2347098029) 209 mg/dL 70-110 H K (test code = 7457374618) 3.1 mmol/L 3.5-5.0 L NA (test code = 6917193433) 137 mmol/L 135-145 BUN (test code = 9354862468) 4 mg/dL 7-23 L PHOSPHORUS (test code = 8282463617) 2.4 mg/dL 2.5-5.0 L eGFR (test code = 1359920089) mL/min/1.73m2 ALLISON (test code = ALLISON) Association [...] imaging tests). Lab Interpretation (test code = 58400-0) Abnormal [facility] GLUCOSE (AUTOMATED)2021-08-31 09:04:10* Test Item Value Reference Range Interpretation Comme nts POCT GLU (test code = 0916485188) 216 mg/dL 70-110 H Lab Interpretation (test cod e = 88735-7) Abnormal [facility] GLUCOSE (AUTOMATED)2021-08-31 05:44:28* Test Item Value Reference Range Interpretation Comme nts POCT GLU (test code = 3483936269) 266 mg/dL 70-110 H Lab Interpretation (test cod e = 97038-1) Abnormal [facility] GLUCOSE (AUTOMATED)2021-08-31 02:45:23* Test Item Value Reference Range Interpretation Comme nts POCT GLU (test code = 6275548734) 403 mg/dL 70-110 H Lab Interpretation (test cod e = 05323-6) Abnormal [facility] GLUCOSE (AUTOMATED)2021-08-31 00:00:16* Test Item Value Reference Range Interpretation Comme nts POCT GLU (test code = 2903631844) 392 mg/dL 70-110 H Lab Interpretation (test cod e = 16527-5) [facility]normal [facility]2021-08-30 18:41:51* Test Item Value Reference Range Interpretation Comme nts POCT GLU (test code = 7311866306) 288 mg/dL 70-110 H Lab Interpretation (test cod e = 69220-1) Abnormal [facility] HospitalBL[facility] [id number] 17:43:06* Test Item Value Reference Range Interpretation Comme nts Blood Culture-Aerobic (test code = 89327-3) Culture positive. See Blood Culture Workup for additional information. No growth AA Previous preliminary verified result was Culture In Progress on 08/27/2021 at 2102 [employer] Blood Culture-Anaerobic (test code = 41874-9) No organisms isolated No growth Previous preliminary verified result was Culture In Progress on 08/28/2021 at 0919 [employer] Lab Interpretation (test code = 66821-3) Abnormal [facility] HospitalBL[facility] [id number] 17:43:06* Test Item Value Reference Range Interpretation Comme nts Blood Culture-Aerobic (test code = 57927-9) Culture positive. See Blood Culture Workup for additional information. No growth AA Previous preliminary verified result was Culture In Progress on 08/27/2021 at 2102 [employer]AR[employer] Blood Culture-Anaerobic (test code = 68824-1) No organisms isolated No growth Previous preliminary verified result was Culture In Progress on 08/27/2021 at 2102 [employer]AR[employer] INSTRU[employer] Lab Interpretation (test code = 66545-4) Abnormal [facility]BL[facility] [id number] 17:43:06* Test Item Value Reference Range Interpretation Comme nts Blood Culture Workup (test code = 600-7) Staphylococcus aureus [place] morphologically consistent with organism aboveFor susceptibility results, refer to culture # - [id number] Gram stain (test code = 664-3) Gram positive cocci Aerobic Miko abad [facility] WITH [id number] 14:07:31* Test Item Value Reference Range Interpretation [...] 34.2 g/dL 31.6-35.1 RDW-SD (test code = 97711-1) 40.9 fL 39.0-49.9 RDW-CV (test code = 788-0) 12.5 % 12.0-15.5 PLT (test code = 777-3) See_Comment [Automated message] The system which generated this result transmitted reference range: 166 - 358 10*3/?L. The reference range was not used to interpret this result as normal/abnormal. MPV (test code = 62550-3) 11.2 fL 9.5-12.9 NRBC/100 WBC (test code = 5991301595) See_Comment [Automated message] The system which generated this result transmitted reference range: 0.0 - 10.0 /100 WBCs. The reference range was not used to interpret this result as normal/abnormal. NRBC x10^3 (test code = 7885581017) <0.01 See_Comment [Automated message] The system which generated this result transmitted reference range: 10*3/?L. The reference range was not used to interpret this result as normal/abnormal. GRAN MAT (NEUT) % (test code = 770-8) 48.1 % IMM GRAN % (test code = 2662894245) 0.60 % LYMPH % (test code = 736-9) 36.2 % MONO % (test code = 5905-5) 12.6 % EOS % (test code = 713-8) 2.1 % BASO % (test code = 706-2) 0.4 % GRAN MAT x10^3(ANC) (test code = 8574970170) 2.30 10*3/uL 1.88-7.09 IMM GRAN x10^3 (test code = 6118028884) 0.03 10*3/uL 0.00-0.06 LYMPH x10^3 (test code = 731-0) 1.73 10*3/uL 1.32-3.29 MONO x10^3 (test code = 742-7) 0.60 10*3/uL 0.33-0.92 EOS x10^3 (test code = 711-2) 0.10 10*3/uL 0.03-0.39 BASO x10^3 (test code = 704-7) <0.03 0.01-0.07 BANDS (test code = 1677361174) MARKED INCREASED A TOXIC CHANGES (test code = 803-7) Present A Lab Interpretation (test code = 58878-9) [facility]2021-08-30 14:05:25* Test Item Value Reference Range Interpretation Comme nts POCT GLU (test code = 1708140820) 221 mg/dL 70-110 H Lab Interpretation (test cod e = 74466-7) Abnormal [facility] METABOLIC PANEL (NA, K, CL, CO2, GLUCOSE, BUN, CREATININE, CA)2021-08-30 13:10:02* Test Item Value Reference Range Interpretation Comme [facility] NA (test code = 9159028198) 136 mmol/L 135-145 K (test code = 7849665242) 2.7 mmol/L 3.5-5.0 LL CL (test code = 1257981169) 103 mmol/L 98-108 CO2 TOTAL (test code = 2437593346) 30 mmol/L 23-31 AGAP (test code = 0489781539) 2-16 BUN (test code = 4526707307) 4 mg/dL 7-23 L GLUCOSE (test code = 0433458570) 204 mg/dL 70-110 H CREATININE (test code = 2843430962) 0.40 mg/dL 0.50-1.04 L CALCIUM (test code = 4659307000) 8.2 mg/dL 8.6-10.6 L eGFR (test code = 2327066594) mL/min/1.73m2 ALLISON (test code = ALLISON) Association [...] imaging tests). Lab Interpretation (test code = 32763-9) Abnormal [facility] GLUCOSE (AUTOMATED)2021-08-30 12:05:35* Test Item Value Reference Range Interpretation Comme [facility] POCT GLU (test code = 6215693105) 169 mg/dL 70-110 H Lab Interpretation (test cod e = 44944-2) Abnormal [facility] GLUCOSE (AUTOMATED)2021-08-30 07:41:46* Test Item Value Reference Range Interpretation Comme nts POCT GLU (test code = 1993016004) 301 mg/dL 70-110 H Lab Interpretation (test cod e = 42502-5) Abnormal [facility] GLUCOSE (AUTOMATED)2021-08-30 04:01:29* Test Item Value Reference Range Interpretation Comme [facility] POCT GLU (test code = 2477710810) 306 mg/dL 70-110 H Lab Interpretation (test cod e = 60311-4) Abnormal [facility])2021-08-29 23:30:33* Test Item Value Reference Range Interpretation Comme [facility] POCT GLU (test code = 0034269044) 289 mg/dL 70-110 H Lab Interpretation (test cod e = 42017-9) Abnormal [facility] METABOLIC PANEL (NA, K, CL, CO2, GLUCOSE, BUN, CREATININE, CA)2021-08-29 21:04:39* Test Item Value Reference Range Interpretation Comme [facility] NA (test code = 1620162225) 133 mmol/L 135-145 L K (test code = 6395831330) 2.2 mmol/L 3.5-5.0 LL CL (test code = 8988790308) 101 mmol/L 98-108 CO2 TOTAL (test code = 2516018756) 25 mmol/L 23-31 AGAP (test code = 9321438675) 2-16 BUN (test code = 3732089053) 4 mg/dL 7-23 L GLUCOSE (test code = 4185117619) 229 mg/dL 70-110 H CREATININE (test code = 1159200411) 0.40 mg/dL 0.50-1.04 L CALCIUM (test code = 3007167955) 8.2 mg/dL 8.6-10.6 L eGFR (test code = 8142444213) mL/min/1.73m2 ALLISON (test code = ALLISON) Association [...] imaging tests). Lab Interpretation (test code = 01398-7) [facility]2021-[facility]-15 20:48:23* Test Item Value Reference Range Interpretation Comme nts MAGNESIUM (test code = 6438585793) 2.2 mg/dL 1.7-2.4 Lab Interpretation (test cod e = 01284-7) Normal [facility] GLUCOSE (AUTOMATED)2021-08-29 17:16:26* Test Item Value Reference Range Interpretation Comme nts POCT GLU (test code = 8507845217) 247 mg/dL 70-110 H Lab Interpretation (test cod e = 56565-8) Abnormal [facility] GLUCOSE (AUTOMATED)2021-08-29 13:50:01* Test Item Value Reference Range Interpretation Comme nts POCT GLU (test code = 4158714522) 240 mg/dL 70-110 H Lab Interpretation (test cod e = 07369-5) Abnormal [facility] HospitalVan[facility] Trough Level - Please draw trough BEFORE the 4th dose scheduled at 2245, but no more than 60 mins before the dose is due.2021-08-29 05:31:27* Test Item Value Reference Range Interpretation Comme nts VANCO TROUGH (test code = 4982696102) <5.0 10.0-20.0 L ALLISON (test code = ALLISON) Toxic Range: ?>20 ug/mL 15-20 ug/mL is recommended for severe infection or when Vancomycin SOFYA is greater than or equal to 2. Lab Interpretation (test code = 60178-8) Abnormal [facility] GLUCOSE (AUTOMATED)2021-08-29 03:32:40* Test Item Value Reference Range Interpretation Comme nts POCT GLU (test code = 3032874285) 272 mg/dL 70-110 H Notified Provide r Lab Interpretation (test code = 41801-3) [facility]normal [facility] PATH[facility]ENS DNA [id number] 00:04:20* Test Item Value Reference Range Interpretation Comme nts Staphylococcus aureus (test code = 16675-4) Positive Negative, See Comment/Narrativ e A mecA (test code = 29929-4) Negative Negative, See Comment/Narrativ e ALLISON (test code = ALLISON) MSSA detected by D NA probe. ?See blood culture result for additional susceptibilityInformati on. Preferred therapies for MSSA ?bacteremia are nafcillin or cefazolin.Infectious Diseases consultation recommended. Please contact the [facility] with questions.ASP Pager: ?[phone] Testing included eleven identification and three resistance marker targets. See blood culture result for additional information. Testing included eleven identification and three resistancemarker targets. Lab Interpretation (test code = 84710-3) Abnormal [facility] GLUCOSE (AUTOMATED)2021-08-28 22:44:07* Test Item Value Reference Range Interpretation Comme nts POCT GLU (test code = 0008744779) 247 mg/dL 70-110 H Lab Interpretation (test cod e = 34451-9) Abnormal [facility] GLUCOSE (AUTOMATED)2021-08-28 19:11:25* Test Item Value Reference Range Interpretation Comme nts POCT GLU (test code = 8697070242) 218 mg/dL 70-110 H Lab Interpretation (test cod e = 55999-5) Abnormal [facility] GLUCOSE (AUTOMATED)2021-08-28 13:47:15* Test Item Value Reference Range Interpretation Comme nts POCT GLU (test code = 3098195430) 231 mg/dL 70-110 H Lab Interpretation (test cod e = 81395-1) Abnormal [facility] WITH [id number] 13:18:03* Test Item Value Reference Range Interpretation [...] g/dL 31.6-35.1 H RDW-SD (test code = 97708-2) 40.5 fL 39.0-49.9 RDW-CV (test code = 788-0) 12.3 % 12.0-15.5 PLT (test code = 777-3) See_Comment L [Automated messa ge] The system which generated this result transmitted reference range: 166 - 358 10*3/?L. The reference range was not used to interpret this result as normal/abnormal. MPV (test code = 17030-9) 11.1 fL 9.5-12.9 NRBC/100 WBC (test code = 6487275564) See_Comment [Automated [employer] ssage] The system which generated this result transmitted reference range: 0.0 - 10.0 /100 WBCs. The reference range was not used to interpret this result as normal/abnormal. NRBC x10^3 (test code = 8991697652) <0.01 See_Comment [Automated messa ge] The system which generated this result transmitted reference range: 10*3/?L. The reference range was not used to interpret this result as normal/abnormal. SEG % (test code = 79150-8) 50 % 33-76 BAND % (test code = 90583-2) 26 % 0-1 H LYMPH % (test code = 09045-1) 14 % 14-54 MONO % (test code = 00148-5) 10 % 0-4 H ANC (test code = 753-4) 6.12 10*3/uL 1.88-7.09 TOXIC CHANGES (test code = 803-7) Present A Lab Interpretation (test code = 10612-5) Abnormal [facility] METABOLIC PANEL (NA, K, CL, CO2, GLUCOSE, BUN, CREATININE, CA)2021-08-28 12:56:10* Test Item Value Reference Range Interpretation Comme nts NA (test code = 9589344982) 132 mmol/L 135-145 L K (test code = 6855556449) 2.8 mmol/L 3.5-5.0 LL CL (test code = 2148002728) 106 mmol/L 98-108 CO2 TOTAL (test code = 0456591738) 14 mmol/L 23-31 L AGAP (test code = 2994253422) 2-16 BUN (test code = 6483289647) 4 mg/dL 7-23 L GLUCOSE (test code = 9384427446) 257 mg/dL 70-110 H CREATININE (test code = 7814842739) 0.50 mg/dL 0.50-1.04 CALCIUM (test code = 6039570619) 8.6 mg/dL 8.6-10.6 eGFR (test code = 1119986508) mL/min/1.73m2 ALLISON (test code = ALLISON) Association [...] imaging tests). Lab Interpretation (test code = 10340-3) [facility] 12:48:21* Test Item Value Reference Range Interpretation Comme nts MAGNESIUM (test code = 2226804644) 1.6 mg/dL 1.7-2.4 L Lab Interpretation (test cod e = 65948-9) Abnormal [facility] GLUCOSE (AUTOMATED)2021-08-28 10:56:20* Test Item Value Reference Range Interpretation Comme nts POCT GLU (test code = 7820077859) 250 mg/dL 70-110 H Notified Provide r Lab Interpretation (test code = 70382-6) Abnormal [facility] GLUCOSE (AUTOMATED)2021-08-28 06:29:05* Test Item Value Reference Range Interpretation Comme nts POCT GLU (test code = 6468157901) 252 mg/dL 70-110 H Lab Interpretation (test cod e = 32039-4) Abnormal [facility] GLUCOSE (AUTOMATED)2021-08-28 02:37:36* Test Item Value Reference Range Interpretation Comme nts POCT GLU (test code = 3976030341) 268 mg/dL 70-110 H Notified Provide r Lab Interpretation (test code = 00656-0) Abnormal [facility] METABOLIC PANEL (NA, K, CL, CO2, GLUCOSE, BUN, CREATININE, CA)2021-08-27 23:36:35* Test Item Value Reference Range Interpretation Comme nts NA (test code = 8758238552) 129 mmol/L 135-145 L K (test code = 3535357550) 3.2 mmol/L 3.5-5.0 L CL (test code = 8348166569) 109 mmol/L 98-108 H CO2 TOTAL (test code = 8562915619) 11 mmol/L 23-31 L AGAP (test code = 0631018865) 2-16 BUN (test code = 5879126607) 3 mg/dL 7-23 L GLUCOSE (test code = 8437430132) 268 mg/dL 70-110 H CREATININE (test code = 1926404236) 0.44 mg/dL 0.50-1.04 L CALCIUM (test code = 4158791152) 8.4 mg/dL 8.6-10.6 L eGFR (test code = 2363896039) mL/min/1.73m2 ALLISON (test code = ALLISON) Association [...] imaging tests). Lab Interpretation (test code = 68862-1) Abnormal [facility] GLUCOSE (AUTOMATED)2021-08-27 21:51:16* Test Item Value Reference Range Interpretation Comme nts POCT GLU (test code = 1292280917) 281 mg/dL 70-110 H Lab Interpretation (test cod e = 09068-6) Abnormal [facility] Hospital[facility]ID STIMULATING [id number] 18:59:26 * Test Item Value Reference Range Interpretation Comme nts TSH (test code = 6963584267) See_Comment [Automated [employer] ge] The system which generated this result transmitted reference range: 0.45 - 4.70 mIU/L. The reference range was not used to interpret this result as normal/abnormal. Lab Interpretation (test code = 51930-8) Normal [facility] GLUCOSE (AUTOMATED)2021-08-27 17:28:40* Test Item Value Reference Range Interpretation Comme nts POCT GLU (test code = 9055201553) 287 mg/dL 70-110 H Lab Interpretation (test cod e = 94144-7) Abnormal [facility] TEST, [id number] 15:14:01* Test Item Value Reference Range Interpretation Comme nts PREG SERUM (test code = 2616534967) Negative ALLISON (test code = ALLISON) Less than 10 IU/L. ?If low titer or ectopic is suspected, resubmit specimen in 48-72 hours. [facility] GLUCOSE (AUTOMATED)2021-08-27 14:04:59* Test Item Value Reference Range Interpretation Comme nts POCT GLU (test code = 6818587264) 134 mg/dL 70-110 H Lab Interpretation (test cod e = 56742-8) Abnormal [facility] GLUCOSE (AUTOMATED)2021-08-27 13:09:59* Test Item Value Reference Range Interpretation Comme nts POCT GLU (test code = 2128083667) 150 mg/dL 70-110 H Notified Provide r Lab Interpretation (test code = 25515-1) Abnormal [facility] GLUCOSE (AUTOMATED)2021-08-27 12:29:29* Test Item Value Reference Range Interpretation Comme nts POCT GLU (test code = 9877215933) 167 mg/dL 70-110 H Lab Interpretation (test cod e = 10013-6) Abnormal [facility] GLUCOSE (AUTOMATED)2021-08-27 12:29:29* Test Item Value Reference Range Interpretation Comme nts POCT GLU (test code = 4520267459) 160 mg/dL 70-110 H Notified Provide r Lab Interpretation (test code = 26445-8) Abnormal [facility] GLUCOSE (AUTOMATED)2021-08-27 12:29:29* Test Item Value Reference Range Interpretation Comme nts POCT GLU (test code = 0265506985) 266 mg/dL 70-110 H Lab Interpretation (test cod e = 93940-7) Abnormal [facility] GLUCOSE (AUTOMATED)2021-08-27 12:29:29* Test Item Value Reference Range Interpretation Comme nts POCT GLU (test code = 1297184960) 224 mg/dL 70-110 H Lab Interpretation (test cod e = 78033-5) Abnormal [facility] Metabolic Panel (Na, K, Cl, CO2, Glucose, BUN, Creatinine, Ca)2021-08-27 11:42:11* Test Item Value Reference Range Interpretation Comme nts NA (test code = 0352036580) 129 mmol/L 135-145 L K (test code = 1877604875) 2.6 mmol/L 3.5-5.0 LL CL (test code = 5183397957) 108 mmol/L 98-108 CO2 TOTAL (test code = 7945167419) 16 mmol/L 23-31 L AGAP (test code = 1502728081) 2-16 BUN (test code = 3386723024) 3 mg/dL 7-23 L GLUCOSE (test code = 0070290000) 220 mg/dL 70-110 H CREATININE (test code = 8965036068) 0.47 mg/dL 0.50-1.04 L CALCIUM (test code = 6057431930) 9.0 mg/dL 8.6-10.6 eGFR (test code = 4900225211) mL/min/1.73m2 ALLISON (test code = ALLISON) Association [...] imaging tests). Lab Interpretation (test code = 95145-1) Abnormal [facility] Metabolic Panel (Na, K, Cl, CO2, Glucose, BUN, Creatinine, Ca)2021-08-27 11:41:16* Test Item Value Reference Range Interpretation Comme nts NA (test code = 0451283888) 126 mmol/L 135-145 L K (test code = 9862889232) 2.7 mmol/L 3.5-5.0 LL CL (test code = 3972600837) 106 mmol/L 98-108 CO2 TOTAL (test code = 7424238205) 14 mmol/L 23-31 L AGAP (test code = 9501523211) 2-16 BUN (test code = 3160166597) 3 mg/dL 7-23 L GLUCOSE (test code = 0367288546) 178 mg/dL 70-110 H CREATININE (test code = 8539491229) 0.45 mg/dL 0.50-1.04 L CALCIUM (test code = 1821736369) 8.8 mg/dL 8.6-10.6 eGFR (test code = 1073870898) mL/min/1.73m2 ALLISON (test code = ALLISON) Association [...] imaging tests). Lab Interpretation (test code = 69315-6) Abnormal [facility] GLUCOSE (AUTOMATED)2021-08-27 11:27:22* Test Item Value Reference Range Interpretation Comme nts POCT GLU (test code = 8585465962) 167 mg/dL 70-110 H Lab Interpretation (test cod e = 07448-0) Abnormal [facility] GLUCOSE (AUTOMATED)2021-08-27 11:05:51* Test Item Value Reference Range Interpretation Comme nts POCT GLU (test code = 7482656387) 221 mg/dL 70-110 H Lab Interpretation (test cod e = 84137-2) Abnormal [facility] GLUCOSE (AUTOMATED)2021-08-27 09:06:03* Test Item Value Reference Range Interpretation Comme nts POCT GLU (test code = 3104116425) 198 mg/dL 70-110 H Notified Provide r Lab Interpretation (test code = 46968-7) Abnormal [facility] GLUCOSE (AUTOMATED)2021-08-27 08:35:32* Test Item Value Reference Range Interpretation Comme nts POCT GLU (test code = 0471291908) 186 mg/dL 70-110 H Notified Provide r Lab Interpretation (test code = 54540-4) Abnormal [facility] GLUCOSE (AUTOMATED)2021-08-27 07:17:13* Test Item Value Reference Range Interpretation Comme nts POCT GLU (test code = 0487454884) 170 mg/dL 70-110 H Notified Provide r Lab Interpretation (test code = 35925-7) Abnormal [facility] GLUCOSE (AUTOMATED)2021-08-27 06:15:07* Test Item Value Reference Range Interpretation Comme nts POCT GLU (test code = 2158345954) 172 mg/dL 70-110 H Notified Provide r Lab Interpretation (test code = 14060-4) Abnormal [facility] GLUCOSE (AUTOMATED)2021-08-27 04:59:04* Test Item Value Reference Range Interpretation Comme nts POCT GLU (test code = 5460297602) 226 mg/dL 70-110 H Notified Provide r Lab Interpretation (test code = 84994-6) Abnormal [facility] GLUCOSE (AUTOMATED)2021-08-27 04:25:50* Test Item Value Reference Range Interpretation Comme nts POCT GLU (test code = 4220548049) 253 mg/dL 70-110 H Lab Interpretation (test cod e = 75874-3) Abnormal [facility] GLUCOSE (AUTOMATED)2021-08-27 04:25:50* Test Item Value Reference Range Interpretation Comme nts POCT GLU (test code = 2650862295) 224 mg/dL 70-110 H Notified Provide r Lab Interpretation (test code = 04219-6) Abnormal [facility] Metabolic Panel (Na, K, Cl, CO2, Glucose, BUN, Creatinine, Ca)2021-08-27 03:50:21* Test Item Value Reference Range Interpretation Comme nts NA (test code = 6595849832) 129 mmol/L 135-145 L K (test code = 9984535588) 3.1 mmol/L 3.5-5.0 L CL (test code = 9001301993) 107 mmol/L 98-108 CO2 TOTAL (test code = 9636355708) 12 mmol/L 23-31 L AGAP (test code = 8933769581) 2-16 BUN (test code = 4065940905) 4 mg/dL 7-23 L GLUCOSE (test code = 2239322891) 233 mg/dL 70-110 H CREATININE (test code = 2953370180) 0.48 mg/dL 0.50-1.04 L CALCIUM (test code = 0033397813) 8.7 mg/dL 8.6-10.6 eGFR (test code = 5114970666) mL/min/1.73m2 ALLISON (test code = ALLISON) Association [...] imaging tests). Lab Interpretation (test code = 50785-1) [facility]normal [facility]2021-08-27 02:30:53* Test Item Value Reference Range Interpretation Comme [facility] POCT GLU (test code = 6685136858) 208 mg/dL 70-110 H Notified Provide r Lab Interpretation (test code = 81270-4) Abnormal [facility] Metabolic Panel (Na, K, Cl, CO2, Glucose, BUN, Creatinine, Ca)2021-08-26 23:20:11* Test Item Value Reference Range Interpretation Comme [facility] NA (test code = 6322047906) 127 mmol/L 135-145 L K (test code = 3590345476) 3.3 mmol/L 3.5-5.0 L CL (test code = 3876043631) 107 mmol/L 98-108 CO2 TOTAL (test code = 5145187368) 7 mmol/L 23-31 L AGAP (test code = 0981271607) 2-16 BUN (test code = 5906344062) 5 mg/dL 7-23 L GLUCOSE (test code = 9310016344) 269 mg/dL 70-110 H CREATININE (test code = 4388946501) 0.50 mg/dL 0.50-1.04 CALCIUM (test code = 5788276012) 9.2 mg/dL 8.6-10.6 eGFR (test code = 3083372857) mL/min/1.73m2 ALLISON (test code = ALLISON) Association [...] imaging tests). Lab Interpretation (test code = 45096-2) Abnormal [facility] GLUCOSE (AUTOMATED)2021-08-26 21:13:01* Test Item Value Reference Range Interpretation Comme nts POCT GLU (test code = 9890472896) 309 mg/dL 70-110 H Lab Interpretation (test cod e = 21837-1) Abnormal [facility] GLUCOSE (AUTOMATED)2021-08-26 21:13:01* Test Item Value Reference Range Interpretation Comme nts POCT GLU (test code = 7912530913) 275 mg/dL 70-110 H Lab Interpretation (test cod e = 38567-6) Abnormal [facility] GLUCOSE (AUTOMATED)2021-08-26 18:25:20* Test Item Value Reference Range Interpretation Comme nts POCT GLU (test code = 8730752904) 315 mg/dL 70-110 H Lab Interpretation (test cod e = 67351-9) Abnormal [facility] Metabolic Panel (Na, K, Cl, CO2, Glucose, BUN, Creatinine, Ca)2021-08-26 15:50:51* Test Item Value Reference Range Interpretation Comme nts NA (test code = 9090205432) 131 mmol/L 135-145 L K (test code = 1623503391) 3.2 mmol/L 3.5-5.0 L CL (test code = 7638403999) 109 mmol/L 98-108 H CO2 TOTAL (test code = 7009016558) 12 mmol/L 23-31 L AGAP (test code = 9817095118) 2-16 BUN (test code = 9602229104) 5 mg/dL 7-23 L GLUCOSE (test code = 9557464155) 174 mg/dL 70-110 H CREATININE (test code = 0994567506) 0.50 mg/dL 0.50-1.04 CALCIUM (test code = 3368925473) 9.1 mg/dL 8.6-10.6 eGFR (test code = 3651927072) mL/min/1.73m2 ALLISON (test code = ALLISON) Association [...] imaging tests). Lab Interpretation (test code = 44212-9) [facility]normal [facility]2021-08-26 14:56:40* Test Item Value Reference Range Interpretation Comme [facility] POCT GLU (test code = 8032839930) 165 mg/dL 70-110 H Lab Interpretation (test cod e = 07808-4) [facility]normal [facility] (Na, K, Cl, CO2, Glucose, BUN, Creatinine, Ca)2021-08-26 13:44:50* Test Item Value Reference Range Interpretation Comme nts NA (test code = 4836496117) 131 mmol/L 135-145 L K (test code = 1392541084) 2.5 mmol/L 3.5-5.0 LL CL (test code = 6814525660) 111 mmol/L 98-108 H CO2 TOTAL (test code = 0282133659) 12 mmol/L 23-31 L AGAP (test code = 4789431759) 2-16 BUN (test code = 9245320275) 5 mg/dL 7-23 L GLUCOSE (test code = 6945750266) 285 mg/dL 70-110 H CREATININE (test code = 9179010355) 0.44 mg/dL 0.50-1.04 L CALCIUM (test code = 1219303275) 8.9 mg/dL 8.6-10.6 eGFR (test code = 1833871406) mL/min/1.73m2 ALLISON (test code = ALLISON) Association [...] imaging tests). Lab Interpretation (test code = 63042-9) Abnormal [facility] GLUCOSE (AUTOMATED)2021-08-26 13:31:59* Test Item Value Reference Range Interpretation Comme nts POCT GLU (test code = 4135209550) 253 mg/dL 70-110 H Lab Interpretation (test cod e = 90302-1) Abnormal [facility] GLUCOSE (AUTOMATED)2021-08-26 13:31:59* Test Item Value Reference Range Interpretation Comme [facility] POCT GLU (test code = 8364726825) 215 mg/dL 70-110 H Lab Interpretation (test cod e = 14377-7) Abnormal [facility] GLUCOSE (AUTOMATED)2021-08-26 12:31:40* Test Item Value Reference Range Interpretation Comme [facility] POCT GLU (test code = 9411789323) 291 mg/dL 70-110 H Lab Interpretation (test cod e = 20209-3) Abnormal [facility] Metabolic Panel (Na, K, Cl, CO2, Glucose, BUN, Creatinine, Ca)2021-08-26 10:19:04* Test Item Value Reference Range Interpretation Comme [facility] NA (test code = 9053339415) 135 mmol/L 135-145 K (test code = 4429817555) 3.4 mmol/L 3.5-5.0 L CL (test code = 8200547198) 113 mmol/L 98-108 H CO2 TOTAL (test code = 2936757805) 8 mmol/L 23-31 L AGAP (test code = 8451813684) 2-16 BUN (test code = 7713465129) 6 mg/dL 7-23 L GLUCOSE (test code = 5467131430) 169 mg/dL 70-110 H CREATININE (test code = 9228051649) 0.50 mg/dL 0.50-1.04 CALCIUM (test code = 5570098031) 8.6 mg/dL 8.6-10.6 eGFR (test code = 6794101175) mL/min/1.73m2 ALLISON (test code = ALLISON) Association [...] imaging tests). Lab Interpretation (test code = 74131-2) Abnormal [facility] GLUCOSE (AUTOMATED)2021-08-26 10:07:14* Test Item Value Reference Range Interpretation Comme [facility] POCT GLU (test code = 5632781893) 221 mg/dL 70-110 H Lab Interpretation (test cod e = 49736-8) Abnormal [facility] GLUCOSE (AUTOMATED)2021-08-26 09:56:33* Test Item Value Reference Range Interpretation Comme [facility] POCT GLU (test code = 6206169824) 223 mg/dL 70-110 H Lab Interpretation (test cod e = 09035-8) Abnormal [facility] GLUCOSE (AUTOMATED)2021-08-26 08:40:29* Test Item Value Reference Range Interpretation Comme [facility] POCT GLU (test code = 6669949755) 165 mg/dL 70-110 H Lab Interpretation (test cod e = 73881-5) Abnormal [facility] HospitalBetahydroxy-Mvbgrmip1113-73-80 08:10:27* Test Item Value Reference Range Interpretation Comme nts BOH (test code = 0155895796) 6.9 mmol/L ALLISON (test code = ALLISON) Normal Ranges: ? ? Nonfasting ? Less than 0.1 mmol/L ? ? Overnight Fast ? ? ? Less than 0.4 mmol/L ? ? Fasting (1-2 weeks) ?6-8 mmol/L Test developed and characteristics determined by [facility] Laboratory Services. [facility] HospitalOsmolality [id number] 07:49:30* Test Item Value Reference Range Interpretation Comme nts OSMOLALITY (test code = 7453841938) See_Comment [Automated [employer]] The system which generated this result transmitted reference range: 278 - 305 mOsm/kg. The reference range was not used to interpret this result as normal/abnormal. Lab Interpretation (test code = 62301-1) Normal [facility])2021-08-26 07:22:33* Test Item Value Reference Range Interpretation Comme [facility] POCT GLU (test code = 6180355837) 200 mg/dL 70-110 H Lab Interpretation (test cod e = 84656-8) Abnormal [facility] Metabolic Panel (Na, K, Cl, CO2, Glucose, BUN, Creatinine, Ca)2021-08-26 06:34:44* Test Item Value Reference Range Interpretation Comme nts NA (test code = 9022264973) 136 mmol/L 135-145 K (test code = 2881602628) 4.0 mmol/L 3.5-5.0 CL (test code = 8608340769) 115 mmol/L 98-108 H CO2 TOTAL (test code = 4895425020) 5 mmol/L 23-31 L AGAP (test code = 7272772130) 2-16 BUN (test code = 3229023872) 6 mg/dL 7-23 L GLUCOSE (test code = 6236205495) 220 mg/dL 70-110 H CREATININE (test code = 2360572754) 0.55 mg/dL 0.50-1.04 CALCIUM (test code = 2377566741) 8.7 mg/dL 8.6-10.6 eGFR (test code = 5100341053) mL/min/1.73m2 ALLISON (test code = ALLISON) Association [...] imaging tests). Lab Interpretation (test code = 54182-6) Abnormal [facility] GLUCOSE (AUTOMATED)2021-08-26 06:33:59* Test Item Value Reference Range Interpretation Comme [facility] POCT GLU (test code = 5870867082) 193 mg/dL 70-110 H Lab Interpretation (test cod e = 44127-5) Abnormal [facility] GLUCOSE (AUTOMATED)2021-08-26 05:28:49* Test Item Value Reference Range Interpretation Comme [facility] POCT GLU (test code = 2331429035) 218 mg/dL 70-110 H Lab Interpretation (test cod e = 80248-9) Abnormal [facility] Metabolic Panel (Na, K, Cl, CO2, Glucose, BUN, Creatinine, Ca)2021-08-26 04:32:55* Test Item Value Reference Range Interpretation Comme [facility] NA (test code = 9650710443) 134 mmol/L 135-145 L K (test code = 1764528101) 3.7 mmol/L 3.5-5.0 CL (test code = 0113848689) 108 mmol/L 98-108 CO2 TOTAL (test code = 6777748682) <5 23-31 L AGAP (test code = 6756928432) Unable to calculate because, either,SODIUM SERUM, CHLORIDE SERUM, CO2 TOTAL or all are less than the sensitivity of the analyzer. BUN (test code = 8518508200) 7 mg/dL 7-23 GLUCOSE (test code = 7494981587) 262 mg/dL 70-110 H CREATININE (test code = 5935075060) 0.57 mg/dL 0.50-1.04 CALCIUM (test code = 9946826096) 9.5 mg/dL 8.6-10.6 eGFR (test code = 9865232550) mL/min/1.73m2 ALLISON (test code = ALLISON) Association [...] imaging tests). Lab Interpretation (test code = 97993-5) Abnormal [facility] HospitalGlycosylated Hemoglobin (A1C)2021-08-26 04:14:08* Test Item Value Reference Range Interpretation Comme nts HGB A1C (test code = 4548-4) 12.9 % 4.0-5.7 H ALLISON (test code = ALLISON) Reference RangesNormal: <5.7%Prediabetes: 5.7 - 6.4%Diabetes: > 6.5% Lab Interpretation (test code = 09539-6) Abnormal [facility] ([facility]OMATED)2021-08-26 04:05:48* Test Item Value Reference Range Interpretation Comme nts POCT GLU (test code = 1570338833) 239 mg/dL 70-110 H Lab Interpretation (test cod e = 92097-8) Abnormal [facility] HospitalMagnesium [id number] 04:02:35* Test Item Value Reference Range Interpretation Comme nts MAGNESIUM (test code = 1791924619) 1.9 mg/dL 1.7-2.4 Lab Interpretation (test cod e = 71877-4) Normal [facility] HospitalPhosphorus [id number] 04:02:15* Test Item Value Reference Range Interpretation Comme nts PHOSPHORUS (test code = 8561472664) 3.1 mg/dL 2.5-5.0 Lab Interpretation (test cod e = 91013-9) Normal [facility] GLUCOSE (AUTOMATED)2021-08-26 02:44:33* Test Item Value Reference Range Interpretation Comme nts POCT GLU (test code = 4341501423) 294 mg/dL 70-110 H Lab Interpretation (test cod e = 32765-2) Abnormal [facility] GLUCOSE (AUTOMATED)2021-08-26 00:17:34* Test Item Value Reference Range Interpretation Comme nts POCT GLU (test code = 2911578369) 213 mg/dL 70-110 H Lab Interpretation (test cod e = 62099-0) Abnormal [facility] HospitalHEMOGLOBIN [id number] 00:00:00* Test Item Value Reference Range Interpretation Comme nts HEMOGLOBIN A1c (test code = 95105) 12.2 % Clarence F AustinLIPID [id number] 00:00:00* Test Item Value Reference Range Interpretation Comme nts CHOLESTEROL (test code = 2210) 241 MG/DL TRIGLYCERIDES (test code = 2232) 156 MG/DL HDL CHOLESTEROL (test code = 2220) 70 MG/DL CALC LDL CHOL (test code = 2237) 142 MG/DL RISK RATIO LDL/HDL (test cod e = 2238) 2.03 RATIO Clarence BrownHEMOGLOBIN [id number] 00:00:00* Test Item Value Reference Range Interpretation Comme giselle HEMOGLOBIN A1c (test code = 58792) 11.8 % Clarence BrownHEMOGLOBIN A1c [ADDED]2021-02-15 00:00:00* Test Item Value Reference Range Interpretation Comme nts HEMOGLOBIN A1c (test code = 89618) 13.2 % Clarence BrownTSH, THIRD GENERATION [ADDED]2021-02-15 00:00:00* Test Item Value Reference Range Interpretation Comme giselle TSH, THIRD GENERATION (test code = 2821) 0.788 UIU/ML Clarence BrownCOMPREHENSIVE METABOLIC PANEL [ADDED]2021-02-15 00:00:00* Test Item Value Reference Range Interpretation Comme nts GLUCOSE (test code = 2217) 348 MG/DL BUN (test code = 2208) 17 MG/DL CREATININE (test code = 2214) 0.56 MG/DL eGFR AMER. (test cod e = 12726) 148 ML/MIN/1.73 eGFR NON- AMER. (test code = 87813) 128 ML/MIN/1.73 CALC BUN/CREAT (test code = 2235) 30 RATIO SODIUM (test code = 2231) 142 MEQ/L POTASSIUM (test code = 2228) 4.2 MEQ/L CHLORIDE (test code = 2215) 101 MEQ/L CARBON DIOXIDE (test code = 2206) 26 MEQ/L CALCIUM (test code = 2209) 9.5 MG/DL PROTEIN, TOTAL (test code = 2229) 6.9 G/DL ALBUMIN (test code = 2201) 4.4 G/DL CALC GLOBULIN (test code = 2240) 2.5 G/DL CALC A/G RATIO (test code = 2234) 1.8 RATIO BILIRUBIN, TOTAL (test code = 2207) 0.4 MG/DL ALKALINE PHOSPHATASE (test code = 2204) 122 U/L AST (test code = 2218) 13 U/L ALT (test code = 2219) 13 U/L Clarence BrownCBC W/AUTO DIFF WITH PLATELETS [ADDED]2021-02-15 00:00:00* Test Item Value Reference Range Interpretation Comme nts WBC (test code = 1001) 4.2 K/UL RBC (test code = 1002) 4.18 M/UL HEMOGLOBIN (test code = 1003) 13.9 G/DL HEMATOCRIT (test code = 1004) 39.3 % MCV (test code = 1005) 94.0 fL MCH (test code = 1006) 33.3 PG MCHC (test code = 1007) 35.4 G/DL RDW (test code = 1038) 11.7 % NEUTROPHILS (test code = 1008) 62.7 % LYMPHOCYTES (test code = 1010) 29.0 % MONOCYTES (test code = 1011) 6.7 % EOSINOPHILS (test code = 1012) 0.7 % BASOPHILS (test code = 1013) 0.7 % IMMATURE GRANULOCYTES (test code = 1036) 0.2 % NUCLEATED RBCS (test code = 1065) 0.0 /100WBC'S PLATELET COUNT (test code = 1015) 174 K/UL ABSOLUTE NEUTROPHILS (test c ode = 1066) 2.64 K/UL ABSOLUTE LYMPHOCYTES (test c ode = 1067) 1.22 K/UL ABSOLUTE MONOCYTES (test cod e = 1068) 0.28 K/UL ABSOLUTE EOSINOPHILS (test c ode = 1040) 0.03 K/UL ABSOLUTE BASOPHILS (test cod e = 1069) 0.03 K/UL ABS IMMATURE GRANULOCYTES (t est code = 1020) 0.01 K/UL ABS NUCLEATED RBCS (test cod e = 37354) 0.00 K/UL Clarence BrownLIPID PANEL [ADDED]2021-02-15 00:00:00* Test Item Value Reference Range Interpretation Comme nts CHOLESTEROL (test code = 2210) 291 MG/DL TRIGLYCERIDES (test code = 2232) 181 MG/DL HDL CHOLESTEROL (test code = 2220) 70 MG/DL CALC LDL CHOL (test code = 2237) 186 MG/DL RISK RATIO LDL/HDL (test cod e = 2238) 2.66 RATIO Clarence F AustinGLUCOSE BEDSIDE [id number] 11:16:00* Test Item Value Reference Range Interpretation Comme nts GLUCOSE BEDSIDE TESTING (mariah t code = GLUBED) 249 mg/dL 70-110 H GLUCOSE BEDSIDE [id number] 08:07:00* Test Item Value Reference Range Interpretation Comme nts GLUCOSE BEDSIDE TESTING (mariah t code = GLUBED) 211 mg/dL 70-110 H BASIC METABOLIC [id number] 07:41:00* Test Item Value Reference Range Interpretation Comme nts SODIUM (test code = NA) 139 mmol/L 134-147 N POTASSIUM (test code = K) 3.3 mmol/L 3.4-5.0 L CHLORIDE (test code = CL) 110 mmol/L 100-108 H CARBON DIOXIDE (test code = CO2) 21 mmol/L 21-32 N ANION GAP (test code = GAP) 8.0 GAP calc 4.0-15.0 N GLUCOSE (test code = GLU) 217 MG/DL 70-110 H BLOOD UREA NITROGEN (test code = BUN) 11 MG/DL 7-18 N GLOMERULAR FILTRATION RATE (test code = GFR) >=60 max estimate estGFR >60 CREATININE (test code = CREAT) 0.4 MG/DL 0.6-1.0 L CALCIUM (test code = CA) 8.4 MG/DL 8.5-10.1 L CBC W/AUTO [id number] 07:37:00* Test Item Value Reference Range Interpretation Comme nts WHITE BLOOD CELL (test code = WBC) 4.8 K/mm3 3.5-11.0 N RED BLOOD CELL (test code = RBC) 4.15 M/mm3 4.70-6.10 L HEMOGLOBIN (test code = HGB) 12.7 G/DL 10.4-14.9 N HEMATOCRIT (test code = HCT) 38.1 % 31.5-44.1 N MEAN CELL VOLUME (test code = MCV) 91.8 Fl 84.5-98.6 N MEAN CELL HGB (test code = MCH) 30.6 pg 27.0-34.2 N MEAN CELL HGB CONCETRATION ( test code = MCHC) 33.3 G/DL 31.5-34.0 N RED CELL DISTRIBUTION WIDTH (test code = RDW) 12.3 SD 11.5-14.5 N PLATELET COUNT (test code = PLT) 140.0 K/mm3 150-450 L MEAN PLATELET VOLUME (test c ode = MPV) 12.00 fL 7.0-10.5 H NEUTROPHIL % (test code = NT%) 42.8 [...] K/mm3 0.0-0.1 N MANUAL DIFF REQUIRED (test c ode = MDIFF) NO DIFF/SCN CRITERIA GLUCOSE BEDSIDE [id number] 20:23:00* Test Item Value Reference Range Interpretation Comme nts GLUCOSE BEDSIDE TESTING (mariah t code = GLUBED) 280 mg/dL 70-110 H GLUCOSE BEDSIDE [id number] 16:30:00* Test Item Value Reference Range Interpretation Comme nts GLUCOSE BEDSIDE TESTING (mariah t code = GLUBED) 255 mg/dL 70-110 H GLUCOSE BEDSIDE [id number] 11:59:00* Test Item Value Reference Range Interpretation Comme nts GLUCOSE BEDSIDE TESTING (mariah t code = GLUBED) 281 mg/dL 70-110 H BASIC METABOLIC [id number] 11:02:00* Test Item Value Reference Range Interpretation Comme nts SODIUM (test code = NA) 137 mmol/L 134-147 N POTASSIUM (test code = K) 3.4 mmol/L 3.4-5.0 N CHLORIDE (test code = CL) 108 mmol/L 100-108 N CARBON DIOXIDE (test code = CO2) 21 mmol/L 21-32 N ANION GAP (test code = GAP) 8.0 GAP calc 4.0-15.0 N GLUCOSE (test code = GLU) 355 MG/DL 70-110 H BLOOD UREA NITROGEN (test code = BUN) 10 MG/DL 7-18 N GLOMERULAR FILTRATION RATE (test code = GFR) >=60 max estimate estGFR >60 CREATININE (test code = CREAT) 0.5 MG/DL 0.6-1.0 L CALCIUM (test code = CA) 7.9 MG/DL 8.5-10.1 L GLUCOSE BEDSIDE [id number] 08:07:00* Test Item Value Reference Range Interpretation Comme nts GLUCOSE BEDSIDE TESTING (mariah t code = GLUBED) 236 mg/dL 70-110 H GLUCOSE BEDSIDE [id number] 01:06:00* Test Item Value Reference Range Interpretation Comme nts GLUCOSE BEDSIDE TESTING (mariah t code = GLUBED) 298 mg/dL 70-110 H GLYCOSYLATED HEMOGLOBIN [id number] 01:00:00* Test Item Value Reference Range Interpretation Comme nts GLYCOSYLATED HEMOGLOBIN (HA1 C) (test code = GLYHGB) > 14.0 % A1C 0.0-5.7 H ESTIMATED AVERAGE GLUCOSE (t est code = EAG) 355 MG/DLest COMPREHENSIVE METABOLIC [id number] 00:39:00* Test Item Value Reference Range Interpretation Comme nts SODIUM (test code = NA) 137 mmol/L 134-147 N POTASSIUM (test code = K) 3.5 mmol/L 3.4-5.0 N CHLORIDE (test code = CL) 104 mmol/L 100-108 N CARBON DIOXIDE (test code = CO2) 19 mmol/L 21-32 L ANION GAP (test code = GAP) 14.0 GAP calc 4.0-15.0 N GLUCOSE (test code = GLU) 297 MG/DL 70-110 H BLOOD UREA NITROGEN (test code = BUN) 9 MG/DL 7-18 N GLOMERULAR FILTRATION RATE (test code = GFR) >=60 max estimate estGFR >60 CREATININE (test code = CREAT) 0.7 MG/DL 0.6-1.0 N TOTAL PROTEIN (test code = PROT) 6.4 G/DL 6.4-8.2 N ALBUMIN (test code = ALB) 3.3 G/DL 3.4-5.0 L GLOBULIN (test code = GLOB) 3.1 GM/dL ALBUMIN/GLOBULIN RATIO (test code = A/G) 1.1 RATIO 1.2-2.2 L CALCIUM (test code = CA) 8.0 MG/DL 8.5-10.1 L BILIRUBIN TOTAL (test code = BILT) 0.30 MG/DL 0.2-1.2 N SGOT/AST (test code = AST) 21 Unit/L 15-37 N SGPT/ALT (test code = ALT) 21 Unit/L 12-78 N ALKALINE PHOSPHATASE TOTAL (test code = ALKP) 115 Unit/L 45-117 N [id number] 00:39:00* Test Item Value Reference Range Interpretation Comme nts PHOSPHOROUS (test code = PHOS) 2.4 MG/DL 2.5-4.9 L [id number] 00:39:00* Test Item Value Reference Range Interpretation Comme nts MAGNESIUM (test code = MAG) 1.9 MG/DL 1.8-2.4 N DRUGS OF ABUSE SCREEN [id number] 00:26:00* Test Item Value Reference Range Interpretation Comme nts URN COCAINE (test code = COCAURN) NEGATIVE SCcutoff <300 NG/ML URN CANNABINOIDS (test code = CANNABURN) NEGATIVE SCcutoff <50 NG/ML URN AMPHETAMINE (test code = AMPHETURN) NEGATIVE SCcutoff <1000 NG/ML URN BARBITURATE (test code = BARBITURN) NEGATIVE SCcutoff <200 NG/ML URN BENZODIAZEPINE (test code = BENZOURN) NEGATIVE SCcutoff <200 NG/ML URN OPIATES (test code = OPIATURN) NEGATIVE SCcutoff <2000 NG/ML URN PHENCYCLIDINE (PCP) (test code = PHENCURN) NEGATIVE SCcutoff <25 NG/ML URN METHADONE (test code = METHAURN) NEGATIVE SCcutoff <300 NG/ML CBC W/AUTO [id number] 00:12:00* Test Item Value Reference Range Interpretation Comme nts WHITE BLOOD CELL (test code = WBC) 9.0 K/mm3 3.5-11.0 N RED BLOOD CELL (test code = RBC) 4.21 M/mm3 4.70-6.10 L HEMOGLOBIN (test code = HGB) 13.1 G/DL 10.4-14.9 N HEMATOCRIT (test code = HCT) 37.6 % 31.5-44.1 N MEAN CELL VOLUME (test code = MCV) 89.3 Fl 84.5-98.6 N MEAN CELL HGB (test code = MCH) 31.1 pg 27.0-34.2 N MEAN CELL HGB CONCETRATION ( test code = MCHC) 34.8 G/DL 31.5-34.0 H RED CELL DISTRIBUTION WIDTH (test code = RDW) 11.6 SD 11.5-14.5 N PLATELET COUNT (test code = PLT) 184.0 K/mm3 150-450 N MEAN PLATELET VOLUME (test c ode = MPV) 11.50 fL 7.0-10.5 H NEUTROPHIL % (test code = NT%) 70.4 [...] K/mm3 0.0-0.1 N MANUAL DIFF REQUIRED (test c ode = MDIFF) NO DIFF/SCN CRITERIA Notes Date/Time Note Provider Source 2024-01-28 00:00:00 nz5/Ii7hcp2/ofGiRcuwOdkwt+MWlFjLLEI iDDl0C9isb63jE3aXC/z7I/8BUSpE1143-4 15T00:00:00+ +-------- ----+| Plan Activity | Plan Date |+ + +| rapid Covid testing. | 2020-12-17 || pending result | || self-quarantine up to 14 days or until results return/symptom improvement | || symptoms treatment | || ER precaution for respiratory distress | || Follow up CDC guidelines for isolation/quarantine | || Supportive care, drink plenty of fluids, rest, and take tylenol for headache. | |+ + +| Diabetic care plan reviewed with patient insulin dose suggested INCREASE | 2023-07-09 || Wntadgn32/30 50 units in the morning 55 units in the evening | || monitor blood sugars closely 4 times a day for every week submit to care | || coordinator | || date and time schedule reviewed with patient. Spent 30 minutes with her | |+ + +| Recommend healthy eating with foods from a variety of food groups. Encourage to | 2021-02-28 || eat more vegetables and appropriate portion sizes, and few sugary | || snacks/drinks/sodas. Recommend daily exercise for 20-30 minutes | |+ + +| continue atorvastatin | 2021-02-28 |+ + +| Daily activity recommended. | 2022-01-12 |+ + +| Diabetic care plan reviewed with patient ADA diet and timing of the meal every | 2022-01-12 || day at the same time do not skip the meal and sample diets reviewed with | || patient spent 30 minutes with the patient | || advised to attend the diabetic education class | |+ + +| ADA diet. Timing of the meal every day at the same time advised not to skip a | 2023-03-15 || meal. | || Spent 30 minutes with the diet and exercise and insulin doses | || advised to attend the diabetic education class | |+ + +| Unhealthy Weight | 2022-01-12 || Weight and height disproportionate | || Therapeutic lifestyle changes warranted | |+ + +| Bactrim DS BID x 7 days | 2022-04-05 || RTC if symptoms worsen or persist | |+ + +| refill Valtrex 1 gm daily | 2022-11-13 || RTC if symptoms worsen or persist | |+ + +| continue present medication | 2022-11-13 |+ + +| Nexplanon removal | 2023-05-16 |+ + +| Depo provera injection | 2023-05-16 || RTC 3 months for follow-up | |+ + +| recommend healthy diet, reduce portion sizes, increase daily physical activity | 2023-07-09 || diabetic care plan reviewed with patient advised to attend the date lesion | || diabetic education class | |+ + +| Advised stop smoking | 2023-08-03 |+ + +| Administered Depo provera 150 mg IM x 1. | 2023-08-03 || Given card with date for subsequent injection. | || Recommended use of condoms for prevention of STDs. | || The control shot, Depo-Provera, is an injection of a hormone that | || prevents . Each shot prevents for three months. | || The control shot does not prevent against sexually transmitted | || infections. Condoms should be used to prevent sexually transmitted infections. | || Irregular bleeding is the most common side effect, especially in the first 6 to | || 12 months of use. | || Women who use the control shot may have temporary bone thinning. It | || increases the longer they use it. Bone growth begins again when women stop | || using the shot. You can help protect your bones by exercising regularly and | || getting extra calcium and vitamin D, either through the food you eat or from | || vitamin supplements. | || The Depo shot does not protect you from sexually transmitted diseases. | || Condoms will protect you from sexually transmitted diseases. | || Discussed purpose and side effects of prescribed medications. | || Return to clinic in 3 months for another Depo shot. | |+ + +| Administered Depo provera 150 mg IM x 1. | 2023-10-19 || Given calendar for subsequent injection. | || Recommended use of condoms for prevention of STDs. | || recommend vitamin D3 5000iu three times per week with food while on depo | || provera | || continue to follow up with PCP for chronic | |+ + +| start atorvastatin 40mg 1 tablet at night | 2024-01-28 |+ + +[id number] Plan of TreatmentLNCARE PLANTXTSFA|[id number] 12950.10.20.22.2.10AVAvailable for patient kbvnZprvgsjIaichnpxrNTKKg51 Section NarrativeNARRATIVEFormatted C-CDA narrative textSFAStelliottariana KhanAnai [facility]2024-05-03T00:00:00 Clarence KhanAnai [facility] 2023-06-20 18:52:56 gnREFXrZAvvm72+IDDdaSncyk3EzxdHdTb8 7nO6LKpV89QVIWQt5xYhuryKMbAGZ1632-6 06-20T18:52:56 Pt given printed and verbal discharge instructions regarding ingrown toenail and elevated blood sugar, encouraged hydration.Pt verbalized understanding of instructions, pt awake alert oriented, resp reg unlabored, skin w/d, color appropriate for race, moves all ext well, pt encouraged to follow up with Dr. Barraza.Advised to seek medical attention for new/prolonged/worsening of symptoms.Symptoms addressed.No adverse reaction to meds given in ER noted upon discharge.PIV d'cd, dressing to site, catheter intact.Pt leaving amb with steady gait, in no apparent distress. Left with . 14343-9Uorjxudiz department TrnfRP9625-30-59D64:54:02[facility] department NoteTXT1.2.840.633324.1.13.104.2.7. 2.771525|[id number] for patient rsej52413-6PrgcYHXXEMVBXD[address][id number] 5BHUPLUVYSQOLIODZFLHUHZ6361-30-55V7 8:54:021.2.840.200552.1.72.3.15|1.2 .840.115028.1.13.104.2.7.2.727879_1 [id number] [facility] 2023-06-20 16:48:11 iRd6SwpEDWrFNnAtAfSK7fRp5f5c28Aqs5d RnKnCxO6RI3zhIvALS2tKAWMI0nvN8310-6 6:48:11 CC: patient presents to the ER with complaints of pain and possible ingrown toe nail to the left great toe with symptoms starting a week ago. Sent by PCP due to patient's elevated BGL, patient states she has DM.PMHx: see historyAwake, alert, oriented, resp reg unlabored, skin warm and dry, color appropriate for race, moves all ext without difficulty, amb without assistance. Appears in no distress. 74308-6Obcnfwrak department Triage axezBH2353-50-29L34:51:41Emergency department Triage noteTXT1.2.840.560122.1.13.104.2.7. 2.057694|[id number] for patient jlyl07560-5Kyxxukizb department [id number] M Rivera RN[address] Ij[id number] 5WIJATKVXZGPLZTNLDQDEFU1713-12-16S2 6:51:411.2.840.110110.1.72.3.15|1.2 .840.951764.1.13.104.2.7.2.727879_1 [id number] Roseann Wooten RN [facility] 2020-01-14 10:08:00 SKknswgqalx86693194cNBVxnPToNpFbZUp H+6HQ1twuOBUGIY1iXIcUl6iNyvKBJlVpJE lF6yrYJOMgJ163608-57-24E87:08:00 [facility]ospital[facility] Discharge SummaryREPORT#:[id number] REPORT STATUS: SignedDATE:01/14/20 TIME:1008 PATIENT: EDSON CHRISTY UNIT #: [id number]#: [id number] [address] AGE: 24 SEX: F ATTEND: Amber Pena MDA AUTHOR: Gilson Gimenez MD * ALL edits or amendments must be made on the electronic/computer document * PCP PCPDischarge to: home General InformationProblem List/A P: 1. Seizure 2. Hypokalemia 3. New onset type 2 diabetes mellitus 4. Diabetic ketoacidosis Discharge date: 01/14/20Hospital course:Diabetic ketoacidosis, resolvedNew onset diabetes mellitusNew onset seizure-like activityHypokalemiaActive tobacco use PlanPt initially transferred as ICU admission for DKA and new onset seizure but BMP here showed no AG, DKA resolved after brief insulin drip at [facility] transfer to telemetry floorSerial neuro checksPlace on seizure precautions, ativan IV prnConsult [facility], HbA1c, UDSAC/HS glucose checks, SSIGI/DVT prophylaxis: pepcid, SCDsPt counseled on tobacco cessation 01/13/2020New onset diabetes with DKAA1c is more than 14Anion gap closedRenal parameters monitoredStarted on insulin sliding scale with basal insulinWe will titrateNeeds nutritional consultAnd diabetic teachingDiscussed in detail with the patient regarding the disease condition and treatment The patient is being discharged home today in a stable condition with and advised to follow-up with PCP in 1 week Med Rec Med RecDischarge meds:Start taking the following new medications:INSULIN GLARGINE (LANTUS) 100 UNIT/ML VIAL 20 UNITS SUBCUTANEOUS DAILY. Qty = 10 No Refills INSULIN REGULAR (HumuLIN R) 100 UNITS/ML VIAL 5 UNITS SUBCUTANEOUS BEFORE MEALS. Qty = 10 No Refills POTASSIUM CHLORIDE ER (KLOR-CON 8) 8 MEQ TAB.SA 8 MILLIEQUIVALENT ORAL TWICE DAILY. Qty = 10 No Refills Discharge InstructionsDiet: diabeticActivity: as toleratedDischarge management: greater than 30 mins Follow-up AppointmentsPCP: PCP: DOES_NOT KNOW Follow up timeframe: In 1-2 weeksAttending Physician: Attending Physician: Amber Pena MD Objective GeneralVS/I O:Vital Signs: Temp Pulse Resp B/P B/P Pulse O2 O2 Flow FiO2 Mean Ox Delivery Rate 97.8 97.7 86 21 97/60 74 100 85 16 92/54 67 99 85 14 85/54 64 100 83 14 99 84 13 90/52 66 99 86 16 /54 67 98 85 15 /54 67 98 97.3 Room air 88 15 92/54 68 99 88 15 99 90 15 /54 66 99 97 17 98/53 71 97 99 40 91/52 67 97 97 16 92/51 67 97 106 24 88/52 65 97 100 22 96/54 72 97 97 18 100/57 72 98 99 18 97/52 68 97 110 29 103/62 76 100 97.5 Room air 106 30 103/58 76 100 106 22 90/52 66 100 109 34 100/57 72 116 16 107/62 77 Physical ExamGeneral appearance: alert, awakeHead/Eyes: atraumatic, normocephalicENT: moist mucosal membranes, normal noseNeck: supple/no meningismus, no JVDCardiovascular: normal capillary refill, normal heart sounds, regular rate rhythmRespiratory: clear to auscultation, symmetric expansion, no distressAbdomen: non-tender, soft, no distentionExtremities: moves all, no edemaNeuro/ROLLING UP MACHINE OPERATOR: alert, oriented X 3, normal speechSkin: dryPsychiatry: anxious at 1724 RPT #: [id number] OF REPORT DSDischarge gbsddyu7490-67-74G58:08:00L.YNHZ560 [address]RWBlptoqwvg for patient qqfhYREWKRWOTFZTMS1337-55-19R31:24: 34 [facility] 2020-01-13 11:08:00 HDzcmhwtgrz57862735D4aAcQiwsK/5fBz5 ivNV0YhKPrr8KTU+qpdPaSI1yiXVj/tmoiA JoYd958MVdJTx4146-71-59V47:08:00 [facility] HospitalHospital[facility] Progress NoteREPORT#:[id number] REPORT STATUS: SignedDATE:01/13/20 TIME:1108 PATIENT: EDSON CHRISYT UNIT #: [id number]#: [id number] [address] AGE: 24 SEX: F ATTEND: Amber Pena [facility] AUTHOR: Gilson Gimenez MD * ALL edits or amendments must be made on the electronic/computer document * SubjectiveChief Complaint:No acute eventsDenies any chest pain or shortness of breathNo further episodes of seizures Objective GeneralVS/I O:Vital Signs: Date Time Temp Pulse Resp B/P B/P Pulse O2 O2 Flow FiO2 Mean Ox Delivery Rate 01/12 1200 97.8 01/12 0800 97.7 86 21 97/60 74 100 01/12 0618 85 16 92/54 67 99 / 0600 85 14 85/54 64 100 01/12 0545 83 14 99 01/12 0530 84 13 90/52 66 99 / 0500 86 16 90/54 67 98 / 0430 85 15 88/54 67 98 / 0400 97.3 Room air 01/12 0400 88 15 92/54 68 99 01/12 0345 88 15 99 / 0330 90 15 88/54 66 99 / 0300 97 17 98/53 71 97 01/12 0245 99 40 91/52 67 97 / 0230 97 16 92/51 67 97 / 0215 106 24 88/52 65 97 01/12 0200 100 22 96/54 72 97 01/12 0145 97 / 0145 18 100/57 72 98 / 0130 99 18 97/52 68 97 / 0115 110 29 103/62 76 100 01/12 0100 97.5 Room air 01/12 0100 106 30 103/58 76 100 01/12 0045 106 22 90/52 66 100 01/12 0030 109 34 100/57 72 / 0008 116 16 107/62 77 24 hour I O ending at 0700: 01/12 0700 01/11 1900 Intake Total 1450.00 Output Total 500 Balance 950.00 Intake, IV 1450.00 Number Voids 3 Output, Urine 500 Patient 106 lb Weight Weight Bed scale Measurement Method Patient Weight Weight (lb): 106Weight (oz): 4.2Weight (kg): 48.200 Medications:Active Meds + DC'd Last 24 HrsInsulin Glargine 10 UNIT Q12HR SUBQ Insulin Human Lispro S/SCALE MED AC HS SUBQ Sodium Chloride 1,000 ML BOLUS IV (DC) Insulin Human Lispro 10 UNIT ONCE ONE SUBQ (DC) Acetaminophen 650 MG Q4H PRN PRN PO Dextrose/Water 50 ML ASDIR PRN IV Hydrocodone Bitart/Acetaminophen 1 TAB Q4H PRN PRN PO Lorazepam 1 MG Q6H PRN PRN IV Ondansetron HCl 4 MG Q4H PRN PRN IV Sodium Chloride 1,000 ML .[id number] IV (DC) Sodium Chloride 1,000 ML .[id number] IV Physical ExamGeneral appearance: alert, awakeHead/Eyes: atraumatic, normocephalicENT: moist mucosal membranes, normal noseNeck: supple/no meningismus, no JVDCardiovascular: normal capillary refill, normal heart sounds, regular rate rhythmRespiratory: clear to auscultation, symmetric expansion, no distressAbdomen: non-tender, soft, no distentionExtremities: moves all, no edemaNeuro/ROLLING UP MACHINE OPERATOR: alert, oriented X 3, normal speechSkin: dryPsychiatry: anxious ResultsFindings/Data:Laboratory Tests 01/12 01/12 01/12 01/12 1144 1015 0800 0042Chemistry Sodium (134 - 147 mmol/L) 137 Potassium (3.4 - 5.0 mmol/L) 3.4 Chloride (100 - 108 mmol/L) 108 Carbon Dioxide (21 - 32 mmol/L) 21 Anion Gap (4.0 - 15.0 GAP calc) 8.0 BUN (7 - 18 MG/DL) 10 Creatinine (0.6 - 1.0 MG/DL) 0.5 L Glomerular Filtr Rate (>60 estGFR) >=60 max estimate Glucose (70 - 110 MG/DL) 355 H POC Glucose (70 - 110 mg/dL) 281 H 236 H 298 H Calcium (8.5 - 10.1 MG/DL) 7.9 L 01/12 01/12 0000 0000 Chemistry Sodium (134 - 147 mmol/L) 137 Potassium (3.4 - 5.0 mmol/L) 3.5 Chloride (100 - 108 mmol/L) 104 Carbon Dioxide (21 - 32 mmol/L) 19 L Anion Gap (4.0 - 15.0 GAP calc) 14.0 BUN (7 - 18 MG/DL) 9 Creatinine (0.6 - 1.0 MG/DL) 0.7 Glomerular Filtr Rate (>60 estGFR) >=60 max estimate Glucose (70 - 110 MG/DL) 297 H Hemoglobin A1c (0.0 - 5.7 % A1C) > 14.0 H Estim Average Glucose (MG/DLest) 355 Calcium (8.5 - 10.1 MG/DL) 8.0 L Phosphorus (2.5 - 4.9 MG/DL) 2.4 L Magnesium (1.8 - 2.4 MG/DL) 1.9 Total Bilirubin (0.2 - 1.2 MG/DL) 0.30 AST (15 - 37 Unit/L) 21 ALT (12 - 78 Unit/L) 21 Total Alk Phosphatase (45 - 117 Unit/L) 115 Total Protein (6.4 - 8.2 G/DL) 6.4 Albumin (3.4 - 5.0 G/DL) 3.3 L Globulin (GM/dL) 3.1 Albumin/Globulin Ratio (1.2 - 2.2 RATIO) 1.1 L Laboratory Tests 01/12 Hematology WBC (3.5 - 11.0 K/mm3) 9.0 RBC (4.70 - 6.10 M/mm3) 4.21 L Hgb (10.4 - 14.9 G/DL) 13.1 Hct (31.5 - 44.1 %) 37.6 MCV (84.5 - 98.6 Fl) 89.3 MCH (27.0 - 34.2 pg) 31.1 MCHC (31.5 - 34.0 G/DL) 34.8 H RDW (11.5 - 14.5 SD) 11.6 Plt Count (150 - 450 K/mm3) 184.0 MPV (7.0 - 10.5 fL) 11.50 H Neut % (Auto) (40 - 76 %) 70.4 Lymph % (Auto) (20.5 - 51.1 %) 23.7 Iroqu[place] % (Auto) (1.7 - 9.3 %) 5.5 Eos % (Auto) (0.0 - 6.0 %) 0.2 Baso % (Auto) (0.0 - 2.0 %) 0.2 Neut # (Auto) (1.8 - 7.6 K/mm3) 6.32 Lymph # (Auto) (0.6 - 3.2 K/mm3) 2.1 [place] # (Auto) (0.3 - 1.1 K/mm3) 0.5 Eos # (Auto) (0.0 - 0.4 K/mm3) 0.0 Baso # (Auto) (0.0 - 0.1 K/mm3) 0.0 Add Manual Diff (CRITERIA DIFF/SCN) NO Laboratory Tests 01/12 Toxicology Urine Opiates Screen (<2000 NG/ML SCcutoff) NEGATIVE Urine Methadone Screen (<300 NG/ML SCcutoff) NEGATIVE Urine Barbiturates (<200 NG/ML SCcutoff) NEGATIVE Ur Phencyclidine Scrn (<25 NG/ML SCcutoff) NEGATIVE Ur Amphetamines Screen (<1000 NG/ML SCcutoff) NEGATIVE U Benzodiazepines Scrn (<200 NG/ML SCcutoff) NEGATIVE Urine Cocaine Screen (<300 NG/ML SCcutoff) NEGATIVE Urine Cannabinoids (<50 NG/ML SCcutoff) NEGATIVE Diagnosis, Assessment PlanProblem List/A P: 1. Seizure 2. Hypokalemia 3. New onset type 2 diabetes mellitus 4. Diabetic ketoacidosis Free Text DxA P NotesFree text DxA P notes:Diabetic ketoacidosis, resolvedNew onset diabetes mellitusNew onset seizure-like activityHypokalemiaActive tobacco use PlanPt initially transferred as ICU admission for DKA and new onset seizure but BMP here showed no AG, DKA resolved after brief insulin drip at [facility] transfer to telemetry floorSerial neuro checksPlace on seizure precautions, ativan IV [facility]nCons[facility], HbA1c, UDSAC/HS glucose checks, SSIGI/DVT prophylaxis: pepcid, SCDsPt counseled on tobacco cessation 01/13/2020New onset diabetes with DKAA1c is more than 14Anion gap closedRenal parameters monitoredStarted on insulin sliding scale with basal insulinWe will titrateNeeds nutritional consultAnd diabetic teachingDiscussed in detail with the patient regarding the disease condition and treatment at 1314 RPT #: [id number] OF REPORT PRProgress [id number]:08:00L.[id number] for patient ofjrDMZVHTJXLZYJIU3766-24-57U69:14: 43 [facility] 2020-01-12 23:52:00 [id number]/j1P aQ0DUcdx3JLHT5DX0alUk7/3Br2JvAlUOFH 8SEPGdcO8TrLS1133-12-45T32:52:00 [facility])Hospitalist History PhysicalREPORT#:[id number] REPORT STATUS: SignedDATE:01/12/20 TIME:2351 PATIENT: EDSON CHRISTY UNIT #: [id number]#: [id number] ROOM/BED: Cecilia.TAS27-3YXF: [birth year] AGE: 24 SEX: F ATTEND: Amber Pena MDADM AUTHOR: Yessica Mcgraw * ALL edits or amendments must be made on the electronic/computer document * History of Present Illness HPIChief complaint:seizure Free Text HPI NotesFree Text HPI Notes:24 y/o female with no known PMHx was transferred from [facility] for new onset DM with DKA and new onset seziure today. Pt states she has been under a lot of stress lately due to the recent passing of her . For the past 3 days, she has intermittent LUE twitching that was more persistent today. She states she was sitting in bed when the twitching got worse and her body started to stiffen up. She states he cousin was there with her when pt had LOC, generalized convulsions with urinary incontinence. She was brought to [facility] where she presented with post-ictal confusion. Labs notable for glucose >700, AG 16, K+ 3.1. UA with glucose and ketones but noinfection. Pt was started on insulin drip there but it was discontinued when glucose improved to 200s. Pt denies any hx of DM. Reports she has noticed polydipsia and polyuria with significant unintentional weight loss of 50 lbs over the past 6 months. Denies any abdominal pain, N/V/D. No headache or dizziness. No dysuria or hematuria. Denies any recent illnesses. Pt also denies any hx of seizures. Denies any illicit drug use, she smokes cigarettes occasionally. Family hx notable for DM with her mother. HistoryPast medical history:Denies: Diabetes mellitus, Hypertension, Seizure disorder. Smoking status for patients 13 years old or older: Current some day smoker Medication/Allergy-Vaccine HxAllergies:Uncoded Allergies:nkda (none 01/13/20) Review of SystemsConstitutional:Reports: fatigue, recent wt loss. Denies: chills, fever. Skin:Denies: bruising, rash. Eyes:Denies: visual loss/blurred, eye pain. ENT:Denies: nasal congestion, sore throat. Respiratory:Denies: productive cough (sputum), SOB. Cardiovascular:Denies: chest pain, palpitations. GI:Denies: abdominal pain, diarrhea, nausea, vomiting. :Reports: frequency. Denies: dysuria, hematuria. Musculoskeletal:Denies: extremity pain, extremity swelling. Endocrine:Reports: polydipsia, polyuria. Neuro:Reports: seizure. Denies: dizziness, headache. Objective GeneralVS/I O:24 hour I O ending at 0700: 01/12 0700 01/11 1900 Intake Total Output Total Balance Patient 48.2 kg Weight Patient Weight Weight (lb): 106Weight (oz): 4.214977Pfloto (kg): 48.2 Physical ExamGeneral appearance: alert, awake, no acute distress, pleasant, conversationalHead/Eyes: atraumatic, normocephalicENT: moist mucosal membranes, normal noseNeck: supple/no meningismus, no JVDCardiovascular: normal capillary refill, normal heart sounds, regular rate rhythmRespiratory: clear to auscultation, symmetric expansion, no distressAbdomen: non-tender, soft, no distentionExtremities: moves all, no edemaNeuro/ROLLING UP MACHINE OPERATOR: alert, oriented X 3, normal speech ResultsFindings/Data:Laboratory Tests 01/12 0000 Chemistry Sodium (134 - 147 mmol/L) 137 Potassium (3.4 - 5.0 mmol/L) 3.5 Chloride (100 - 108 mmol/L) 104 Carbon Dioxide (21 - 32 mmol/L) 19 L Anion Gap (4.0 - 15.0 GAP calc) 14.0 BUN (7 - 18 MG/DL) 9 Creatinine (0.6 - 1.0 MG/DL) 0.7 Glomerular Filtr Rate (>60 estGFR) >=60 max estimate Glucose (70 - 110 MG/DL) 297 H Calcium (8.5 - 10.1 MG/DL) 8.0 L Phosphorus (2.5 - 4.9 MG/DL) 2.4 L Magnesium (1.8 - 2.4 MG/DL) 1.9 Total Bilirubin (0.2 - 1.2 MG/DL) 0.30 AST (15 - 37 Unit/L) 21 ALT (12 - 78 Unit/L) 21 Total Alk Phosphatase (45 - 117 Unit/L) 115 Total Protein (6.4 - 8.2 G/DL) 6.4 Albumin (3.4 - 5.0 G/DL) 3.3 L Globulin (GM/dL) 3.1 Albumin/Globulin Ratio (1.2 - 2.2 RATIO) 1.1 L Laboratory Tests 01/12 Hematology WBC (3.5 - 11.0 K/mm3) 9.0 RBC (4.70 - 6.10 M/mm3) 4.21 L Hgb (10.4 - 14.9 G/DL) 13.1 Hct (31.5 - 44.1 %) 37.6 MCV (84.5 - 98.6 Fl) 89.3 MCH (27.0 - 34.2 pg) 31.1 MCHC (31.5 - 34.0 G/DL) 34.8 H RDW (11.5 - 14.5 SD) 11.6 Plt Count (150 - 450 K/mm3) 184.0 MPV (7.0 - 10.5 fL) 11.50 H Neut % (Auto) (40 - 76 %) 70.4 Lymph % (Auto) (20.5 - 51.1 %) 23.7 Iroquois % (Auto) (1.7 - 9.3 %) 5.5 Eos % (Auto) (0.0 - 6.0 %) 0.2 Baso % (Auto) (0.0 - 2.0 %) 0.2 Neut # (Auto) (1.8 - 7.6 K/mm3) 6.32 Lymph # (Auto) (0.6 - 3.2 K/mm3) 2.1 Iroquois # (Auto) (0.3 - 1.1 K/mm3) 0.5 Eos # (Auto) (0.0 - 0.4 K/mm3) 0.0 Baso # (Auto) (0.0 - 0.1 K/mm3) 0.0 Add Manual Diff (CRITERIA DIFF/SCN) NO Laboratory Tests 01/12 Toxicology Urine Opiates Screen (<2000 NG/ML SCcutoff) NEGATIVE Urine Methadone Screen (<300 NG/ML SCcutoff) NEGATIVE Urine Barbiturates (<200 NG/ML SCcutoff) NEGATIVE Ur Phencyclidine Scrn (<25 NG/ML SCcutoff) NEGATIVE Ur Amphetamines Screen (<1000 NG/ML SCcutoff) NEGATIVE U Benzodiazepines Scrn (<200 NG/ML SCcutoff) NEGATIVE Urine Cocaine Screen (<300 NG/ML SCcutoff) NEGATIVE Urine Cannabinoids (<50 NG/ML SCcutoff) NEGATIVE Diagnosis, Assessment PlanProblem List/A P: 1. Seizure 2. Hypokalemia 3. New onset type 2 diabetes mellitus 4. Diabetic ketoacidosis Free Text DxA P NotesFree text DxA P notes:Diabetic ketoacidosis, resolvedNew onset diabetes mellitusNew onset seizure-like activityHypokalemiaActive tobacco use PlanPt initially transferred as ICU admission for DKA and new onset seizure but BMP here showed no AG, DKA resolved after brief insulin drip at [facility] transfer to telemetry floorSerial neuro checksPlace on seizure precautions, ativan [facility]nCons[facility], HbA1c, UDSAC/HS glucose checks, SSIGI/DVT prophylaxis: pepcid, SCDsPt counseled on tobacco cessation at 0105 RPT #: [id number] OF REPORT HPHistory and physical iairdcwzdwz5565-04-51Y55:52:00L.PDO [id number] for patient yhfiJTBJGTLHTVNNIN8446-12-84Y88:06: 02 [facility] 2020-01-12 23:52:00 [id number] wSqGiHe/fqw6Tv+USw4/zHChC3yC2GxLvLy djBBA2KYmJJ+Q4968-11-23B78:52:00 [facility] ([facility])Hospitalist History PhysicalREPORT#:[id number] REPORT STATUS: SignedDATE:01/12/20 TIME:2351 PATIENT: EDSON CHRISTY UNIT #: [id number]#: [id number] [address] [birth year] AGE: 24 SEX: F ATTEND: Amber Pena MDADM AUTHOR: Yessica Mcgraw * ALL edits or amendments must be made on the electronic/computer document * History of Present Illness HPIChief complaint:seizure Free Text HPI NotesFree Text HPI Notes:24 y/o female with no known PMHx was transferred from [facility] for new onset DM with DKA and new onset seziure today. Pt states she has been under a lot of stress lately due to the recent passing of her . For the past 3 days, she has intermittent LUE twitching that was more persistent today. She states she was sitting in bed when the twitching got worse and her body started to stiffen up. She states he cousin was there with her when pt had LOC, generalized convulsions with urinary incontinence. She was brought to [facility] where she presented with post-ictal confusion. Labs notable for glucose >700, AG 16, K+ 3.1. UA with glucose and ketones but noinfection. Pt was started on insulin drip there but it was discontinued when glucose improved to 200s. Pt denies any hx of DM. Reports she has noticed polydipsia and polyuria with significant unintentional weight loss of 50 lbs over the past 6 months. Denies any abdominal pain, N/V/D. No headache or dizziness. No dysuria or hematuria. Denies any recent illnesses. Pt also denies any hx of seizures. Denies any illicit drug use, she smokes cigarettes occasionally. Family hx notable for DM with her mother. HistoryPast medical history:Denies: Diabetes mellitus, Hypertension, Seizure disorder. Smoking status for patients 13 years old or older: Current some day smoker Medication/Allergy-Vaccine HxAllergies:Uncoded Allergies:nkda (none 01/13/20) Review of SystemsConstitutional:Reports: fatigue, recent wt loss. Denies: chills, fever. Skin:Denies: bruising, rash. Eyes:Denies: visual loss/blurred, eye pain. ENT:Denies: nasal congestion, sore throat. Respiratory:Denies: productive cough (sputum), SOB. Cardiovascular:Denies: chest pain, palpitations. GI:Denies: abdominal pain, diarrhea, nausea, vomiting. :Reports: frequency. Denies: dysuria, hematuria. Musculoskeletal:Denies: extremity pain, extremity swelling. Endocrine:Reports: polydipsia, polyuria. Neuro:Reports: seizure. Denies: dizziness, headache. Objective GeneralVS/I O:24 hour I O ending at 0700: 01/12 0700 01/11 1900 Intake Total Output Total Balance Patient 48.2 kg Weight Patient Weight Weight (lb): 106Weight (oz): 4.215278Hqswcz (kg): 48.2 Physical ExamGeneral appearance: alert, awake, no acute distress, pleasant, conversationalHead/Eyes: atraumatic, normocephalicENT: moist mucosal membranes, normal noseNeck: supple/no meningismus, no JVDCardiovascular: normal capillary refill, normal heart sounds, regular rate rhythmRespiratory: clear to auscultation, symmetric expansion, no distressAbdomen: non-tender, soft, no distentionExtremities: moves all, no edemaNeuro/ROLLING UP MACHINE OPERATOR: alert, oriented X 3, normal speech ResultsFindings/Data:Laboratory Tests 01/12 Chemistry Sodium (134 - 147 mmol/L) 137 Potassium (3.4 - 5.0 mmol/L) 3.5 Chloride (100 - 108 mmol/L) 104 Carbon Dioxide (21 - 32 mmol/L) 19 L Anion Gap (4.0 - 15.0 GAP calc) 14.0 BUN (7 - 18 MG/DL) 9 Creatinine (0.6 - 1.0 MG/DL) 0.7 Glomerular Filtr Rate (>60 estGFR) >=60 max estimate Glucose (70 - 110 MG/DL) 297 H Calcium (8.5 - 10.1 MG/DL) 8.0 L Phosphorus (2.5 - 4.9 MG/DL) 2.4 L Magnesium (1.8 - 2.4 MG/DL) 1.9 Total Bilirubin (0.2 - 1.2 MG/DL) 0.30 AST (15 - 37 Unit/L) 21 ALT (12 - 78 Unit/L) 21 Total Alk Phosphatase (45 - 117 Unit/L) 115 Total Protein (6.4 - 8.2 G/DL) 6.4 Albumin (3.4 - 5.0 G/DL) 3.3 L Globulin (GM/dL) 3.1 Albumin/Globulin Ratio (1.2 - 2.2 RATIO) 1.1 L Laboratory Tests 03/31 0000 Hematology WBC (3.5 - 11.0 K/mm3) 9.0 RBC (4.70 - 6.10 M/mm3) 4.21 L Hgb (10.4 - 14.9 G/DL) 13.1 Hct (31.5 - 44.1 %) 37.6 MCV (84.5 - 98.6 Fl) 89.3 MCH (27.0 - 34.2 pg) 31.1 MCHC (31.5 - 34.0 G/DL) 34.8 H RDW (11.5 - 14.5 SD) 11.6 Plt Count (150 - 450 K/mm3) 184.0 MPV (7.0 - 10.5 fL) 11.50 H Neut % (Auto) (40 - 76 %) 70.4 Lymph % (Auto) (20.5 - 51.1 %) 23.7 Iroquois % (Auto) (1.7 - 9.3 %) 5.5 Eos % (Auto) (0.0 - 6.0 %) 0.2 Baso % (Auto) (0.0 - 2.0 %) 0.2 Neut # (Auto) (1.8 - 7.6 K/mm3) 6.32 Lymph # (Auto) (0.6 - 3.2 K/mm3) 2.1 Iroquois # (Auto) (0.3 - 1.1 K/mm3) 0.5 Eos # (Auto) (0.0 - 0.4 K/mm3) 0.0 Baso # (Auto) (0.0 - 0.1 K/mm3) 0.0 Add Manual Diff (CRITERIA DIFF/SCN) NO Laboratory Tests 01/12 0000 Toxicology Urine Opiates Screen (<2000 NG/ML SCcutoff) NEGATIVE Urine Methadone Screen (<300 NG/ML SCcutoff) NEGATIVE Urine Barbiturates (<200 NG/ML SCcutoff) NEGATIVE Ur Phencyclidine Scrn (<25 NG/ML SCcutoff) NEGATIVE Ur Amphetamines Screen (<1000 NG/ML SCcutoff) NEGATIVE U Benzodiazepines Scrn (<200 NG/ML SCcutoff) NEGATIVE Urine Cocaine Screen (<300 NG/ML SCcutoff) NEGATIVE Urine Cannabinoids (<50 NG/ML SCcutoff) NEGATIVE Diagnosis, Assessment PlanProblem List/A P: 1. Seizure 2. Hypokalemia 3. New onset type 2 diabetes mellitus 4. Diabetic ketoacidosis Free Text DxA P NotesFree text DxA P notes:Diabetic ketoacidosis, resolvedNew onset diabetes mellitusNew onset seizure-like activityHypokalemiaActive tobacco use PlanPt initially transferred as ICU admission for DKA and new onset seizure but BMP here showed no AG, DKA resolved after brief insulin drip at [facility] transfer to telemetry floorSerial neuro checksPlace on seizure precautions, ativan IV [facility]nCons[facility] electrolytes, HbA1c, UDSAC/HS glucose checks, SSIGI/DVT prophylaxis: pepcid, SCDsPt counseled on tobacco cessation at 0105 at 1925 RPT #: [id number] OF REPORT HPHistory and physical ozluckobumm9123-67-12A33:52:00L.PDO [id number] for patient teziDQCPAXSZBPYRLA8115-36-29D49:25: 39 [facility]"
--- NOTE | 2024-02-26 08:11 | RAD REPORT ---
EXAM DESCRIPTION: CT - Head Brain Wo Cont - 02/26/2024 7:49 am CLINICAL HISTORY: Headache COMPARISON: 2019. TECHNIQUE: Computed axial tomography of the head was obtained. IV contrast was not requested. All CT scans are performed using dose optimization technique as appropriate and may include automated exposure control or mA/KV adjustment according to patient size. FINDINGS: An intracranial bleed is not seen The ventricles are normal in caliber No significant hypodense areas within the brain visualized No extra-axial fluid collection is noted. Fluid within the sinuses/ mastoids is not seen. A tooth extends into the left maxillary sinus. IMPRESSION: No acute intracranial abnormality is seen If patient's symptoms persist MRI of the brain would be recommended
[2024-02-26] MEDS ORDERED: ONDANSETRON 4 MG/2 ML VIAL ONE (08:27)
[2024-02-26] MEDS ORDERED: FLUORESCEIN SODIUM 1 MG/WRAP ONE (08:27)
[2024-02-26] MEDS ORDERED: METOCLOPRAMIDE 10 MG/2mL INJ ONE (08:27)
[2024-02-26] MEDS ORDERED: MORPHINE 4 MG/ML SYR ONE (08:28)
[2024-02-26] MEDS ORDERED: NA CHLORIDE 0.9% 1,000 ML ONE (08:28)
[2024-02-26] MEDS ORDERED: TETRACAINE HCL 0.5% 4ML OPTH ONE (08:28)
[2024-02-26 08:47] LABS: Urine Bilirubin NEGATIVE (Negative); Urine Blood Negative (Negative); Urine Clarity Clear (Clear); Urine Color Light-Yellow (Yellow); Urine Glucose 4+ (Over) (Negative); Urine Ketones 4+ (Over) (Negative); Urine Microscopic Reflex YN NO UMIC; Urine Nitrite NEGATIVE (Negative); Urine Protein NEGATIVE (Negative); Urine Urobilinogen Normal (Normal)
[2024-02-26 08:56] LABS: Specific Gravity ND (1.005-1.030)
[2024-02-26 09:55] LABS: Anion Gap 10.4 mEq/L (5.0-15.0); Potassium 3.4 mEq/L (3.5-5.1)
--- NOTE | 2024-02-26 09:59 | EDPHYS ---
Physician Documentation [facility] Name: Nadiya Pan Age: 28 yrs Sex: Female : 1995 Arrival Date: 02/26/2024 Time: 07:29 Bed 16 Private MD: ED Physician Ramriez Gonzalez HPI: 02/25 08:01 This 28 yrs old Female presents to ER via Ambulatory with complaints of rn Headache, Eye Pain. 08:01 The patient complains of pain to the top of head and forehead. The patient describes rn the headache as aching. Onset: The symptoms/episode began/occurred 1 week(s) ago. Associated signs and symptoms: Pertinent positives: nausea, Photophobia Pertinent negatives: altered mental status, fever, neck stiffness, rash, vision changes, vision loss, weakness, vertigo. Severity of symptoms: At its worst the pain was moderate, in the emergency department the pain is unchanged. The symptoms are alleviated by nothing. the symptoms are aggravated by lights. The patient has not experienced similar symptoms in the past. Patient reports headache that began 1 week ago, left-sided, feels pain behind left eye and radiates to top of head. Denies injury. No fever or chills. No neck stiffness. No focal neurological deficit. 3 days ago her left eye started to turn red and become painful. Denies injury to eye. Clear watery drainage from left eye.. Historical: - Allergies: 07:37 No Known Allergies; iw - Home Meds: 07:37 Insulin: Novolog Sub-Q [Active]; iw - PMHx: 07:37 diabetes mellitus; iw - Family history:: not pertinent. - Hospitalizations: : No recent hospitalization is reported. ROS: 08:01 Constitutional: Negative for fever, chills, and weight loss, Eyes: Positive for red and rn painful left eye Neck: Negative for injury, pain, and swelling, Cardiovascular: Negative for chest pain, palpitations, and edema, Respiratory: Negative for shortness of breath, cough, wheezing, and pleuritic chest pain, Abdomen/GI: Negative for abdominal pain, vomiting, diarrhea, and constipation, Back: Negative for injury and pain, MS/Extremity: Negative for injury and deformity, Skin: Negative for injury, rash, and discoloration, Neuro: Positive for headache, negative for focal weakness or numbness Exam: 08:01 Constitutional: This is a well developed, well nourished patient who is awake, alert, rn and in no acute distress. Ambulatory to triage without assistance Head/Face: Normocephalic, atraumatic. Eyes: Left conjunctival injection with clear watery drainage. Pupils equally round and reactive to light. No hyphema or hypopyon. Pain of left eye relieved with tetracaine drops. No fluorescein uptake. No dendritic lesions. No corneal abrasion or foreign body. Neck: Trachea midline, no masses palpated, and no cervical lymphadenopathy. Supple, full range of motion without nuchal rigidity, or vertebral point tenderness. No Meningismus. Cardiovascular: Tachycardic, regular. No pulse deficits. Respiratory: No increased work of breathing, no retractions or nasal flaring. Skin: Warm, dry, no rash MS/ Extremity: Pulses equal, no cyanosis. Neuro: Awake and alert, GCS 15, oriented to person, place, time, and situation. Cranial nerves II-XII grossly intact. Motor strength 5/5 in all extremities. Sensory grossly intact. Cerebellar exam normal. Normal gait. Vital Signs: 07:35 BP 124 / 91; Pulse 105; Resp 18; Pulse Ox 99% ; Weight 54.43 kg; Height 5 ft. 0 in. ; iw Pain 6/10; 07:35 Body Mass Index 23.44 (54.43 kg, 152.4 cm) iw 07:35 Pain Scale: Adult iw Jody Coma Score: 09:57 Eye Response: spontaneous(4). Motor Response: obeys commands(6). Verbal Response: rn oriented(5). Total: 15. MDM: 07:34 Patient medically screened. rn 09:57 Differential diagnosis: herpes zoster, intracerebral hemorrhage, migraine, neoplasm, rn sinusitis, tension headache, trigeminal neuralgia, vasomotor headache, Hyperglycemia, dehydration, DKA. Data reviewed: vital signs, nurses notes, lab test result(s), radiologic studies, and as a result, I will discharge patient. Counseling: I had a detailed discussion with the patient and/or guardian regarding the historical points, exam findings, and any diagnostic results supporting the discharge/admit diagnosis, lab results, radiology results, the need for outpatient follow up, to return to the emergency department if symptoms worsen or persist or if there are any questions or concerns that arise at home. Special discussion: I discussed with the patient/guardian in detail that at this point there is no indication for admission to the hospital. It is understood, however, that if the symptoms persist or worsen the patient needs to return immediately for re-evaluation. Based on the history and exam findings, there is no indication for further emergent testing or inpatient evaluation. I discussed with the patient/guardian the need to see the primary care provider for further evaluation of the symptoms. ED course: CT head negative for acute findings. Hyperglycemia present with dehydration but no elevation of anion gap. Given IV fluids with improvement of glucose and vital signs. Will discharge home with topical antibiotics for eye. I have personally reviewed all of the results, including but not limited to blood tests and imaging deemed necessary to safely discharge this patient at this time. All results given to and printed out for patient. I personally went over all the results with the patient and answered all questions. Patient will follow-up with PCP and or specialist as discussed. Return precautions given and understood.. 02/25 07:41 Order name: Urinalysis w/ reflexes; Complete Time: 09:23 rn 02/25 07:41 Order name: Test, Urine; Complete Time: 09:23 rn 02/25 08:22 Order name: Glucose, Ancillary Testing; Complete Time: 09:23 EDMS 02/25 09:23 Order name: BMP; Complete Time: 09:56 rn 02/25 07:40 Order name: CT Head Brain wo Cont; Complete Time: 08:20 rn 02/25 07:41 Order name: Glucose Level; Complete Time: 08:13 rn 02/25 07:41 Order name: IV Start; Complete Time: 08:13 rn Administered Medications: 08:15 Drug: Tetracaine Ophthalmic Drops 0.5 % 1 drops Ophthalmic once Route: Ophthalmic; bp Site: left eye; 08:15 Drug: Fluorescein Ophthalmic Strip 1 strip Ophthalmic once Route: Ophthalmic; Site: bp left eye; 08:36 Drug: morphine IVP or IV 4 mg IVP once over 4 mins Route: IVP; Infused Over: 4 mins; bp Site: right forearm; 08:36 Drug: Ondansetron IVP 4 mg IVP once; over 2 minutes Route: IVP; Site: right forearm; bp 08:36 Drug: metoCLOPramide IVP 10 mg IVP once; over 1 to 2 minutes Route: IVP; Site: right bp forearm; 08:36 Drug: NS 0.9% IV 1000 ml IV at 1000 ml once Route: IV; Rate: 1000 ml; Site: right bp forearm; Disposition Summary: 02/26/24 09:59 Discharge Ordered Notes: Location: Home rn Problem: new rn Symptoms: have improved rn Condition: Stable rn Diagnosis - Headache rn - Unspecified acute conjunctivitis, left eye rn Followup: rn - With: Private Physician - When: As needed - Reason: Recheck today's complaints, Re-evaluation by your physician Discharge Instructions: - Discharge Summary Sheet rn - General Headache Without Cause rn - Hyperglycemia rn Forms: - Medication Reconciliation Form rn - Antibiotic popcorn vendor - Prescription Opioid Use rn - Patient Portal Instructions rn - Leadership Thank You Letter rn - Work release form cp4 Prescriptions: - Vigamox 0.5 % Ophthalmic Drops - instill 1 drop OPHTHALMIC route every 8 hours for 7 days; 5 milliliter; rn Refills: 0, Product Selection Permitted Signatures: Dispatcher [employer] EDRajani Warren RN RN iw Nieto, Roman, MD MD rn Peltier, Brian, RN RN bp Corrections: (The following items were deleted from the chart) 07:40 07:40 Head Brain Wo Cont+CT.RAD.BRZ ordered. EDGA EDMS 08:34 08:01 Constitutional: This is a well developed, well nourished patient who is awake, rn alert, and in no acute distress. Ambulatory to triage without assistance Head/Face: Normocephalic, atraumatic. Eyes: Left conjunctival injection with clear watery drainage. Pupils equally round and reactive to light. No hyphema or hypopyon Neck: Trachea midline, no masses palpated, and no cervical lymphadenopathy. Supple, full range of motion without nuchal rigidity, or vertebral point tenderness. No Meningismus. Cardiovascular: Tachycardic, regular. No pulse deficits. Respiratory: No increased work of breathing, no retractions or nasal flaring. Skin: Warm, dry, no rash MS/ Extremity: Pulses equal, no cyanosis. Neuro: Awake and alert, GCS 15, oriented to person, place, time, and situation. Cranial nerves II-XII grossly intact. Motor strength 5/5 in all extremities. Sensory grossly intact. Cerebellar exam normal. Normal gait. rn
--- NOTE | 2024-02-26 09:59 | ER ---
Nurse's Notes [facility] Name: Nadiya Pan Age: 28 yrs Sex: Female : 1995 Arrival Date: 02/26/2024 Time: 07:29 Bed 16 Private MD: Diagnosis: Headache;Unspecified acute conjunctivitis, left eye Presentation: 02/25 07:35 Chief complaint: Patient states: having headaches since last week, now it has turned iw into a migraine , my left eye started hurting yesterday. Coronavirus screen: At this time, the client does not indicate any symptoms associated with coronavirus-19. Ebola Screen: Patient negative for fever greater than or equal to 101.5 degrees Fahrenheit, and additional compatible Ebola Virus Disease symptoms Patient denies exposure to infectious person. Patient denies travel to an Ebola-affected area in the 21 days before illness onset. No symptoms or risks identified at this time. Initial Sepsis Screen: Does the patient meet any 2 criteria? No. Patient's initial sepsis screen is negative. Does the patient have a suspected source of infection? No. Patient's initial sepsis screen is negative. Risk Assessment: Do you want to hurt yourself or someone else? Patient reports no desire to harm self or others. Onset of symptoms was February 19, 2024. 07:35 Acuity: HELLEN 3 iw 07:35 Method Of Arrival: Ambulatory Historical: - Allergies: 07:37 No Known Allergies; iw - Home Meds: 07:37 Insulin: Novolog Sub-Q [Active]; iw - PMHx: 07:37 diabetes mellitus; iw - Family history:: not pertinent. - Hospitalizations: : No recent hospitalization is reported. Vital Signs: 07:35 BP 124 / 91; Pulse 105; Resp 18; Pulse Ox 99% ; Weight 54.43 kg; Height 5 ft. 0 in. ; iw Pain 6/10; 07:35 Body Mass Index 23.44 (54.43 kg, 152.4 cm) iw 07:35 Pain Scale: Adult iw Jody Coma Score: 09:57 Eye Response: spontaneous(4). Motor Response: obeys commands(6). Verbal Response: rn oriented(5). Total: 15. ED Course: 07:33 Patient arrived in ED. im 07:34 Ramirez Gonzalez MD is Attending Physician. rn 07:36 Triage completed. iw 07:37 Arm band placed on. iw 07:50 CT Head Brain wo Cont In Process Unspecified. EDMS 08:01 Jordy Recio, RN is Primary Nurse. bp 08:13 Urine collected: clean catch specimen, clear. Inserted saline lock: 22 gauge in right em1 antecubital area, using aseptic technique. 08:14 Test, Urine Sent. em1 08:14 Urinalysis w/ reflexes Sent. em1 10:14 intact, bleeding controlled, No redness/swelling at site. Pressure dressing applied. cp4 Administered Medications: 08:15 Drug: Tetracaine Ophthalmic Drops 0.5 % 1 drops Ophthalmic once Route: Ophthalmic; bp Site: left eye; 08:15 Drug: Fluorescein Ophthalmic Strip 1 strip Ophthalmic once Route: Ophthalmic; Site: bp left eye; 08:36 Drug: morphine IVP or IV 4 mg IVP once over 4 mins Route: IVP; Infused Over: 4 mins; bp Site: right forearm; 08:36 Drug: Ondansetron IVP 4 mg IVP once; over 2 minutes Route: IVP; Site: right forearm; bp 08:36 Drug: metoCLOPramide IVP 10 mg IVP once; over 1 to 2 minutes Route: IVP; Site: right bp forearm; 08:36 Drug: NS 0.9% IV 1000 ml IV at 1000 ml once Route: IV; Rate: 1000 ml; Site: right bp forearm; Outcome: 09:59 Discharge ordered by MD. rn 10:14 Discharged to home ambulatory, cp4 10:14 Condition: stable 10:14 Discharge instructions given to patient, Instructed on discharge instructions, follow up and referral plans. medication usage, Demonstrated understanding of instructions, follow-up care, medications, Prescriptions given X 1, 10:14 Patient left the ED. cp4 Signatures: Dispatcher [employer] [facility] Rajani Crabtree RN RN iw Ramirez Gonzalez MD MD rn Martinez, Eric em1 Jordy Recio, RENETTA JACKSON Fiona Boothe Christina cp4
[2024-02-26 18:59] VITALS: BP 124/91; O2SAT 99
== END 2024-02-26 10:14 | disposition home or self-care (01) ==
LOC: ER 07:29
DX: R51.9 Headache, unspecified (principal); H10.32 Unspecified acute conjunctivitis, left eye; E11.9 Type 2 diabetes mellitus without complications; Z79.4 Long term (current) use of insulin
CPT/HCPCS: 80048; 36415; 81025; 82947; 81003; 70450; 96375; 96374; 99284; J2765; J2405; J7030